=== PATIENT | female | born 1940 | race Caucasian/White ===

== ENCOUNTER 2022-05-23 15:59 | Emergency (ER) | payer OTHER, MEDICAID, SELFPAY ==
[2022-05-23] MEDS: LIDOCAINE 1 % PF 30 ML 6 ML INJECTION (16:35)
--- NOTE | 2022-05-23 17:30 | ED.NURSE ---
wound was irrigated with 1000 ml of sterile saline. tolerated well.
[2022-05-23] MEDS: TETANUS/DIPHTH/PERTUSSIS 0.5 ML SYRINGE IM (19:16)
--- NOTE | 2022-05-23 19:25 | ED.NURSE ---
wound was dressed with bacitracin, telfa, kerlix and coban. dc instructions given to ramandeep weaver. returned to ltc .
--- NOTE | 2022-05-23 20:46 | ED_ITS ---
HPI - General Adult General Date Seen: 05/23/22 Chief complaint: Laceration/Wound Stated complaint: Rt Calf Laceration Time Seen by Provider: 05/23/22 16:09 Source: family History of Present Illness HPI narrative: Patient is an 82-year-old woman who is the resident of long-term care. She is extremely hard of hearing, does not really provide much history. Her daughter says that she is on prednisone and as a result has very fragile skin. They apparently were trying to move her today and grabbed her leg to try and shift it, in the process the skin on her leg tore and she sustained a laceration. Last tetanus in 2010. No other injuries or complaints. Related Data Allergies Allergy/AdvReac Type Severity Reaction Status Date / Time Cephalosporins Allergy Intermediate edema Verified 11/28/21 22:07 penicillin V Allergy Intermediate rash Verified 11/28/21 22:07 loratadine Allergy Mild Rash Verified 11/28/21 22:07 amoxicillin Allergy Unknown Verified 11/28/21 22:07 cephalexin Allergy Unknown Verified 11/28/21 22:07 clindamycin Allergy Unknown Verified 11/28/21 22:07 cyclobenzaprine Allergy Unknown Verified 11/28/21 22:07 cyclosporine Allergy Unknown Verified 11/28/21 22:07 glyburide Allergy Unknown Verified 11/28/21 22:07 lisinopril Allergy Unknown Verified 11/28/21 22:07 Sulfa (Sulfonamide Allergy Unknown Verified 11/28/21 22:07 Antibiotics) Review of Systems Status of ROS: Reports: unobtainable due to medical condition (Hard of hearing) PFSH PFS Social History Smoking Status: Never smoker Do you use any of these nicotine containing products: None Second hand tobacco smoke exposure: No How often do you have a drink containing alcohol: never How often do you have six or more drinks on one occasion: Never AUDIT-C Alcohol total score: 0 Non-prescribed substance use: denies use service: No Exam Narrative: Exam Narrative: Vital signs reviewed In general, an alert woman. Very difficult to communicate secondary to her hearing loss. Extremities: She has significant edema in both lower extremities, some venous stasis changes. On the right, she has a greater than 10 cm laceration on the lower leg. This extends through the dermis into the fat, but does not involve the muscle. There is a small arterial bleeder which is controlled by pressure. Distal CMS is intact. Skin: Warm dry, well perfused. Neurologic: She is alert, answers questions appropriately. Moves all extremities. Const: Documenting provider has reviewed patient's vital signs: yes Course Course Hospital Course: Tetanus was updated. Procedure note: Wound was anesthetized using lidocaine. We did not have any lidocaine with epinephrine available. The wound was irrigated with 1000 mL of normal saline. No evidence of foreign body. I did have to tie off that is arterial bleeder with 4-0 Vicryl before proceeding. Because the skin was very thin and fragile, I elected to use horizontal mattress sutures. I ultimately placed 15 horizontal mattress sutures to approximate the wound edges. She tolerated this well without immediate complication. A dressing was applied including bacitracin, nonadherent dressing, and several layers of Kerlix as well as Coban. She does have significant weeping of serous fluid from this, secondary to her edema. I anticipate that this will continue to weep quite a bit of fluid. I have recommended b.i.d. dressing changes for that reason. Have discussed with the patient and her daughter that I anticipate this will be somewhat slow to heal. I have recommended suture removal at 10 days, but this may need to be delayed depending on how this is healing. For any signs of infection, increasing redness, swelling, purulent drainage she should be seen again. Discharge Plan Discharge Clinical Impression: Laceration of right lower leg Patient Disposition: [facility] Condition: Improved Instructions: Laceration (ED) Additional Instructions: Suture removal in about 10 days. Return for signs of infection. Elevate leg as much as possible. Dressing changes once or twice daily, depending on how much drainage there is. I expect that because of her edema there will be a fair amount of serous drainage. If purulent drainage, increasing redness, pain, swelling develops,you should be seen again for recheck. Stand Alone Forms: MyHealth Info Instructions
== END 2022-05-23 19:35 ==
PROVIDERS: Emergency Provider Emergency Medicine; PCP Family Medicine
DX: S81.811A Laceration without foreign body, right lower leg, initial encounter (principal)
CPT/HCPCS: 12004; 90471; 90715; 99283; 99284; J2001

== ENCOUNTER → 2022-12-18 11:30 | Inpatient (IN) | payer MEDICAID, OTHER, SELFPAY ==
[2021-11-27] MEDS: LOPERAMIDE HCL 2 MG CAPSULE PO ×2 (08:52→17:17)
[2021-11-27] MEDS: MAGNESIUM OXIDE 400 MG TABLET PO (08:52)
[2021-11-27] MEDS: FUROSEMIDE 20 MG TABLET PO ×2 (08:52→17:18)
[2021-11-27] MEDS: METFORMIN ER 500 MG 1000 MG PO ×2 (08:52→17:18)
[2021-11-27] MEDS: CETIRIZINE HCL 10 MG TABLET PO (08:53)
[2021-11-27] MEDS: predniSONE 1 MG TABLET PO (08:53)
[2021-11-27] MEDS: predniSONE 5 MG TABLET PO (08:53)
[2021-11-27] MEDS: POTASSIUM CHLORIDE 10 MEQ CAPSULE ER 20 MEQ PO (17:18)
[2021-11-27] MEDS: LACTOBACILLUS ACIDOPHILUS 1 TABLET 1 TAB PO ×2 (17:19)
[2021-11-28 08:00] VITALS: TEMP 36.1; O2SAT 98
[2021-11-28] MEDS: FUROSEMIDE 20 MG TABLET PO ×2 (08:55→16:53)
[2021-11-28] MEDS: MAGNESIUM OXIDE 400 MG TABLET PO (08:55)
[2021-11-28] MEDS: METFORMIN ER 500 MG 1000 MG PO ×2 (08:55→17:01)
[2021-11-28] MEDS: LOPERAMIDE HCL 2 MG CAPSULE PO ×2 (08:55→16:53)
[2021-11-28] MEDS: predniSONE 5 MG TABLET PO (08:56)
[2021-11-28] MEDS: CETIRIZINE HCL 10 MG TABLET PO (08:56)
[2021-11-28] MEDS: predniSONE 1 MG TABLET PO (08:56)
[2021-11-28] MEDS: LACTOBACILLUS ACIDOPHILUS 1 TABLET 1 TAB PO ×2 (11:59→17:01)
[2021-11-28] MEDS: POTASSIUM CHLORIDE 10 MEQ CAPSULE ER PO (16:53)
[2021-11-29 08:00] VITALS: TEMP 36.1; O2SAT 99
[2021-11-29] MEDS: FUROSEMIDE 20 MG TABLET PO ×2 (08:49→18:39)
[2021-11-29] MEDS: predniSONE 5 MG TABLET PO (08:49)
[2021-11-29] MEDS: CETIRIZINE HCL 10 MG TABLET PO (08:49)
[2021-11-29] MEDS: LOPERAMIDE HCL 2 MG CAPSULE PO ×2 (08:49→17:01)
[2021-11-29] MEDS: MAGNESIUM OXIDE 400 MG TABLET PO (08:49)
[2021-11-29] MEDS: METFORMIN ER 500 MG 1000 MG PO ×2 (08:49→17:01)
[2021-11-29] MEDS: predniSONE 1 MG TABLET PO (08:49)
[2021-11-29 09:34] LABS: Blood Urea Nitrogen* 29 mg/dL (7-30); Calcium* 7.9 mg/dL (8.4-10.6); Carbon Dioxide* 31 mmol/L (20-32); Chloride* 98 mmol/L (96-114); Creatinine* 1.1 mg/dL (0.5-1.5); Est. Creatinine Clearance* 32.26; Glucose* 170 mg/dL (60-115); Potassium* 3.7 mmol/L (3.6-5.1); Sodium* 136 mmol/L (135-149)
--- NOTE | 2021-11-29 10:37 | PC.PHA ---
Pharmacy Review ~ Patient needed Cipro 250 mg BID for cellulitis and has multiple allergies to other antibiotics. Creatinine on 11/29, 1.1 with crcl still above 30 as patient taking metformin 1000 mg qd. No scheduled pain meds currently, prn norco still not required since July. Furosemide 20 mg bid, recent potassium level 3.7.
[2021-11-29] MEDS: LACTOBACILLUS ACIDOPHILUS 1 TABLET 1 TAB PO ×2 (12:25→17:01)
--- NOTE | 2021-11-29 13:23 | PC.NURSE ---
Order: SANDY, Yudy here. BMP result reviewed. Lasix 20 mg BID X 14 days.
[2021-11-29] MEDS: POTASSIUM CHLORIDE 10 MEQ CAPSULE ER 20 MEQ PO (17:01)
[2021-11-30 08:00] VITALS: TEMP 36.6; O2SAT 96
[2021-11-30] MEDS: CETIRIZINE HCL 10 MG TABLET PO (08:48)
[2021-11-30] MEDS: predniSONE 5 MG TABLET PO (08:49)
[2021-11-30] MEDS: predniSONE 1 MG TABLET PO (08:49)
[2021-11-30] MEDS: LOPERAMIDE HCL 2 MG CAPSULE PO ×2 (08:49→16:51)
[2021-11-30] MEDS: MAGNESIUM OXIDE 400 MG TABLET PO (08:49)
[2021-11-30] MEDS: METFORMIN ER 500 MG 1000 MG PO ×2 (08:49→16:52)
[2021-11-30] MEDS: FUROSEMIDE 20 MG TABLET PO ×2 (08:49→16:51)
[2021-11-30] MEDS: LACTOBACILLUS ACIDOPHILUS 1 TABLET 1 TAB PO ×2 (12:01→16:52)
--- NOTE | 2021-11-30 12:23 | PC.NURSE ---
Recertification Visit: Resident seen by Dr. Ramsey. Orders reviewed and renewed of 75 days with changes. Order:D/C future A1C, On January 04, 2022 check A1C, BMP, Cystatin C. Clobetasol Cream 0.05%, apply to bilateral LE BID X 14 days. Please help arrangeaudiology appt. to assess for hearing aids.
[2021-11-30] MEDS: POTASSIUM CHLORIDE 10 MEQ CAPSULE ER PO (16:51)
[2021-12-01 08:00] VITALS: TEMP 36.6; O2SAT 98
[2021-12-01] MEDS: MAGNESIUM OXIDE 400 MG TABLET PO (08:33)
[2021-12-01] MEDS: METFORMIN ER 500 MG 1000 MG PO ×2 (08:33→16:54)
[2021-12-01] MEDS: LOPERAMIDE HCL 2 MG CAPSULE PO ×2 (08:33→16:54)
[2021-12-01] MEDS: FUROSEMIDE 20 MG TABLET PO ×2 (08:33→16:49)
[2021-12-01] MEDS: CETIRIZINE HCL 10 MG TABLET PO (08:34)
[2021-12-01] MEDS: predniSONE 5 MG TABLET PO (08:34)
[2021-12-01] MEDS: predniSONE 1 MG TABLET PO (08:34)
[2021-12-01] MEDS: LACTOBACILLUS ACIDOPHILUS 1 TABLET 1 TAB PO ×2 (12:06→16:54)
[2021-12-01] MEDS: POTASSIUM CHLORIDE 10 MEQ CAPSULE ER 20 MEQ PO (16:54)
[2021-12-02] MEDS: MAGNESIUM OXIDE 400 MG TABLET PO (07:23)
[2021-12-02] MEDS: FUROSEMIDE 20 MG TABLET PO ×2 (07:23→16:06)
[2021-12-02] MEDS: LOPERAMIDE HCL 2 MG CAPSULE PO ×2 (07:23→16:06)
[2021-12-02 08:00] VITALS: TEMP 36.6; O2SAT 98
[2021-12-02] MEDS: METFORMIN ER 500 MG 1000 MG PO ×2 (08:36→16:08)
[2021-12-02] MEDS: predniSONE 5 MG TABLET PO (08:37)
[2021-12-02] MEDS: predniSONE 1 MG TABLET PO (08:37)
[2021-12-02] MEDS: CETIRIZINE HCL 10 MG TABLET PO (08:37)
[2021-12-02] MEDS: LACTOBACILLUS ACIDOPHILUS 1 TABLET 1 TAB PO ×2 (12:19→16:08)
[2021-12-02] MEDS: POTASSIUM CHLORIDE 10 MEQ CAPSULE ER PO (16:07)
--- NOTE | 2021-12-03 01:22 | PC.NURSE ---
Week #1---care plan problems #1-19 reviewed. No changes made. Nothing added to temporary care plan. Has a cup of ice water at bedside that is filled at the beginning of this shift. Res. drinks per self. Has been asking for a snack around 2300. Has a refrigerator in her room that she keeps snacks in. Refrig. temp checked q noc. Pain---no recent c/o's pain at noc. Does have the following orders available if she does: Ambia 5-325mg q6h prn and Biofreeze q4h prn.
[2021-12-03 08:00] VITALS: TEMP 36.4; O2SAT 9
[2021-12-03] MEDS: METFORMIN ER 500 MG 1000 MG PO ×2 (08:52→17:03)
[2021-12-03] MEDS: CETIRIZINE HCL 10 MG TABLET PO (08:52)
[2021-12-03] MEDS: predniSONE 1 MG TABLET PO (08:52)
[2021-12-03] MEDS: predniSONE 5 MG TABLET PO (08:52)
[2021-12-03] MEDS: MAGNESIUM OXIDE 400 MG TABLET PO (08:52)
[2021-12-03] MEDS: LOPERAMIDE HCL 2 MG CAPSULE PO ×2 (08:52→17:03)
[2021-12-03] MEDS: FUROSEMIDE 20 MG TABLET PO ×2 (08:52→17:02)
[2021-12-03] MEDS: LACTOBACILLUS ACIDOPHILUS 1 TABLET 1 TAB PO ×2 (11:54→17:03)
[2021-12-03] MEDS: POTASSIUM CHLORIDE 10 MEQ CAPSULE ER PO (17:03)
[2021-12-04] MEDS: METFORMIN ER 500 MG 1000 MG PO ×2 (08:57→17:11)
[2021-12-04] MEDS: MAGNESIUM OXIDE 400 MG TABLET PO (08:57)
[2021-12-04] MEDS: LOPERAMIDE HCL 2 MG CAPSULE PO ×2 (08:57→17:11)
[2021-12-04] MEDS: FUROSEMIDE 20 MG TABLET PO ×2 (08:57→17:10)
[2021-12-04] MEDS: CETIRIZINE HCL 10 MG TABLET PO (08:58)
[2021-12-04] MEDS: predniSONE 1 MG TABLET PO (08:58)
[2021-12-04] MEDS: predniSONE 5 MG TABLET PO (08:58)
[2021-12-04] MEDS: LACTOBACILLUS ACIDOPHILUS 1 TABLET 1 TAB PO ×2 (11:50→17:15)
[2021-12-04] MEDS: POTASSIUM CHLORIDE 10 MEQ CAPSULE ER 20 MEQ PO (17:11)
[2021-12-05] MEDS: CETIRIZINE HCL 10 MG TABLET PO (08:50)
[2021-12-05] MEDS: predniSONE 5 MG TABLET PO (08:50)
[2021-12-05] MEDS: LOPERAMIDE HCL 2 MG CAPSULE PO ×2 (08:50→16:01)
[2021-12-05] MEDS: predniSONE 1 MG TABLET PO (08:50)
[2021-12-05] MEDS: MAGNESIUM OXIDE 400 MG TABLET PO (08:50)
[2021-12-05] MEDS: METFORMIN ER 500 MG 1000 MG PO ×2 (08:50→17:18)
[2021-12-05] MEDS: FUROSEMIDE 20 MG TABLET PO ×2 (08:50→16:01)
[2021-12-05 10:21] VITALS: TEMP 36.1; O2SAT 97
[2021-12-05] MEDS: LACTOBACILLUS ACIDOPHILUS 1 TABLET 1 TAB PO ×2 (12:14→17:18)
[2021-12-05] MEDS: POTASSIUM CHLORIDE 10 MEQ CAPSULE ER PO (16:01)
[2021-12-06] MEDS: LOPERAMIDE HCL 2 MG CAPSULE PO (08:53)
[2021-12-06] MEDS: FUROSEMIDE 20 MG TABLET PO ×2 (08:53→16:56)
[2021-12-06] MEDS: METFORMIN ER 500 MG 1000 MG PO ×2 (08:53→17:04)
[2021-12-06] MEDS: predniSONE 5 MG TABLET PO (08:53)
[2021-12-06] MEDS: MAGNESIUM OXIDE 400 MG TABLET PO (08:53)
[2021-12-06] MEDS: CETIRIZINE HCL 10 MG TABLET PO (08:54)
[2021-12-06] MEDS: predniSONE 1 MG TABLET PO (08:54)
[2021-12-06 10:24] VITALS: TEMP 36.4; O2SAT 97
[2021-12-06] MEDS: LACTOBACILLUS ACIDOPHILUS 1 TABLET 1 TAB PO ×2 (13:18→17:04)
[2021-12-06] MEDS: POTASSIUM CHLORIDE 10 MEQ CAPSULE ER 20 MEQ PO (16:56)
[2021-12-07] MEDS: FUROSEMIDE 20 MG TABLET PO ×2 (08:41→17:31)
[2021-12-07] MEDS: LOPERAMIDE HCL 2 MG CAPSULE PO ×2 (08:41→17:31)
[2021-12-07] MEDS: METFORMIN ER 500 MG 1000 MG PO ×2 (08:41→17:32)
[2021-12-07] MEDS: predniSONE 5 MG TABLET PO (08:41)
[2021-12-07] MEDS: MAGNESIUM OXIDE 400 MG TABLET PO (08:41)
[2021-12-07] MEDS: predniSONE 1 MG TABLET PO (08:42)
[2021-12-07] MEDS: CETIRIZINE HCL 10 MG TABLET PO (08:42)
[2021-12-07] MEDS: LACTOBACILLUS ACIDOPHILUS 1 TABLET 1 TAB PO ×2 (11:47→17:32)
[2021-12-07] MEDS: POTASSIUM CHLORIDE 10 MEQ CAPSULE ER PO (17:32)
[2021-12-08 08:00] VITALS: TEMP 36.7; O2SAT 97
[2021-12-08] MEDS: LOPERAMIDE HCL 2 MG CAPSULE PO ×2 (08:24→15:32)
[2021-12-08] MEDS: FUROSEMIDE 20 MG TABLET PO ×2 (08:24→15:32)
[2021-12-08] MEDS: METFORMIN ER 500 MG 1000 MG PO ×2 (08:24→17:06)
[2021-12-08] MEDS: MAGNESIUM OXIDE 400 MG TABLET PO (08:24)
[2021-12-08] MEDS: predniSONE 5 MG TABLET PO (08:25)
[2021-12-08] MEDS: predniSONE 1 MG TABLET PO (08:25)
[2021-12-08] MEDS: CETIRIZINE HCL 10 MG TABLET PO (08:25)
[2021-12-08] MEDS: LACTOBACILLUS ACIDOPHILUS 1 TABLET 1 TAB PO ×2 (11:58→17:06)
[2021-12-08] MEDS: POTASSIUM CHLORIDE 10 MEQ CAPSULE ER 20 MEQ PO (17:06)
[2021-12-09 08:00] VITALS: TEMP 36.7; O2SAT 99
[2021-12-09] MEDS: FUROSEMIDE 20 MG TABLET PO ×2 (08:34→16:40)
[2021-12-09] MEDS: predniSONE 1 MG TABLET PO (08:34)
[2021-12-09] MEDS: METFORMIN ER 500 MG 1000 MG PO ×2 (08:34→17:11)
[2021-12-09] MEDS: MAGNESIUM OXIDE 400 MG TABLET PO (08:34)
[2021-12-09] MEDS: predniSONE 5 MG TABLET PO (08:34)
[2021-12-09] MEDS: CETIRIZINE HCL 10 MG TABLET PO (08:34)
[2021-12-09] MEDS: LOPERAMIDE HCL 2 MG CAPSULE PO ×2 (08:34→16:40)
[2021-12-09] MEDS: LACTOBACILLUS ACIDOPHILUS 1 TABLET 1 TAB PO ×2 (12:10→17:11)
[2021-12-09] MEDS: POTASSIUM CHLORIDE 10 MEQ CAPSULE ER PO (16:41)
--- NOTE | 2021-12-10 00:43 | PC.NURSE ---
Week #2---care plan problems #20-29 reviewed. No changes made. Nothing added to temporary care plan. Does not get out of bed at noc. Refuses to lie on either side. Is turned briefly to get on and off the bedpan at least x 1 this shift. Assist of 2 staff to turn. Moved up in bed with EZ positioner. Top siderails up. Falls---no falls this past month. Is a low fall risk according to assessment done on 09/27/21.
[2021-12-10] MEDS: LOPERAMIDE HCL 2 MG CAPSULE PO ×2 (08:26→16:31)
[2021-12-10] MEDS: MAGNESIUM OXIDE 400 MG TABLET PO (08:26)
[2021-12-10] MEDS: FUROSEMIDE 20 MG TABLET PO ×2 (08:26→16:30)
[2021-12-10] MEDS: predniSONE 5 MG TABLET PO (08:27)
[2021-12-10] MEDS: METFORMIN ER 500 MG 1000 MG PO ×2 (08:27→17:37)
[2021-12-10] MEDS: predniSONE 1 MG TABLET PO (08:27)
[2021-12-10] MEDS: CETIRIZINE HCL 10 MG TABLET PO (08:28)
--- NOTE | 2021-12-10 10:37 | PC.NURSE ---
Weekly Week #2: Vital signs reviewed with no issues Resident is not a fall risk Temporary care plan reviewed with no issues Care plan #20-29 reviewed with no changes Resident is total assist of 2 with bed mobility, bed positioning
[2021-12-10 10:43] VITALS: BP 168/76; PULSE 86; RESP 16; TEMP 36.1; O2SAT 86; O2SAT 95
[2021-12-10] MEDS: LACTOBACILLUS ACIDOPHILUS 1 TABLET 1 TAB PO ×2 (11:55→17:37)
[2021-12-10] MEDS: POTASSIUM CHLORIDE 10 MEQ CAPSULE ER PO (16:31)
[2021-12-11] MEDS: FUROSEMIDE 20 MG TABLET PO ×2 (08:45→16:57)
[2021-12-11] MEDS: LOPERAMIDE HCL 2 MG CAPSULE PO ×2 (08:45→16:57)
[2021-12-11] MEDS: predniSONE 5 MG TABLET PO (08:45)
[2021-12-11] MEDS: MAGNESIUM OXIDE 400 MG TABLET PO (08:45)
[2021-12-11] MEDS: METFORMIN ER 500 MG 1000 MG PO ×2 (08:45→17:02)
[2021-12-11] MEDS: predniSONE 1 MG TABLET PO (08:46)
[2021-12-11] MEDS: CETIRIZINE HCL 10 MG TABLET PO (08:46)
[2021-12-11 10:22] VITALS: TEMP 36.4; O2SAT 93
[2021-12-11] MEDS: LACTOBACILLUS ACIDOPHILUS 1 TABLET 1 TAB PO ×2 (12:00→17:02)
--- NOTE | 2021-12-11 14:01 | PC.NURSE ---
Status: Resident refused weight taken, according to her weight was taken 2 weeks ago. Approached 2 different times.
[2021-12-11] MEDS: POTASSIUM CHLORIDE 10 MEQ CAPSULE ER 20 MEQ PO (16:57)
[2021-12-11 21:43] VITALS: TEMP 36.3; O2SAT 97
[2021-12-11 23:00] VITALS: TEMP 36.2; O2SAT 95
[2021-12-12] MEDS: METFORMIN ER 500 MG 1000 MG PO ×2 (08:44→17:01)
[2021-12-12] MEDS: MAGNESIUM OXIDE 400 MG TABLET PO (08:44)
[2021-12-12] MEDS: FUROSEMIDE 20 MG TABLET PO ×2 (08:44→16:59)
[2021-12-12] MEDS: LOPERAMIDE HCL 2 MG CAPSULE PO ×2 (08:44→17:00)
[2021-12-12] MEDS: CETIRIZINE HCL 10 MG TABLET PO (08:45)
[2021-12-12] MEDS: predniSONE 5 MG TABLET PO (08:45)
[2021-12-12] MEDS: predniSONE 1 MG TABLET PO (08:45)
[2021-12-12 09:50] VITALS: TEMP 36.1; O2SAT 95
[2021-12-12] MEDS: LACTOBACILLUS ACIDOPHILUS 1 TABLET 1 TAB PO ×2 (11:57→17:01)
--- NOTE | 2021-12-12 15:28 | PC.NURSE ---
SKIN/HIP: Area R hip is healed with small amount of pink tissue, appears to be from a fold on the incontinence brief pressing on the area. Dressing change intervention completed.
[2021-12-12] MEDS: POTASSIUM CHLORIDE 10 MEQ CAPSULE ER PO (17:00)
[2021-12-12 21:44] VITALS: TEMP 36.6; O2SAT 97
[2021-12-13 00:22] VITALS: TEMP 37.3; O2SAT 95
[2021-12-13 07:00] VITALS: TEMP 36.6; O2SAT 96
[2021-12-13] MEDS: LOPERAMIDE HCL 2 MG CAPSULE PO ×2 (08:22→19:04)
[2021-12-13] MEDS: METFORMIN ER 500 MG 1000 MG PO ×2 (08:22→19:06)
[2021-12-13] MEDS: MAGNESIUM OXIDE 400 MG TABLET PO (08:22)
[2021-12-13] MEDS: FUROSEMIDE 20 MG TABLET PO (08:22)
[2021-12-13] MEDS: predniSONE 1 MG TABLET PO (08:23)
[2021-12-13] MEDS: predniSONE 5 MG TABLET PO (08:23)
[2021-12-13] MEDS: CETIRIZINE HCL 10 MG TABLET PO (08:23)
[2021-12-13] MEDS: LACTOBACILLUS ACIDOPHILUS 1 TABLET 1 TAB PO ×2 (11:48→19:06)
[2021-12-13 16:39] VITALS: TEMP 36.6; O2SAT 95
[2021-12-13] MEDS: POTASSIUM CHLORIDE 10 MEQ CAPSULE ER 20 MEQ PO (19:04)
[2021-12-13 23:00] VITALS: TEMP 36.3; O2SAT 94
[2021-12-14 07:00] VITALS: TEMP 36.6; O2SAT 100
[2021-12-14] MEDS: predniSONE 5 MG TABLET PO (08:35)
[2021-12-14] MEDS: CETIRIZINE HCL 10 MG TABLET PO (08:35)
[2021-12-14] MEDS: MAGNESIUM OXIDE 400 MG TABLET PO (08:35)
[2021-12-14] MEDS: METFORMIN ER 500 MG 1000 MG PO ×2 (08:35→17:01)
[2021-12-14] MEDS: predniSONE 1 MG TABLET PO (08:35)
[2021-12-14] MEDS: LOPERAMIDE HCL 2 MG CAPSULE PO ×2 (08:35→17:01)
[2021-12-14] MEDS: LACTOBACILLUS ACIDOPHILUS 1 TABLET 1 TAB PO ×2 (12:17→17:01)
[2021-12-14] MEDS: POTASSIUM CHLORIDE 10 MEQ CAPSULE ER PO (17:01)
[2021-12-14 17:25] VITALS: TEMP 36.3; O2SAT 95
[2021-12-14 23:00] VITALS: TEMP 36.3; O2SAT 94
[2021-12-15 07:00] VITALS: TEMP 36.6; O2SAT 96
[2021-12-15] MEDS: LOPERAMIDE HCL 2 MG CAPSULE PO ×2 (08:45→16:49)
[2021-12-15] MEDS: MAGNESIUM OXIDE 400 MG TABLET PO (08:45)
[2021-12-15] MEDS: METFORMIN ER 500 MG 1000 MG PO ×2 (08:45→16:49)
[2021-12-15] MEDS: CETIRIZINE HCL 10 MG TABLET PO (08:46)
[2021-12-15] MEDS: predniSONE 5 MG TABLET PO (08:46)
[2021-12-15] MEDS: predniSONE 1 MG TABLET PO (08:46)
[2021-12-15] MEDS: LACTOBACILLUS ACIDOPHILUS 1 TABLET 1 TAB PO ×2 (11:45→16:50)
[2021-12-15] MEDS: POTASSIUM CHLORIDE 10 MEQ CAPSULE ER 20 MEQ PO (16:49)
[2021-12-15 17:04] VITALS: TEMP 36.4; O2SAT 94
--- NOTE | 2021-12-15 20:07 | PC.NURSE ---
Edema: 2+ edema noted in L foot, compression stockings on. Resident continues to refuse to elevate RUE.
[2021-12-15 23:59] VITALS: TEMP 36.1; O2SAT 94
[2021-12-16 07:00] VITALS: TEMP 36.6; O2SAT 96
[2021-12-16] MEDS: LOPERAMIDE HCL 2 MG CAPSULE PO ×2 (08:14→18:12)
[2021-12-16] MEDS: METFORMIN ER 500 MG 1000 MG PO ×2 (08:15→18:12)
[2021-12-16] MEDS: MAGNESIUM OXIDE 400 MG TABLET PO (08:15)
[2021-12-16] MEDS: predniSONE 5 MG TABLET PO (08:16)
[2021-12-16] MEDS: predniSONE 1 MG TABLET PO (08:17)
[2021-12-16] MEDS: CETIRIZINE HCL 10 MG TABLET PO (08:17)
[2021-12-16] MEDS: LACTOBACILLUS ACIDOPHILUS 1 TABLET 1 TAB PO ×2 (11:42→18:12)
[2021-12-16] MEDS: NYSTATIN POWDER 1 APPLIC TOPICAL (12:36)
[2021-12-16 16:52] VITALS: TEMP 36.6; O2SAT 98
[2021-12-16] MEDS: POTASSIUM CHLORIDE 10 MEQ CAPSULE ER PO (18:12)
[2021-12-16 23:00] VITALS: TEMP 36.3; O2SAT 96
--- NOTE | 2021-12-17 02:47 | PC.NURSE ---
Week #3---care plan problems #30-39 reviewed. No changes made. Nothing added to temporary care plan. Will call for assist with the bedpan at [facility]. Assist of [address] her on the bedpan. Is freq. already wet but also voids on the bedpan. Freq. has a BM at [facility]. Stool tends to be loose. Res. wears an xxlg brief which is managed by staff. All pericare done by staff. Skin---At this time receives lotion to inner thighs and then a towel is placed BID. Also receives Vanicream to LLE BID.
[2021-12-17] MEDS: MAGNESIUM OXIDE 400 MG TABLET PO (09:05)
[2021-12-17] MEDS: LOPERAMIDE HCL 2 MG CAPSULE PO ×2 (09:05→15:36)
[2021-12-17] MEDS: predniSONE 1 MG TABLET PO (09:06)
[2021-12-17] MEDS: predniSONE 5 MG TABLET PO (09:06)
[2021-12-17] MEDS: CETIRIZINE HCL 10 MG TABLET PO (09:06)
[2021-12-17] MEDS: METFORMIN ER 500 MG 1000 MG PO ×2 (09:06→17:08)
[2021-12-17] MEDS: LACTOBACILLUS ACIDOPHILUS 1 TABLET 1 TAB PO ×2 (11:37→17:08)
[2021-12-17 12:29] VITALS: TEMP 36.4; O2SAT 98
--- NOTE | 2021-12-17 13:49 | PC.NURSE ---
Skin - Red area underneath left armpit. Redness and split in L abdominal fold. Area washed and dried. Nystatin powder applied.
[2021-12-17 15:00] VITALS: TEMP 36.7; O2SAT 98
--- NOTE | 2021-12-17 16:28 | PC.NURSE ---
Week #3: Skin summary: Resident has some new redness to the left armpit and left abdominal fold. Nystatin PRN used. Temporary care plan reviewed no change. Care plan 30-39 reviewed, no change. Resident is incontinent of bowel and bladder. Will call to use the bed armenta with two assist. Is on immodium BID.
[2021-12-17] MEDS: POTASSIUM CHLORIDE 10 MEQ CAPSULE ER PO (17:08)
[2021-12-17 18:00] VITALS: BP 134/71; PULSE 86; RESP 16; TEMP 36.7; O2SAT 98
[2021-12-17 23:00] VITALS: TEMP 36.4; O2SAT 95
[2021-12-18] MEDS: LOPERAMIDE HCL 2 MG CAPSULE PO ×2 (09:01→16:51)
[2021-12-18] MEDS: MAGNESIUM OXIDE 400 MG TABLET PO (09:02)
[2021-12-18] MEDS: METFORMIN ER 500 MG 1000 MG PO ×2 (09:02→16:52)
[2021-12-18] MEDS: predniSONE 1 MG TABLET PO (09:03)
[2021-12-18] MEDS: predniSONE 5 MG TABLET PO (09:03)
[2021-12-18] MEDS: CETIRIZINE HCL 10 MG TABLET PO (09:03)
--- NOTE | 2021-12-18 09:59 | REH.OT ---
Hot Liquid Assessment: Resident is independent in drinking hot liquids.
[2021-12-18 10:59] VITALS: TEMP 36.7; O2SAT 97
[2021-12-18] MEDS: LACTOBACILLUS ACIDOPHILUS 1 TABLET 1 TAB PO ×2 (13:37→16:52)
--- NOTE | 2021-12-18 14:00 | PC.NURSE ---
CARE CONFERENCE: Resident, dietary, activities, nursing, and SS in attendance. Daughter Eloina on phone. Resident has been compliant with wearing MARGARET stockings regularly, swelling has improved since last CC. All wounds are healed at this time. Resident notes she continues to have dry, sensitive skin. Lotion is applied daily and as needed. Nystatin powder is being applied to abd/armpit folds for redness and moisture noted. Resident feels she might have a yeast infection and wants that pill from the doctor. Will place note in BELT MOLDER book. Resident has pain when lower legs touched. Nail care to be done weekly. Resident continues to refuse tub baths and most often gets a bed bath. Encouraged resident to take tub baths due to hygiene concern and recurrent yeast infections. Incontinent of bowel and bladder. Calls for bedpan. Care plan reviewed and updated. No life enrichment concerns. Life enrichment provided update, no concerns. Resident notes that her amplifier is no longer working well. Audiology is set to come in Jan. Family would like to hold off on buying an amplifier until then. Resident does not leave room unless for bath or haircuts. A larger wheelchair was provided to resident, is in resident bathroom. Resident is bed bound at this time. Refuses to get up to her recliner. Residents weight is stable. Continue minced and moist diet. Reviewed POLST. DNR/DNI. No changes made. Uses no restraints. Does use 2 half siderails to assist with positioning. Medications set up by nurse - puts empty med cup on her food tray to show the nurse that she took her pills. She does not eat breakfast in the morning and requests to sleep in I am a night owl. Vulnerability- at risk of being harmed due to weakness and assistance needed with ADLs. Resident is a josé lift. She requests a trapeze be placed on her bed, but this is not possible due to josé lift. No plans for discharge. skilled nursing care.
[2021-12-18 15:46] VITALS: BMI 39.9
[2021-12-18] MEDS: POTASSIUM CHLORIDE 10 MEQ CAPSULE ER 20 MEQ PO (16:52)
[2021-12-18 17:08] VITALS: TEMP 36.2; O2SAT 93
[2021-12-18 23:00] VITALS: TEMP 37.2; O2SAT 95
[2021-12-19] MEDS: MAGNESIUM OXIDE 400 MG TABLET PO (08:48)
[2021-12-19] MEDS: METFORMIN ER 500 MG 1000 MG PO ×2 (08:48→17:04)
[2021-12-19] MEDS: LOPERAMIDE HCL 2 MG CAPSULE PO ×2 (08:48→17:04)
[2021-12-19] MEDS: CETIRIZINE HCL 10 MG TABLET PO (08:49)
[2021-12-19] MEDS: predniSONE 1 MG TABLET PO (08:49)
[2021-12-19] MEDS: predniSONE 5 MG TABLET PO (08:49)
[2021-12-19] MEDS: NYSTATIN POWDER 1 APPLIC TOPICAL (08:50)
[2021-12-19 10:17] VITALS: TEMP 36.1; O2SAT 98
[2021-12-19] MEDS: LACTOBACILLUS ACIDOPHILUS 1 TABLET 1 TAB PO ×2 (12:09→17:04)
--- NOTE | 2021-12-19 12:24 | PC.PHA ---
Phamacy Review ~ Patientm
--- NOTE | 2021-12-19 12:26 | PC.PHA ---
Pharmacy Review~ Patient was taking furosemide 20 mg bid until mid-November. Potassium regiment continues. Pain medication regimen consists only of prn Crucible 5/325 mg and no doses documented thus far in November.
[2021-12-19] MEDS: POTASSIUM CHLORIDE 10 MEQ CAPSULE ER PO (17:04)
[2021-12-19 21:19] VITALS: TEMP 36.2; O2SAT 94
[2021-12-19 23:00] VITALS: TEMP 35.7; O2SAT 95
[2021-12-20 07:00] VITALS: TEMP 36.9; O2SAT 98
[2021-12-20] MEDS: MAGNESIUM OXIDE 400 MG TABLET PO (08:30)
[2021-12-20] MEDS: predniSONE 1 MG TABLET PO (08:30)
[2021-12-20] MEDS: METFORMIN ER 500 MG 1000 MG PO ×2 (08:30→17:16)
[2021-12-20] MEDS: predniSONE 5 MG TABLET PO (08:30)
[2021-12-20] MEDS: LOPERAMIDE HCL 2 MG CAPSULE PO ×2 (08:30→17:15)
[2021-12-20] MEDS: CETIRIZINE HCL 10 MG TABLET PO (08:30)
[2021-12-20] MEDS: LACTOBACILLUS ACIDOPHILUS 1 TABLET 1 TAB PO ×2 (11:17→17:16)
--- NOTE | 2021-12-20 13:09 | PC.NURSE ---
Order: Diflucan 150mg Q72H X 3 doses for yeast infection.
[2021-12-20] MEDS: POTASSIUM CHLORIDE 10 MEQ CAPSULE ER 20 MEQ PO (17:16)
[2021-12-20] MEDS: FLUCONAZOLE 100 MG TABLET 150 MG PO (20:49)
[2021-12-20 21:03] VITALS: TEMP 36.6; O2SAT 94
[2021-12-20 23:00] VITALS: TEMP 37.2; O2SAT 96
--- NOTE | 2021-12-20 23:14 | PC.NURSE ---
FALL RISK: Assessment completed. Resident is a low risk for falls.
[2021-12-21 07:00] VITALS: TEMP 36.8; O2SAT 96
[2021-12-21] MEDS: predniSONE 1 MG TABLET PO (08:37)
[2021-12-21] MEDS: MAGNESIUM OXIDE 400 MG TABLET PO (08:37)
[2021-12-21] MEDS: LOPERAMIDE HCL 2 MG CAPSULE PO ×2 (08:37→17:27)
[2021-12-21] MEDS: CETIRIZINE HCL 10 MG TABLET PO (08:37)
[2021-12-21] MEDS: predniSONE 5 MG TABLET PO (08:37)
[2021-12-21] MEDS: METFORMIN ER 500 MG 1000 MG PO ×2 (08:37→17:27)
[2021-12-21] MEDS: LACTOBACILLUS ACIDOPHILUS 1 TABLET 1 TAB PO ×2 (11:01→17:27)
--- NOTE | 2021-12-21 16:47 | PC.SOCIAL ---
Care Conference: Care conference held on 12/18/21. All care team members and resident attended in person, Eloina martinez, attended by phone. Resident's dtrs are very involved in her care. Resident's mood and behavior remain stable. Resident plans to [facility] this facility [facility].
[2021-12-21 18:30] VITALS: TEMP 36.7; O2SAT 96
[2021-12-21 23:00] VITALS: TEMP 36; O2SAT 96
[2021-12-22] MEDS: POTASSIUM CHLORIDE 10 MEQ CAPSULE ER PO (06:25)
[2021-12-22 07:00] VITALS: TEMP 36.7; O2SAT 96
[2021-12-22] MEDS: CETIRIZINE HCL 10 MG TABLET PO (08:38)
[2021-12-22] MEDS: predniSONE 1 MG TABLET PO (08:38)
[2021-12-22] MEDS: METFORMIN ER 500 MG 1000 MG PO ×2 (08:38→17:20)
[2021-12-22] MEDS: LOPERAMIDE HCL 2 MG CAPSULE PO ×2 (08:38→17:19)
[2021-12-22] MEDS: predniSONE 5 MG TABLET PO (08:38)
[2021-12-22] MEDS: MAGNESIUM OXIDE 400 MG TABLET PO (08:38)
[2021-12-22] MEDS: LACTOBACILLUS ACIDOPHILUS 1 TABLET 1 TAB PO ×2 (11:32→17:20)
[2021-12-22 16:32] VITALS: TEMP 36.6; O2SAT 97
[2021-12-22] MEDS: POTASSIUM CHLORIDE 10 MEQ CAPSULE ER 20 MEQ PO (17:19)
[2021-12-22 23:00] VITALS: TEMP 36.2; O2SAT 96
[2021-12-23 07:00] VITALS: TEMP 36.6; O2SAT 98
[2021-12-23] MEDS: CETIRIZINE HCL 10 MG TABLET PO (08:30)
[2021-12-23] MEDS: predniSONE 5 MG TABLET PO (08:30)
[2021-12-23] MEDS: MAGNESIUM OXIDE 400 MG TABLET PO (08:30)
[2021-12-23] MEDS: METFORMIN ER 500 MG 1000 MG PO ×2 (08:30→17:19)
[2021-12-23] MEDS: LOPERAMIDE HCL 2 MG CAPSULE PO ×2 (08:30→17:19)
[2021-12-23] MEDS: predniSONE 1 MG TABLET PO (08:30)
[2021-12-23] MEDS: LACTOBACILLUS ACIDOPHILUS 1 TABLET 1 TAB PO ×2 (11:44→17:19)
[2021-12-23] MEDS: FLUCONAZOLE 100 MG TABLET 150 MG PO (13:07)
[2021-12-23] MEDS: POTASSIUM CHLORIDE 10 MEQ CAPSULE ER PO (17:19)
[2021-12-23 20:13] VITALS: TEMP 36.6; O2SAT 97
[2021-12-23 23:00] VITALS: TEMP 36.3; O2SAT 95
--- NOTE | 2021-12-24 01:46 | PC.NURSE ---
Week #4---care plan problems #40+ reviewed. No changes made. Nothing added to temporary care plan. Uses call light for needs. No changes noted in hearing, vision, or orientation. No behavior problems at [facility]. Sleeps well. Has TV on all noc. Is on no psychotropic meds.
--- NOTE | 2021-12-24 06:50 | PC.NURSE ---
Week #4: Care plan problems 40-119 and temporary care plan reviewed. No chnages made. No additions to temporary care plan. No changes in communication, hearing, vision, orientation & chronic health condition. Resident does communicate her needs and use the call light. She is cognitively intact. Has hearing impairment, no use of hearing aids. Has an amplifier in room to help with hearing. Staff administers medications. Behavior/Mood: Has no issues. Is on no psychotropic medications.
[2021-12-24] MEDS: METFORMIN ER 500 MG 1000 MG PO ×2 (08:43→17:17)
[2021-12-24] MEDS: MAGNESIUM OXIDE 400 MG TABLET PO (08:43)
[2021-12-24] MEDS: LOPERAMIDE HCL 2 MG CAPSULE PO ×2 (08:43→16:25)
[2021-12-24] MEDS: predniSONE 5 MG TABLET PO (08:43)
[2021-12-24] MEDS: predniSONE 1 MG TABLET PO (08:43)
[2021-12-24] MEDS: CETIRIZINE HCL 10 MG TABLET PO (08:44)
[2021-12-24] MEDS: LACTOBACILLUS ACIDOPHILUS 1 TABLET 1 TAB PO ×2 (11:07→17:17)
[2021-12-24 13:20] VITALS: BP 182/79; PULSE 71; RESP 14; TEMP 36.3; O2SAT 96
[2021-12-24 15:00] VITALS: TEMP 36.8; O2SAT 97
[2021-12-24] MEDS: POTASSIUM CHLORIDE 10 MEQ CAPSULE ER PO (16:25)
[2021-12-25] MEDS: CETIRIZINE HCL 10 MG TABLET PO (08:26)
[2021-12-25] MEDS: LOPERAMIDE HCL 2 MG CAPSULE PO ×2 (08:26→16:11)
[2021-12-25] MEDS: MAGNESIUM OXIDE 400 MG TABLET PO (08:26)
[2021-12-25] MEDS: METFORMIN ER 500 MG 1000 MG PO ×2 (08:26→18:09)
[2021-12-25] MEDS: predniSONE 5 MG TABLET PO (08:26)
[2021-12-25] MEDS: predniSONE 1 MG TABLET PO (08:26)
[2021-12-25] MEDS: LACTOBACILLUS ACIDOPHILUS 1 TABLET 1 TAB PO ×2 (11:11→18:09)
[2021-12-25 13:06] VITALS: TEMP 36.9; O2SAT 98
[2021-12-25 15:00] VITALS: TEMP 36.9; O2SAT 98
[2021-12-25] MEDS: POTASSIUM CHLORIDE 10 MEQ CAPSULE ER 20 MEQ PO (16:11)
[2021-12-25 23:00] VITALS: TEMP 36.1; O2SAT 96
[2021-12-26] MEDS: MAGNESIUM OXIDE 400 MG TABLET PO (08:30)
[2021-12-26] MEDS: LOPERAMIDE HCL 2 MG CAPSULE PO ×2 (08:30→17:16)
[2021-12-26] MEDS: METFORMIN ER 500 MG 1000 MG PO ×2 (08:30→17:17)
[2021-12-26] MEDS: CETIRIZINE HCL 10 MG TABLET PO (08:31)
[2021-12-26] MEDS: predniSONE 1 MG TABLET PO (08:31)
[2021-12-26] MEDS: predniSONE 5 MG TABLET PO (08:31)
[2021-12-26] MEDS: LACTOBACILLUS ACIDOPHILUS 1 TABLET 1 TAB PO ×2 (12:23→17:17)
[2021-12-26] MEDS: FLUCONAZOLE 100 MG TABLET 150 MG PO (13:51)
[2021-12-26 13:57] VITALS: TEMP 36.9; O2SAT 97
[2021-12-26] MEDS: POTASSIUM CHLORIDE 10 MEQ CAPSULE ER PO (17:16)
[2021-12-27 08:00] VITALS: TEMP 36.2; O2SAT 98
[2021-12-27] MEDS: MAGNESIUM OXIDE 400 MG TABLET PO (08:41)
[2021-12-27] MEDS: LOPERAMIDE HCL 2 MG CAPSULE PO ×2 (08:41→17:22)
[2021-12-27] MEDS: predniSONE 1 MG TABLET PO (08:41)
[2021-12-27] MEDS: METFORMIN ER 500 MG 1000 MG PO ×2 (08:42→17:22)
[2021-12-27] MEDS: predniSONE 5 MG TABLET PO (08:42)
[2021-12-27] MEDS: CETIRIZINE HCL 10 MG TABLET PO (08:42)
[2021-12-27] MEDS: LACTOBACILLUS ACIDOPHILUS 1 TABLET 1 TAB PO ×2 (11:38→17:22)
[2021-12-27] MEDS: POTASSIUM CHLORIDE 10 MEQ CAPSULE ER 20 MEQ PO (17:22)
[2021-12-28 08:00] VITALS: TEMP 36.8; O2SAT 98
[2021-12-28] MEDS: METFORMIN ER 500 MG 1000 MG PO ×2 (08:54→17:18)
[2021-12-28] MEDS: LOPERAMIDE HCL 2 MG CAPSULE PO ×2 (08:54→17:17)
[2021-12-28] MEDS: CETIRIZINE HCL 10 MG TABLET PO (08:54)
[2021-12-28] MEDS: MAGNESIUM OXIDE 400 MG TABLET PO (08:54)
[2021-12-28] MEDS: predniSONE 5 MG TABLET PO (08:54)
[2021-12-28] MEDS: predniSONE 1 MG TABLET PO (08:54)
[2021-12-28] MEDS: LACTOBACILLUS ACIDOPHILUS 1 TABLET 1 TAB PO ×2 (12:17→17:18)
[2021-12-28] MEDS: POTASSIUM CHLORIDE 10 MEQ CAPSULE ER PO (17:17)
[2021-12-29] MEDS: MAGNESIUM OXIDE 400 MG TABLET PO (08:52)
[2021-12-29] MEDS: LOPERAMIDE HCL 2 MG CAPSULE PO ×2 (08:52→17:06)
[2021-12-29] MEDS: predniSONE 5 MG TABLET PO (08:52)
[2021-12-29] MEDS: METFORMIN ER 500 MG 1000 MG PO ×2 (08:52→18:05)
[2021-12-29] MEDS: predniSONE 1 MG TABLET PO (08:52)
[2021-12-29] MEDS: CETIRIZINE HCL 10 MG TABLET PO (08:52)
[2021-12-29] MEDS: LACTOBACILLUS ACIDOPHILUS 1 TABLET 1 TAB PO ×2 (12:08→18:05)
[2021-12-29 13:25] VITALS: TEMP 36.6; O2SAT 97
[2021-12-29] MEDS: POTASSIUM CHLORIDE 10 MEQ CAPSULE ER 20 MEQ PO (17:05)
[2021-12-30] MEDS: LOPERAMIDE HCL 2 MG CAPSULE PO ×2 (09:11→16:56)
[2021-12-30] MEDS: MAGNESIUM OXIDE 400 MG TABLET PO (09:11)
[2021-12-30] MEDS: METFORMIN ER 500 MG 1000 MG PO ×2 (09:12→16:57)
[2021-12-30] MEDS: predniSONE 5 MG TABLET PO (09:12)
[2021-12-30] MEDS: predniSONE 1 MG TABLET PO (09:13)
[2021-12-30] MEDS: CETIRIZINE HCL 10 MG TABLET PO (09:13)
[2021-12-30 09:50] VITALS: TEMP 36.6; O2SAT 97
[2021-12-30] MEDS: LACTOBACILLUS ACIDOPHILUS 1 TABLET 1 TAB PO ×2 (11:53→16:57)
[2021-12-30] MEDS: POTASSIUM CHLORIDE 10 MEQ CAPSULE ER PO (16:56)
--- NOTE | 2021-12-31 09:01 | PC.NURSE ---
Week #1: Care plan problems -19 and temporary care plan reviewed. No changes made. Nothing added to temporary care plan. She needs extensive assist of 1-2 with dressing & bathing. Frequently refuses a tub bath, offer sponge bath when this occurs. Is able to do oral cares after set up. Staff assist as needed. Independent with feeding. Is on regular, minced & moistened diet. No problems with chewing/swallowing noted. Pain: No complain of pain thispast month.Is on no routine pain medications. Has an order for [place] 1 tablet Q6H PRN & has used occasionally. She does verbalize need for pain.
[2021-12-31] MEDS: MAGNESIUM OXIDE 400 MG TABLET PO (09:25)
[2021-12-31] MEDS: LOPERAMIDE HCL 2 MG CAPSULE PO ×2 (09:25→16:04)
[2021-12-31] MEDS: METFORMIN ER 500 MG 1000 MG PO ×2 (09:25→17:21)
[2021-12-31] MEDS: predniSONE 1 MG TABLET PO (09:26)
[2021-12-31] MEDS: CETIRIZINE HCL 10 MG TABLET PO (09:26)
[2021-12-31] MEDS: predniSONE 5 MG TABLET PO (09:26)
[2021-12-31] MEDS: LACTOBACILLUS ACIDOPHILUS 1 TABLET 1 TAB PO ×2 (12:10→17:21)
[2021-12-31 13:30] VITALS: TEMP 36.9; O2SAT 95
[2021-12-31 13:34] VITALS: BP 134/86; PULSE 97; RESP 18; TEMP 36.7; O2SAT 97
[2021-12-31] MEDS: POTASSIUM CHLORIDE 10 MEQ CAPSULE ER PO (16:04)
--- NOTE | 2021-12-31 21:02 | PC.NURSE ---
Week #1---[facility] shift charting---care plan problems #1-19 reviewed. No changes made. Nothing added to temporary care plan. Has a cup of ice water at bedside that she drinks per self. Staff refill at 2300. If awake at that time will freq. request a snack of some kind. Usually cookies or ice cream. Has her own refrigerator in her room. Temp checked q [facility]. Pain---no c/o's pain at [facility] recently. Is on no scheduled pain meds. Does have the following available if needed: [place] 1 tab q6h prn and Biofreeze q4h prn.
[2022-01-01] MEDS: LOPERAMIDE HCL 2 MG CAPSULE PO ×2 (09:05→16:54)
[2022-01-01] MEDS: METFORMIN ER 500 MG 1000 MG PO ×2 (09:05→16:55)
[2022-01-01] MEDS: MAGNESIUM OXIDE 400 MG TABLET PO (09:05)
[2022-01-01] MEDS: predniSONE 5 MG TABLET PO (09:06)
[2022-01-01] MEDS: CETIRIZINE HCL 10 MG TABLET PO (09:06)
[2022-01-01] MEDS: predniSONE 1 MG TABLET PO (09:06)
--- NOTE | 2022-01-01 10:37 | PC.NURSE ---
Order: Lasix 20mg daily by Yudy DELGADO.
[2022-01-01 10:40] VITALS: TEMP 37.1; O2SAT 95
[2022-01-01 10:44] VITALS: TEMP 37.1; O2SAT 95
[2022-01-01] MEDS: LACTOBACILLUS ACIDOPHILUS 1 TABLET 1 TAB PO ×2 (12:08→16:55)
[2022-01-01] MEDS: POTASSIUM CHLORIDE 10 MEQ CAPSULE ER 20 MEQ PO (16:55)
[2022-01-02] MEDS: METFORMIN ER 500 MG 1000 MG PO ×2 (08:55→17:10)
[2022-01-02] MEDS: FUROSEMIDE 20 MG TABLET PO (08:55)
[2022-01-02] MEDS: CETIRIZINE HCL 10 MG TABLET PO (08:55)
[2022-01-02] MEDS: LOPERAMIDE HCL 2 MG CAPSULE PO ×2 (08:55→15:06)
[2022-01-02] MEDS: predniSONE 5 MG TABLET PO (08:55)
[2022-01-02] MEDS: MAGNESIUM OXIDE 400 MG TABLET PO (08:55)
[2022-01-02] MEDS: predniSONE 1 MG TABLET PO (08:55)
[2022-01-02] MEDS: LACTOBACILLUS ACIDOPHILUS 1 TABLET 1 TAB PO ×2 (12:10→17:10)
[2022-01-02 13:55] VITALS: TEMP 36.6; O2SAT 97
--- NOTE | 2022-01-02 14:20 | PC.NURSE ---
Skin - Redness under R breast and R armpit. Pt states it is painful to the touch. Apply steroid cream to area until resolved. Slit in L abd fold is resolved and duoderm no longer required. Redness still present on BLE and thighs. Red area on coccyx. Apply sensicare until resolved.
[2022-01-02] MEDS: POTASSIUM CHLORIDE 10 MEQ CAPSULE ER PO (16:18)
[2022-01-03 08:00] VITALS: TEMP 36.8; O2SAT 97
[2022-01-03] MEDS: LOPERAMIDE HCL 2 MG CAPSULE PO ×2 (08:25→17:22)
[2022-01-03] MEDS: predniSONE 1 MG TABLET PO (08:25)
[2022-01-03] MEDS: METFORMIN ER 500 MG 1000 MG PO ×2 (08:25→17:22)
[2022-01-03] MEDS: CETIRIZINE HCL 10 MG TABLET PO (08:25)
[2022-01-03] MEDS: predniSONE 5 MG TABLET PO (08:25)
[2022-01-03] MEDS: FUROSEMIDE 20 MG TABLET PO (08:25)
[2022-01-03] MEDS: MAGNESIUM OXIDE 400 MG TABLET PO (08:25)
--- NOTE | 2022-01-03 10:51 | PC.SPIRITC ---
Magazine Journalist provided visit for support and connection.
[2022-01-03] MEDS: LACTOBACILLUS ACIDOPHILUS 1 TABLET 1 TAB PO ×2 (11:37→17:22)
[2022-01-03] MEDS: POTASSIUM CHLORIDE 10 MEQ CAPSULE ER 20 MEQ PO (17:22)
[2022-01-04 08:00] VITALS: TEMP 36.6; O2SAT 97
[2022-01-04 08:11] LABS: Chloride* 101 mmol/L (96-114); Potassium* 4.5 mmol/L (3.6-5.1); Sodium* 134 mmol/L (135-149)
[2022-01-04 08:14] LABS: Blood Urea Nitrogen* 19 mg/dL (7-30); Calcium* 8.3 mg/dL (8.4-10.6); Carbon Dioxide* 29 mmol/L (20-32); Estimated Glomerular Filt Rate 57 ml/min; Glucose* 189 mg/dL (60-115)
[2022-01-04] MEDS: LOPERAMIDE HCL 2 MG CAPSULE PO ×2 (08:50→16:43)
[2022-01-04] MEDS: FUROSEMIDE 20 MG TABLET PO (08:50)
[2022-01-04] MEDS: predniSONE 5 MG TABLET PO (08:50)
[2022-01-04] MEDS: METFORMIN ER 500 MG 1000 MG PO ×2 (08:50→17:03)
[2022-01-04] MEDS: MAGNESIUM OXIDE 400 MG TABLET PO (08:50)
[2022-01-04] MEDS: predniSONE 1 MG TABLET PO (08:51)
[2022-01-04] MEDS: CETIRIZINE HCL 10 MG TABLET PO (08:51)
[2022-01-04] MEDS: LACTOBACILLUS ACIDOPHILUS 1 TABLET 1 TAB PO ×2 (11:55→17:03)
--- NOTE | 2022-01-04 12:11 | PC.NURSE ---
Labs: HgA1C, Cystatin C, BMP reviewed by Dr. Ramsey. No new order.
[2022-01-04] MEDS: POTASSIUM CHLORIDE 10 MEQ CAPSULE ER PO (16:43)
[2022-01-04] MEDS: NYSTATIN POWDER 1 APPLIC TOPICAL (20:48)
[2022-01-05 08:00] VITALS: TEMP 37; O2SAT 97
[2022-01-05] MEDS: METFORMIN ER 500 MG 1000 MG PO ×2 (08:44→17:05)
[2022-01-05] MEDS: FUROSEMIDE 20 MG TABLET PO (08:44)
[2022-01-05] MEDS: predniSONE 1 MG TABLET PO (08:44)
[2022-01-05] MEDS: LOPERAMIDE HCL 2 MG CAPSULE PO ×2 (08:44→17:05)
[2022-01-05] MEDS: CETIRIZINE HCL 10 MG TABLET PO (08:44)
[2022-01-05] MEDS: MAGNESIUM OXIDE 400 MG TABLET PO (08:44)
[2022-01-05] MEDS: predniSONE 5 MG TABLET PO (08:44)
[2022-01-05 10:53] VITALS: TEMP 36.8
[2022-01-05] MEDS: HYDROCODONE-ACETAMIN 5-325 MG 1 TAB PO (10:53)
[2022-01-05 12:24] VITALS: TEMP 37
[2022-01-05] MEDS: LACTOBACILLUS ACIDOPHILUS 1 TABLET 1 TAB PO ×2 (12:28→17:05)
--- NOTE | 2022-01-05 13:19 | PC.NURSE ---
Cancelled outing: Resident was unable to attend scheduled family festivity at [place] due to transportation issues. Wheel chair could not fit in the van that family provided, and this staff writer was unable to get the appropriate facility wheel chair for her.
[2022-01-05] MEDS: POTASSIUM CHLORIDE 10 MEQ CAPSULE ER 20 MEQ PO (17:05)
[2022-01-06 08:00] VITALS: TEMP 36.6; O2SAT 96
[2022-01-06] MEDS: predniSONE 1 MG TABLET PO (08:27)
[2022-01-06] MEDS: predniSONE 5 MG TABLET PO (08:27)
[2022-01-06] MEDS: FUROSEMIDE 20 MG TABLET PO (08:27)
[2022-01-06] MEDS: LOPERAMIDE HCL 2 MG CAPSULE PO ×2 (08:27→16:45)
[2022-01-06] MEDS: MAGNESIUM OXIDE 400 MG TABLET PO (08:27)
[2022-01-06] MEDS: CETIRIZINE HCL 10 MG TABLET PO (08:27)
[2022-01-06] MEDS: METFORMIN ER 500 MG 1000 MG PO ×2 (08:27→18:33)
[2022-01-06] MEDS: LACTOBACILLUS ACIDOPHILUS 1 TABLET 1 TAB PO ×2 (11:41→18:33)
[2022-01-06] MEDS: POTASSIUM CHLORIDE 10 MEQ CAPSULE ER PO (16:45)
--- NOTE | 2022-01-07 02:19 | PC.NURSE ---
Week #2: Care plan problems #20-29 reviewed.? No changes made.? Nothing added to temporary care plan.? Resident does not get out of bed at NOC most of the time - but able to call for assistance to use the bedpan.? Extensive assist of 2 with toileting and positioning.? Moves up in bed with EZ positioner.? Top side rails up.? Falls: No fall incidents this past month.? Remains low fall risk according to assessment done on 09/27/21.
[2022-01-07] MEDS: LOPERAMIDE HCL 2 MG CAPSULE PO ×2 (09:09→16:47)
[2022-01-07] MEDS: FUROSEMIDE 20 MG TABLET PO (09:09)
[2022-01-07] MEDS: MAGNESIUM OXIDE 400 MG TABLET PO (09:09)
[2022-01-07] MEDS: METFORMIN ER 500 MG 1000 MG PO ×2 (09:09→17:36)
[2022-01-07] MEDS: predniSONE 1 MG TABLET PO (09:10)
[2022-01-07] MEDS: predniSONE 5 MG TABLET PO (09:10)
[2022-01-07] MEDS: CETIRIZINE HCL 10 MG TABLET PO (09:10)
[2022-01-07] MEDS: LACTOBACILLUS ACIDOPHILUS 1 TABLET 1 TAB PO ×2 (12:16→17:36)
[2022-01-07 14:39] VITALS: TEMP 36.6; O2SAT 98
[2022-01-07 15:00] VITALS: TEMP 36.6; O2SAT 98
[2022-01-07] MEDS: POTASSIUM CHLORIDE 10 MEQ CAPSULE ER PO (17:36)
[2022-01-07 23:00] VITALS: TEMP 36.3; O2SAT 95
[2022-01-08] MEDS: CETIRIZINE HCL 10 MG TABLET PO (08:52)
[2022-01-08] MEDS: LOPERAMIDE HCL 2 MG CAPSULE PO ×2 (08:52→16:51)
[2022-01-08] MEDS: predniSONE 1 MG TABLET PO (08:52)
[2022-01-08] MEDS: FUROSEMIDE 20 MG TABLET PO (08:52)
[2022-01-08] MEDS: predniSONE 5 MG TABLET PO (08:52)
[2022-01-08] MEDS: METFORMIN ER 500 MG 1000 MG PO ×2 (08:52→16:53)
[2022-01-08] MEDS: MAGNESIUM OXIDE 400 MG TABLET PO (08:52)
[2022-01-08 10:21] VITALS: TEMP 36.3; O2SAT 94
[2022-01-08] MEDS: LACTOBACILLUS ACIDOPHILUS 1 TABLET 1 TAB PO ×2 (12:11→16:53)
[2022-01-08 13:03] VITALS: PULSE 93; RESP 18; TEMP 36.3; O2SAT 97
[2022-01-08] MEDS: POTASSIUM CHLORIDE 10 MEQ CAPSULE ER 20 MEQ PO (16:52)
[2022-01-08] MEDS: HYDROCODONE-ACETAMIN 5-325 MG 1 TAB PO ×2 (16:57→23:22)
[2022-01-08 17:11] VITALS: TEMP 36.3; O2SAT 94
[2022-01-08 23:00] VITALS: TEMP 36.2; O2SAT 94
--- NOTE | 2022-01-09 04:52 | PC.NURSE ---
Status/pain---was c/o left knee pain at the beginning of this shift. Left knee looks no different than the right. Refused ice pack or warm towel. [place] given at 2322. Has slept soundly the rest of the noc.
[2022-01-09] MEDS: FUROSEMIDE 20 MG TABLET PO (08:43)
[2022-01-09] MEDS: predniSONE 1 MG TABLET PO (08:43)
[2022-01-09] MEDS: MAGNESIUM OXIDE 400 MG TABLET PO (08:43)
[2022-01-09] MEDS: LOPERAMIDE HCL 2 MG CAPSULE PO ×2 (08:43→16:56)
[2022-01-09] MEDS: predniSONE 5 MG TABLET PO (08:43)
[2022-01-09] MEDS: METFORMIN ER 500 MG 1000 MG PO ×2 (08:43→17:02)
[2022-01-09 09:46] VITALS: TEMP 36.2; O2SAT 96
[2022-01-09] MEDS: LACTOBACILLUS ACIDOPHILUS 1 TABLET 1 TAB PO ×2 (12:17→17:02)
[2022-01-09] MEDS: CETIRIZINE HCL 10 MG TABLET PO (12:17)
[2022-01-09] MEDS: HYDROCODONE-ACETAMIN 5-325 MG 1 TAB PO (12:33)
[2022-01-09] MEDS: POTASSIUM CHLORIDE 10 MEQ CAPSULE ER PO (17:02)
[2022-01-09 21:14] VITALS: TEMP 36.1; O2SAT 92
[2022-01-09 23:00] VITALS: TEMP 36.3; O2SAT 95
[2022-01-10] MEDS: MAGNESIUM OXIDE 400 MG TABLET PO (08:52)
[2022-01-10] MEDS: FUROSEMIDE 20 MG TABLET PO (08:52)
[2022-01-10] MEDS: METFORMIN ER 500 MG 1000 MG PO ×2 (08:52→17:07)
[2022-01-10] MEDS: LOPERAMIDE HCL 2 MG CAPSULE PO ×2 (08:52→17:06)
[2022-01-10] MEDS: predniSONE 1 MG TABLET PO (08:53)
[2022-01-10] MEDS: predniSONE 5 MG TABLET PO (08:53)
[2022-01-10] MEDS: CETIRIZINE HCL 10 MG TABLET PO (09:05)
[2022-01-10] MEDS: LACTOBACILLUS ACIDOPHILUS 1 TABLET 1 TAB PO ×2 (12:02→17:07)
[2022-01-10 13:46] VITALS: TEMP 36.2; O2SAT 96
[2022-01-10] MEDS: POTASSIUM CHLORIDE 10 MEQ CAPSULE ER 20 MEQ PO (17:07)
[2022-01-10 17:15] VITALS: TEMP 36.4; O2SAT 94
[2022-01-10 23:00] VITALS: TEMP 36.4; O2SAT 95
[2022-01-11] MEDS: METFORMIN ER 500 MG 1000 MG PO ×2 (08:38→17:21)
[2022-01-11] MEDS: CETIRIZINE HCL 10 MG TABLET PO (08:38)
[2022-01-11] MEDS: MAGNESIUM OXIDE 400 MG TABLET PO (08:38)
[2022-01-11] MEDS: FUROSEMIDE 20 MG TABLET PO (08:38)
[2022-01-11] MEDS: predniSONE 5 MG TABLET PO (08:38)
[2022-01-11] MEDS: predniSONE 1 MG TABLET PO (08:38)
[2022-01-11] MEDS: LOPERAMIDE HCL 2 MG CAPSULE PO ×2 (08:38→17:21)
[2022-01-11 10:15] VITALS: TEMP 36.2; O2SAT 97
[2022-01-11] MEDS: LACTOBACILLUS ACIDOPHILUS 1 TABLET 1 TAB PO ×2 (12:02→17:22)
[2022-01-11] MEDS: POTASSIUM CHLORIDE 10 MEQ CAPSULE ER PO (17:21)
[2022-01-11 21:12] VITALS: TEMP 36.8; O2SAT 98
[2022-01-11 22:06] VITALS: BMI 40.0
[2022-01-12 00:10] VITALS: TEMP 36.2; O2SAT 94
--- NOTE | 2022-01-12 00:11 | PC.NURSE ---
Status: Resident refused to elevate R arm
[2022-01-12] MEDS: FUROSEMIDE 20 MG TABLET PO (08:58)
[2022-01-12] MEDS: LOPERAMIDE HCL 2 MG CAPSULE PO ×2 (08:58→17:07)
[2022-01-12] MEDS: MAGNESIUM OXIDE 400 MG TABLET PO (08:58)
[2022-01-12] MEDS: METFORMIN ER 500 MG 1000 MG PO ×2 (08:59→17:07)
[2022-01-12] MEDS: predniSONE 5 MG TABLET PO (08:59)
[2022-01-12] MEDS: predniSONE 1 MG TABLET PO (08:59)
[2022-01-12] MEDS: CETIRIZINE HCL 10 MG TABLET PO (08:59)
[2022-01-12] MEDS: LACTOBACILLUS ACIDOPHILUS 1 TABLET 1 TAB PO ×2 (12:08→17:07)
[2022-01-12 13:02] VITALS: TEMP 36.2; O2SAT 95
[2022-01-12] MEDS: POTASSIUM CHLORIDE 10 MEQ CAPSULE ER 20 MEQ PO (17:07)
[2022-01-12 18:31] VITALS: TEMP 36.4; O2SAT 97
--- NOTE | 2022-01-12 20:52 | PC.NURSE ---
Skin: Resident refused to elevate R arm. L [place] red, weeping. Chux pad placed under leg.
[2022-01-12 23:00] VITALS: TEMP 36.2; O2SAT 95
[2022-01-13] MEDS: CETIRIZINE HCL 10 MG TABLET PO (08:59)
[2022-01-13] MEDS: LOPERAMIDE HCL 2 MG CAPSULE PO ×2 (08:59→15:44)
[2022-01-13] MEDS: predniSONE 5 MG TABLET PO (08:59)
[2022-01-13] MEDS: predniSONE 1 MG TABLET PO (08:59)
[2022-01-13] MEDS: MAGNESIUM OXIDE 400 MG TABLET PO (08:59)
[2022-01-13] MEDS: FUROSEMIDE 20 MG TABLET PO (08:59)
[2022-01-13] MEDS: METFORMIN ER 500 MG 1000 MG PO ×2 (08:59→17:10)
[2022-01-13] MEDS: LACTOBACILLUS ACIDOPHILUS 1 TABLET 1 TAB PO ×2 (13:28→17:10)
[2022-01-13 14:00] VITALS: TEMP 36.4; O2SAT 96
[2022-01-13] MEDS: HYDROCODONE-ACETAMIN 5-325 MG 1 TAB PO ×2 (15:25→23:32)
[2022-01-13] MEDS: POTASSIUM CHLORIDE 10 MEQ CAPSULE ER PO (17:09)
[2022-01-13 21:15] VITALS: TEMP 36.6; O2SAT 96
--- NOTE | 2022-01-13 21:15 | PC.NURSE ---
Status: Resident refused to have RN assess dressing or redness in armpit. C/o pain in left lower extremity. PRN [place] given with relief, and resident agreed to elevate legs.
[2022-01-13 23:00] VITALS: TEMP 36.5; O2SAT 95
--- NOTE | 2022-01-14 02:47 | PC.NURSE ---
Week #3---care plan problems #30-39 reviewed. No changes made. Temporary care plan updated re: currently on isolation precautions due to vaccination status and current Covid cases in the unit. Will call for assist with the bedpan. Is freq. already incont. of urine and/or stool. Wears an xxlg brief which is managed by staff. All pericare done by staff. Skin---Currently has redness and weeping from left outer calf. Receives Sensicare to coccyx during cares, lotion to inner thighs, and Vanicream to LLE BID.
[2022-01-14] MEDS: FUROSEMIDE 20 MG TABLET PO (09:01)
[2022-01-14] MEDS: METFORMIN ER 500 MG 1000 MG PO ×2 (09:02→16:52)
[2022-01-14] MEDS: MAGNESIUM OXIDE 400 MG TABLET PO (09:02)
[2022-01-14] MEDS: predniSONE 5 MG TABLET PO (09:02)
[2022-01-14] MEDS: LOPERAMIDE HCL 2 MG CAPSULE PO ×2 (09:02→16:52)
[2022-01-14] MEDS: predniSONE 1 MG TABLET PO (09:03)
[2022-01-14] MEDS: CETIRIZINE HCL 10 MG TABLET PO (09:03)
[2022-01-14 10:13] VITALS: TEMP 35.9; O2SAT 98
--- NOTE | 2022-01-14 10:55 | PC.NURSE ---
COVID TESTING: Resident refused to be tested during outbreak testing.
[2022-01-14] MEDS: LACTOBACILLUS ACIDOPHILUS 1 TABLET 1 TAB PO ×2 (11:55→16:52)
[2022-01-14 13:09] LABS: SARS PCR* Negative SARS-CoV-2 (Negative)
--- NOTE | 2022-01-14 15:23 | PC.NURSE ---
COVID TESTING: Spoke to resident regarding COVID testing and isolation requirements. Resident now agreed to be tested today, as she wants to be able to have her family come into her room without having to wear PPE. Discussed that if she is negative 2 weeks in a row that she can be off COVID iso. Resident provided verbal consent to testing. Will update family/resident only if she is positive.
[2022-01-14] MEDS: POTASSIUM CHLORIDE 10 MEQ CAPSULE ER PO (16:52)
--- NOTE | 2022-01-14 17:17 | PC.NURSE ---
Week #3: Vital signs reviewed: no change. Skin summary: Resident has an open area on right hip, Mepilex change every three days. Open area to coccyx apply Sensi-care. Redness and some weeping on left calf. Resident has been refusing lotion to legs. Temporary care plan reviewed: 01/14/22 Problem: number of covid cases in unit. Goal: will be safe. Approaches: isolation precautions due to vaccination status. Care plan 30-39 reviewed: change to care plan 31 toileting is now on bowel medications. Resident wears brief, calls when in needing to go to bathroom, is two assist to get on bed armenta. Is incontinent of bowel and bladder.
[2022-01-14 21:24] VITALS: BP 134/77; PULSE 84; RESP 16; TEMP 36.7; O2SAT 97
[2022-01-14] MEDS: HYDROCODONE-ACETAMIN 5-325 MG 1 TAB PO (21:56)
[2022-01-14 23:00] VITALS: TEMP 37.3; O2SAT 96
--- NOTE | 2022-01-15 02:31 | PC.NURSE ---
Status/legs---Continues to have redness on left calf. Is not warm to touch. Does not appear to have increased in size but it was not marked when first noticed. Has some of the same redness on right outer calf. Has been elevating left leg on a pillow. To be seen by COLLEGE COUNSELOR in am.
[2022-01-15] MEDS: LOPERAMIDE HCL 2 MG CAPSULE PO ×2 (08:47→17:04)
[2022-01-15] MEDS: CETIRIZINE HCL 10 MG TABLET PO (08:47)
[2022-01-15] MEDS: predniSONE 5 MG TABLET PO (08:47)
[2022-01-15] MEDS: METFORMIN ER 500 MG 1000 MG PO ×2 (08:47→17:05)
[2022-01-15] MEDS: FUROSEMIDE 20 MG TABLET PO (08:47)
[2022-01-15] MEDS: predniSONE 1 MG TABLET PO (08:47)
[2022-01-15] MEDS: MAGNESIUM OXIDE 400 MG TABLET PO (08:47)
[2022-01-15 11:03] VITALS: TEMP 36.2; O2SAT 99
[2022-01-15] MEDS: LACTOBACILLUS ACIDOPHILUS 1 TABLET 1 TAB PO ×2 (12:03→17:05)
[2022-01-15] MEDS: HYDROCODONE-ACETAMIN 5-325 MG 1 TAB PO (14:54)
[2022-01-15] MEDS: POTASSIUM CHLORIDE 10 MEQ CAPSULE ER 20 MEQ PO (17:05)
[2022-01-15 21:13] VITALS: TEMP 36.4; O2SAT 95
[2022-01-15 23:00] VITALS: TEMP 36.1; O2SAT 98
--- NOTE | 2022-01-16 05:12 | PC.NURSE ---
Status/left leg---At 2300 the redness appeared the same as it's been. Res. denied any pain at the time. Stated would call for [place] if needed. Has slept the rest of the noc.
[2022-01-16] MEDS: CETIRIZINE HCL 10 MG TABLET PO (08:57)
[2022-01-16] MEDS: FUROSEMIDE 20 MG TABLET 40 MG PO (08:57)
[2022-01-16] MEDS: MAGNESIUM OXIDE 400 MG TABLET PO (08:57)
[2022-01-16] MEDS: predniSONE 1 MG TABLET PO (08:57)
[2022-01-16] MEDS: predniSONE 5 MG TABLET PO (08:57)
[2022-01-16] MEDS: LOPERAMIDE HCL 2 MG CAPSULE PO ×2 (08:57→16:47)
[2022-01-16] MEDS: METFORMIN ER 500 MG 1000 MG PO ×2 (08:57→16:47)
[2022-01-16 10:27] VITALS: TEMP 36.1; O2SAT 96
--- NOTE | 2022-01-16 11:30 | PC.NURSE ---
WOUND ROUNDS: Resident coccyx is healed, intervention completed. R hip wound healed, mepilex removed and intervention completed. Intervention created for monitoring BLEs for redness/edema. Small open area on lateral portion of the left lower leg noted, w/scant amount of drainage. Per ECD, leave CUSTOMER SUPPORT ANALYST. Lasix dose was increased yesterday per Larissa DELGADO. She will be here to assess tomorrow. Resident also has 4 open areas on R shoulder, resident states these are from her scratching and picking at them. Mepitel One dressings were placed over the areas for protection. Replace Q5 days and PRN.
[2022-01-16] MEDS: LACTOBACILLUS ACIDOPHILUS 1 TABLET 1 TAB PO ×2 (12:14→16:48)
[2022-01-16] MEDS: POTASSIUM CHLORIDE 10 MEQ CAPSULE ER PO (16:47)
[2022-01-16 21:14] VITALS: TEMP 36.6; O2SAT 91
[2022-01-17 00:41] VITALS: TEMP 36.6; O2SAT 93
[2022-01-17] MEDS: LOPERAMIDE HCL 2 MG CAPSULE PO ×2 (08:54→16:56)
[2022-01-17] MEDS: METFORMIN ER 500 MG 1000 MG PO ×2 (08:54→16:57)
[2022-01-17] MEDS: FUROSEMIDE 20 MG TABLET 40 MG PO (08:54)
[2022-01-17] MEDS: MAGNESIUM OXIDE 400 MG TABLET PO (08:54)
[2022-01-17] MEDS: predniSONE 1 MG TABLET PO (08:54)
[2022-01-17] MEDS: predniSONE 5 MG TABLET PO (08:54)
[2022-01-17] MEDS: CETIRIZINE HCL 10 MG TABLET PO (08:54)
[2022-01-17 09:49] VITALS: TEMP 36.1; O2SAT 98
[2022-01-17] MEDS: LACTOBACILLUS ACIDOPHILUS 1 TABLET 1 TAB PO ×2 (11:55→16:57)
[2022-01-17] MEDS: POTASSIUM CHLORIDE 10 MEQ CAPSULE ER 20 MEQ PO (16:56)
[2022-01-17 17:15] VITALS: TEMP 36.2; O2SAT 92; BMI 39.8
[2022-01-17 23:00] VITALS: TEMP 36.2; O2SAT 95
[2022-01-18] MEDS: METFORMIN ER 500 MG 1000 MG PO ×2 (08:56→17:01)
[2022-01-18] MEDS: LOPERAMIDE HCL 2 MG CAPSULE PO ×2 (08:56→17:01)
[2022-01-18] MEDS: MAGNESIUM OXIDE 400 MG TABLET PO (08:56)
[2022-01-18] MEDS: FUROSEMIDE 20 MG TABLET 40 MG PO (08:56)
[2022-01-18] MEDS: CETIRIZINE HCL 10 MG TABLET PO (08:57)
[2022-01-18] MEDS: predniSONE 1 MG TABLET PO (08:57)
[2022-01-18] MEDS: predniSONE 5 MG TABLET PO (08:57)
[2022-01-18 09:59] VITALS: TEMP 36.1; O2SAT 95
--- NOTE | 2022-01-18 10:03 | PC.NURSE ---
Skin: (L) [place] redness increase and warm to touch & inner thighs lymph edema. Will have MD assess.
[2022-01-18] MEDS: LACTOBACILLUS ACIDOPHILUS 1 TABLET 1 TAB PO ×2 (11:55→17:01)
--- NOTE | 2022-01-18 12:40 | PC.NURSE ---
Skin: BLE and inner thighs lymph edema assessed by Dr. Ramsey. order:Jakob wraps to BLE ON-AM, OFF-PM.
[2022-01-18] MEDS: HYDROCODONE-ACETAMIN 5-325 MG 1 TAB PO (14:59)
[2022-01-18] MEDS: POTASSIUM CHLORIDE 10 MEQ CAPSULE ER PO (17:01)
[2022-01-18 21:23] VITALS: TEMP 36.6; O2SAT 95
--- NOTE | 2022-01-18 21:24 | PC.NURSE ---
Status: Resident agreed to MELISSA wrap applied to LLE at 1500, upon applying wrap resident c/o 5/10 pain and requested [place]. Refused applied wrap to RLE. Resident was able to keep LLE MELISSA wrap on until HS which was then removed per order. Disc with resident that the goal is to apply each AM and remove at HS. Resident seemed reluctant but agreeable.
[2022-01-18 23:00] VITALS: TEMP 37.2; O2SAT 94
[2022-01-19 07:00] VITALS: TEMP 36.6; O2SAT 97
[2022-01-19] MEDS: predniSONE 5 MG TABLET PO (07:55)
[2022-01-19] MEDS: CETIRIZINE HCL 10 MG TABLET PO (07:55)
[2022-01-19] MEDS: predniSONE 1 MG TABLET PO (07:55)
[2022-01-19] MEDS: MAGNESIUM OXIDE 400 MG TABLET PO (07:55)
[2022-01-19] MEDS: METFORMIN ER 500 MG 1000 MG PO ×2 (07:55→17:33)
[2022-01-19] MEDS: FUROSEMIDE 20 MG TABLET 40 MG PO (07:56)
[2022-01-19] MEDS: LOPERAMIDE HCL 2 MG CAPSULE PO ×2 (07:56→16:36)
[2022-01-19] MEDS: LACTOBACILLUS ACIDOPHILUS 1 TABLET 1 TAB PO ×2 (11:04→17:33)
[2022-01-19] MEDS: POTASSIUM CHLORIDE 10 MEQ CAPSULE ER 20 MEQ PO (17:33)
[2022-01-19 21:29] VITALS: TEMP 36.6; O2SAT 96
[2022-01-19 23:00] VITALS: TEMP 36.7; O2SAT 94
[2022-01-20] MEDS: LOPERAMIDE HCL 2 MG CAPSULE PO ×2 (08:46→16:43)
[2022-01-20] MEDS: predniSONE 1 MG TABLET PO (08:46)
[2022-01-20] MEDS: FUROSEMIDE 20 MG TABLET 40 MG PO (08:46)
[2022-01-20] MEDS: METFORMIN ER 500 MG 1000 MG PO ×2 (08:46→17:08)
[2022-01-20] MEDS: MAGNESIUM OXIDE 400 MG TABLET PO (08:46)
[2022-01-20] MEDS: CETIRIZINE HCL 10 MG TABLET PO (08:47)
[2022-01-20] MEDS: predniSONE 5 MG TABLET PO (09:23)
--- NOTE | 2022-01-20 10:42 | PC.NURSE ---
Wrap: Resident refused capri wrap/elevation to (R) LE, prefers to use own compression sock.
[2022-01-20] MEDS: LACTOBACILLUS ACIDOPHILUS 1 TABLET 1 TAB PO ×2 (12:05→17:08)
[2022-01-20] MEDS: POTASSIUM CHLORIDE 10 MEQ CAPSULE ER PO (16:43)
[2022-01-20 17:01] VITALS: TEMP 37; O2SAT 95
[2022-01-20 23:00] VITALS: TEMP 36.4; O2SAT 95
--- NOTE | 2022-01-21 02:41 | PC.NURSE ---
Week #4: care plan problems #40-119 and vital signs reviewed.? No changes made, and nothing added to temporary care plan.? Vital signs are within resident's normal ranges. No changes in hearing, vision, and orientation noted at this time.?Will use call light when needs care or help during NOC. Sleeping with TV on..? Mood/behavior. No behavioral concerns noted or reported so far, tonight. Resident is not on Psychotropic medications, currently.
[2022-01-21] MEDS: predniSONE 5 MG TABLET PO (08:44)
[2022-01-21] MEDS: METFORMIN ER 500 MG 1000 MG PO ×2 (08:44→17:15)
[2022-01-21] MEDS: LOPERAMIDE HCL 2 MG CAPSULE PO ×2 (08:44→15:52)
[2022-01-21] MEDS: FUROSEMIDE 20 MG TABLET 40 MG PO (08:44)
[2022-01-21] MEDS: MAGNESIUM OXIDE 400 MG TABLET PO (08:44)
[2022-01-21] MEDS: CETIRIZINE HCL 10 MG TABLET PO (08:45)
[2022-01-21] MEDS: predniSONE 1 MG TABLET PO (08:45)
[2022-01-21 10:45] VITALS: TEMP 36.3; O2SAT 97
[2022-01-21 10:47] VITALS: BP 149/78; PULSE 82; RESP 18; TEMP 36.3; O2SAT 82
--- NOTE | 2022-01-21 10:48 | PC.NURSE ---
Vital signs reviewed with no issues? No changes in mood/behavior? Temporary care plan reviewed with no changes? Care plan problems 40-119 reviewed with no changes? No changes in communications, hearing, vision, or orientation?
[2022-01-21] MEDS: LACTOBACILLUS ACIDOPHILUS 1 TABLET 1 TAB PO ×2 (11:45→17:15)
[2022-01-21 13:15] LABS: SARS PCR* Negative SARS-CoV-2 (Negative)
[2022-01-21 15:00] VITALS: TEMP 36.6; O2SAT 97
[2022-01-21] MEDS: POTASSIUM CHLORIDE 10 MEQ CAPSULE ER PO (16:36)
[2022-01-21 23:00] VITALS: TEMP 37.2; O2SAT 94
[2022-01-22 07:00] VITALS: TEMP 36.2; O2SAT 99
[2022-01-22] MEDS: METFORMIN ER 500 MG 1000 MG PO ×2 (08:53→17:05)
[2022-01-22] MEDS: LOPERAMIDE HCL 2 MG CAPSULE PO ×2 (08:53→16:56)
[2022-01-22] MEDS: FUROSEMIDE 20 MG TABLET 40 MG PO (08:53)
[2022-01-22] MEDS: MAGNESIUM OXIDE 400 MG TABLET PO (08:53)
[2022-01-22] MEDS: predniSONE 1 MG TABLET PO (08:54)
[2022-01-22] MEDS: CETIRIZINE HCL 10 MG TABLET PO (08:54)
[2022-01-22] MEDS: predniSONE 5 MG TABLET PO (08:54)
[2022-01-22] MEDS: LACTOBACILLUS ACIDOPHILUS 1 TABLET 1 TAB PO ×2 (12:05→17:05)
[2022-01-22] MEDS: POTASSIUM CHLORIDE 10 MEQ CAPSULE ER 20 MEQ PO (16:56)
[2022-01-22 17:22] VITALS: TEMP 36.6; O2SAT 95
[2022-01-22 23:00] VITALS: TEMP 36.6; O2SAT 94
--- NOTE | 2022-01-23 04:57 | PC.NURSE ---
Status/capri wrap---per pm nurse, res. allowed capri wraps to be put on left lower leg at 1700. Res. has refused to have it removed during the noc.
[2022-01-23] MEDS: CETIRIZINE HCL 10 MG TABLET PO (08:56)
[2022-01-23] MEDS: LOPERAMIDE HCL 2 MG CAPSULE PO ×2 (08:56→16:34)
[2022-01-23] MEDS: predniSONE 1 MG TABLET PO (08:56)
[2022-01-23] MEDS: FUROSEMIDE 20 MG TABLET 40 MG PO (08:56)
[2022-01-23] MEDS: predniSONE 5 MG TABLET PO (08:56)
[2022-01-23] MEDS: METFORMIN ER 500 MG 1000 MG PO ×2 (08:56→16:40)
[2022-01-23] MEDS: MAGNESIUM OXIDE 400 MG TABLET PO (08:56)
[2022-01-23 10:29] VITALS: TEMP 36.1; O2SAT 96
[2022-01-23] MEDS: LACTOBACILLUS ACIDOPHILUS 1 TABLET 1 TAB PO ×2 (12:02→16:40)
[2022-01-23] MEDS: NYSTATIN POWDER 1 APPLIC TOPICAL (13:46)
[2022-01-23] MEDS: POTASSIUM CHLORIDE 10 MEQ CAPSULE ER PO (16:40)
[2022-01-23 20:38] VITALS: TEMP 36.1; O2SAT 93
[2022-01-23 23:00] VITALS: TEMP 36.6; O2SAT 96
[2022-01-24] MEDS: predniSONE 1 MG TABLET PO (08:55)
[2022-01-24] MEDS: MAGNESIUM OXIDE 400 MG TABLET PO (08:55)
[2022-01-24] MEDS: FUROSEMIDE 20 MG TABLET 40 MG PO (08:55)
[2022-01-24] MEDS: predniSONE 5 MG TABLET PO (08:55)
[2022-01-24] MEDS: LOPERAMIDE HCL 2 MG CAPSULE PO ×2 (08:55→16:53)
[2022-01-24] MEDS: METFORMIN ER 500 MG 1000 MG PO ×2 (08:55→17:13)
[2022-01-24] MEDS: NYSTATIN POWDER 1 APPLIC TOPICAL (09:16)
[2022-01-24] MEDS: CETIRIZINE HCL 10 MG TABLET PO (09:16)
[2022-01-24 10:00] VITALS: TEMP 35.5; O2SAT 97
[2022-01-24] MEDS: LACTOBACILLUS ACIDOPHILUS 1 TABLET 1 TAB PO ×2 (13:44→17:13)
[2022-01-24] MEDS: POTASSIUM CHLORIDE 10 MEQ CAPSULE ER 20 MEQ PO (16:53)
[2022-01-24 21:13] VITALS: TEMP 36.1; O2SAT 98
[2022-01-24 23:00] VITALS: TEMP 37.3; O2SAT 93
[2022-01-25 07:00] VITALS: TEMP 36.8; O2SAT 97
[2022-01-25] MEDS: predniSONE 1 MG TABLET PO (08:23)
[2022-01-25] MEDS: predniSONE 5 MG TABLET PO (08:23)
[2022-01-25] MEDS: MAGNESIUM OXIDE 400 MG TABLET PO (08:23)
[2022-01-25] MEDS: CETIRIZINE HCL 10 MG TABLET PO (08:23)
[2022-01-25] MEDS: FUROSEMIDE 20 MG TABLET 40 MG PO (08:23)
[2022-01-25] MEDS: LOPERAMIDE HCL 2 MG CAPSULE PO ×2 (08:23→16:54)
[2022-01-25] MEDS: METFORMIN ER 500 MG 1000 MG PO ×2 (08:23→17:02)
[2022-01-25] MEDS: LACTOBACILLUS ACIDOPHILUS 1 TABLET 1 TAB PO ×2 (11:41→17:02)
[2022-01-25] MEDS: POTASSIUM CHLORIDE 10 MEQ CAPSULE ER PO (16:55)
[2022-01-25 20:46] VITALS: TEMP 36.3; O2SAT 95
[2022-01-25 23:00] VITALS: TEMP 36.3; O2SAT 96
[2022-01-26 07:00] VITALS: TEMP 35.6; O2SAT 94
[2022-01-26] MEDS: FUROSEMIDE 20 MG TABLET 40 MG PO (09:05)
[2022-01-26] MEDS: MAGNESIUM OXIDE 400 MG TABLET PO (09:07)
[2022-01-26] MEDS: predniSONE 5 MG TABLET PO (09:07)
[2022-01-26] MEDS: METFORMIN ER 500 MG 1000 MG PO ×2 (09:07→17:06)
[2022-01-26] MEDS: predniSONE 1 MG TABLET PO (09:08)
[2022-01-26] MEDS: CETIRIZINE HCL 10 MG TABLET PO (09:08)
[2022-01-26] MEDS: LACTOBACILLUS ACIDOPHILUS 1 TABLET 1 TAB PO ×2 (12:07→17:06)
[2022-01-26] MEDS: POTASSIUM CHLORIDE 10 MEQ CAPSULE ER 20 MEQ PO (16:36)
[2022-01-26] MEDS: LOPERAMIDE HCL 2 MG CAPSULE PO (16:36)
[2022-01-26 16:54] VITALS: TEMP 36.4; O2SAT 93
[2022-01-27 00:15] VITALS: TEMP 36.8; O2SAT 93
[2022-01-27 07:00] VITALS: TEMP 36.4; O2SAT 92
[2022-01-27] MEDS: LOPERAMIDE HCL 2 MG CAPSULE PO ×2 (08:46→16:54)
[2022-01-27] MEDS: MAGNESIUM OXIDE 400 MG TABLET PO (08:46)
[2022-01-27] MEDS: predniSONE 5 MG TABLET PO (08:48)
[2022-01-27] MEDS: CETIRIZINE HCL 10 MG TABLET PO (08:48)
[2022-01-27] MEDS: predniSONE 1 MG TABLET PO (08:48)
[2022-01-27] MEDS: METFORMIN ER 500 MG 1000 MG PO ×2 (08:48→17:12)
[2022-01-27] MEDS: LACTOBACILLUS ACIDOPHILUS 1 TABLET 1 TAB PO ×2 (12:05→17:12)
[2022-01-27] MEDS: POTASSIUM CHLORIDE 10 MEQ CAPSULE ER PO (16:54)
[2022-01-27 17:15] VITALS: TEMP 36.2; O2SAT 92
[2022-01-27 23:00] VITALS: TEMP 36; O2SAT 95
[2022-01-28 07:00] VITALS: TEMP 36.2; O2SAT 94
[2022-01-28 08:00] VITALS: BMI 38.4
[2022-01-28] MEDS: METFORMIN ER 500 MG 1000 MG PO ×2 (08:49→17:30)
[2022-01-28] MEDS: predniSONE 5 MG TABLET PO (08:49)
[2022-01-28] MEDS: predniSONE 1 MG TABLET PO (08:50)
[2022-01-28] MEDS: CETIRIZINE HCL 10 MG TABLET PO (08:50)
--- NOTE | 2022-01-28 11:19 | PC.NURSE ---
COVID OUTBREAK TESTING: Resident refused to be tested. Explained risk vs. benefits, resident understands.
[2022-01-28] MEDS: LACTOBACILLUS ACIDOPHILUS 1 TABLET 1 TAB PO ×2 (12:01→17:30)
[2022-01-28 15:00] VITALS: BP 147/82; PULSE 82; RESP 18; TEMP 36.1; O2SAT 98
[2022-01-28] MEDS: LOPERAMIDE HCL 2 MG CAPSULE PO (15:45)
[2022-01-28] MEDS: POTASSIUM CHLORIDE 10 MEQ CAPSULE ER PO (16:42)
[2022-01-28 23:00] VITALS: TEMP 35.9; O2SAT 95
[2022-01-28] MEDS: HYDROCODONE-ACETAMIN 5-325 MG 1 TAB PO (23:24)
[2022-01-29] MEDS: MAGNESIUM OXIDE 400 MG TABLET PO (08:49)
[2022-01-29] MEDS: CETIRIZINE HCL 10 MG TABLET PO (08:49)
[2022-01-29] MEDS: METFORMIN ER 500 MG 1000 MG PO ×2 (08:49→17:02)
[2022-01-29] MEDS: FUROSEMIDE 20 MG TABLET 40 MG PO (08:49)
[2022-01-29] MEDS: predniSONE 5 MG TABLET PO (08:49)
[2022-01-29] MEDS: predniSONE 1 MG TABLET PO (08:49)
[2022-01-29] MEDS: LOPERAMIDE HCL 2 MG CAPSULE PO ×2 (08:49→17:01)
[2022-01-29] MEDS: LACTOBACILLUS ACIDOPHILUS 1 TABLET 1 TAB PO ×2 (12:25→17:02)
[2022-01-29 13:54] VITALS: TEMP 36.1; O2SAT 96
[2022-01-29] MEDS: POTASSIUM CHLORIDE 10 MEQ CAPSULE ER 20 MEQ PO (17:01)
[2022-01-29 18:42] VITALS: TEMP 37.2; O2SAT 96
[2022-01-29 23:00] VITALS: TEMP 36.2; O2SAT 95
[2022-01-30] MEDS: LOPERAMIDE HCL 2 MG CAPSULE PO ×2 (09:04→17:27)
[2022-01-30] MEDS: MAGNESIUM OXIDE 400 MG TABLET PO (09:05)
[2022-01-30] MEDS: predniSONE 5 MG TABLET PO (09:05)
[2022-01-30] MEDS: METFORMIN ER 500 MG 1000 MG PO ×2 (09:05→17:27)
[2022-01-30] MEDS: predniSONE 1 MG TABLET PO (09:06)
[2022-01-30] MEDS: CETIRIZINE HCL 10 MG TABLET PO (09:06)
[2022-01-30] MEDS: FUROSEMIDE 20 MG TABLET 40 MG PO (09:09)
--- NOTE | 2022-01-30 09:24 | PC.NURSE ---
Refused Lasix: Resident refused Lasix this AM. Educated resident on what the Lasix does for her body. Resident stated It makes all my food taste bad, so i don't want to take it. Resident also stated I understand what it does and i do not want to take it.
[2022-01-30] MEDS: LACTOBACILLUS ACIDOPHILUS 1 TABLET 1 TAB PO ×2 (12:12→17:27)
[2022-01-30 13:38] VITALS: TEMP 36.1; O2SAT 96
[2022-01-30] MEDS: POTASSIUM CHLORIDE 10 MEQ CAPSULE ER PO (17:27)
[2022-01-30 21:25] VITALS: TEMP 36.2; O2SAT 93
[2022-01-30] MEDS: HYDROCODONE-ACETAMIN 5-325 MG 1 TAB PO (21:51)
[2022-01-30 23:00] VITALS: TEMP 36.5; O2SAT 95
[2022-01-31] MEDS: MAGNESIUM OXIDE 400 MG TABLET PO (08:51)
[2022-01-31] MEDS: METFORMIN ER 500 MG 1000 MG PO ×2 (08:51→17:22)
[2022-01-31] MEDS: LOPERAMIDE HCL 2 MG CAPSULE PO ×2 (08:51→16:23)
[2022-01-31] MEDS: predniSONE 5 MG TABLET PO (08:52)
[2022-01-31] MEDS: CETIRIZINE HCL 10 MG TABLET PO (08:52)
[2022-01-31] MEDS: predniSONE 1 MG TABLET PO (08:52)
--- NOTE | 2022-01-31 09:06 | PC.NURSE ---
Order: Lasix 40mg daily discontinued by Yudy DELGADO per resident request.
[2022-01-31 10:34] VITALS: TEMP 36.3; O2SAT 98
[2022-01-31] MEDS: LACTOBACILLUS ACIDOPHILUS 1 TABLET 1 TAB PO ×2 (11:58→17:22)
[2022-01-31] MEDS: POTASSIUM CHLORIDE 10 MEQ CAPSULE ER 20 MEQ PO (16:47)
[2022-01-31 18:18] VITALS: TEMP 37; O2SAT 96
[2022-01-31 23:00] VITALS: TEMP 36.2; O2SAT 96
[2022-02-01 07:00] VITALS: TEMP 36.6; O2SAT 98
[2022-02-01] MEDS: MAGNESIUM OXIDE 400 MG TABLET PO (08:41)
[2022-02-01] MEDS: METFORMIN ER 500 MG 1000 MG PO ×2 (08:41→17:17)
[2022-02-01] MEDS: predniSONE 5 MG TABLET PO (08:41)
[2022-02-01] MEDS: predniSONE 1 MG TABLET PO (08:41)
[2022-02-01] MEDS: LOPERAMIDE HCL 2 MG CAPSULE PO ×2 (08:41→16:31)
[2022-02-01] MEDS: CETIRIZINE HCL 10 MG TABLET PO (08:41)
[2022-02-01] MEDS: LACTOBACILLUS ACIDOPHILUS 1 TABLET 1 TAB PO ×2 (12:17→17:17)
[2022-02-01] MEDS: POTASSIUM CHLORIDE 10 MEQ CAPSULE ER PO (17:17)
[2022-02-01] MEDS: HYDROCODONE-ACETAMIN 5-325 MG 1 TAB PO (22:07)
--- NOTE | 2022-02-01 22:42 | PC.NURSE ---
Residents daughters updated via email that audiology will have a visit with resident in January when coming for annual visit.
[2022-02-02 08:00] VITALS: TEMP 36.1; O2SAT 98
[2022-02-02] MEDS: METFORMIN ER 500 MG 1000 MG PO ×2 (08:22→17:10)
[2022-02-02] MEDS: LOPERAMIDE HCL 2 MG CAPSULE PO ×2 (08:22→17:10)
[2022-02-02] MEDS: CETIRIZINE HCL 10 MG TABLET PO (08:22)
[2022-02-02] MEDS: predniSONE 1 MG TABLET PO (08:22)
[2022-02-02] MEDS: predniSONE 5 MG TABLET PO (08:22)
[2022-02-02] MEDS: MAGNESIUM OXIDE 400 MG TABLET PO (08:22)
[2022-02-02] MEDS: LACTOBACILLUS ACIDOPHILUS 1 TABLET 1 TAB PO ×2 (11:31→17:11)
[2022-02-02] MEDS: POTASSIUM CHLORIDE 10 MEQ CAPSULE ER 20 MEQ PO (17:10)
[2022-02-03 08:00] VITALS: TEMP 37.2; O2SAT 96
[2022-02-03] MEDS: LOPERAMIDE HCL 2 MG CAPSULE PO ×2 (08:26→16:31)
[2022-02-03] MEDS: METFORMIN ER 500 MG 1000 MG PO ×2 (08:27→17:26)
[2022-02-03] MEDS: MAGNESIUM OXIDE 400 MG TABLET PO (08:27)
[2022-02-03] MEDS: CETIRIZINE HCL 10 MG TABLET PO (08:27)
[2022-02-03] MEDS: predniSONE 1 MG TABLET PO (08:27)
[2022-02-03] MEDS: predniSONE 5 MG TABLET PO (08:27)
[2022-02-03] MEDS: LACTOBACILLUS ACIDOPHILUS 1 TABLET 1 TAB PO ×2 (11:13→17:27)
[2022-02-03] MEDS: POTASSIUM CHLORIDE 10 MEQ CAPSULE ER PO (16:31)
--- NOTE | 2022-02-04 02:00 | PC.NURSE ---
Week #1: Care plan problems -19 and Temporary care plan Reviewed. No change made, and Nothing. Resident has personal refrigerator in her bedroom, which is checked for temperature accuracy every NOC. Family provides her with snacks for NOCs, but also requests some from the facility supplies when needed at NOC. Often request for cup of ice at bed side at 2300. Pain: Resident denies at this time. Not on any scheduled pain medication, but receives PRN [place] and Biofreeze for pain management.
[2022-02-04 08:00] VITALS: BP 145/75; PULSE 89; RESP 30; TEMP 37; O2SAT 97
[2022-02-04] MEDS: MAGNESIUM OXIDE 400 MG TABLET PO (08:43)
[2022-02-04] MEDS: LOPERAMIDE HCL 2 MG CAPSULE PO ×2 (08:43→16:53)
[2022-02-04] MEDS: predniSONE 1 MG TABLET PO (08:44)
[2022-02-04] MEDS: METFORMIN ER 500 MG 1000 MG PO ×2 (08:44→17:07)
[2022-02-04] MEDS: predniSONE 5 MG TABLET PO (08:44)
[2022-02-04] MEDS: CETIRIZINE HCL 10 MG TABLET PO (08:44)
[2022-02-04] MEDS: LACTOBACILLUS ACIDOPHILUS 1 TABLET 1 TAB PO ×2 (11:58→17:07)
--- NOTE | 2022-02-04 13:41 | PC.NURSE ---
Week 1 Charting - Pt pain controlled with medication. Hydrocodone-Acetaminophen 5-325 PO Q6H PRN. No pt reports of pain within the last 30 days. No changes to temporary care plan within last 30 days. Care plan 2 - Resident requires extensive staff assistance with ADL. Significant disability and deconditioning at baseline. Extensive Ax1-2 with bathing and dressing. Pt frequently refuses bath - staff continues to encourage sponge baths. 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 Has complete upper and lower dentures. Resident refuses to wear dentures, states they do not fit, refuses to go to [facility] for realignment. Staff encourages resident to participate in mouth wash. Care plan 11 - Resident feeds self independently. Mined/moist diet. BMI 41.0 kg/m2. Safe to handle hot liquids independently. Resident dislikes facility food - family provides resident with food she keeps in room.
[2022-02-04] MEDS: POTASSIUM CHLORIDE 10 MEQ CAPSULE ER PO (16:54)
[2022-02-05 08:00] VITALS: TEMP 36.3; O2SAT 97
[2022-02-05] MEDS: LOPERAMIDE HCL 2 MG CAPSULE PO ×2 (08:12→15:47)
[2022-02-05] MEDS: CETIRIZINE HCL 10 MG TABLET PO (08:12)
[2022-02-05] MEDS: MAGNESIUM OXIDE 400 MG TABLET PO (08:12)
[2022-02-05] MEDS: METFORMIN ER 500 MG 1000 MG PO ×2 (08:12→17:16)
[2022-02-05] MEDS: predniSONE 5 MG TABLET PO (08:12)
[2022-02-05] MEDS: predniSONE 1 MG TABLET PO (08:12)
[2022-02-05] MEDS: LACTOBACILLUS ACIDOPHILUS 1 TABLET 1 TAB PO ×2 (11:12→17:16)
--- NOTE | 2022-02-05 11:33 | PC.NURSE ---
Recert Visit: Resident seen by TELEPHONE ANSWERERYudy. Orders reviewed and renewed of 75 days with changes. Order: Discontinue Ondansetron 4mg Q4H PRN.
[2022-02-05] MEDS: POTASSIUM CHLORIDE 10 MEQ CAPSULE ER 20 MEQ PO (16:58)
[2022-02-06] MEDS: HYDROCODONE-ACETAMIN 5-325 MG 1 TAB PO (03:58)
[2022-02-06 08:00] VITALS: TEMP 36.3; O2SAT 94
[2022-02-06] MEDS: predniSONE 1 MG TABLET PO (08:32)
[2022-02-06] MEDS: CETIRIZINE HCL 10 MG TABLET PO (08:32)
[2022-02-06] MEDS: predniSONE 5 MG TABLET PO (08:32)
[2022-02-06] MEDS: METFORMIN ER 500 MG 1000 MG PO ×2 (08:32→17:14)
[2022-02-06] MEDS: MAGNESIUM OXIDE 400 MG TABLET PO (08:32)
[2022-02-06] MEDS: LOPERAMIDE HCL 2 MG CAPSULE PO ×2 (08:32→16:01)
[2022-02-06] MEDS: LACTOBACILLUS ACIDOPHILUS 1 TABLET 1 TAB PO ×2 (11:41→17:14)
[2022-02-06] MEDS: POTASSIUM CHLORIDE 10 MEQ CAPSULE ER PO (16:01)
[2022-02-07 08:00] VITALS: TEMP 36.6; O2SAT 98
[2022-02-07] MEDS: MAGNESIUM OXIDE 400 MG TABLET PO (08:16)
[2022-02-07] MEDS: METFORMIN ER 500 MG 1000 MG PO ×2 (08:16→17:25)
[2022-02-07] MEDS: CETIRIZINE HCL 10 MG TABLET PO (08:16)
[2022-02-07] MEDS: predniSONE 1 MG TABLET PO (08:16)
[2022-02-07] MEDS: LOPERAMIDE HCL 2 MG CAPSULE PO ×2 (08:16→17:25)
[2022-02-07] MEDS: predniSONE 5 MG TABLET PO (08:16)
[2022-02-07] MEDS: LACTOBACILLUS ACIDOPHILUS 1 TABLET 1 TAB PO ×2 (11:29→17:25)
[2022-02-07] MEDS: POTASSIUM CHLORIDE 10 MEQ CAPSULE ER 20 MEQ PO (17:25)
[2022-02-08] MEDS: predniSONE 1 MG TABLET PO (08:50)
[2022-02-08] MEDS: CETIRIZINE HCL 10 MG TABLET PO (08:50)
[2022-02-08] MEDS: LOPERAMIDE HCL 2 MG CAPSULE PO ×2 (08:50→17:16)
[2022-02-08] MEDS: METFORMIN ER 500 MG 1000 MG PO ×2 (08:50→17:17)
[2022-02-08] MEDS: predniSONE 5 MG TABLET PO (08:50)
[2022-02-08] MEDS: MAGNESIUM OXIDE 400 MG TABLET PO (08:50)
[2022-02-08 10:28] VITALS: TEMP 36.1; O2SAT 95
--- NOTE | 2022-02-08 10:32 | PC.NURSE ---
Refused capri wraps, prefers her own compression socks.
[2022-02-08] MEDS: LACTOBACILLUS ACIDOPHILUS 1 TABLET 1 TAB PO ×2 (12:01→17:17)
[2022-02-08] MEDS: POTASSIUM CHLORIDE 10 MEQ CAPSULE ER PO (17:16)
[2022-02-09] MEDS: METFORMIN ER 500 MG 1000 MG PO ×2 (08:50→17:01)
[2022-02-09] MEDS: predniSONE 1 MG TABLET PO (08:50)
[2022-02-09] MEDS: predniSONE 5 MG TABLET PO (08:50)
[2022-02-09] MEDS: LOPERAMIDE HCL 2 MG CAPSULE PO ×2 (08:50→16:57)
[2022-02-09] MEDS: MAGNESIUM OXIDE 400 MG TABLET PO (08:50)
[2022-02-09] MEDS: CETIRIZINE HCL 10 MG TABLET PO (08:50)
[2022-02-09 10:22] VITALS: TEMP 36.2; O2SAT 96
--- NOTE | 2022-02-09 10:23 | PC.NURSE ---
Resident refused capri wrap/own compression socks. Stated I will do it again on Friday.
[2022-02-09] MEDS: LACTOBACILLUS ACIDOPHILUS 1 TABLET 1 TAB PO ×2 (11:54→17:01)
[2022-02-09] MEDS: POTASSIUM CHLORIDE 10 MEQ CAPSULE ER 20 MEQ PO (16:58)
--- NOTE | 2022-02-09 21:21 | PC.NURSE ---
Resident refused capri wraps/or compression stockings. Also refused to elevate RUE.
[2022-02-10 08:00] VITALS: TEMP 36.3; O2SAT 98
[2022-02-10] MEDS: METFORMIN ER 500 MG 1000 MG PO ×2 (08:58→17:06)
[2022-02-10] MEDS: MAGNESIUM OXIDE 400 MG TABLET PO (08:58)
[2022-02-10] MEDS: predniSONE 5 MG TABLET PO (08:58)
[2022-02-10] MEDS: CETIRIZINE HCL 10 MG TABLET PO (08:58)
[2022-02-10] MEDS: predniSONE 1 MG TABLET PO (08:58)
[2022-02-10] MEDS: LOPERAMIDE HCL 2 MG CAPSULE PO ×2 (08:58→16:46)
[2022-02-10] MEDS: LACTOBACILLUS ACIDOPHILUS 1 TABLET 1 TAB PO ×2 (12:05→17:06)
[2022-02-10] MEDS: POTASSIUM CHLORIDE 10 MEQ CAPSULE ER PO (16:46)
--- NOTE | 2022-02-11 03:24 | PC.NURSE ---
Week #2---care plan problems #20-29 reviewed. No changes made. Nothing added to temporary care plan. Res. does not get out of bed at [facility]. Refuses to lie on either side. Is turned side to side to use the bedpan or have her pad changed. EZ positioner to move res. up in bed. Air mattress on bed. Falls---no falls this past month. Is a low fall risk according to assessment done on 09/27/21.
[2022-02-11 08:00] VITALS: PULSE 87; RESP 22; TEMP 36.3; O2SAT 99
[2022-02-11] MEDS: predniSONE 5 MG TABLET PO (08:59)
[2022-02-11] MEDS: MAGNESIUM OXIDE 400 MG TABLET PO (08:59)
[2022-02-11] MEDS: METFORMIN ER 500 MG 1000 MG PO ×2 (08:59→17:56)
[2022-02-11] MEDS: LOPERAMIDE HCL 2 MG CAPSULE PO ×2 (08:59→16:18)
[2022-02-11] MEDS: predniSONE 1 MG TABLET PO (09:00)
[2022-02-11] MEDS: CETIRIZINE HCL 10 MG TABLET PO (09:00)
--- NOTE | 2022-02-11 10:09 | PC.NURSE ---
Week #1: Care plan problems and temporary care plan reviewed. No changes made. Nothing added to temporary care plan. She does not ambulate. Total dependence of 2-3 staffs with bed/recliner mobility & transfers via josé lift. Does not use the wheelchair & refuses to sit up in the recliner. To be T & R every 2.5 hours while in bed. Will turn side-side to use the bedpan or new pad changed. Has an EZ positioner to move up in bed. Air mattress in bed. 2 side rails up to aid for positioning. No alarms. Fall : No falls this past month. Is a low fall risk according to assessment done on 09/27/21.
[2022-02-11] MEDS: LACTOBACILLUS ACIDOPHILUS 1 TABLET 1 TAB PO ×2 (12:29→17:56)
[2022-02-11] MEDS: POTASSIUM CHLORIDE 10 MEQ CAPSULE ER PO (17:56)
[2022-02-12 08:00] VITALS: BP 184/100; PULSE 72; RESP 14; TEMP 36.7; O2SAT 96; O2SAT 98
[2022-02-12] MEDS: LOPERAMIDE HCL 2 MG CAPSULE PO ×2 (08:56→17:15)
[2022-02-12] MEDS: predniSONE 5 MG TABLET PO (08:56)
[2022-02-12] MEDS: MAGNESIUM OXIDE 400 MG TABLET PO (08:56)
[2022-02-12] MEDS: CETIRIZINE HCL 10 MG TABLET PO (08:56)
[2022-02-12] MEDS: predniSONE 1 MG TABLET PO (08:56)
[2022-02-12] MEDS: METFORMIN ER 500 MG 1000 MG PO ×2 (08:56→17:15)
[2022-02-12] MEDS: LACTOBACILLUS ACIDOPHILUS 1 TABLET 1 TAB PO ×2 (12:41→17:16)
[2022-02-12] MEDS: POTASSIUM CHLORIDE 10 MEQ CAPSULE ER 20 MEQ PO (17:16)
[2022-02-13 08:00] VITALS: TEMP 36.2; O2SAT 97
[2022-02-13] MEDS: MAGNESIUM OXIDE 400 MG TABLET PO (08:59)
[2022-02-13] MEDS: METFORMIN ER 500 MG 1000 MG PO ×2 (08:59→17:05)
[2022-02-13] MEDS: LOPERAMIDE HCL 2 MG CAPSULE PO ×2 (08:59→15:33)
[2022-02-13] MEDS: predniSONE 5 MG TABLET PO (09:00)
[2022-02-13] MEDS: CETIRIZINE HCL 10 MG TABLET PO (09:00)
[2022-02-13] MEDS: predniSONE 1 MG TABLET PO (09:00)
[2022-02-13] MEDS: LACTOBACILLUS ACIDOPHILUS 1 TABLET 1 TAB PO ×2 (12:15→17:05)
[2022-02-13] MEDS: POTASSIUM CHLORIDE 10 MEQ CAPSULE ER PO (17:05)
[2022-02-14] MEDS: LOPERAMIDE HCL 2 MG CAPSULE PO ×2 (08:36→16:42)
[2022-02-14] MEDS: CETIRIZINE HCL 10 MG TABLET PO (08:37)
[2022-02-14] MEDS: predniSONE 1 MG TABLET PO (08:37)
[2022-02-14] MEDS: MAGNESIUM OXIDE 400 MG TABLET PO (08:37)
[2022-02-14] MEDS: predniSONE 5 MG TABLET PO (08:37)
[2022-02-14] MEDS: METFORMIN ER 500 MG 1000 MG PO ×2 (08:37→17:19)
[2022-02-14 10:20] VITALS: TEMP 35.8; O2SAT 94
--- NOTE | 2022-02-14 10:24 | PC.NURSE ---
Resident has extreme edema all over. Specifically in RUE. Resident refuses lasix (not ordered anymore due to refusal). Refuses wrap to upper extremity. Has BLE wraps on but refuses to remove. Educated resident on side effects of not taking Lasix.
[2022-02-14] MEDS: LACTOBACILLUS ACIDOPHILUS 1 TABLET 1 TAB PO ×2 (11:41→17:19)
[2022-02-14] MEDS: POTASSIUM CHLORIDE 10 MEQ CAPSULE ER 20 MEQ PO (16:42)
[2022-02-15] MEDS: METFORMIN ER 500 MG 1000 MG PO ×2 (09:48→17:05)
[2022-02-15] MEDS: MAGNESIUM OXIDE 400 MG TABLET PO (09:48)
[2022-02-15] MEDS: LOPERAMIDE HCL 2 MG CAPSULE PO ×2 (09:48→17:05)
[2022-02-15] MEDS: CETIRIZINE HCL 10 MG TABLET PO (09:49)
[2022-02-15] MEDS: predniSONE 1 MG TABLET PO (09:49)
[2022-02-15] MEDS: predniSONE 5 MG TABLET PO (09:49)
--- NOTE | 2022-02-15 09:50 | PC.NURSE ---
Status/Order: Dr. Ramsey updated of c/o of yellow vaginal drainage. Wants med for yeast infection. Order: Diflucan 150mg once.
[2022-02-15] MEDS: LACTOBACILLUS ACIDOPHILUS 1 TABLET 1 TAB PO ×2 (11:12→17:05)
[2022-02-15 12:47] VITALS: TEMP 36; O2SAT 96
[2022-02-15] MEDS: POTASSIUM CHLORIDE 10 MEQ CAPSULE ER PO (17:05)
[2022-02-15] MEDS: FLUCONAZOLE 100 MG TABLET 150 MG PO (20:40)
[2022-02-16 08:00] VITALS: TEMP 36.6; O2SAT 98
[2022-02-16] MEDS: LOPERAMIDE HCL 2 MG CAPSULE PO ×2 (08:24→16:50)
[2022-02-16] MEDS: MAGNESIUM OXIDE 400 MG TABLET PO (08:24)
[2022-02-16] MEDS: CETIRIZINE HCL 10 MG TABLET PO (08:24)
[2022-02-16] MEDS: predniSONE 5 MG TABLET PO (08:24)
[2022-02-16] MEDS: predniSONE 1 MG TABLET PO (08:24)
[2022-02-16] MEDS: METFORMIN ER 500 MG 1000 MG PO ×2 (08:24→17:16)
[2022-02-16] MEDS: LACTOBACILLUS ACIDOPHILUS 1 TABLET 1 TAB PO ×2 (11:33→17:16)
[2022-02-16] MEDS: POTASSIUM CHLORIDE 10 MEQ CAPSULE ER 20 MEQ PO (17:16)
[2022-02-17 08:00] VITALS: TEMP 36.5; O2SAT 96
[2022-02-17] MEDS: METFORMIN ER 500 MG 1000 MG PO ×2 (08:14→17:24)
[2022-02-17] MEDS: LOPERAMIDE HCL 2 MG CAPSULE PO ×2 (08:14→16:45)
[2022-02-17] MEDS: MAGNESIUM OXIDE 400 MG TABLET PO (08:14)
[2022-02-17] MEDS: predniSONE 1 MG TABLET PO (08:14)
[2022-02-17] MEDS: CETIRIZINE HCL 10 MG TABLET PO (08:14)
[2022-02-17] MEDS: predniSONE 5 MG TABLET PO (08:14)
[2022-02-17] MEDS: LACTOBACILLUS ACIDOPHILUS 1 TABLET 1 TAB PO ×2 (11:44→17:24)
[2022-02-17] MEDS: POTASSIUM CHLORIDE 10 MEQ CAPSULE ER PO (16:49)
--- NOTE | 2022-02-18 02:03 | PC.NURSE ---
Week #3: Skin summary: Has redness on legs, apply lotion and place a towel in between thighs. Edema in bilateral legs to apply and remove capri wraps/compression stockings daily. Temporary care plan reviewed, no change. Care plan 30-39 reviewed, no change. Bathroom: Resident will call to be put on bed armenta. Is frequently incontinent of both bowel and bladder. Wears briefs.
[2022-02-18 08:00] VITALS: BP 141/65; PULSE 81; RESP 20; TEMP 36.3; O2SAT 93; BMI 41.1
[2022-02-18] MEDS: predniSONE 5 MG TABLET PO (08:45)
[2022-02-18] MEDS: predniSONE 1 MG TABLET PO (08:45)
[2022-02-18] MEDS: LOPERAMIDE HCL 2 MG CAPSULE PO ×2 (08:45→15:49)
[2022-02-18] MEDS: MAGNESIUM OXIDE 400 MG TABLET PO (08:45)
[2022-02-18] MEDS: METFORMIN ER 500 MG 1000 MG PO ×2 (08:45→17:36)
[2022-02-18] MEDS: CETIRIZINE HCL 10 MG TABLET PO (08:46)
[2022-02-18] MEDS: LACTOBACILLUS ACIDOPHILUS 1 TABLET 1 TAB PO ×2 (12:14→17:36)
--- NOTE | 2022-02-18 12:34 | PC.NURSE ---
Week 3 charting - Skin remains fragile, flaky, with large patches of redness. No open areas noted on skin. Staff continues to lotion skin between thighs and place towel. Bed bath encouraged weekly, pt often refuses. Staff continues to offer lotion to other areas of the body daily. No changes to temporary care plan. Care plan #31 - Pt incontinent x2. Large, soft stools. Loperamide 2mg BID ordered. Extensive Ax2 for checking/changing pad and placing pt on lg bedpan. Pt often resists bed armenta and calls staff after soiling her brief. Staff provides all pericare. Check/change Q2hr, prn.
[2022-02-18] MEDS: POTASSIUM CHLORIDE 10 MEQ CAPSULE ER PO (17:36)
[2022-02-19] MEDS: HYDROCODONE-ACETAMIN 5-325 MG 1 TAB PO (00:03)
[2022-02-19 08:00] VITALS: TEMP 36.3; O2SAT 97
[2022-02-19] MEDS: MAGNESIUM OXIDE 400 MG TABLET PO (08:46)
[2022-02-19] MEDS: LOPERAMIDE HCL 2 MG CAPSULE PO ×2 (08:46→16:58)
[2022-02-19] MEDS: predniSONE 5 MG TABLET PO (08:47)
[2022-02-19] MEDS: predniSONE 1 MG TABLET PO (08:47)
[2022-02-19] MEDS: METFORMIN ER 500 MG 1000 MG PO ×2 (08:47→17:03)
[2022-02-19] MEDS: CETIRIZINE HCL 10 MG TABLET PO (08:47)
[2022-02-19] MEDS: LACTOBACILLUS ACIDOPHILUS 1 TABLET 1 TAB PO ×2 (12:03→17:03)
[2022-02-19] MEDS: POTASSIUM CHLORIDE 10 MEQ CAPSULE ER 20 MEQ PO (16:58)
--- NOTE | 2022-02-19 20:47 | PC.NURSE ---
Status: Resident refused to elevate URE. Did allow compression socks to be placed on BLE's. 3+ edema noted. Resident expressed interest in restarted lasix as she feels edema has worsened. Note left for COMPOUND MIXER to review.
[2022-02-19 21:02] VITALS: TEMP 36.6; O2SAT 98
[2022-02-20 00:27] VITALS: TEMP 36.2; O2SAT 97
[2022-02-20 07:00] VITALS: TEMP 36.5; O2SAT 97
[2022-02-20] MEDS: predniSONE 5 MG TABLET PO (08:55)
[2022-02-20] MEDS: CETIRIZINE HCL 10 MG TABLET PO (08:55)
[2022-02-20] MEDS: LOPERAMIDE HCL 2 MG CAPSULE PO ×2 (08:55→16:37)
[2022-02-20] MEDS: METFORMIN ER 500 MG 1000 MG PO ×2 (08:55→17:05)
[2022-02-20] MEDS: predniSONE 1 MG TABLET PO (08:55)
[2022-02-20] MEDS: MAGNESIUM OXIDE 400 MG TABLET PO (08:55)
--- NOTE | 2022-02-20 09:45 | PC.PHA ---
Pharmacy Review ~ Patient had decrease of daily furosemide order. Metformin continues with crcl greater than 30. As needed [place] order needed less in Jan. compared to Dec. Fluconazole one time dose ordered in January.
[2022-02-20] MEDS: LACTOBACILLUS ACIDOPHILUS 1 TABLET 1 TAB PO ×2 (12:21→17:05)
[2022-02-20] MEDS: POTASSIUM CHLORIDE 10 MEQ CAPSULE ER PO (16:37)
[2022-02-21 03:16] VITALS: TEMP 36.3; O2SAT 96
[2022-02-21] MEDS: LOPERAMIDE HCL 2 MG CAPSULE PO ×2 (08:36→16:14)
[2022-02-21] MEDS: CETIRIZINE HCL 10 MG TABLET PO (08:36)
[2022-02-21] MEDS: predniSONE 1 MG TABLET PO (08:36)
[2022-02-21] MEDS: MAGNESIUM OXIDE 400 MG TABLET PO (08:36)
[2022-02-21] MEDS: METFORMIN ER 500 MG 1000 MG PO ×2 (08:36→17:39)
[2022-02-21] MEDS: predniSONE 5 MG TABLET PO (08:36)
--- NOTE | 2022-02-21 09:33 | PC.NURSE ---
COVID OUTBREAK TESTING: Resident refused. Educated resident regarding risk vs. benefits.
[2022-02-21] MEDS: LACTOBACILLUS ACIDOPHILUS 1 TABLET 1 TAB PO ×2 (11:33→17:39)
--- NOTE | 2022-02-21 12:00 | PC.NURSE ---
Order: Yudy DELGADO here. Lasix 20mg BID.
[2022-02-21 13:36] VITALS: TEMP 36.4; O2SAT 98
[2022-02-21] MEDS: POTASSIUM CHLORIDE 10 MEQ CAPSULE ER 20 MEQ PO (16:14)
[2022-02-21] MEDS: FUROSEMIDE 20 MG TABLET PO (20:27)
[2022-02-21 20:46] VITALS: TEMP 36.4; O2SAT 96
[2022-02-22 03:42] VITALS: TEMP 36.6; O2SAT 96
[2022-02-22 07:00] VITALS: TEMP 36.5; O2SAT 98
[2022-02-22] MEDS: FUROSEMIDE 20 MG TABLET PO ×2 (08:36→16:56)
[2022-02-22] MEDS: predniSONE 1 MG TABLET PO (08:36)
[2022-02-22] MEDS: predniSONE 5 MG TABLET PO (08:36)
[2022-02-22] MEDS: MAGNESIUM OXIDE 400 MG TABLET PO (08:36)
[2022-02-22] MEDS: LOPERAMIDE HCL 2 MG CAPSULE PO ×2 (08:36→16:56)
[2022-02-22] MEDS: METFORMIN ER 500 MG 1000 MG PO ×2 (08:36→17:05)
[2022-02-22] MEDS: CETIRIZINE HCL 10 MG TABLET PO (08:36)
[2022-02-22] MEDS: LACTOBACILLUS ACIDOPHILUS 1 TABLET 1 TAB PO ×2 (11:42→17:05)
[2022-02-22] MEDS: POTASSIUM CHLORIDE 10 MEQ CAPSULE ER PO (16:56)
[2022-02-22 21:46] VITALS: TEMP 36.4; O2SAT 97
--- NOTE | 2022-02-22 21:53 | PC.NURSE ---
Status: Resident refused to elevate RUE and to be weighed.
[2022-02-23 01:19] VITALS: TEMP 36.3; O2SAT 96
[2022-02-23 07:00] VITALS: TEMP 36.4; O2SAT 100
[2022-02-23] MEDS: CETIRIZINE HCL 10 MG TABLET PO (08:55)
[2022-02-23] MEDS: LOPERAMIDE HCL 2 MG CAPSULE PO ×2 (08:55→16:32)
[2022-02-23] MEDS: predniSONE 1 MG TABLET PO (08:55)
[2022-02-23] MEDS: METFORMIN ER 500 MG 1000 MG PO ×2 (08:55→17:03)
[2022-02-23] MEDS: FUROSEMIDE 20 MG TABLET PO ×2 (08:55→16:32)
[2022-02-23] MEDS: MAGNESIUM OXIDE 400 MG TABLET PO (08:55)
[2022-02-23] MEDS: predniSONE 5 MG TABLET PO (08:55)
[2022-02-23] MEDS: LACTOBACILLUS ACIDOPHILUS 1 TABLET 1 TAB PO ×2 (12:10→17:03)
[2022-02-23] MEDS: POTASSIUM CHLORIDE 10 MEQ CAPSULE ER 20 MEQ PO (16:32)
[2022-02-23 16:40] VITALS: TEMP 36.6; O2SAT 93
[2022-02-24 02:41] VITALS: TEMP 36.3; O2SAT 96
[2022-02-24 07:00] VITALS: TEMP 36.3; O2SAT 97
[2022-02-24] MEDS: MAGNESIUM OXIDE 400 MG TABLET PO (08:34)
[2022-02-24] MEDS: FUROSEMIDE 20 MG TABLET PO ×2 (08:34→16:46)
[2022-02-24] MEDS: LOPERAMIDE HCL 2 MG CAPSULE PO ×2 (08:34→16:46)
[2022-02-24] MEDS: CETIRIZINE HCL 10 MG TABLET PO (08:35)
[2022-02-24] MEDS: predniSONE 1 MG TABLET PO (08:35)
[2022-02-24] MEDS: predniSONE 5 MG TABLET PO (08:35)
[2022-02-24] MEDS: METFORMIN ER 500 MG 1000 MG PO ×2 (08:35→17:12)
[2022-02-24] MEDS: LACTOBACILLUS ACIDOPHILUS 1 TABLET 1 TAB PO ×2 (12:17→17:12)
[2022-02-24] MEDS: POTASSIUM CHLORIDE 10 MEQ CAPSULE ER PO (16:46)
[2022-02-24 16:55] VITALS: TEMP 36.4; O2SAT 98
[2022-02-24 23:00] VITALS: TEMP 36.6; O2SAT 96
--- NOTE | 2022-02-25 00:40 | PC.NURSE ---
Week #4: Care Plan problems #40-119, Temporary Care Plan, and vital signs reviewed - no changes made, and nothing added.? Vital signs are within resident's normal ranges. No changes in hearing, vision, and orientation noted at this time.?Will use call light when needs care or help during NOC. Sleeping with TV on..? Mood/behavior. No behavioral concerns noted or reported so far, tonight. Resident is not on Psychotropic medications, currently.
--- NOTE | 2022-02-25 00:41 | PC.NURSE ---
Week #4: Care Plan problems #40-119, Temporary Care Plan, and vital signs reviewed - no changes made, and nothing added.? Vital signs are within resident's normal ranges. No changes in hearing, vision, and orientation noted at this time.?Will use call light when needs care or help during NOC. Sleeping with TV on.? Mood/behavior. No behavioral concerns noted or reported so far, tonight. Resident is not on Psychotropic medications, currently.
[2022-02-25 07:00] VITALS: TEMP 36.4; O2SAT 97
[2022-02-25] MEDS: FUROSEMIDE 20 MG TABLET PO ×2 (08:54→16:43)
[2022-02-25] MEDS: MAGNESIUM OXIDE 400 MG TABLET PO (08:54)
[2022-02-25] MEDS: CETIRIZINE HCL 10 MG TABLET PO (08:54)
[2022-02-25] MEDS: predniSONE 5 MG TABLET PO (08:54)
[2022-02-25] MEDS: METFORMIN ER 500 MG 1000 MG PO ×2 (08:54→17:45)
[2022-02-25] MEDS: LOPERAMIDE HCL 2 MG CAPSULE PO ×2 (08:54→16:43)
[2022-02-25] MEDS: predniSONE 1 MG TABLET PO (08:54)
--- NOTE | 2022-02-25 10:46 | PC.NURSE ---
OUTBREAK COVID TESTING: Resident refused swabbing. Was educated on risk vs. benefit.
[2022-02-25] MEDS: LACTOBACILLUS ACIDOPHILUS 1 TABLET 1 TAB PO ×2 (12:14→17:45)
[2022-02-25 15:00] VITALS: TEMP 36.6; O2SAT 97
[2022-02-25] MEDS: POTASSIUM CHLORIDE 10 MEQ CAPSULE ER PO (17:44)
[2022-02-26 03:46] VITALS: TEMP 36.2; O2SAT 95
[2022-02-26 07:00] VITALS: TEMP 36.5; O2SAT 97
[2022-02-26] MEDS: FUROSEMIDE 20 MG TABLET PO ×2 (08:55→16:45)
[2022-02-26] MEDS: LOPERAMIDE HCL 2 MG CAPSULE PO ×2 (08:55→16:45)
[2022-02-26] MEDS: MAGNESIUM OXIDE 400 MG TABLET PO (08:55)
[2022-02-26] MEDS: METFORMIN ER 500 MG 1000 MG PO ×2 (08:55→17:17)
[2022-02-26] MEDS: predniSONE 1 MG TABLET PO (08:56)
[2022-02-26] MEDS: predniSONE 5 MG TABLET PO (08:56)
[2022-02-26] MEDS: CETIRIZINE HCL 10 MG TABLET PO (08:56)
[2022-02-26] MEDS: LACTOBACILLUS ACIDOPHILUS 1 TABLET 1 TAB PO ×2 (12:19→17:17)
[2022-02-26] MEDS: POTASSIUM CHLORIDE 10 MEQ CAPSULE ER 20 MEQ PO (16:46)
[2022-02-26 17:00] VITALS: TEMP 37.1; O2SAT 95
[2022-02-26] MEDS: HYDROCODONE-ACETAMIN 5-325 MG 1 TAB PO (22:12)
[2022-02-27 03:28] VITALS: TEMP 36.3; O2SAT 96
[2022-02-27 07:00] VITALS: TEMP 36.3; O2SAT 93
[2022-02-27] MEDS: FUROSEMIDE 20 MG TABLET PO ×2 (08:55→16:10)
[2022-02-27] MEDS: predniSONE 5 MG TABLET PO (08:56)
[2022-02-27] MEDS: METFORMIN ER 500 MG 1000 MG PO ×2 (08:56→17:30)
[2022-02-27] MEDS: LOPERAMIDE HCL 2 MG CAPSULE PO ×2 (08:56→16:10)
[2022-02-27] MEDS: predniSONE 1 MG TABLET PO (08:56)
[2022-02-27] MEDS: CETIRIZINE HCL 10 MG TABLET PO (08:56)
[2022-02-27] MEDS: MAGNESIUM OXIDE 400 MG TABLET PO (08:56)
[2022-02-27] MEDS: LACTOBACILLUS ACIDOPHILUS 1 TABLET 1 TAB PO ×2 (12:10→17:30)
[2022-02-27 15:00] VITALS: TEMP 36.6; O2SAT 96
[2022-02-27] MEDS: POTASSIUM CHLORIDE 10 MEQ CAPSULE ER PO (17:30)
[2022-02-28 03:30] VITALS: TEMP 36.6; O2SAT 95
[2022-02-28] MEDS: CETIRIZINE HCL 10 MG TABLET PO (08:33)
[2022-02-28] MEDS: METFORMIN ER 500 MG 1000 MG PO ×2 (08:33→17:04)
[2022-02-28] MEDS: predniSONE 1 MG TABLET PO (08:33)
[2022-02-28] MEDS: FUROSEMIDE 20 MG TABLET PO ×2 (08:33→16:44)
[2022-02-28] MEDS: predniSONE 5 MG TABLET PO (08:33)
[2022-02-28] MEDS: MAGNESIUM OXIDE 400 MG TABLET PO (08:33)
[2022-02-28] MEDS: LOPERAMIDE HCL 2 MG CAPSULE PO ×2 (08:33→16:44)
[2022-02-28 10:23] VITALS: TEMP 36.4; O2SAT 95
--- NOTE | 2022-02-28 10:33 | PC.SPIRITC ---
provided visit for connection and support along with giving Maki devotional material to support her chuck practices.
--- NOTE | 2022-02-28 10:59 | PC.NURSE ---
FLU VACCINE: Resident declines to be vaccinated for flu. Educated on risk vs. benefit. Declination form signed by resident.
[2022-02-28] MEDS: LACTOBACILLUS ACIDOPHILUS 1 TABLET 1 TAB PO ×2 (11:22→17:04)
[2022-02-28] MEDS: POTASSIUM CHLORIDE 10 MEQ CAPSULE ER 20 MEQ PO (16:44)
[2022-02-28 17:10] VITALS: TEMP 36.4; O2SAT 98
--- NOTE | 2022-02-28 21:11 | PC.NURSE ---
Resident refused to elevate RUE, have RN do skin care or place compression socks.
[2022-02-28 22:49] VITALS: TEMP 36.6; O2SAT 98
[2022-03-01 07:00] VITALS: TEMP 36.7; O2SAT 95
[2022-03-01] MEDS: LOPERAMIDE HCL 2 MG CAPSULE PO ×2 (08:56→16:02)
[2022-03-01] MEDS: FUROSEMIDE 20 MG TABLET PO ×2 (08:56→16:02)
[2022-03-01] MEDS: MAGNESIUM OXIDE 400 MG TABLET PO (08:56)
[2022-03-01] MEDS: METFORMIN ER 500 MG 1000 MG PO ×2 (08:56→17:10)
[2022-03-01] MEDS: CETIRIZINE HCL 10 MG TABLET PO (08:57)
[2022-03-01] MEDS: predniSONE 1 MG TABLET PO (08:57)
[2022-03-01] MEDS: predniSONE 5 MG TABLET PO (08:57)
[2022-03-01] MEDS: LACTOBACILLUS ACIDOPHILUS 1 TABLET 1 TAB PO ×2 (12:17→17:10)
[2022-03-01 16:52] VITALS: TEMP 36.6; O2SAT 96
[2022-03-01] MEDS: POTASSIUM CHLORIDE 10 MEQ CAPSULE ER PO (17:08)
[2022-03-02 03:45] VITALS: TEMP 36.1; O2SAT 94
[2022-03-02 07:00] VITALS: TEMP 36.6; O2SAT 97
[2022-03-02] MEDS: FUROSEMIDE 20 MG TABLET PO ×2 (08:15→15:45)
[2022-03-02] MEDS: METFORMIN ER 500 MG 1000 MG PO ×2 (08:15→17:51)
[2022-03-02] MEDS: predniSONE 5 MG TABLET PO (08:15)
[2022-03-02] MEDS: LOPERAMIDE HCL 2 MG CAPSULE PO ×2 (08:15→15:47)
[2022-03-02] MEDS: MAGNESIUM OXIDE 400 MG TABLET PO (08:15)
[2022-03-02] MEDS: predniSONE 1 MG TABLET PO (08:15)
[2022-03-02] MEDS: LACTOBACILLUS ACIDOPHILUS 1 TABLET 1 TAB PO ×2 (11:45→17:51)
[2022-03-02 15:00] VITALS: TEMP 36.4; O2SAT 96
[2022-03-02] MEDS: POTASSIUM CHLORIDE 10 MEQ CAPSULE ER 20 MEQ PO (17:51)
[2022-03-02 23:00] VITALS: TEMP 36.3; O2SAT 95
[2022-03-03] MEDS: predniSONE 5 MG TABLET PO (08:37)
[2022-03-03] MEDS: FUROSEMIDE 20 MG TABLET PO ×2 (08:37→16:50)
[2022-03-03] MEDS: predniSONE 1 MG TABLET PO (08:37)
[2022-03-03] MEDS: MAGNESIUM OXIDE 400 MG TABLET PO (08:37)
[2022-03-03] MEDS: LOPERAMIDE HCL 2 MG CAPSULE PO ×2 (08:37→16:50)
[2022-03-03] MEDS: METFORMIN ER 500 MG 1000 MG PO ×2 (08:37→17:25)
[2022-03-03 10:26] VITALS: TEMP 36.2; O2SAT 94
[2022-03-03] MEDS: LACTOBACILLUS ACIDOPHILUS 1 TABLET 1 TAB PO ×2 (11:41→17:25)
[2022-03-03] MEDS: POTASSIUM CHLORIDE 10 MEQ CAPSULE ER PO (16:50)
[2022-03-03 17:03] VITALS: TEMP 36.4; O2SAT 95
--- NOTE | 2022-03-04 02:23 | PC.NURSE ---
Week #1: Resident has complained of pain twice in the past month on NOC. Pain is typically in the legs and, resolves with PRN Narco 5-325mg PO Q6H. Also has Biofreeze topical Q4H. Temporary care plan reviewed, no change. Care plan 1-19 reviewed, no change. Resident needs staff assist with ADLs. Resident will usually request a cup of ice and a snack from her fridge at the beginning of the NOC. Will eat independently in bed.
[2022-03-04 02:43] VITALS: TEMP 36.4; O2SAT 92
[2022-03-04 07:00] VITALS: TEMP 36.3; O2SAT 95
[2022-03-04 08:00] VITALS: BP 152/87; PULSE 82; RESP 22; TEMP 36.3; O2SAT 95
[2022-03-04] MEDS: METFORMIN ER 500 MG 1000 MG PO ×2 (08:53→17:18)
[2022-03-04] MEDS: FUROSEMIDE 20 MG TABLET PO ×2 (08:53→15:57)
[2022-03-04] MEDS: MAGNESIUM OXIDE 400 MG TABLET PO (08:53)
[2022-03-04] MEDS: predniSONE 1 MG TABLET PO (08:53)
[2022-03-04] MEDS: predniSONE 5 MG TABLET PO (08:53)
[2022-03-04] MEDS: LOPERAMIDE HCL 2 MG CAPSULE PO ×2 (08:53→15:57)
--- NOTE | 2022-03-04 11:01 | PC.NURSE ---
Medicare Charting Week #1 2 pt complaints of pain within last 30 days. Both complaints at [facility]. Pain is typically in legs. Order for PRN Narco 5/325mg PO Q6H. Order for Biofreeze topical Q4H. Pain resolved with PRNs. No changes to temporary care plan. Care plan #2 - Pt requires extensive Ax1 or Ax2 for all ADLs. Pt frequently refuses cares - bathing (including bed baths), oral care, wt, skin check, TEDs/Jakob wraps. Care plan #6 - Pt has complete upper and lower dentures. Pt does not wear dentures - says they do not fit. Family is aware that pt would like new dentures. Pt also refuses to go to [facility]. Limited Ax1 for oral care - set up. Care plan #11 - Pt feeds independently. Regular diet, minced and moist. Pt refuses facility food. Family brings in food and pt keeps it in her room. Staff Ax1 for meal set up.
[2022-03-04] MEDS: LACTOBACILLUS ACIDOPHILUS 1 TABLET 1 TAB PO ×2 (12:11→17:18)
[2022-03-04 15:00] VITALS: TEMP 36.6; O2SAT 95
[2022-03-04] MEDS: POTASSIUM CHLORIDE 10 MEQ CAPSULE ER PO (17:18)
[2022-03-05 04:09] VITALS: TEMP 36.9; O2SAT 95
[2022-03-05 07:00] VITALS: TEMP 37.1; O2SAT 98
[2022-03-05] MEDS: FUROSEMIDE 20 MG TABLET PO ×2 (08:56→16:47)
[2022-03-05] MEDS: predniSONE 1 MG TABLET PO (08:56)
[2022-03-05] MEDS: METFORMIN ER 500 MG 1000 MG PO ×2 (08:56→17:15)
[2022-03-05] MEDS: MAGNESIUM OXIDE 400 MG TABLET PO (08:56)
[2022-03-05] MEDS: LOPERAMIDE HCL 2 MG CAPSULE PO ×2 (08:56→16:47)
[2022-03-05] MEDS: predniSONE 5 MG TABLET PO (08:56)
[2022-03-05] MEDS: LACTOBACILLUS ACIDOPHILUS 1 TABLET 1 TAB PO ×2 (12:11→17:15)
[2022-03-05 14:45] VITALS: BMI 41.1
--- NOTE | 2022-03-05 16:45 | PC.SOCIAL ---
Phone call to Resident's daughter, Cristy Basilio. Left a voicemail informing daughter that care conference was set for resident on 03-12-22 at 1:00 pm. Informed daughter that the care conference information was emailed to her email address on file.
[2022-03-05] MEDS: POTASSIUM CHLORIDE 10 MEQ CAPSULE ER 20 MEQ PO (16:47)
[2022-03-05 17:00] VITALS: TEMP 36.6; O2SAT 96
[2022-03-06 02:19] VITALS: TEMP 36.3; O2SAT 96
[2022-03-06] MEDS: LOPERAMIDE HCL 2 MG CAPSULE PO ×2 (07:58→16:41)
[2022-03-06] MEDS: MAGNESIUM OXIDE 400 MG TABLET PO (07:58)
[2022-03-06] MEDS: predniSONE 1 MG TABLET PO (07:58)
[2022-03-06] MEDS: predniSONE 5 MG TABLET PO (07:58)
[2022-03-06] MEDS: FUROSEMIDE 20 MG TABLET PO ×2 (07:58→16:40)
[2022-03-06] MEDS: METFORMIN ER 500 MG 1000 MG PO ×2 (07:58→17:31)
[2022-03-06 11:04] VITALS: TEMP 36; O2SAT 94
[2022-03-06] MEDS: LACTOBACILLUS ACIDOPHILUS 1 TABLET 1 TAB PO ×2 (11:46→17:31)
--- NOTE | 2022-03-06 13:14 | PC.SOCIAL ---
Phone call from Resident's daughter, Cristy. Cristy states that the care conference date/time works with her schedule and she will plan to come in person.
[2022-03-06 15:00] VITALS: TEMP 36.1; O2SAT 96
[2022-03-06] MEDS: POTASSIUM CHLORIDE 10 MEQ CAPSULE ER PO (17:23)
[2022-03-07 02:25] VITALS: TEMP 36.2; O2SAT 94
[2022-03-07] MEDS: LOPERAMIDE HCL 2 MG CAPSULE PO ×2 (08:56→16:10)
[2022-03-07] MEDS: MAGNESIUM OXIDE 400 MG TABLET PO (08:56)
[2022-03-07] MEDS: METFORMIN ER 500 MG 1000 MG PO ×2 (08:56→17:00)
[2022-03-07] MEDS: FUROSEMIDE 20 MG TABLET PO ×2 (08:56→16:10)
[2022-03-07] MEDS: predniSONE 1 MG TABLET PO (08:57)
[2022-03-07] MEDS: predniSONE 5 MG TABLET PO (08:57)
[2022-03-07] MEDS: LACTOBACILLUS ACIDOPHILUS 1 TABLET 1 TAB PO ×2 (12:17→17:00)
[2022-03-07] MEDS: POTASSIUM CHLORIDE 10 MEQ CAPSULE ER 20 MEQ PO (16:10)
[2022-03-07 17:17] VITALS: TEMP 36.8; O2SAT 92
--- NOTE | 2022-03-07 18:14 | PC.NURSE ---
FALL RISK: MDS assessment noted resident is bed bound and she does not ambulate, use wheelchair or use the toilet.
[2022-03-08 02:15] VITALS: TEMP 36.3; O2SAT 94
[2022-03-08] MEDS: FUROSEMIDE 20 MG TABLET PO ×2 (08:27→16:53)
[2022-03-08] MEDS: predniSONE 1 MG TABLET PO (08:27)
[2022-03-08] MEDS: METFORMIN ER 500 MG 1000 MG PO ×2 (08:27→17:05)
[2022-03-08] MEDS: MAGNESIUM OXIDE 400 MG TABLET PO (08:27)
[2022-03-08] MEDS: predniSONE 5 MG TABLET PO (08:27)
[2022-03-08] MEDS: LOPERAMIDE HCL 2 MG CAPSULE PO ×2 (08:27→16:53)
[2022-03-08 11:04] VITALS: TEMP 36.4; O2SAT 96
[2022-03-08] MEDS: LACTOBACILLUS ACIDOPHILUS 1 TABLET 1 TAB PO ×2 (11:42→17:05)
[2022-03-08] MEDS: POTASSIUM CHLORIDE 10 MEQ CAPSULE ER PO (16:53)
[2022-03-08 21:18] VITALS: TEMP 36.3; O2SAT 92
[2022-03-09 02:09] VITALS: TEMP 36.2; O2SAT 96
[2022-03-09] MEDS: FUROSEMIDE 20 MG TABLET PO ×2 (08:46→16:42)
[2022-03-09] MEDS: predniSONE 1 MG TABLET PO (08:46)
[2022-03-09] MEDS: predniSONE 5 MG TABLET PO (08:46)
[2022-03-09] MEDS: METFORMIN ER 500 MG 1000 MG PO ×2 (08:46→17:03)
[2022-03-09] MEDS: MAGNESIUM OXIDE 400 MG TABLET PO (08:46)
[2022-03-09] MEDS: LOPERAMIDE HCL 2 MG CAPSULE PO ×2 (08:46→16:42)
[2022-03-09] MEDS: LACTOBACILLUS ACIDOPHILUS 1 TABLET 1 TAB PO ×2 (11:54→17:03)
[2022-03-09 13:19] VITALS: TEMP 36.1; O2SAT 97
[2022-03-09] MEDS: POTASSIUM CHLORIDE 10 MEQ CAPSULE ER 20 MEQ PO (16:42)
[2022-03-09 16:51] VITALS: TEMP 36.4; O2SAT 95
--- NOTE | 2022-03-09 21:04 | PC.NURSE ---
Skin: Resident refused skin care, and to have compression socks removed.
[2022-03-09 23:00] VITALS: TEMP 35.6; O2SAT 96
[2022-03-10] MEDS: FUROSEMIDE 20 MG TABLET PO ×2 (08:25→16:45)
[2022-03-10] MEDS: predniSONE 1 MG TABLET PO (08:26)
[2022-03-10] MEDS: predniSONE 5 MG TABLET PO (08:26)
[2022-03-10] MEDS: LOPERAMIDE HCL 2 MG CAPSULE PO ×2 (08:26→16:46)
[2022-03-10] MEDS: METFORMIN ER 500 MG 1000 MG PO ×2 (08:26→17:02)
[2022-03-10] MEDS: MAGNESIUM OXIDE 400 MG TABLET PO (08:26)
[2022-03-10 10:41] VITALS: TEMP 36.8; O2SAT 95
[2022-03-10] MEDS: LACTOBACILLUS ACIDOPHILUS 1 TABLET 1 TAB PO ×2 (11:26→17:02)
[2022-03-10] MEDS: POTASSIUM CHLORIDE 10 MEQ CAPSULE ER PO (16:46)
[2022-03-10 16:53] VITALS: TEMP 36.6; O2SAT 96
[2022-03-10 23:00] VITALS: TEMP 36.4; O2SAT 97
--- NOTE | 2022-03-11 03:53 | PC.NURSE ---
Week #2 nurse note: Care plan problems #20-29 reviewed.?No changes made.?Nothing added to temporary care plan.?Res. does not get out of bed at noc.?Refuses to lie on either side.?Is turned side to side to use the bedpan or have her pad changed.?EZ positioner to move res. up in bed.?Air mattress on bed.? Falls---no falls this past month.? Is a low fall risk according to assessment done on 03/07/22.
[2022-03-11] MEDS: FUROSEMIDE 20 MG TABLET PO ×2 (09:00→16:44)
[2022-03-11] MEDS: METFORMIN ER 500 MG 1000 MG PO ×2 (09:00→17:00)
[2022-03-11] MEDS: LOPERAMIDE HCL 2 MG CAPSULE PO ×2 (09:00→16:44)
[2022-03-11] MEDS: predniSONE 1 MG TABLET PO (09:01)
[2022-03-11] MEDS: predniSONE 5 MG TABLET PO (09:03)
[2022-03-11] MEDS: MAGNESIUM OXIDE 400 MG TABLET PO (09:03)
[2022-03-11 10:31] VITALS: BP 175/87; PULSE 74; RESP 16; TEMP 36.1; O2SAT 96
--- NOTE | 2022-03-11 10:34 | PC.NURSE ---
Resident refused wraps to bilateral extremities
[2022-03-11] MEDS: LACTOBACILLUS ACIDOPHILUS 1 TABLET 1 TAB PO ×2 (12:12→17:00)
--- NOTE | 2022-03-11 14:29 | PC.NURSE ---
Resident refused to have tub bath or weight taken today. Bed bath given. Skin check done by nurse.
[2022-03-11 15:00] VITALS: TEMP 36.6; O2SAT 97
--- NOTE | 2022-03-11 15:57 | PC.NURSE ---
COVID OUTBREAK TESTING: Resident refused to participate in weekly swabbing. Educated on risk vs. benefit.
[2022-03-11] MEDS: POTASSIUM CHLORIDE 10 MEQ CAPSULE ER PO (17:00)
--- NOTE | 2022-03-11 21:38 | PC.NURSE ---
Week #2: Care plan problems #20-29 reviewed.? No changes made.? Nothing added to temporary care plan.? Extensive assist of 2 with toileting and positioning.? Moves up in bed with EZ positioner.? Top side rails up.? Falls: No fall incidents this past month.? Remains low fall risk according to assessment done on 03/07/22.
[2022-03-12 02:13] VITALS: TEMP 36.4; O2SAT 94
[2022-03-12] MEDS: LOPERAMIDE HCL 2 MG CAPSULE PO ×2 (08:35→16:41)
[2022-03-12] MEDS: METFORMIN ER 500 MG 1000 MG PO ×2 (08:35→17:15)
[2022-03-12] MEDS: predniSONE 1 MG TABLET PO (08:35)
[2022-03-12] MEDS: MAGNESIUM OXIDE 400 MG TABLET PO (08:35)
[2022-03-12] MEDS: FUROSEMIDE 20 MG TABLET PO ×2 (08:35→16:41)
[2022-03-12] MEDS: predniSONE 5 MG TABLET PO (08:35)
[2022-03-12] MEDS: HYDROCODONE-ACETAMIN 5-325 MG 1 TAB PO (10:03)
[2022-03-12 10:07] VITALS: TEMP 36.3; O2SAT 97
--- NOTE | 2022-03-12 10:56 | PC.NURSE ---
Status: PERISHABLE FRUIT INSPECTOR, Yudy here. Resident request for Lasix reduction noted by her. Needs undated weight. Resident notified of plan to have her weight taken.
[2022-03-12] MEDS: LACTOBACILLUS ACIDOPHILUS 1 TABLET 1 TAB PO ×2 (11:45→17:15)
--- NOTE | 2022-03-12 13:00 | PC.NURSE ---
CARE CONFERENCE: Resident, dietary, nursing, and SS in attendance. Daughters Eloina and Cristy present. Resident has been less compliant with wearing MARGARET stockings regularly, swelling has improved since last CC due to intermittent rounds of Lasix. Resident reports that she will always be on and off lasix. Has MELISSA wraps ordered for her BLEs but usually refuses them, states that she prefers the MARGARET socks instead. All wounds are healed at this time. Resident notes she continues to have dry, sensitive skin. Lotion is applied daily and as needed. Wants to be offered a warm washcloth for her face in the mornings. Nystatin powder has been applied intermittently this quarter due to redness and moisture noted in abd/armpit folds. Resident has pain when lower legs touched, this is chronic. Nail care to be done weekly-family notes this hasn't always been getting done. TECHNICAL MANAGER CHEMICAL PLANT will discuss with staff. Resident continues to refuse tub baths and most often gets a bed bath. Encouraged resident to take tub baths due to hygiene concern and recurrent yeast infections. Incontinent of bowel and bladder. Calls for bedpan. Care plan reviewed and updated. No life enrichment concerns. Resident notes that her amplifier is no longer working well--family is aware. Audiology was set to come in January but due to only 2 residents needing services in [facility], they were unable to come in January and are working to reschedule [facility] along with another facility in the area. Family has been notified of this multiple times. Family feels that her poor hearing is ?affecting her quality of life and wellbeing and we ([facility]) are hindering her from this. Family also brings up multiple concerns regarding use of [facility] van for transportation, lymphedema pumps for her R arm and legs, and poor care. DON updated with these concern. Offered that family may set up an outside appointment and transportation for resident if they prefer, instead of waiting for In House Services for audiology. Resident refused podiatry services offered 03/11/22. Resident does not leave room unless for bath or haircuts. A larger wheelchair was provided to resident, is in resident bathroom. Resident is bed bound at this time. Refuses to get up to her recliner. Residents weight is stable, but often refuses weekly weights. Resident denies this, but per charting and conversation with primary MANAGER ERP, resident has not been weighed since 02/18. Continue minced and moist diet. Family brings snacks that are not within dietary recommendations. Reviewed POLST. DNR/DNI. No changes made. Uses no restraints. Does use 2 quarter side rails on her bed to assist with positioning. Medications set up by nurse - puts empty med cup on her food tray to show the nurse that she took her pills. She does not eat breakfast in the morning and requests to sleep in I am a night owl. Vulnerability- at risk of being harmed due to weakness and assistance needed with ADLs. Resident is a hector lift. She requests a trapeze be placed on her bed, but this is not possible due to Hector lift. Resident reports that she feels she is getting good care and that she enjoys all of the staff who are like family to her. No plans for discharge. [facility] care.
--- NOTE | 2022-03-12 14:10 | PC.SOCIAL ---
Resident care conference was held today (03-12-22) in resident's room at 1:00 pm. Resident's daughters, Eloina and Cristy, both attended in person. Also in attendance was Christi Meza (TOOL MAKER), Catarina Moise (Nutrition), and this worker from Social Work. Updates were provided from Nursing and Nutrition. Family has concerns since resident has not been able to see anyone from audiology. Christi states that she will continue to try to get an appointment secured. Cristy and Eloina will try to work to get something set up also. Eloina asks if the [facility] activities van can be used to transport resident to her audiology appointment. Christi informs that it cannot be used to take resident's to appointments. Eloina and Cristy will discuss concerns surrounding van with Juliette Poole (SHARON). Social Work informed that this worker met with Resident last week and had a conversation. There are no concerns for resident at this time and resident's mood is stable.
[2022-03-12] MEDS: POTASSIUM CHLORIDE 10 MEQ CAPSULE ER 20 MEQ PO (16:41)
[2022-03-12 16:58] VITALS: TEMP 36.3; O2SAT 93
[2022-03-13 02:18] VITALS: TEMP 36.1; O2SAT 91
[2022-03-13] MEDS: FUROSEMIDE 20 MG TABLET PO ×2 (08:15→16:37)
[2022-03-13] MEDS: LOPERAMIDE HCL 2 MG CAPSULE PO ×2 (08:15→16:37)
[2022-03-13] MEDS: MAGNESIUM OXIDE 400 MG TABLET PO (08:16)
[2022-03-13] MEDS: METFORMIN ER 500 MG 1000 MG PO ×2 (08:16→17:35)
[2022-03-13] MEDS: predniSONE 5 MG TABLET PO (08:16)
[2022-03-13] MEDS: predniSONE 1 MG TABLET PO (08:16)
[2022-03-13 11:02] VITALS: BMI 40.4
[2022-03-13] MEDS: LACTOBACILLUS ACIDOPHILUS 1 TABLET 1 TAB PO ×2 (11:27→17:35)
[2022-03-13 15:00] VITALS: TEMP 36.5; O2SAT 97
[2022-03-13] MEDS: POTASSIUM CHLORIDE 10 MEQ CAPSULE ER PO (17:35)
[2022-03-14 02:30] VITALS: TEMP 36.1; O2SAT 93
[2022-03-14] MEDS: predniSONE 1 MG TABLET PO (08:49)
[2022-03-14] MEDS: METFORMIN ER 500 MG 1000 MG PO ×2 (08:49→17:05)
[2022-03-14] MEDS: predniSONE 5 MG TABLET PO (08:49)
[2022-03-14] MEDS: LOPERAMIDE HCL 2 MG CAPSULE PO ×2 (08:49→16:47)
[2022-03-14] MEDS: MAGNESIUM OXIDE 400 MG TABLET PO (08:49)
[2022-03-14] MEDS: FUROSEMIDE 20 MG TABLET PO ×2 (08:49→16:47)
[2022-03-14 09:54] VITALS: TEMP 36.1; O2SAT 96
--- NOTE | 2022-03-14 09:55 | PC.NURSE ---
Status: Resident refused LE's elevated, prefers to have her own compression stocking than capri wraps.
[2022-03-14] MEDS: LACTOBACILLUS ACIDOPHILUS 1 TABLET 1 TAB PO ×2 (12:02→17:05)
--- NOTE | 2022-03-14 14:52 | PC.NURSE ---
I called and spoke to daughter Eloina as a follow up to resident's quarterly care conference. Eloina stated she had only two concerns. First is why does the hospital have a van that cannot be used to transport resident's to medical appointments. If the hospital wants to make money they should use it. I told her it was my understanding it is due to licensing and insurance but I would share her concern with administration. Secondly, she is concerned about the audiology not coming out yet to get a hearing aide for her mom. I told her the ROLL OUT MANAGER is in contact with our audiology and they are awaiting to combine us with another care center. She understood. I asked her if there was something we should be doing in the meantime, she stated; You are doing everything already, we bought her a pocket talker and now that doesn't work so well. You guys gave her one too. I reassured her we will get the track rider out as soon as we could. She was appreciative of the call.
--- NOTE | 2022-03-14 16:00 | PC.NURSE ---
MDS clarification: Reviewed MDS ADL charting for TOMÁS 03/07, noted to have inconsistent charting. Interviewed NARs and determined that errors were made. Changes reviewed and coded as such in MDS.
[2022-03-14] MEDS: POTASSIUM CHLORIDE 10 MEQ CAPSULE ER 20 MEQ PO (16:47)
[2022-03-14 18:35] VITALS: TEMP 36.4; O2SAT 94
--- NOTE | 2022-03-14 21:45 | PC.NURSE ---
Diet: Resident refused to follow minced and moist diet orders for dinner. Insisted on having leftover sandwich and [place] cream pie.
--- NOTE | 2022-03-14 21:47 | PC.NURSE ---
Skin: Resident refused skin care.
[2022-03-14 23:00] VITALS: TEMP 36.5; O2SAT 95
[2022-03-15] MEDS: METFORMIN ER 500 MG 1000 MG PO ×2 (08:52→17:08)
[2022-03-15] MEDS: FUROSEMIDE 20 MG TABLET PO ×2 (08:52→15:24)
[2022-03-15] MEDS: MAGNESIUM OXIDE 400 MG TABLET PO (08:52)
[2022-03-15] MEDS: LOPERAMIDE HCL 2 MG CAPSULE PO ×2 (08:52→15:24)
[2022-03-15] MEDS: predniSONE 5 MG TABLET PO (08:52)
[2022-03-15] MEDS: predniSONE 1 MG TABLET PO (08:56)
[2022-03-15 10:23] VITALS: TEMP 36.6; O2SAT 95
[2022-03-15] MEDS: LACTOBACILLUS ACIDOPHILUS 1 TABLET 1 TAB PO ×2 (11:56→17:08)
[2022-03-15] MEDS: POTASSIUM CHLORIDE 10 MEQ CAPSULE ER PO (16:35)
[2022-03-15 16:58] VITALS: TEMP 36.8; O2SAT 95
[2022-03-15 23:00] VITALS: TEMP 36.3; O2SAT 94
[2022-03-16] MEDS: MAGNESIUM OXIDE 400 MG TABLET PO (08:56)
[2022-03-16] MEDS: METFORMIN ER 500 MG 1000 MG PO ×2 (08:56→19:20)
[2022-03-16] MEDS: predniSONE 5 MG TABLET PO (08:56)
[2022-03-16] MEDS: predniSONE 1 MG TABLET PO (08:56)
[2022-03-16] MEDS: LOPERAMIDE HCL 2 MG CAPSULE PO ×2 (08:56→15:45)
[2022-03-16] MEDS: FUROSEMIDE 20 MG TABLET PO ×2 (08:56→15:45)
[2022-03-16 10:25] VITALS: TEMP 36.4; O2SAT 97
[2022-03-16] MEDS: LACTOBACILLUS ACIDOPHILUS 1 TABLET 1 TAB PO ×2 (12:02→19:20)
[2022-03-16] MEDS: POTASSIUM CHLORIDE 10 MEQ CAPSULE ER 20 MEQ PO (19:20)
[2022-03-16 21:03] VITALS: TEMP 36.8; O2SAT 95
[2022-03-16 23:00] VITALS: TEMP 36.3; O2SAT 96
[2022-03-17] MEDS: FUROSEMIDE 20 MG TABLET PO ×2 (07:55→16:02)
[2022-03-17] MEDS: METFORMIN ER 500 MG 1000 MG PO ×2 (07:55→19:26)
[2022-03-17] MEDS: LOPERAMIDE HCL 2 MG CAPSULE PO ×2 (07:55→16:02)
[2022-03-17] MEDS: MAGNESIUM OXIDE 400 MG TABLET PO (07:55)
[2022-03-17] MEDS: predniSONE 1 MG TABLET PO (07:56)
[2022-03-17] MEDS: predniSONE 5 MG TABLET PO (07:56)
[2022-03-17 10:32] VITALS: TEMP 36.4; O2SAT 97
[2022-03-17] MEDS: LACTOBACILLUS ACIDOPHILUS 1 TABLET 1 TAB PO ×2 (11:40→19:27)
[2022-03-17] MEDS: POTASSIUM CHLORIDE 10 MEQ CAPSULE ER PO (16:02)
[2022-03-17 20:39] VITALS: TEMP 36.9; O2SAT 95
[2022-03-17 23:18] VITALS: TEMP 36.4; O2SAT 96
--- NOTE | 2022-03-17 23:53 | PC.NURSE ---
Week #3: Resident has no new skin concerns at this time. Temporary care plan reviewed, no change. Care plan 30-39 reviewed, no change. Resident will call when needing to use the bed armenta. Is incontinent of bowel and bladder. Wears briefs.
[2022-03-18] MEDS: MAGNESIUM OXIDE 400 MG TABLET PO (08:48)
[2022-03-18] MEDS: FUROSEMIDE 20 MG TABLET PO ×2 (08:48→15:33)
[2022-03-18] MEDS: LOPERAMIDE HCL 2 MG CAPSULE PO ×2 (08:48→15:33)
[2022-03-18] MEDS: METFORMIN ER 500 MG 1000 MG PO ×2 (08:48→17:54)
[2022-03-18] MEDS: predniSONE 5 MG TABLET PO (08:48)
[2022-03-18] MEDS: predniSONE 1 MG TABLET PO (08:48)
--- NOTE | 2022-03-18 10:03 | PC.NURSE ---
Week #3: Care plan problems 30-39 and temporary care plan reviewed. No changes made. Nothing added to temporary care plan Resident is incontinent of bowel & bladder. Does not use the toilet.Needs extensive assist of 2-3 for checking, changing pad and placing on large bedpan. Occasionally resist to using the bedpan, will alert staff if incontinent pad needs to be changed.Check and change every 2 hours, PRN & as requested. Pads, pericares managed by staff. Skin: Is intact. Bilateral lower extremities is checked for redness and edema, inner thighs lotion d/t redness & lymphedema and towel placed in between. Has been refusing to elevate LE's. Wears compression socks to LE's instead of capri wraps. Skin is checked during cares.
--- NOTE | 2022-03-18 10:13 | PC.NURSE ---
Bath/Weight: Resident refused stating I want to sleep, I am tired.
[2022-03-18 13:15] VITALS: BP 157/81; PULSE 74; RESP 18; TEMP 36.2; O2SAT 95
--- NOTE | 2022-03-18 13:54 | PC.NURSE ---
OUTBREAK TESTING: Resident refuses to be tested, despite education regarding risk vs. benefit.
[2022-03-18 15:00] VITALS: TEMP 36.6; O2SAT 96
--- NOTE | 2022-03-18 16:01 | PC.NURSE ---
REFUSAL OF CARE: per AUTHORIZATION REP and RN on shift, resident refused her bath and weekly weight. Resident states, ?I won?t do it, I am tired, and I want to sleep.? Daughter was notified via email.
[2022-03-18] MEDS: LACTOBACILLUS ACIDOPHILUS 1 TABLET 1 TAB PO ×2 (17:54)
[2022-03-18] MEDS: POTASSIUM CHLORIDE 10 MEQ CAPSULE ER PO (17:54)
[2022-03-19 00:07] VITALS: TEMP 36.3; O2SAT 96
[2022-03-19] MEDS: predniSONE 1 MG TABLET PO (08:14)
[2022-03-19] MEDS: METFORMIN ER 500 MG 1000 MG PO ×2 (08:14→17:13)
[2022-03-19] MEDS: predniSONE 5 MG TABLET PO (08:14)
[2022-03-19] MEDS: FUROSEMIDE 20 MG TABLET PO (08:14)
[2022-03-19] MEDS: MAGNESIUM OXIDE 400 MG TABLET PO (08:14)
[2022-03-19] MEDS: LOPERAMIDE HCL 2 MG CAPSULE PO ×2 (08:14→17:13)
[2022-03-19 10:27] VITALS: TEMP 36.6; O2SAT 97
--- NOTE | 2022-03-19 12:00 | PC.NURSE ---
Status/Order: Yudy DELGADO here. Change Lasix 20mg BID to Daily.
[2022-03-19] MEDS: LACTOBACILLUS ACIDOPHILUS 1 TABLET 1 TAB PO ×2 (12:06→17:13)
[2022-03-19] MEDS: POTASSIUM CHLORIDE 10 MEQ CAPSULE ER 20 MEQ PO (17:13)
[2022-03-19 18:44] VITALS: TEMP 36.4; O2SAT 94
--- NOTE | 2022-03-19 21:12 | PC.NURSE ---
Status: Resident refused skin care. Also refused to follow diet orders, insisted on ordering grilled cheese for dinner.
[2022-03-20 01:10] VITALS: TEMP 36.6; O2SAT 96
[2022-03-20] MEDS: LOPERAMIDE HCL 2 MG CAPSULE PO ×2 (08:27→16:48)
[2022-03-20] MEDS: FUROSEMIDE 20 MG TABLET PO (08:27)
[2022-03-20] MEDS: predniSONE 1 MG TABLET PO (08:28)
[2022-03-20] MEDS: predniSONE 5 MG TABLET PO (08:28)
[2022-03-20] MEDS: MAGNESIUM OXIDE 400 MG TABLET PO (08:28)
[2022-03-20] MEDS: METFORMIN ER 500 MG 1000 MG PO ×2 (08:28→17:56)
[2022-03-20 10:43] VITALS: TEMP 36.7; O2SAT 95
[2022-03-20] MEDS: LACTOBACILLUS ACIDOPHILUS 1 TABLET 1 TAB PO ×2 (11:47→17:56)
--- NOTE | 2022-03-20 12:48 | PC.PHA ---
Pharmacy Review ~ Patient had decrease in furosemide dose recently otherwise no other changes. She continues on metformin with creatine on 01/04/22 of 1.0. Renal Dosing of Oseltamivir: Treatment:30 mg po daily for 5 days Prophylaxis:30 mg po q48h for total of 7 doses or longer (see policy).
[2022-03-20] MEDS: POTASSIUM CHLORIDE 10 MEQ CAPSULE ER PO (17:56)
--- NOTE | 2022-03-20 21:39 | PC.NURSE ---
Skin Concern: 4 cm in length slit under LLQ fold noted. Area washed, patted dry, Douderm and InterDry applied. Will continue to monitor.
[2022-03-21] MEDS: FUROSEMIDE 20 MG TABLET PO (07:59)
[2022-03-21] MEDS: LOPERAMIDE HCL 2 MG CAPSULE PO ×2 (07:59→15:31)
[2022-03-21] MEDS: MAGNESIUM OXIDE 400 MG TABLET PO (07:59)
[2022-03-21] MEDS: predniSONE 1 MG TABLET PO (07:59)
[2022-03-21] MEDS: METFORMIN ER 500 MG 1000 MG PO ×2 (07:59→19:08)
[2022-03-21] MEDS: predniSONE 5 MG TABLET PO (07:59)
--- NOTE | 2022-03-21 08:53 | PC.SPIRITC ---
Visit on 03/20/2022 I provided visit for support and connection.
[2022-03-21] MEDS: LACTOBACILLUS ACIDOPHILUS 1 TABLET 1 TAB PO ×2 (12:08→19:08)
[2022-03-21] MEDS: POTASSIUM CHLORIDE 10 MEQ CAPSULE ER 20 MEQ PO (19:08)
[2022-03-22] MEDS: METFORMIN ER 500 MG 1000 MG PO ×2 (08:11→17:24)
[2022-03-22] MEDS: predniSONE 5 MG TABLET PO (08:11)
[2022-03-22] MEDS: MAGNESIUM OXIDE 400 MG TABLET PO (08:11)
[2022-03-22] MEDS: LOPERAMIDE HCL 2 MG CAPSULE PO ×2 (08:11→16:19)
[2022-03-22] MEDS: predniSONE 1 MG TABLET PO (08:11)
[2022-03-22] MEDS: FUROSEMIDE 20 MG TABLET PO (08:11)
[2022-03-22] MEDS: LACTOBACILLUS ACIDOPHILUS 1 TABLET 1 TAB PO ×2 (11:34→17:24)
[2022-03-22] MEDS: POTASSIUM CHLORIDE 10 MEQ CAPSULE ER PO (16:19)
--- NOTE | 2022-03-22 21:52 | PC.NURSE ---
Status: Resident refused minced and moist diet. Requested a burger with no bun for dinner.
[2022-03-23] MEDS: MAGNESIUM OXIDE 400 MG TABLET PO (08:09)
[2022-03-23] MEDS: FUROSEMIDE 20 MG TABLET PO (08:09)
[2022-03-23] MEDS: METFORMIN ER 500 MG 1000 MG PO ×2 (08:09→17:05)
[2022-03-23] MEDS: LOPERAMIDE HCL 2 MG CAPSULE PO ×2 (08:09→16:23)
[2022-03-23] MEDS: predniSONE 1 MG TABLET PO (08:10)
[2022-03-23] MEDS: predniSONE 5 MG TABLET PO (08:10)
[2022-03-23] MEDS: LACTOBACILLUS ACIDOPHILUS 1 TABLET 1 TAB PO ×2 (11:40→17:05)
[2022-03-23] MEDS: POTASSIUM CHLORIDE 10 MEQ CAPSULE ER 20 MEQ PO (16:24)
--- NOTE | 2022-03-23 20:48 | PC.NURSE ---
Status: Resident refused minced and moist diet option. Ordered take out food and ate regular rotisserie chicken and mashed potatoes and cookie for dinner.
[2022-03-24] MEDS: MAGNESIUM OXIDE 400 MG TABLET PO (08:22)
[2022-03-24] MEDS: METFORMIN ER 500 MG 1000 MG PO ×2 (08:22→17:24)
[2022-03-24] MEDS: FUROSEMIDE 20 MG TABLET PO (08:22)
[2022-03-24] MEDS: predniSONE 5 MG TABLET PO (08:22)
[2022-03-24] MEDS: LOPERAMIDE HCL 2 MG CAPSULE PO ×2 (08:22→16:17)
[2022-03-24] MEDS: predniSONE 1 MG TABLET PO (08:22)
[2022-03-24] MEDS: LACTOBACILLUS ACIDOPHILUS 1 TABLET 1 TAB PO ×2 (11:51→17:24)
[2022-03-24] MEDS: POTASSIUM CHLORIDE 10 MEQ CAPSULE ER PO (16:17)
--- NOTE | 2022-03-24 21:02 | PC.NURSE ---
Status: Resident refused to elevate RUE. Also refused to follow minced and moist diet. Asked for breadstick and lasagna
--- NOTE | 2022-03-25 02:49 | PC.NURSE ---
Week #4: Temporary care plan and care plan problems 40-119 reviewed with no changes. Vital signs reviewed with no concerns. No changes to orientation, hearing, or vision. Is able to communicate needs and utilize call light appropriately. No psychotropic medications. No changes noted to behavior or mood. Sleeps well through the night with television on.
[2022-03-25 07:00] VITALS: BMI 39.9
[2022-03-25 08:00] VITALS: BP 172/82; PULSE 65; RESP 16; TEMP 36.4; O2SAT 93
[2022-03-25] MEDS: METFORMIN ER 500 MG 1000 MG PO ×2 (08:55→17:22)
[2022-03-25] MEDS: FUROSEMIDE 20 MG TABLET PO (08:55)
[2022-03-25] MEDS: MAGNESIUM OXIDE 400 MG TABLET PO (08:55)
[2022-03-25] MEDS: predniSONE 1 MG TABLET PO (08:55)
[2022-03-25] MEDS: LOPERAMIDE HCL 2 MG CAPSULE PO ×2 (08:55→16:22)
[2022-03-25] MEDS: predniSONE 5 MG TABLET PO (08:55)
--- NOTE | 2022-03-25 10:00 | PC.NURSE ---
Week #4: Care plan problems 40+ and temporary care plan reviewed. No changes made. Nothing added to temporary care plan. No changes noted in her communication, hearing, vision, orientation and chronic health condition. She does communicate needs and use the call light. Has moderate hearing impairment, no hearing device. Vision fine. Cognition intact. Staff administers medications. Mood/Behavior: Often refuses tub bath, & occasionally bed bath. Is on no psychotropic mediactions.
--- NOTE | 2022-03-25 10:36 | PC.NURSE ---
Skin check - 4 cm slit noted in L abdominal fold. Area cleaned, duoderm applied, interdry placed. Intervention already in worklist.
[2022-03-25] MEDS: LACTOBACILLUS ACIDOPHILUS 1 TABLET 1 TAB PO ×2 (12:08→17:22)
[2022-03-25] MEDS: POTASSIUM CHLORIDE 10 MEQ CAPSULE ER PO (16:22)
[2022-03-26] MEDS: FUROSEMIDE 20 MG TABLET PO (08:13)
[2022-03-26] MEDS: LOPERAMIDE HCL 2 MG CAPSULE PO ×2 (08:13→16:30)
[2022-03-26] MEDS: predniSONE 1 MG TABLET PO (08:13)
[2022-03-26] MEDS: METFORMIN ER 500 MG 1000 MG PO ×2 (08:13→17:04)
[2022-03-26] MEDS: MAGNESIUM OXIDE 400 MG TABLET PO (08:13)
[2022-03-26] MEDS: predniSONE 5 MG TABLET PO (08:13)
[2022-03-26] MEDS: LACTOBACILLUS ACIDOPHILUS 1 TABLET 1 TAB PO ×2 (11:10→17:04)
--- NOTE | 2022-03-26 14:19 | PC.NURSE ---
Skin cares - Attempted to complete pt's skin cares (TEDs, lotion) multiple times. Pt refused cares each time due to sleeping or eating.
--- NOTE | 2022-03-26 15:00 | PC.NURSE ---
Diet: Spoke to daughter Cristy who had concerns about nursing talking with her mother about the diet she is currently on. Family would like to provide resident with the foods she request such as chips, sweets and hard candy. Education/explanation given to daughter and resident that she is on a minced and moist diet which are soft, tender and moist. This diet was order due to the choking and aspiration risk resident is facing by have no teeth, poor fitting dentures and lying in bed to eat. Cristy and resident stated they would like to have this diet discontinued and that the resident takes pleasure and enjoys her life more when she is able to eat what she likes and prefers. Cristy and resident stated they understand the risks of choking and ultimately if an extreme case if she does not follow the diet. They are willing to take that risk. DAY CARE PROVIDER updated on board for diet change. Care plan done to reflect residents wishes. Nursing and dietary staff updated on residents preference of diet.
[2022-03-26] MEDS: POTASSIUM CHLORIDE 10 MEQ CAPSULE ER 20 MEQ PO (16:30)
--- NOTE | 2022-03-26 21:07 | PC.NURSE ---
Status: Resident refused minced and moist diet. Also refused to removed compression socks, and elevate RUE.
[2022-03-27] MEDS: METFORMIN ER 500 MG 1000 MG PO ×2 (09:16→17:32)
[2022-03-27] MEDS: FUROSEMIDE 20 MG TABLET PO (09:16)
[2022-03-27] MEDS: LOPERAMIDE HCL 2 MG CAPSULE PO ×2 (09:16→15:59)
[2022-03-27] MEDS: MAGNESIUM OXIDE 400 MG TABLET PO (09:16)
[2022-03-27] MEDS: predniSONE 1 MG TABLET PO (09:17)
[2022-03-27] MEDS: predniSONE 5 MG TABLET PO (09:17)
[2022-03-27] MEDS: LACTOBACILLUS ACIDOPHILUS 1 TABLET 1 TAB PO ×2 (11:46→17:32)
--- NOTE | 2022-03-27 11:58 | PC.NURSE ---
INTERVENTIONS: Resident non-compliant with elevation of R arm and notes that she does not wish to continue this. Intervention removed. Skin between thighs is healed--intervention removed. Staff to continue providing thorough pericares and apply lotion/barrier cream PRN.
[2022-03-27] MEDS: POTASSIUM CHLORIDE 10 MEQ CAPSULE ER PO (17:32)
[2022-03-28] MEDS: MAGNESIUM OXIDE 400 MG TABLET PO (08:36)
[2022-03-28] MEDS: METFORMIN ER 500 MG 1000 MG PO ×2 (08:36→17:08)
[2022-03-28] MEDS: predniSONE 5 MG TABLET PO (08:36)
[2022-03-28] MEDS: FUROSEMIDE 20 MG TABLET PO (08:36)
[2022-03-28] MEDS: LOPERAMIDE HCL 2 MG CAPSULE PO ×2 (08:36→16:43)
[2022-03-28] MEDS: predniSONE 1 MG TABLET PO (08:37)
[2022-03-28] MEDS: LACTOBACILLUS ACIDOPHILUS 1 TABLET 1 TAB PO ×2 (11:25→17:08)
--- NOTE | 2022-03-28 15:24 | PC.NURSE ---
COMMUNICATION: Spoke to michelle Duvall regarding outside audiology services. Dtr wishes to take her mom elsewhere instead of waiting for in-house services. Dtr requested a list of [place] audiology providers, informed her that per social insurance analyst, she needs to contact her mothers financial worker through the [facility] or call the number on the back of her [place] card to obtain a list of covered audiology providers. Also informed her that once an appointment is arranged, to let us know so that SW can assist with arranging transportation via [facility] for [employer] van.
[2022-03-28] MEDS: POTASSIUM CHLORIDE 10 MEQ CAPSULE ER 20 MEQ PO (16:43)
[2022-03-29] MEDS: MAGNESIUM OXIDE 400 MG TABLET PO (08:20)
[2022-03-29] MEDS: FUROSEMIDE 20 MG TABLET PO (08:20)
[2022-03-29] MEDS: LOPERAMIDE HCL 2 MG CAPSULE PO ×2 (08:20→17:13)
[2022-03-29] MEDS: predniSONE 1 MG TABLET PO (08:21)
[2022-03-29] MEDS: METFORMIN ER 500 MG 1000 MG PO ×2 (08:21→17:13)
[2022-03-29] MEDS: predniSONE 5 MG TABLET PO (08:21)
[2022-03-29] MEDS: LACTOBACILLUS ACIDOPHILUS 1 TABLET 1 TAB PO ×2 (11:27→17:13)
[2022-03-29] MEDS: POTASSIUM CHLORIDE 10 MEQ CAPSULE ER PO (17:13)
[2022-03-30] MEDS: LOPERAMIDE HCL 2 MG CAPSULE PO ×2 (08:25→16:57)
[2022-03-30] MEDS: predniSONE 1 MG TABLET PO (08:25)
[2022-03-30] MEDS: MAGNESIUM OXIDE 400 MG TABLET PO (08:25)
[2022-03-30] MEDS: FUROSEMIDE 20 MG TABLET PO (08:25)
[2022-03-30] MEDS: METFORMIN ER 500 MG 1000 MG PO ×2 (08:25→17:08)
[2022-03-30] MEDS: predniSONE 5 MG TABLET PO (08:25)
[2022-03-30] MEDS: LACTOBACILLUS ACIDOPHILUS 1 TABLET 1 TAB PO ×2 (11:28→17:08)
[2022-03-30] MEDS: POTASSIUM CHLORIDE 10 MEQ CAPSULE ER 20 MEQ PO (16:57)
--- NOTE | 2022-03-30 21:18 | PC.NURSE ---
Refusal: Resident refused capri wrap removal and, skin assessment of the left fold.
[2022-03-31] MEDS: FUROSEMIDE 20 MG TABLET PO (08:10)
[2022-03-31] MEDS: predniSONE 1 MG TABLET PO (08:10)
[2022-03-31] MEDS: predniSONE 5 MG TABLET PO (08:10)
[2022-03-31] MEDS: METFORMIN ER 500 MG 1000 MG PO ×2 (08:10→16:59)
[2022-03-31] MEDS: LOPERAMIDE HCL 2 MG CAPSULE PO ×2 (08:10→16:53)
[2022-03-31] MEDS: MAGNESIUM OXIDE 400 MG TABLET PO (08:10)
[2022-03-31] MEDS: LACTOBACILLUS ACIDOPHILUS 1 TABLET 1 TAB PO ×2 (11:27→16:59)
[2022-03-31] MEDS: POTASSIUM CHLORIDE 10 MEQ CAPSULE ER PO (16:57)
[2022-04-01 07:00] VITALS: BMI 40.0
[2022-04-01] MEDS: FUROSEMIDE 20 MG TABLET PO (08:47)
[2022-04-01] MEDS: predniSONE 5 MG TABLET PO (08:47)
[2022-04-01] MEDS: MAGNESIUM OXIDE 400 MG TABLET PO (08:47)
[2022-04-01] MEDS: METFORMIN ER 500 MG 1000 MG PO ×2 (08:47→17:01)
[2022-04-01] MEDS: LOPERAMIDE HCL 2 MG CAPSULE PO ×2 (08:47→16:17)
[2022-04-01] MEDS: predniSONE 1 MG TABLET PO (08:48)
[2022-04-01 09:46] VITALS: BP 154/82; PULSE 72; RESP 18; TEMP 36.3; O2SAT 97
--- NOTE | 2022-04-01 11:13 | PC.NURSE ---
Nursing Notes 04/01/22 11:12 Nurse Note by Debi Rivas Previously noted skin slit open under LLQ abdominal folds, measures 3 cm x 0.1 cm. No bleeding, area cleansed, gently dried and applied 4 x 4 gauze b/n skin to observe moist at this time. Out of Duoderm at this time. Initialized on 04/01/22 11:12 - END OF NOTE 03/30/22 21:18 Nurse Note by Sana Bradford Refusal: Resident refused jakob wrap removal and, skin assessment of the left fold. Initialized on 03/30/22 21:18 - END OF NOTE 03/28/22 15:24 Nurse Note by Christi Loco COMMUNICATION: Spoke to dtr Eloina regarding outside audiology services. Dtr wishes to take her mom elsewhere instead of waiting for in-house services. Dtr requested a list of [place] audiology providers, informed her that per social media marketer, she needs to contact her mothers financial worker through the [facility] or call the number on the back of her [place] card to obtain a list of covered audiology providers. Also informed her that once an appointment is arranged, to let us know so that SW can assist with arranging transportation via [facility] for [employer] van. Initialized on 03/28/22 15:24 - END OF NOTE 03/27/22 11:58 Nurse Note by Christi Loco INTERVENTIONS: Resident non-compliant with elevation of R arm and notes that she does not wish to continue this. Intervention removed. Skin between thighs is healed--intervention removed. Staff to continue providing thorough pericares and apply lotion/barrier cream PRN. Initialized on 03/27/22 11:58 - END OF NOTE 03/26/22 21:07 Nurse Note by Tammie Hussein R Status: Resident refused minced and moist diet. Also refused to removed compression socks, and elevate RUE. Initialized on 03/26/22 21:07 - END OF NOTE 03/26/22 15:00 (created 03/27/22 09:49) Nurse Note by Surekha Ratliff Diet: Spoke to daughter Cristy who had concerns about nursing talking with her mother about the diet she is currently on. Family would like to provide resident with the foods she request such as chips, sweets and hard candy. Education/explanation given to daughter and resident that she is on a minced and moist diet which are soft, tender and moist. This diet was order due to the choking and aspiration risk resident is facing by have no teeth, poor fitting dentures and lying in bed to eat. Cristy and resident stated they would like to have this diet discontinued and that the resident takes pleasure and enjoys her life more when she is able to eat what she likes and prefers. Cristy and resident stated they understand the risks of choking and ultimately if an extreme case if she does not follow the diet. They are willing to take that risk. SURVEY DIRECTOR updated on board for diet change. Care plan done to reflect residents wishes. Nursing and dietary staff updated on residents preference of diet. Initialized on 03/27/22 09:49 - END OF NOTE 03/26/22 14:19 Nurse Note by Concetta Jenkins Skin cares - Attempted to complete pt's skin cares (TEDs, lotion) multiple times. Pt refused cares each time due to sleeping or eating. Initialized on 03/26/22 14:19 - END OF NOTE 03/25/22 10:36 Nurse Note by Concetta Jenkins Skin check - 4 cm slit noted in L abdominal fold. Area cleaned, duoderm applied, interdry placed. Intervention already in worklist. Initialized on 03/25/22 10:36 - END OF NOTE 03/25/22 10:00 Nurse Note by Arely Dimas Week #4: Care plan problems 40+ and temporary care plan reviewed. No changes made. Nothing added to temporary care plan. No changes noted in her communication, hearing, vision, orientation and chronic health condition. She does communicate needs and use the call light. Has moderate hearing impairment, no hearing device. Vision fine. Cognition intact. Staff administers medications. Mood/Behavior: Often refuses tub bath, & occasionally bed bath. Is on no psychotropic mediactions. Initialized on 03/25/22 10:00 - END OF NOTE 03/25/22 02:49 Nurse Note by Oralia Andersen Week #4: Temporary care plan and care plan problems 40-119 reviewed with no changes. Vital signs reviewed with no concerns. No changes to orientation, hearing, or vision. Is able to communicate needs and utilize call light appropriately. No psychotropic medications. No changes noted to behavior or mood. Sleeps well through the night with television on. Initialized on 03/25/22 02:49 - END OF NOTE 03/24/22 21:02 Nurse Note by Tammie Hussein R Status: Resident refused to elevate RUE. Also refused to follow minced and moist diet. Asked for breadstick and lasagna Initialized on 03/24/22 21:02 - END OF NOTE 03/23/22 20:48 Nurse Note by Tammie Hussein R Status: Resident refused minced and moist diet option. Ordered take out food and ate regular rotisserie chicken and mashed potatoes and cookie for dinner. Initialized on 03/23/22 20:48 - END OF NOTE 03/22/22 21:52 Nurse Note by Tammie Hussein R Status: Resident refused minced and moist diet. Requested a burger with no bun for dinner. Initialized on 03/22/22 21:52 - END OF NOTE 03/20/22 21:39 Nurse Note by Carol Ann Parson Skin Concern: 4 cm in length slit under LLQ fold noted. Area washed, patted dry, Douderm and InterDry applied. Will continue to monitor. Initialized on 03/20/22 21:39 - END OF NOTE 03/19/22 21:12 Nurse Note by Tammie Hussein R Status: Resident refused skin care. Also refused to follow diet orders, insisted on ordering grilled cheese for dinner. Initialized on 03/19/22 21:12 - END OF NOTE 03/19/22 12:00 Nurse Note by Arely Dimas Status/Order: SURVEY DIRECTOR, Yudy here. Change Lasix 20mg BID to Daily. Initialized on 03/19/22 12:00 - END OF NOTE 03/18/22 16:01 Nurse Note by Christi Loco REFUSAL OF CARE: per LASER CUTTER and RN on shift, resident refused her bath and weekly weight. Resident states, ?I won?t do it, I am tired, and I want to sleep.? Daughter was notified via email. Initialized on 03/18/22 16:01 - END OF NOTE 03/18/22 13:54 Nurse Note by Christi Loco OUTBREAK TESTING: Resident refuses to be tested, despite education regarding risk vs. benefit. Initialized on 03/18/22 13:54 - END OF NOTE 03/18/22 10:13 Nurse Note by Arely Dimas Bath/Weight: Resident refused stating I want to sleep, I am tired. Initialized on 03/18/22 10:13 - END OF NOTE 03/18/22 10:03 Nurse Note by Arely Dimas Week #3: Care plan problems 30-39 and temporary care plan reviewed. No changes made. Nothing added to temporary care plan Resident is incontinent of bowel & bladder. Does not use the toilet.Needs extensive assist of 2-3 for checking, changing pad and placing on large bedpan. Occasionally resist to using the bedpan, will alert staff if incontinent pad needs to be changed.Check and change every 2 hours, PRN & as requested. Pads, pericares managed by staff. Skin: Is intact. Bilateral lower extremities is checked for redness and edema, inner thighs lotion d/t redness & lymphedema and towel placed in between. Has been refusing to elevate LE's. Wears compression socks to LE's instead of jakob wraps. Skin is checked during cares. Initialized on 03/18/22 10:03 - END OF NOTE 03/17/22 23:53 Nurse Note by Sana Bradford Week #3: Resident has no new skin concerns at this time. Temporary care plan reviewed, no change. Care plan 30-39 reviewed, no change. Resident will call when needing to use the bed armenta. Is incontinent of bowel and bladder. Wears briefs. Initialized on 03/17/22 23:53 - END OF NOTE 03/14/22 21:47 Nurse Note by Tammie Hussein Skin: Resident refused skin care. Initialized on 03/14/22 21:47 - END OF NOTE 03/14/22 21:45 Nurse Note by Tammie Hussein Diet: Resident refused to follow minced and moist diet orders for dinner. Insisted on having leftover sandwich and [place] cream pie. Initialized on 03/14/22 21:45 - END OF NOTE 03/14/22 16:00 (created 03/29/22 05:09) Nurse Note by Surekha Ratliff clarification: Reviewed [facility]DS ADL charting for [place]OM[facility] 03/07, noted to have inconsistent charting. Interviewed NARs and determined that errors were made. Changes reviewed and coded as such in [facility]. Initialized on 03/29/22 05:09 - END OF NOTE 03/14/22 14:52 Nurse Note by Juliette Poole I called and spoke to daughter Eloina as a follow up to resident's quarterly care conference. Eloina stated she had only two concerns. First is why does the hospital have a van that cannot be used to transport resident's to medical appointments. If the hospital wants to make money they should use it. I told her it was my understanding it is due to licensing and insurance but I would share her concern with administration. Secondly, she is concerned about the audiology not coming out yet to get a hearing aide for her mom. I told her the LUNCHROOM SUPERVISOR is in contact with our audiology and they are awaiting to combine us with another care center. She understood. I asked her if there was something we should be doing in the meantime, she stated; You are doing everything already, we bought her a pocket talker and now that doesn't work so well. You guys gave her one too. I reassured her we will get the rotary envelope machine operator out as soon as we could. She was appreciative of the call. Initialized on 03/14/22 14:52 - END OF NOTE 03/14/22 09:55 Nurse Note by Arely Dimas Status: Resident refused LE's elevated, prefers to have her own compression stocking than jakob wraps. Initialized on 03/14/22 09:55 - END OF NOTE 03/12/22 13:00 (created 03/13/22 09:53) Nurse Note by Christi Loco CARE CONFERENCE: Resident, dietary, nursing, and SS in attendance. Daughters Eloina and Cristy present. Resident has been less compliant with wearing MARGARET stockings regularly, swelling has improved since last CC due to intermittent rounds of Lasix. Resident reports that she will always be on and off lasix. Has JAKOB wraps ordered for her BLEs but usually refuses them, states that she prefers the MARGARET socks instead. All wounds are healed at this time. Resident notes she continues to have dry, sensitive skin. Lotion is applied daily and as needed. Wants to be offered a warm washcloth for her face in the mornings. Nystatin powder has been applied intermittently this quarter due to redness and moisture noted in abd/armpit folds. Resident has pain when lower legs touched, this is chronic. Nail care to be done weekly-family notes this hasn't always been getting done. LUNCHROOM SUPERVISOR will discuss with staff. Resident continues to refuse tub baths and most often gets a bed bath. Encouraged resident to take tub baths due to hygiene concern and recurrent yeast infections. Incontinent of bowel and bladder. Calls for bedpan. Care plan reviewed and updated. No life enrichment concerns. Resident notes that her amplifier is no longer working well--family is aware. Audiology was set to come in January but due to only 2 residents needing services in [facility], they were unable to come in January and are working to reschedule [facility] along with another facility in the area. Family has been notified of this multiple times. Family feels that her poor hearing is ?affecting her quality of life and wellbeing and we ([facility]) are hindering her from this. Family also brings up multiple concerns regarding use of LT van for transportation, lymphedema pumps for her R arm and legs, and poor care. DON updated with these concern. Offered that family may set up an outside appointment and transportation for resident if they prefer, instead of waiting for In House Services for audiology. Resident refused podiatry services offered 03/11/22. Resident does not leave room unless for bath or haircuts. A larger wheelchair was provided to resident, is in resident bathroom. Resident is bed bound at this time. Refuses to get up to her recliner. Residents weight is stable, but often refuses weekly weights. Resident denies this, but per charting and conversation with primary LASER CUTTER, resident has not been weighed since 02/18. Continue minced and moist diet. Family brings snacks that are not within dietary recommendations. Reviewed POLST. DNR/DNI. No changes made. Uses no restraints. Does use 2 quarter side rails on her bed to assist with positioning. Medications set up by nurse - puts empty med cup on her food tray to show the nurse that she took her pills. She does not eat breakfast in the morning and requests to sleep in I am a night owl. Vulnerability- at risk of being harmed due to weakness and assistance needed with ADLs. Resident is a hector lift. She requests a trapeze be placed on her bed, but this is not possible due to Hector lift. Resident reports that she feels she is getting good care and that she enjoys all of the staff who are like family to her. No plans for discharge. predatory animal exterminator care. Initialized on 03/13/22 09:53 - END OF NOTE 03/12/22 10:56 Nurse Note by Arely iDmas Status: SURVEY DIRECTOR, Yudy here. Resident request for Lasix reduction noted by her. Needs undated weight. Resident notified of plan to have her weight taken. Initialized on 03/12/22 10:56 - END OF NOTE 03/11/22 21:38 Nurse Note by Carol Ann Parson A Week #2: Care plan problems #20-29 reviewed.? No changes made.? Nothing added to temporary care plan.? Extensive assist of 2 with toileting and positioning.? Moves up in bed with EZ positioner.? Top side rails up.? Falls: No fall incidents this past month.? Remains low fall risk according to assessment done on 03/07/22. Initialized on 03/11/22 21:38 - END OF NOTE 03/11/22 15:57 Nurse Note by Christi Loco OUTBREAK TESTING: Resident refused to participate in weekly swabbing. Educated on risk vs. benefit. Initialized on 03/11/22 15:57 - END OF NOTE 03/11/22 14:29 Nurse Note by Surekha Ratliff Resident refused to have tub bath or weight taken today. Bed bath given. Skin check done by nurse. Initialized on 03/11/22 14:29 - END OF NOTE 03/11/22 10:34 Nurse Note by Debi Rivas Resident refused wraps to bilateral extremities Initialized on 03/11/22 10:34 - END OF NOTE 03/11/22 03:53 Nurse Note by Rebeca Mera A Week #2 nurse note: Care plan problems #20-29 reviewed.?No changes made.?Nothing added to temporary care plan.?Res. does not get out of bed at noc.?Refuses to lie on either side.?Is turned side to side to use the bedpan or have her pad changed.?EZ positioner to move res. up in bed.?Air mattress on bed.? Falls---no falls this past month.? Is a low fall risk according to assessment done on 03/07/22. Initialized on 03/11/22 03:53 - END OF NOTE 03/09/22 21:04 Nurse Note by Tammie Hussein Skin: Resident refused skin care, and to have compression socks removed. Initialized on 03/09/22 21:04 - END OF NOTE 03/07/22 18:14 Nurse Note by Surekha Ratliff FALL RISK: MDS assessment noted resident is bed bound and she does not ambulate, use wheelchair or use the toilet. Initialized on 03/07/22 18:14 - END OF NOTE 03/04/22 11:01 Nurse Note by Concetta Jenkins Medicare Charting Week #1 2 pt complaints of pain within last 30 days. Both complaints at NOC. Pain is typically in legs. Order for PRN Narco 5/325mg PO Q6H. Order for Biofreeze topical Q4H. Pain resolved with PRNs. No changes to temporary care plan. Care plan #2 - Pt requires extensive Ax1 or Ax2 for all ADLs. Pt frequently refuses cares - bathing (including bed baths), oral care, wt, skin check, TEDs/Jakob wraps. Care plan #6 - Pt has complete upper and lower dentures. Pt does not wear dentures - says they do not fit. Family is aware that pt would like new dentures. Pt also refuses to go to [facility]. Limited Ax1 for oral care - set up. Care plan #11 - Pt feeds independently. Regular diet, minced and moist. Pt refuses facility food. Family brings in food and pt keeps it in her room. Staff Ax1 for meal set up. Initialized on 03/04/22 11:01 - END OF NOTE 03/04/22 02:23 Nurse Note by Sana Bradford Week #1: Resident has complained of pain twice in the past month on NOC. Pain is typically in the legs and, resolves with PRN Narco 5-325mg PO Q6H. Also has Biofreeze topical Q4H. Temporary care plan reviewed, no change. Care plan 1-19 reviewed, no change. Resident needs staff assist with ADLs. Resident will usually request a cup of ice and a snack from her fridge at the beginning of the NOC. Will eat independently in bed. Initialized on 03/04/22 02:23 - END OF NOTE 02/28/22 21:11 Nurse Note by Tammie Hussein Resident refused to elevate RUE, have RN do skin care or place compression socks. Initialized on 02/28/22 21:11 - END OF NOTE 02/28/22 10:59 Nurse Note by Christi Loco FLU VACCINE: Resident declines to be vaccinated for flu. Educated on risk vs. benefit. Declination form signed by resident. Initialized on 02/28/22 10:59 - END OF NOTE 02/25/22 10:46 Nurse Note by Christi Loco OUTBREAK COVID TESTING: Resident refused swabbing. Was educated on risk vs. benefit. Initialized on 02/25/22 10:46 - END OF NOTE 02/25/22 00:41 Nurse Note by Carol Ann Parson A Week #4: Care Plan problems #40-119, Temporary Care Plan, and vital signs reviewed - no changes made, and nothing added.? Vital signs are within resident's normal ranges. No changes in hearing, vision, and orientation noted at this time.?Will use call light when needs care or help during NOC. Sleeping with TV on.? Mood/behavior. No behavioral concerns noted or reported so far, tonight. Resident is not on Psychotropic medications, currently. Initialized on 02/25/22 00:41 - END OF NOTE 02/22/22 21:53 Nurse Note by Tammie Hussein Status: Resident refused to elevate RUE and to be weighed. Initialized on 02/22/22 21:53 - END OF NOTE 02/21/22 12:00 Nurse Note by Arely Dimas Order: SURVEY DIRECTOR, Yudy here. Lasix 20mg BID. Initialized on 02/21/22 12:00 - END OF NOTE 02/21/22 09:33 (created 02/22/22 09:33) Nurse Note by Christi Loco COVID OUTBREAK TESTING: Resident refused. Educated resident regarding risk vs. benefits. Initialized on 02/22/22 09:33 - END OF NOTE 02/19/22 20:47 Nurse Note by Tammie Hussein R Status: Resident refused to elevate URE. Did allow compression socks to be placed on BLE's. 3+ edema noted. Resident expressed interest in restarted lasix as she feels edema has worsened. Note left for SURVEY DIRECTOR to review. Initialized on 02/19/22 20:47 - END OF NOTE 02/18/22 12:34 Nurse Note by Concetta Jenkins Week 3 charting - Skin remains fragile, flaky, with large patches of redness. No open areas noted on skin. Staff continues to lotion skin between thighs and place towel. Bed bath encouraged weekly, pt often refuses. Staff continues to offer lotion to other areas of the body daily. No changes to temporary care plan. Care plan #31 - Pt incontinent x2. Large, soft stools. Loperamide 2mg BID ordered. Extensive Ax2 for checking/changing pad and placing pt on lg bedpan. Pt often resists bed armenta and calls staff after soiling her brief. Staff provides all pericare. Check/change Q2hr, prn. Initialized on 02/18/22 12:34 - END OF NOTE 02/18/22 02:03 Nurse Note by Sana Bradford Week #3: Skin summary: Has redness on legs, apply lotion and place a towel in between thighs. Edema in bilateral legs to apply and remove jakob wraps/compression stockings daily. Temporary care plan reviewed, no change. Care plan 30-39 reviewed, no change. Bathroom: Resident will call to be put on bed armenta. Is frequently incontinent of both bowel and bladder. Wears briefs. Initialized on 02/18/22 02:03 - END OF NOTE 02/15/22 09:50 Nurse Note by Arely Dimas Status/Order: Dr. Ramsey updated of c/o of yellow vaginal drainage. Wants med for yeast infection. Order: Diflucan 150mg once. Initialized on 02/15/22 09:50 - END OF NOTE 02/14/22 10:24 Nurse Note by Slime Gr Resident has extreme edema all over. Specifically in RUE. Resident refuses lasix (not ordered anymore due to refusal). Refuses wrap to upper extremity. Has BLE wraps on but refuses to remove. Educated resident on side effects of not taking Lasix. Initialized on 02/14/22 10:24 - END OF NOTE 02/11/22 10:09 Nurse Note by Arely Dimas Week #1: Care plan problems - and temporary care plan reviewed. No changes made. Nothing added to temporary care plan. She does not ambulate. Total dependence of 2-3 staffs with bed/recliner mobility & transfers via hector lift. Does not use the wheelchair & refuses to sit up in the recliner. To be T & R every 2.5 hours while in bed. Will turn side-side to use the bedpan or new pad changed. Has an EZ positioner to move up in bed. Air mattress in bed. 2 side rails up to aid for positioning. No alarms. Fall : No falls this past month. Is a low fall risk according to assessment done on 09/27/21. Initialized on 02/11/22 10:09 - END OF NOTE 02/11/22 03:24 Nurse Note by Wayne Bryant Week #2---care plan problems #20- reviewed. No changes made. Nothing added to temporary care plan. Res. does not get out of bed at [facility]. Refuses to lie on either side. Is turned side to side to use the bedpan or have her pad changed. EZ positioner to move res. up in bed. Air mattress on bed. Falls---no falls this past month. Is a low fall risk according to assessment done on 09/27/21. Initialized on 02/11/22 03:24 - END OF NOTE 02/09/22 21:21 Nurse Note by Tammie Hussein Resident refused jakob wraps/or compression stockings. Also refused to elevate RUE. Initialized on 02/09/22 21:21 - END OF NOTE 02/09/22 10:23 Nurse Note by Arely Dimas Resident refused jakob wrap/own compression socks. Stated I will do it again on Friday. Initialized on 02/09/22 10:23 - END OF NOTE 02/08/22 10:32 Nurse Note by Arely Dimas Refused jakob wraps, prefers her own compression socks. Initialized on 02/08/22 10:32 - END OF NOTE 02/05/22 11:33 Nurse Note by Arely Dimas Recert Visit: Resident seen by SURVEY DIRECTORYudy. Orders reviewed and renewed of 75 days with changes. Order: Discontinue Ondansetron 4mg Q4H PRN. Initialized on 02/05/22 11:33 - END OF NOTE 02/04/22 13:41 Nurse Note by Concetta Jenkins Week 1 Charting - Pt pain controlled with medication. Hydrocodone-Acetaminophen 5-325 PO Q6H PRN. No pt reports of pain within the last 30 days. No changes to temporary care plan within last 30 days. Care plan 2 - Resident requires extensive staff assistance with ADL. Significant disability and deconditioning at baseline. Extensive Ax1-2 with bathing and dressing. Pt frequently refuses bath - staff continues to encourage sponge baths. 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 Has complete upper and lower dentures. Resident refuses to wear dentures, states they do not fit, refuses to go to S for realignment. Staff encourages resident to participate in mouth wash. Care plan 11 - Resident feeds self independently. Mined/moist diet. BMI 41.0 kg/m2. Safe to handle hot liquids independently. Resident dislikes facility food - family provides resident with food she keeps in room. Initialized on 02/04/22 13:41 - END OF NOTE 02/04/22 02:00 Nurse Note by Carol Ann Parson Week #1: Care plan problems 1-19 and Temporary care plan Reviewed. No change made, and Nothing. Resident has personal refrigerator in her bedroom, which is checked for temperature accuracy every NOC. Family provides her with snacks for NOCs, but also requests some from the facility supplies when needed at [facility]. Often request for cup of ice at bed side at 2300. Pain: Resident denies at this time. Not on any scheduled pain medication, but receives PRN [place] and Biofreeze for pain management. Initialized on 02/04/22 02:00 - END OF NOTE 02/01/22 22:42 Nurse Note by Surekha Ratliff Residents daughters updated via email that audiology will have a visit with resident in January when coming for annual visit. Initialized on 02/01/22 22:42 - END OF NOTE 01/31/22 09:06 Nurse Note by Arely Dimas Order: Lasix 40mg daily discontinued by SURVEY DIRECTORYudy per resident request. Initialized on 01/31/22 09:06 - END OF NOTE 01/30/22 09:24 Nurse Note by Slime Gr Refused Lasix: Resident refused Lasix this AM. Educated resident on what the Lasix does for her body. Resident stated It makes all my food taste bad, so i don't want to take it. Resident also stated I understand what it does and i do not want to take it. Initialized on 01/30/22 09:24 - END OF NOTE 01/28/22 11:19 Nurse Note by Christi Loco OUTBREAK TESTING: Resident refused to be tested. Explained risk vs. benefits, resident understands. Initialized on 01/28/22 11:19 - END OF NOTE 01/23/22 04:57 Nurse Note by Wayne Bryant Status/jakob wrap---per pm nurse, res. allowed jakob wraps to be put on left lower leg at 1700. Res. has refused to have it removed during the noc. Initialized on 01/23/22 04:57 - END OF NOTE 01/21/22 10:48 Nurse Note by rBandy Rodriguez Vital signs reviewed with no issues? No changes in mood/behavior? Temporary care plan reviewed with no changes? Care plan problems 40-119 reviewed with no changes? No changes in communications, hearing, vision, or orientation? Initialized on 01/21/22 10:48 - END OF NOTE 01/21/22 02:41 Nurse Note by Carol Ann Parson A Week #4: care plan problems #40-119 and vital signs reviewed.? No changes made, and nothing added to temporary care plan.? Vital signs are within resident's normal ranges. No changes in hearing, vision, and orientation noted at this time.?Will use call light when needs care or help during NOC. Sleeping with TV on..? Mood/behavior. No behavioral concerns noted or reported so far, tonight. Resident is not on Psychotropic medications, currently. Initialized on 01/21/22 02:41 - END OF NOTE 01/20/22 10:42 Nurse Note by Arely Dimas Wrap: Resident refused jakob wrap/elevation to (R) LE, prefers to use own compression sock. Initialized on 01/20/22 10:42 - END OF NOTE 01/18/22 21:24 Nurse Note by Terrie Newsome Status: Resident agreed to JAKOB wrap applied to LLE at 1500, upon applying wrap resident c/o 5/10 pain and requested Dravosburg. Refused applied wrap to RLE. Resident was able to keep LLE JAKOB wrap on until HS which was then removed per order. Disc with resident that the goal is to apply each AM and remove at HS. Resident seemed reluctant but agreeable. Initialized on 01/18/22 21:24 - END OF NOTE 01/18/22 12:40 Nurse Note by Arely Dimas Skin: BLE and inner thighs lymph edema assessed by Dr. Ramsey. order:Jakob wraps to BLE ON-AM, OFF-PM. Initialized on 01/18/22 12:40 - END OF NOTE 01/18/22 10:03 Nurse Note by Arely Dimas Skin: (L) [place] redness increase and warm to touch & inner thighs lymph edema. Will have MD assess. Initialized on 01/18/22 10:03 - END OF NOTE 01/16/22 11:30 (created 01/16/22 14:51) Nurse Note by Christi Loco WOUND ROUNDS: Resident coccyx is healed, intervention completed. R hip wound healed, mepilex removed and intervention completed. Intervention created for monitoring BLEs for redness/edema. Small open area on lateral portion of the left lower leg noted, w/scant amount of drainage. Per SURVEY DIRECTOR, leave BALTAZAR. Lasix dose was increased yesterday per Larissa DELGADO. She will be here to assess tomorrow. Resident also has 4 open areas on R shoulder, resident states these are from her scratching and picking at them. Mepitel One dressings were placed over the areas for protection. Replace Q5 days and PRN. Initialized on 01/16/22 14:51 - END OF NOTE 01/16/22 05:12 Nurse Note by Wayne Bryant Status/left leg---At 2300 the redness appeared the same as it's been. Res. denied any pain at the time. Stated would call for Dravosburg if needed. Has slept the rest of the noc. Initialized on 01/16/22 05:12 - END OF NOTE 01/15/22 02:31 Nurse Note by Wayne Bryant L Status/legs---Continues to have redness on left calf. Is not warm to touch. Does not appear to have increased in size but it was not marked when first noticed. Has some of the same redness on right outer calf. Has been elevating left leg on a pillow. To be seen by SURVEY DIRECTOR in am. Initialized on 01/15/22 02:31 - END OF NOTE 01/14/22 17:17 Nurse Note by Sana Bradford Week #3: Vital signs reviewed: no change. Skin summary: Resident has an open area on right hip, Mepilex change every three days. Open area to coccyx apply Sensi-care. Redness and some weeping on left calf. Resident has been refusing lotion to legs. Temporary care plan reviewed: 01/14/22 Problem: number of covid cases in unit. Goal: will be safe. Approaches: isolation precautions due to vaccination status. Care plan 30-39 reviewed: change to care plan 31 toileting is now on bowel medications. Resident wears brief, calls when in needing to go to bathroom, is two assist to get on bed armenta. Is incontinent of bowel and bladder. Initialized on 01/14/22 17:17 - END OF NOTE 01/14/22 15:23 Nurse Note by Christi Loco COVID TESTING: Spoke to resident regarding COVID testing and isolation requirements. Resident now agreed to be tested today, as she wants to be able to have her family come into her room without having to wear PPE. Discussed that if she is negative 2 weeks in a row that she can be off COVID iso. Resident provided verbal consent to testing. Will update family/resident only if she is positive. Initialized on 01/14/22 15:23 - END OF NOTE 01/14/22 10:55 Nurse Note by Christi Loco COVID TESTING: Resident refused to be tested during outbreak testing. Initialized on 01/14/22 10:55 - END OF NOTE 01/14/22 02:47 Nurse Note by Wayne Bryant Week #3---care plan problems #30-39 reviewed. No changes made. Temporary care plan updated re: currently on isolation precautions due to vaccination status and current Covid cases in the unit. Will call for assist with the bedpan. Is freq. already incont. of urine and/or stool. Wears an xxlg brief which is managed by staff. All pericare done by staff. Skin---Currently has redness and weeping from left outer calf. Receives Sensicare to coccyx during cares, lotion to inner thighs, and Vanicream to LLE BID. Initialized on 01/14/22 02:47 - END OF NOTE 01/13/22 21:15 Nurse Note by Tammie Hussein Status: Resident refused to have RN assess dressing or redness in armpit. C/o pain in left lower extremity. PRN Dravosburg given with relief, and resident agreed to elevate legs. Initialized on 01/13/22 21:15 - END OF NOTE 01/12/22 20:52 Nurse Note by Tammie Hussein Skin: Resident refused to elevate R arm. L Carmona red, weeping. Chux pad placed under leg. Initialized on 01/12/22 20:52 - END OF NOTE 01/12/22 00:11 Nurse Note by Tammie Hussein Status: Resident refused to elevate R arm Initialized on 01/12/22 00:11 - END OF NOTE 01/09/22 04:52 Nurse Note by Wayne Bryant Status/pain---was c/o left knee pain at the beginning of this shift. Left knee looks no different than the right. Refused ice pack or warm towel. Dravosburg given at 2322. Has slept soundly the rest of the [facility]. Initialized on 01/09/22 04:52 - END OF NOTE 01/07/22 02:19 Nurse Note by Carol Ann Parson Week #2: Care plan problems #20-29 reviewed.? No changes made.? Nothing added to temporary care plan.? Resident does not get out of bed at [facility] most of the time - but able to call for assistance to use the bedpan.? Extensive assist of 2 with toileting and positioning.? Moves up in bed with EZ positioner.? Top side rails up.? Falls: No fall incidents this past month.? Remains low fall risk according to assessment done on 09/27/21. Initialized on 01/07/22 02:19 - END OF NOTE 01/05/22 13:19 Nurse Note by Carol Ann Parson Cancelled outing: Resident was unable to attend scheduled family festivity at [place] due to transportation issues. 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 Initialized on 01/05/22 13:19 - END OF NOTE 01/04/22 12:11 Nurse Note by Arely Dimas Labs: HgA1C, Cystatin C, BMP reviewed by Dr. Ramsey. No new order. Initialized on 01/04/22 12:11 - END OF NOTE 01/02/22 14:20 Nurse Note by Concetta Jenkins Skin - Redness under R breast and R armpit. Pt states it is painful to the touch. Apply steroid cream to area until resolved. Slit in L abd fold is resolved and duoderm no longer required. Redness still present on BLE and thighs. Red area on coccyx. Apply sensicare until resolved. Initialized on 01/02/22 14:20 - END OF NOTE 01/01/22 10:37 Nurse Note by Arely Dimas Order: Lasix 20mg daily by Yudy DELGADO. Initialized on 01/01/22 10:37 - END OF NOTE 12/31/21 21:02 Nurse Note by Wayne Bryant Week #1---noc shift charting---care plan problems #1-19 reviewed. No changes made. Nothing added to temporary care plan. Has a cup of ice water at bedside that she drinks per self. Staff refill at 2300. If awake at that time will freq. request a snack of some kind. Usually cookies or ice cream. Has her own refrigerator in her room. Temp checked q noc. Pain---no c/o's pain at noc recently. Is on no scheduled pain meds. Does have the following available if needed: Dravosburg 1 tab q6h prn and Biofreeze q4h prn. Initialized on 12/31/21 21:02 - END OF NOTE 12/31/21 09:01 Nurse Note by Arely Dimas Week #1: Care plan problems 1-19 and temporary care plan reviewed. No changes made. Nothing added to temporary care plan. She needs extensive assist of 1-2 with dressing & bathing. Frequently refuses a tub bath, offer sponge bath when this occurs. Is able to do oral cares after set up. Staff assist as needed. Independent with feeding. Is on regular, minced & moistened diet. No problems with chewing/swallowing noted. Pain: No complain of pain thispast month.Is on no routine pain medications. Has an order for Dravosburg 1 tablet Q6H PRN & has used occasionally. She does verbalize need for pain. Initialized on 12/31/21 09:01 - END OF NOTE 12/24/21 06:50 Nurse Note by Arely Dimas Week #4: Care plan problems 40-119 and temporary care plan reviewed. No chnages made. No additions to temporary care plan. No changes in communication, hearing, vision, orientation & chronic health condition. Resident does communicate her needs and use the call light. She is cognitively intact. Has hearing impairment, no use of hearing aids. Has an amplifier in room to help with hearing. Staff administers medications. Behavior/Mood: Has no issues. Is on no psychotropic medications. Initialized on 12/24/21 06:50 - END OF NOTE 12/24/21 01:46 Nurse Note by Myriam Streeter Week #4---care plan problems #40+ reviewed. No changes made. Nothing added to temporary care plan. Uses call light for needs. No changes noted in hearing, vision, or orientation. No behavior problems at noc. Sleeps well. Has TV on all noc. Is on no psychotropic meds. Initialized on 12/24/21 01:46 - END OF NOTE 12/20/21 23:14 Nurse Note by Christi Loco FALL RISK: Assessment completed. Resident is a low risk for falls. Initialized on 12/20/21 23:14 - END OF NOTE 12/20/21 13:09 Nurse Note by Arely Dimas Order: Diflucan 150mg Q72H X 3 doses for yeast infection. Initialized on 12/20/21 13:09 - END OF NOTE 12/18/21 14:00 (created 12/19/21 13:31) Nurse Note by Christi Loco CARE CONFERENCE: Resident, dietary, activities, nursing, and SS in attendance. Daughter Eloina on phone. Resident has been compliant with wearing MARGARET stockings regularly, swelling has improved since last CC. All wounds are healed at this time. Resident notes she continues to have dry, sensitive skin. Lotion is applied daily and as needed. Nystatin powder is being applied to abd/armpit folds for redness and moisture noted. Resident feels she might have a yeast infection and wants that pill from the doctor. Will place note in SURVEY DIRECTOR book. Resident has pain when lower legs touched. Nail care to be done weekly. Resident continues to refuse tub baths and most often gets a bed bath. Encouraged resident to take tub baths due to hygiene concern and recurrent yeast infections. Incontinent of bowel and bladder. Calls for bedpan. Care plan reviewed and updated. No life enrichment concerns. Life enrichment provided update, no concerns. Resident notes that her amplifier is no longer working well. Audiology is set to come in Jan. Family would like to hold off on buying an amplifier until then. Resident does not leave room unless for bath or haircuts. A larger wheelchair was provided to resident, is in resident bathroom. Resident is bed bound at this time. Refuses to get up to her recliner. Residents weight is stable. Continue minced and moist diet. Reviewed POLST. DNR/DNI. No changes made. Uses no restraints. Does use 2 half siderails to assist with positioning. Medications set up by nurse - puts empty med cup on her food tray to show the nurse that she took her pills. She does not eat breakfast in the morning and requests to sleep in I am a night owl. Vulnerability- at risk of being harmed due to weakness and assistance needed with ADLs. Resident is a hector lift. She requests a trapeze be placed on her bed, but this is not possible due to hector lift. No plans for discharge. snf care. Initialized on 12/19/21 13:31 - END OF NOTE 12/17/21 16:28 Nurse Note by Sana Bradford Week #3: Skin summary: Resident has some new redness to the left armpit and left abdominal fold. Nystatin PRN used. Temporary care plan reviewed no change. Care plan 30-39 reviewed, no change. Resident is incontinent of bowel and bladder. Will call to use the bed armenta with two assist. Is on immodium BID. Initialized on 12/17/21 16:28 - END OF NOTE 12/17/21 13:49 Nurse Note by Concetta Jenkins Skin - Red area underneath left armpit. Redness and split in L abdominal fold. Area washed and dried. Nystatin powder applied. Initialized on 12/17/21 13:49 - END OF NOTE 12/17/21 02:47 Nurse Note by Wayne Bryant Week #3---care plan problems #30-39 reviewed. No changes made. Nothing added to temporary care plan. Will call for assist with the bedpan at [facility]. Assist of [address] on the bedpan. Is freq. already wet but also voids on the bedpan. Freq. has a BM at [facility]. Stool tends to be loose. Res. wears an xxlg brief which is managed by staff. All pericare done by staff. Skin---At this time receives lotion to inner thighs and then a towel is placed BID. Also receives Vanicream to LLE BID. Initialized on 12/17/21 02:47 - END OF NOTE 12/15/21 20:07 Nurse Note by Tammie Hussein Edema: 2+ edema noted in L foot, compression stockings on. Resident continues to refuse to elevate RUE. Initialized on 12/15/21 20:07 - END OF NOTE 12/12/21 15:28 Nurse Note by Christi Loco SKIN/HIP: Area R hip is healed with small amount of pink tissue, appears to be from a fold on the incontinence brief pressing on the area. Dressing change intervention completed. Initialized on 12/12/21 15:28 - END OF NOTE 12/11/21 14:01 Nurse Note by Arely Dimas Status: Resident refused weight taken, according to her weight was taken 2 weeks ago. Approached 2 different times. Initialized on 12/11/21 14:01 - END OF NOTE 12/10/21 10:37 Nurse Note by Brandy Rodriguez Weekly Week #2: Vital signs reviewed with no issues Resident is not a fall risk Temporary care plan reviewed with no issues Care plan #20-29 reviewed with no changes Resident is total assist of 2 with bed mobility, bed positioning Initialized on 12/10/21 10:37 - END OF NOTE 12/10/21 00:43 Nurse Note by Myriam Streeter Week #2---care plan problems #20-29 reviewed. No changes made. Nothing added to temporary care plan. Does not get out of bed at [facility]. Refuses to lie on either side. Is turned briefly to get on and off the bedpan at least x 1 this shift. Assist of 2 staff to turn. Moved up in bed with EZ positioner. Top siderails up. Falls---no falls this past month. Is a low fall risk according to assessment done on 09/27/21. Initialized on 12/10/21 00:43 - END OF NOTE 12/03/21 01:22 Nurse Note by Wayne Bryant Week #1---care plan problems #1-19 reviewed. No changes made. Nothing added to temporary care plan. Has a cup of ice water at bedside that is filled at the beginning of this shift. Res. drinks per self. Has been asking for a snack around 2300. Has a refrigerator in her room that she keeps snacks in. Refrig. temp checked q noc. Pain---no recent c/o's pain at [facility]. Does have the following orders available if she does: Dravosburg 5-325mg q6h prn and Biofreeze q4h prn. Initialized on 12/03/21 01:22 - END OF NOTE 11/30/21 12:23 Nurse Note by Arely Dimas Recertification Visit: Resident seen by Dr. Ramsey. Orders reviewed and renewed of 75 days with changes. Order:D/C future A1C, On January 04, 2022 check A1C, BMP, Cystatin C. Clobetasol Cream 0.05%, apply to bilateral LE BID X 14 days. Please help arrangeaudiology appt. to assess for hearing aids. Initialized on 11/30/21 12:23 - END OF NOTE 11/29/21 13:23 Nurse Note by Arely Dimas Order: SURVEY DIRECTOR, Yudy here. BMP result reviewed. Lasix 20 mg BID X 14 days. Initialized on 11/29/21 13:23 - END OF NOTE
[2022-04-01] MEDS: LACTOBACILLUS ACIDOPHILUS 1 TABLET 1 TAB PO ×2 (11:48→17:01)
--- NOTE | 2022-04-01 11:53 | PC.NURSE ---
Week #4 Mood/Behavior: Frequent refusals for cares (bath, MARGARET socks,) Temporary care plan: No changes Care plan # 40 - Moderate hearing loss. On the list for BOND consult '22. Pt understands and is understood. Care plan # 51 - Wears corrective lenses for vision impairment. Care plan # 61 - BIMS score 15 Care plan # 73 - Refuses to leave room. Reports she does not like to interact with others. Has visitors weekly. Speaks with family/friends on phone independently. Care plan # 82 - Not interested in group activities. Enjoys 1:1 visits with enrichment staff and patent solicitor. Prefers short contact visits. Care plan # 100 - Acute cystitis, dermatitis, DM, neuropathy, osteoarthritis. No plans for discharge. Care plan # 101 - Altered skin integrity r/t pressure ulcers, maceration r/t obesity, immobility, non-compliance with turning and repositioning, sometimes does not allow staff to change her when incontinent of bowel or bladder. Care plan # 110 - Vulnerable d/t weakness and needing help with ADL.
[2022-04-01] MEDS: POTASSIUM CHLORIDE 10 MEQ CAPSULE ER PO (16:17)
[2022-04-02] MEDS: LOPERAMIDE HCL 2 MG CAPSULE PO ×2 (08:55→16:35)
[2022-04-02] MEDS: predniSONE 5 MG TABLET PO (08:55)
[2022-04-02] MEDS: METFORMIN ER 500 MG 1000 MG PO ×2 (08:55→17:08)
[2022-04-02] MEDS: predniSONE 1 MG TABLET PO (08:55)
[2022-04-02] MEDS: FUROSEMIDE 20 MG TABLET PO (08:55)
[2022-04-02] MEDS: MAGNESIUM OXIDE 400 MG TABLET PO (08:55)
[2022-04-02] MEDS: LACTOBACILLUS ACIDOPHILUS 1 TABLET 1 TAB PO ×2 (11:45→17:08)
[2022-04-02] MEDS: POTASSIUM CHLORIDE 10 MEQ CAPSULE ER 20 MEQ PO (16:35)
[2022-04-03] MEDS: LOPERAMIDE HCL 2 MG CAPSULE PO ×2 (08:53→15:58)
[2022-04-03] MEDS: FUROSEMIDE 20 MG TABLET PO (08:53)
[2022-04-03] MEDS: METFORMIN ER 500 MG 1000 MG PO ×2 (08:53→17:20)
[2022-04-03] MEDS: MAGNESIUM OXIDE 400 MG TABLET PO (08:53)
[2022-04-03] MEDS: predniSONE 1 MG TABLET PO (08:54)
[2022-04-03] MEDS: predniSONE 5 MG TABLET PO (08:54)
[2022-04-03] MEDS: LACTOBACILLUS ACIDOPHILUS 1 TABLET 1 TAB PO ×2 (11:45→17:20)
[2022-04-03] MEDS: POTASSIUM CHLORIDE 10 MEQ CAPSULE ER PO (16:21)
[2022-04-04] MEDS: predniSONE 5 MG TABLET PO (08:21)
[2022-04-04] MEDS: MAGNESIUM OXIDE 400 MG TABLET PO (08:21)
[2022-04-04] MEDS: FUROSEMIDE 20 MG TABLET PO (08:21)
[2022-04-04] MEDS: LOPERAMIDE HCL 2 MG CAPSULE PO ×2 (08:21→17:11)
[2022-04-04] MEDS: METFORMIN ER 500 MG 1000 MG PO ×2 (08:21→17:11)
[2022-04-04] MEDS: predniSONE 1 MG TABLET PO (08:21)
--- NOTE | 2022-04-04 10:02 | PC.NURSE ---
CDC COVID vaccine/booster information packet given to resident. A second copy signed/dated and placed in chart. Resident stated I already got the two shots. Explained that boosters are needed to be considered up to date and she stated I'm not going to do that. Resident had no further questions/concerns.
[2022-04-04] MEDS: LACTOBACILLUS ACIDOPHILUS 1 TABLET 1 TAB PO ×2 (11:40→17:11)
--- NOTE | 2022-04-04 16:20 | PC.NURSE ---
Skin: Slit in left abdominal fold is healed.
[2022-04-04] MEDS: POTASSIUM CHLORIDE 10 MEQ CAPSULE ER 20 MEQ PO (17:11)
[2022-04-05] MEDS: FUROSEMIDE 20 MG TABLET PO (08:12)
[2022-04-05] MEDS: MAGNESIUM OXIDE 400 MG TABLET PO (08:13)
[2022-04-05] MEDS: predniSONE 5 MG TABLET PO (08:13)
[2022-04-05] MEDS: LOPERAMIDE HCL 2 MG CAPSULE PO ×2 (08:13→16:36)
[2022-04-05] MEDS: METFORMIN ER 500 MG 1000 MG PO ×2 (08:13→17:09)
[2022-04-05] MEDS: predniSONE 1 MG TABLET PO (08:14)
[2022-04-05] MEDS: LACTOBACILLUS ACIDOPHILUS 1 TABLET 1 TAB PO ×2 (12:01→17:09)
[2022-04-05] MEDS: POTASSIUM CHLORIDE 10 MEQ CAPSULE ER PO (16:36)
[2022-04-06] MEDS: MAGNESIUM OXIDE 400 MG TABLET PO (08:10)
[2022-04-06] MEDS: predniSONE 1 MG TABLET PO (08:10)
[2022-04-06] MEDS: predniSONE 5 MG TABLET PO (08:10)
[2022-04-06] MEDS: METFORMIN ER 500 MG 1000 MG PO ×2 (08:10→17:01)
[2022-04-06] MEDS: FUROSEMIDE 20 MG TABLET PO (08:10)
[2022-04-06] MEDS: LOPERAMIDE HCL 2 MG CAPSULE PO ×2 (08:10→16:34)
[2022-04-06] MEDS: LACTOBACILLUS ACIDOPHILUS 1 TABLET 1 TAB PO ×2 (11:57→17:01)
[2022-04-06] MEDS: POTASSIUM CHLORIDE 10 MEQ CAPSULE ER 20 MEQ PO (16:34)
[2022-04-06] MEDS: HYDROCODONE-ACETAMIN 5-325 MG 1 TAB PO (23:48)
[2022-04-07] MEDS: LOPERAMIDE HCL 2 MG CAPSULE PO ×2 (08:54→16:43)
[2022-04-07] MEDS: FUROSEMIDE 20 MG TABLET PO (08:54)
[2022-04-07] MEDS: MAGNESIUM OXIDE 400 MG TABLET PO (08:54)
[2022-04-07] MEDS: predniSONE 1 MG TABLET PO (08:55)
[2022-04-07] MEDS: METFORMIN ER 500 MG 1000 MG PO ×2 (08:55→17:17)
[2022-04-07] MEDS: predniSONE 5 MG TABLET PO (08:55)
[2022-04-07] MEDS: LACTOBACILLUS ACIDOPHILUS 1 TABLET 1 TAB PO ×2 (11:32→17:17)
[2022-04-07] MEDS: POTASSIUM CHLORIDE 10 MEQ CAPSULE ER PO (16:44)
--- NOTE | 2022-04-07 21:00 | PC.NURSE ---
Status: Resident refused to remove compression socks HS.
--- NOTE | 2022-04-07 21:26 | PC.NURSE ---
Week #1:Care plan 1-19 reviewed, no change.Temporary care plan reviewed, no change. Resident is only on PRN pain medication hydrocodone- Acetamin 5-325mg 1 tab PO Q6H PRN Resident usually have neuropathy pain on her leg and very seldom c/o pain. She is usually in bed most of the time and need 2 assist with ADLs. She is independent with meals and usually have them in bed.
[2022-04-08] MEDS: HYDROCODONE-ACETAMIN 5-325 MG 1 TAB PO (02:37)
[2022-04-08 08:00] VITALS: BP 162/80; PULSE 74; RESP 20; TEMP 35.9; O2SAT 97
[2022-04-08] MEDS: predniSONE 5 MG TABLET PO (08:50)
[2022-04-08] MEDS: METFORMIN ER 500 MG 1000 MG PO ×2 (08:50→17:16)
[2022-04-08] MEDS: LOPERAMIDE HCL 2 MG CAPSULE PO ×2 (08:50→15:59)
[2022-04-08] MEDS: MAGNESIUM OXIDE 400 MG TABLET PO (08:50)
[2022-04-08] MEDS: FUROSEMIDE 20 MG TABLET PO (08:50)
[2022-04-08] MEDS: predniSONE 1 MG TABLET PO (08:50)
--- NOTE | 2022-04-08 10:58 | PC.NURSE ---
Pt refused bath, skin assessment, and weight
[2022-04-08] MEDS: LACTOBACILLUS ACIDOPHILUS 1 TABLET 1 TAB PO ×2 (11:54→17:16)
--- NOTE | 2022-04-08 12:02 | PC.NURSE ---
Offered to lotion pt legs - she refused
--- NOTE | 2022-04-08 13:14 | PC.NURSE ---
Week #2: Care plan problems - and temporary care plan reviewed. No changes made. Nothing added to temporary care plan. Resident is non ambulatory. Needs extensive assist of 2 with transfers using the josé lift. Does not sit in the recliner. Is bed bound. Uses the wheelchair when going out, propelled by family. Extensive assist of 2 with turning and positioning. Has an EZ positioner to move up in bed. Top side rails up in bed to aid for positioning. Air mattress in place. No alarms. Fall: Has no falls. Remains a low fall risk according to assessment done on 03/07/22.
[2022-04-08] MEDS: POTASSIUM CHLORIDE 10 MEQ CAPSULE ER PO (16:25)
[2022-04-09] MEDS: LOPERAMIDE HCL 2 MG CAPSULE PO ×2 (08:54→16:39)
[2022-04-09] MEDS: FUROSEMIDE 20 MG TABLET PO (08:54)
[2022-04-09] MEDS: predniSONE 5 MG TABLET PO (08:54)
[2022-04-09] MEDS: MAGNESIUM OXIDE 400 MG TABLET PO (08:54)
[2022-04-09] MEDS: METFORMIN ER 500 MG 1000 MG PO ×2 (08:54→17:01)
[2022-04-09] MEDS: predniSONE 1 MG TABLET PO (08:54)
[2022-04-09] MEDS: LACTOBACILLUS ACIDOPHILUS 1 TABLET 1 TAB PO ×2 (11:50→17:01)
--- NOTE | 2022-04-09 13:17 | PC.NURSE ---
I spoke to daughter Eloina who gave permission to have [facility] bill her for residents probiotic that is not covered by insurance. Faxed form to [employer].
[2022-04-09] MEDS: POTASSIUM CHLORIDE 10 MEQ CAPSULE ER 20 MEQ PO (16:39)
[2022-04-10] MEDS: predniSONE 1 MG TABLET PO (08:56)
[2022-04-10] MEDS: METFORMIN ER 500 MG 1000 MG PO ×2 (08:56→17:27)
[2022-04-10] MEDS: MAGNESIUM OXIDE 400 MG TABLET PO (08:56)
[2022-04-10] MEDS: FUROSEMIDE 20 MG TABLET PO (08:56)
[2022-04-10] MEDS: predniSONE 5 MG TABLET PO (08:56)
[2022-04-10] MEDS: LOPERAMIDE HCL 2 MG CAPSULE PO ×2 (08:56→16:34)
[2022-04-10] MEDS: LACTOBACILLUS ACIDOPHILUS 1 TABLET 1 TAB PO ×2 (12:46→17:27)
[2022-04-10] MEDS: POTASSIUM CHLORIDE 10 MEQ CAPSULE ER PO (16:34)
[2022-04-11] MEDS: LOPERAMIDE HCL 2 MG CAPSULE PO ×2 (08:35→16:36)
[2022-04-11] MEDS: MAGNESIUM OXIDE 400 MG TABLET PO (08:35)
[2022-04-11] MEDS: FUROSEMIDE 20 MG TABLET PO (08:35)
[2022-04-11] MEDS: predniSONE 1 MG TABLET PO (08:35)
[2022-04-11] MEDS: METFORMIN ER 500 MG 1000 MG PO ×2 (08:35→17:01)
[2022-04-11] MEDS: predniSONE 5 MG TABLET PO (08:35)
[2022-04-11] MEDS: LACTOBACILLUS ACIDOPHILUS 1 TABLET 1 TAB PO ×2 (11:36→17:01)
[2022-04-11] MEDS: POTASSIUM CHLORIDE 10 MEQ CAPSULE ER 20 MEQ PO (16:36)
[2022-04-12] MEDS: HYDROCODONE-ACETAMIN 5-325 MG 1 TAB PO (01:36)
[2022-04-12] MEDS: LOPERAMIDE HCL 2 MG CAPSULE PO ×2 (07:48→17:06)
[2022-04-12] MEDS: METFORMIN ER 500 MG 1000 MG PO ×2 (07:48→17:06)
[2022-04-12] MEDS: predniSONE 1 MG TABLET PO (07:48)
[2022-04-12] MEDS: FUROSEMIDE 20 MG TABLET PO (07:48)
[2022-04-12] MEDS: MAGNESIUM OXIDE 400 MG TABLET PO (07:48)
[2022-04-12] MEDS: predniSONE 5 MG TABLET PO (07:48)
--- NOTE | 2022-04-12 11:11 | PC.NURSE ---
Recert Visit: Resident seen by Dr. Ramsey. Orders reviewed and renewed of 75 days with changes. MD updated resident is non compliant with LE's elevation and capri wraps. Order: D/C Magnesium, 04/19 check BMP, A1C, Magnesium 06/04/22 check Magnesium, In 2 weeks (04/26) decrease Loperamide to 1 tab daily & 1 tab QID PRN, In 4 weeks (05/10) D/C scheduled Loperamide continue 1 QID PRN.
[2022-04-12] MEDS: LACTOBACILLUS ACIDOPHILUS 1 TABLET 1 TAB PO ×2 (11:34→17:06)
--- NOTE | 2022-04-12 13:34 | PC.NURSE ---
Skin Care : Noted a slit measuring 7cm on left abdomen fold . Apply Duoderm paste and InterDry
[2022-04-12] MEDS: POTASSIUM CHLORIDE 10 MEQ CAPSULE ER PO (17:06)
[2022-04-13] MEDS: FUROSEMIDE 20 MG TABLET PO (08:03)
[2022-04-13] MEDS: LOPERAMIDE HCL 2 MG CAPSULE PO ×2 (08:03→16:58)
[2022-04-13] MEDS: predniSONE 5 MG TABLET PO (08:04)
[2022-04-13] MEDS: predniSONE 1 MG TABLET PO (08:04)
[2022-04-13] MEDS: METFORMIN ER 500 MG 1000 MG PO ×2 (08:04→16:58)
[2022-04-13] MEDS: LACTOBACILLUS ACIDOPHILUS 1 TABLET 1 TAB PO ×2 (11:40→16:58)
[2022-04-13] MEDS: POTASSIUM CHLORIDE 10 MEQ CAPSULE ER 20 MEQ PO (16:58)
[2022-04-13 22:00] VITALS: BMI 39.6
[2022-04-14] MEDS: HYDROCODONE-ACETAMIN 5-325 MG 1 TAB PO (01:10)
[2022-04-14] MEDS: predniSONE 5 MG TABLET PO (08:22)
[2022-04-14] MEDS: LOPERAMIDE HCL 2 MG CAPSULE PO ×2 (08:22→16:48)
[2022-04-14] MEDS: METFORMIN ER 500 MG 1000 MG PO ×2 (08:22→17:01)
[2022-04-14] MEDS: FUROSEMIDE 20 MG TABLET PO (08:22)
[2022-04-14] MEDS: predniSONE 1 MG TABLET PO (08:22)
[2022-04-14] MEDS: LACTOBACILLUS ACIDOPHILUS 1 TABLET 1 TAB PO ×2 (11:20→17:01)
[2022-04-14] MEDS: POTASSIUM CHLORIDE 10 MEQ CAPSULE ER PO (16:48)
--- NOTE | 2022-04-14 21:02 | PC.NURSE ---
Status: Resident complained that she is having pain when swallowing and, stomach pain after eating for the past three days. Has been encouraged to sit up straight while eating and monitor for now.
--- NOTE | 2022-04-15 02:08 | PC.NURSE ---
Weekly Charting - Week 3: Care Plan, and vital signs reviewed. No changes made or nothing added to care plan at this time. Skin integrity issues remains due to fragility. Resident has slit to left abdomen fold. Duoderm paste and Interdry applied as ordered. Bowel and Bladder: Resident is incontinent of bladder and bowel. Wears XXL Quilted Adult Brief which is managed by staff, and jeri-care is done by staff. Resident will call for assist to use bedpan at night.
[2022-04-15] MEDS: METFORMIN ER 500 MG 1000 MG PO ×2 (08:52→17:14)
[2022-04-15] MEDS: FUROSEMIDE 20 MG TABLET PO (08:52)
[2022-04-15] MEDS: LOPERAMIDE HCL 2 MG CAPSULE PO ×2 (08:52→16:23)
[2022-04-15] MEDS: predniSONE 5 MG TABLET PO (08:53)
[2022-04-15] MEDS: predniSONE 1 MG TABLET PO (08:54)
[2022-04-15 10:23] VITALS: BP 148/85; PULSE 72; RESP 18; TEMP 36.9; O2SAT 97
[2022-04-15 10:27] VITALS: BMI 87.2
[2022-04-15] MEDS: LACTOBACILLUS ACIDOPHILUS 1 TABLET 1 TAB PO ×2 (11:44→17:14)
--- NOTE | 2022-04-15 11:48 | PC.NURSE ---
WEEKLY CHARTING - 3: VS reviewed - WNL No changes to temporary care plan. Pt skin fragile, flaky, flushed. BLE extremely red and flaky. No open areas. Resident at risk for skin breakdown d/t immobility. Slit in L abd fold - order for duoderm paste and interdry. Incontinent of bowel and bladder. Pt uses pull-up briefs and bed armenta. Extensive Ax2 for brief changes/pericare/bed armenta. Pt able to use call light appropriately.
[2022-04-15 15:00] VITALS: BMI 39.6
[2022-04-15] MEDS: POTASSIUM CHLORIDE 10 MEQ CAPSULE ER PO (16:23)
[2022-04-16] MEDS: LOPERAMIDE HCL 2 MG CAPSULE PO ×2 (08:22→16:38)
[2022-04-16] MEDS: METFORMIN ER 500 MG 1000 MG PO ×2 (08:22→16:38)
[2022-04-16] MEDS: predniSONE 1 MG TABLET PO (08:22)
[2022-04-16] MEDS: predniSONE 5 MG TABLET PO (08:22)
[2022-04-16] MEDS: FUROSEMIDE 20 MG TABLET PO (08:22)
[2022-04-16] MEDS: LACTOBACILLUS ACIDOPHILUS 1 TABLET 1 TAB PO ×2 (11:12→16:38)
[2022-04-16] MEDS: POTASSIUM CHLORIDE 10 MEQ CAPSULE ER 20 MEQ PO (16:38)
[2022-04-17] MEDS: HYDROCODONE-ACETAMIN 5-325 MG 1 TAB PO (01:24)
[2022-04-17] MEDS: NYSTATIN POWDER 1 APPLIC TOPICAL (03:08)
--- NOTE | 2022-04-17 03:08 | PC.NURSE ---
Addendum entered by Debi Rivas RN 04/17/22 03:23: Intervention initiated . Left note to ELECTRICAL INSTRUMENT TECHNICIAN book. Original Note: Skin under R breast noted slit open measures approximately 5cm long. Resident c/o's pain to area. Area cleansed, gently dried and then nystatin powder applied. Placed 4 x4 between the skin.
[2022-04-17] MEDS: FUROSEMIDE 20 MG TABLET PO (08:06)
[2022-04-17] MEDS: predniSONE 1 MG TABLET PO (08:06)
[2022-04-17] MEDS: predniSONE 5 MG TABLET PO (08:06)
[2022-04-17] MEDS: LOPERAMIDE HCL 2 MG CAPSULE PO ×2 (08:06→16:02)
[2022-04-17] MEDS: METFORMIN ER 500 MG 1000 MG PO ×2 (08:06→20:09)
[2022-04-17] MEDS: LACTOBACILLUS ACIDOPHILUS 1 TABLET 1 TAB PO ×2 (12:11→20:10)
--- NOTE | 2022-04-17 14:27 | PC.LE ---
Life Enrichment: Resident's headphones were replaced, foam was wearing on her old headphones. New batteries were put in the amplifier.
[2022-04-17] MEDS: POTASSIUM CHLORIDE 10 MEQ CAPSULE ER PO (16:02)
[2022-04-18 07:32] LABS: Chloride* 99 mmol/L (96-114); Sodium* 135 mmol/L (135-149)
[2022-04-18 07:34] LABS: Hemoglobin A1C* 8.46 % (0-5.6)
[2022-04-18 07:35] LABS: Blood Urea Nitrogen* 21 mg/dL (7-30); Carbon Dioxide* 31 mmol/L (20-32); Creatinine* 1.1 mg/dL (0.5-1.5); Est. Creatinine Clearance* 31.72; Estimated Glomerular Filt Rate 50 ml/min
[2022-04-18 07:36] LABS: Calcium* 8.6 mg/dL (8.4-10.6); Glucose* 135 mg/dL (60-115); Magnesium* 1.3 mg/dL (1.5-2.6)
[2022-04-18] MEDS: METFORMIN ER 500 MG 1000 MG PO ×2 (08:03→16:51)
[2022-04-18] MEDS: FUROSEMIDE 20 MG TABLET PO (08:03)
[2022-04-18] MEDS: predniSONE 5 MG TABLET PO (08:03)
[2022-04-18] MEDS: LOPERAMIDE HCL 2 MG CAPSULE PO ×2 (08:03→16:50)
[2022-04-18] MEDS: predniSONE 1 MG TABLET PO (08:03)
[2022-04-18] MEDS: LACTOBACILLUS ACIDOPHILUS 1 TABLET 1 TAB PO ×2 (11:28→16:51)
--- NOTE | 2022-04-18 12:14 | PC.NURSE ---
A1C, Magnesium, BMP - Results reviewed by Dr. Ramsey. Recheck magnesium in a few weeks already in place.
--- NOTE | 2022-04-18 14:39 | PC.NURSE ---
04/18 Slit measuring about 7cm noted on the left abdomen fold has healed. Intervention completed.
[2022-04-18] MEDS: POTASSIUM CHLORIDE 10 MEQ CAPSULE ER 20 MEQ PO (16:50)
--- NOTE | 2022-04-19 00:14 | PC.NURSE ---
FOOD: Resident has leftover food in refrigerator in room dated 04/15. Resident refuses to allow mortgage or loan underwriter to discard.
[2022-04-19] MEDS: LOPERAMIDE HCL 2 MG CAPSULE PO ×2 (08:21→16:45)
[2022-04-19] MEDS: FUROSEMIDE 20 MG TABLET PO (08:21)
[2022-04-19] MEDS: METFORMIN ER 500 MG 1000 MG PO ×2 (08:21→17:00)
[2022-04-19] MEDS: predniSONE 5 MG TABLET PO (08:22)
[2022-04-19] MEDS: predniSONE 1 MG TABLET PO (08:22)
--- NOTE | 2022-04-19 09:53 | PC.NURSE ---
I called [facility]house services to inquire why resident still has not been seen for audiology. I spoke to Oralia and she paired us with another facility to meet a requirement of an amount of residents before they will come out and the other facility has not completed their paperwork yet. [facility] will not send out an carpet sewer or schedule with us at this time. We will call the resident's county case specialist for assistnace. We have also discussed with the family and have provided audiology contacts if they wish this to be scheduled off site and the family has not pursued scheduling an appointment.
--- NOTE | 2022-04-19 11:19 | PC.NURSE ---
AUDIOLOGY: Appointment was arranged at [facility] with Dr. Mabel Pires who is an erp project manager that also provides hearing aide services. The soonest appointment available was arranged: May 20 @10am. The appointment will last approximately 2hrs. They have requested a referral be sent before the appointment--this will be obtained and faxed to [phone]. This nurse spoke to residents daughter, Cristy, to let her know the details of this appointment. She was informed that social work will arrange transportation for her for the appointment when it is closer to that date. Did also tell her daughter that she should call the back of the residents insurance card to ensure that this clinic is within her insurance network, as advised by the wood heel fitter machine. She is in agreement with all of this and hopes that they can get her out for the appointment.
[2022-04-19] MEDS: LACTOBACILLUS ACIDOPHILUS 1 TABLET 1 TAB PO ×2 (11:25→17:00)
[2022-04-19] MEDS: POTASSIUM CHLORIDE 10 MEQ CAPSULE ER PO (16:46)
[2022-04-20] MEDS: FUROSEMIDE 20 MG TABLET PO (08:42)
[2022-04-20] MEDS: METFORMIN ER 500 MG 1000 MG PO ×2 (08:43→17:19)
[2022-04-20] MEDS: predniSONE 5 MG TABLET PO (08:43)
[2022-04-20] MEDS: LOPERAMIDE HCL 2 MG CAPSULE PO ×2 (08:43→16:36)
[2022-04-20] MEDS: predniSONE 1 MG TABLET PO (08:43)
[2022-04-20] MEDS: LACTOBACILLUS ACIDOPHILUS 1 TABLET 1 TAB PO ×2 (11:03→17:19)
[2022-04-20] MEDS: POTASSIUM CHLORIDE 10 MEQ CAPSULE ER 20 MEQ PO (16:36)
--- NOTE | 2022-04-21 06:14 | PC.NURSE ---
Resident continues to have leftover food dated 04/15 in refrigerator. Refuses to allow adjusto writer operator to discard. Fuel Cell Battery Technician informed resident of risks r/t eating old food and states that she understands.
[2022-04-21] MEDS: METFORMIN ER 500 MG 1000 MG PO ×2 (08:55→17:11)
[2022-04-21] MEDS: LOPERAMIDE HCL 2 MG CAPSULE PO ×2 (08:55→16:23)
[2022-04-21] MEDS: predniSONE 1 MG TABLET PO (08:55)
[2022-04-21] MEDS: FUROSEMIDE 20 MG TABLET PO (08:55)
[2022-04-21] MEDS: predniSONE 5 MG TABLET PO (08:55)
[2022-04-21] MEDS: LACTOBACILLUS ACIDOPHILUS 1 TABLET 1 TAB PO ×2 (14:29→17:11)
[2022-04-21] MEDS: POTASSIUM CHLORIDE 10 MEQ CAPSULE ER PO (16:23)
[2022-04-22] MEDS: HYDROCODONE-ACETAMIN 5-325 MG 1 TAB PO ×2 (01:43→23:06)
--- NOTE | 2022-04-22 03:28 | PC.NURSE ---
WEEKLY CHARTING - WEEK 4: Vital signs reviewed. BPs consistently elevated. Other values WNL. Temporary and comprehensive care plan reviewed with no change. No documented behaviors in the last month. Not currently on any psychotropic medications and does not desire to be. Has moderate hearing loss. Uses amplifier to help with hearing. Able to communicate needs verbally. Is understood and understands. No visual impairment. Is cognitively intact a/e/b BIMS score of 15. All medications administered by licensed nurse. Magnesium was discontinued on 04/12/22 and changes made to loperamide at this time as well. No change to chronic health conditions.
--- NOTE | 2022-04-22 07:18 | PC.NURSE ---
Week #4: Care plan reviewed, no changes made. Nothing added to temporary care plan. No changes noted in hearing, vision, orientation. Resident does communicate needs and uses the call light. Vision fine. Has hearing impairment , uses an amplifier. Hearing issue reviewed by MD with resident/family. A place for hearing aid consult provided. Cognition is intact. Chronic health condition stable. Does not self administer medications. Vital signs reviewed. On PACKING ATTENDANT book to review BP's for high values. Mood/Behavior: No issues documented. Resident does continue to refuse her weekly bath/weight, elevate lower extremities most of the time. She will do what she wants.Is on no psychotropic medications.
[2022-04-22 08:00] VITALS: BP 97/61; PULSE 83; RESP 16; TEMP 36.4; O2SAT 96
[2022-04-22] MEDS: METFORMIN ER 500 MG 1000 MG PO ×2 (08:04→17:22)
[2022-04-22] MEDS: predniSONE 1 MG TABLET PO (08:04)
[2022-04-22] MEDS: FUROSEMIDE 20 MG TABLET PO (08:04)
[2022-04-22] MEDS: predniSONE 5 MG TABLET PO (08:04)
[2022-04-22] MEDS: LOPERAMIDE HCL 2 MG CAPSULE PO ×2 (08:04→15:31)
--- NOTE | 2022-04-22 10:40 | PC.NURSE ---
Skin check - Slit under L breast about 4 inches. Redness under R breast, L armpit, and R armpit. Duoderm applied to slit. Nystatin powder applied to all other areas, including abd fold. Pt refused bath. Nurse and RACHELLE did best they could to wash skin folds, armpits, breasts, and groin area while pt lay in bed.
--- NOTE | 2022-04-22 10:41 | PC.NURSE ---
Pt refused bath - Pt refused bath. Nurse and RACHELLE did best they could to wash skin folds, armpits, breasts, and groin area while pt lay in bed. Nystatin powder applied to all other areas, including abd fold
[2022-04-22] MEDS: LACTOBACILLUS ACIDOPHILUS 1 TABLET 1 TAB PO ×2 (11:58→17:22)
[2022-04-22] MEDS: POTASSIUM CHLORIDE 10 MEQ CAPSULE ER PO (16:09)
--- NOTE | 2022-04-23 00:07 | PC.NURSE ---
FOOD: Resident has frosted bars and sweet breads in refrigerator past 3-day policy. Refuses to allow designer/writer to discard.
--- NOTE | 2022-04-23 00:49 | PC.NURSE ---
PAIN: Resident requested/received PRN [place] at 2306 for bilateral foot pain rated 8/10. Indicated it was a stabbing pain. Resident reports PRN administration was effective. Currently rates pain 3/10. Declines any further intervention.
[2022-04-23] MEDS: predniSONE 5 MG TABLET PO (08:53)
[2022-04-23] MEDS: LOPERAMIDE HCL 2 MG CAPSULE PO ×2 (08:53→16:38)
[2022-04-23] MEDS: METFORMIN ER 500 MG 1000 MG PO ×2 (08:53→16:38)
[2022-04-23] MEDS: FUROSEMIDE 20 MG TABLET PO (08:53)
[2022-04-23] MEDS: predniSONE 1 MG TABLET PO (08:53)
--- NOTE | 2022-04-23 11:53 | PC.NURSE ---
Order: Diflucan 150 mg Once for yeast infection by Yudy DELGADO.
[2022-04-23] MEDS: LACTOBACILLUS ACIDOPHILUS 1 TABLET 1 TAB PO ×2 (12:25→16:45)
--- NOTE | 2022-04-23 12:36 | PC.NURSE ---
Audiology referral at [facility] done by WORD PROCESSOR TECHNICIAN. Faxed to Clinic.
[2022-04-23] MEDS: POTASSIUM CHLORIDE 10 MEQ CAPSULE ER 20 MEQ PO (16:38)
--- NOTE | 2022-04-24 03:57 | PC.NURSE ---
Resident continues to have food in refrigerator with date past 3-day policy and will not allow typewriter assembly and parts inspector to discard.
[2022-04-24] MEDS: METFORMIN ER 500 MG 1000 MG PO ×2 (08:28→18:49)
[2022-04-24] MEDS: predniSONE 1 MG TABLET PO (08:28)
[2022-04-24] MEDS: predniSONE 5 MG TABLET PO (08:28)
[2022-04-24] MEDS: LOPERAMIDE HCL 2 MG CAPSULE PO ×2 (08:28→15:40)
[2022-04-24] MEDS: FUROSEMIDE 20 MG TABLET PO (08:28)
[2022-04-24] MEDS: NYSTATIN POWDER 1 APPLIC TOPICAL (10:01)
--- NOTE | 2022-04-24 10:57 | PC.NURSE ---
Late Entry for 04/23/23: Order for Diflucan was cancelled by Yudy DELGADO.
[2022-04-24] MEDS: LACTOBACILLUS ACIDOPHILUS 1 TABLET 1 TAB PO ×2 (11:30→18:49)
--- NOTE | 2022-04-24 12:52 | PC.NURSE ---
Status: Resident was notified magnesium level on 04/[address] Ramsey, no new orders made. 06/14/22 magnesium to be rechecked. Also, explained why the Magnesium was discontinued. thought magnesium is contributing to her diarrhea. Scheduled Imodium is tapered & will be discontinued in 4 weeks. Resident express understanding.
[2022-04-24] MEDS: POTASSIUM CHLORIDE 10 MEQ CAPSULE ER PO (16:19)
--- NOTE | 2022-04-25 03:50 | PC.NURSE ---
Resident continues to have food in refrigerator with date past 3-day policy and will not allow securities underwriter to discard.
[2022-04-25] MEDS: METFORMIN ER 500 MG 1000 MG PO ×2 (08:47→17:11)
[2022-04-25] MEDS: FUROSEMIDE 20 MG TABLET PO (08:47)
[2022-04-25] MEDS: LOPERAMIDE HCL 2 MG CAPSULE PO ×2 (08:47→16:27)
[2022-04-25] MEDS: predniSONE 5 MG TABLET PO (08:47)
[2022-04-25] MEDS: predniSONE 1 MG TABLET PO (08:47)
[2022-04-25] MEDS: LACTOBACILLUS ACIDOPHILUS 1 TABLET 1 TAB PO ×2 (12:17→17:11)
[2022-04-25] MEDS: POTASSIUM CHLORIDE 10 MEQ CAPSULE ER 20 MEQ PO (16:30)
--- NOTE | 2022-04-26 05:19 | PC.NURSE ---
Has leftover food in her refrigerator which has exceeded 3-day date policy. Refuses to allow filing writer to discard.
[2022-04-26] MEDS: LOPERAMIDE HCL 2 MG CAPSULE PO (08:05)
[2022-04-26] MEDS: predniSONE 5 MG TABLET PO (08:05)
[2022-04-26] MEDS: FUROSEMIDE 20 MG TABLET PO (08:05)
[2022-04-26] MEDS: METFORMIN ER 500 MG 1000 MG PO ×2 (08:05→17:01)
[2022-04-26] MEDS: predniSONE 1 MG TABLET PO (08:05)
[2022-04-26] MEDS: LACTOBACILLUS ACIDOPHILUS 1 TABLET 1 TAB PO ×2 (11:37→17:01)
[2022-04-26] MEDS: POTASSIUM CHLORIDE 10 MEQ CAPSULE ER PO (17:01)
[2022-04-27] MEDS: FUROSEMIDE 20 MG TABLET PO (08:13)
[2022-04-27] MEDS: predniSONE 5 MG TABLET PO (08:13)
[2022-04-27] MEDS: METFORMIN ER 500 MG 1000 MG PO ×2 (08:13→17:04)
[2022-04-27] MEDS: predniSONE 1 MG TABLET PO (08:13)
[2022-04-27] MEDS: LOPERAMIDE HCL 2 MG CAPSULE PO (08:13)
[2022-04-27] MEDS: LACTOBACILLUS ACIDOPHILUS 1 TABLET 1 TAB PO ×2 (11:32→17:04)
[2022-04-27] MEDS: POTASSIUM CHLORIDE 10 MEQ CAPSULE ER 20 MEQ PO (17:04)
[2022-04-28] MEDS: FUROSEMIDE 20 MG TABLET PO (08:10)
[2022-04-28] MEDS: predniSONE 1 MG TABLET PO (08:10)
[2022-04-28] MEDS: LOPERAMIDE HCL 2 MG CAPSULE PO (08:10)
[2022-04-28] MEDS: METFORMIN ER 500 MG 1000 MG PO ×2 (08:10→17:14)
[2022-04-28] MEDS: predniSONE 5 MG TABLET PO (08:10)
[2022-04-28] MEDS: LACTOBACILLUS ACIDOPHILUS 1 TABLET 1 TAB PO ×2 (11:56→17:14)
[2022-04-28] MEDS: POTASSIUM CHLORIDE 10 MEQ CAPSULE ER PO (17:14)
[2022-04-29] MEDS: HYDROCODONE-ACETAMIN 5-325 MG 1 TAB PO (00:03)
[2022-04-29 07:00] VITALS: BMI 39.9
[2022-04-29 08:00] VITALS: BP 149/55; PULSE 80; RESP 16; TEMP 35.7; O2SAT 96
[2022-04-29] MEDS: predniSONE 5 MG TABLET PO (08:55)
[2022-04-29] MEDS: LOPERAMIDE HCL 2 MG CAPSULE PO (08:55)
[2022-04-29] MEDS: FUROSEMIDE 20 MG TABLET PO (08:55)
[2022-04-29] MEDS: predniSONE 1 MG TABLET PO (08:55)
[2022-04-29] MEDS: METFORMIN ER 500 MG 1000 MG PO ×2 (08:55→17:01)
--- NOTE | 2022-04-29 09:41 | PC.NURSE ---
WEEKLY CHARTING - WEEK 1: VS reviewed - BP consistently elevated Temporary care plan: No changes Pain: 1 pt report pain 04/14 - pt c/o pain with swallowing. No complaints of pain since. ADLs - Pt requires extensive staff Ax1 or Ax2 for all ADLs. Pt frequentle refuses bath - staff to provide sponge bath when pt agreeable. Pt bed bound - refuses to get out of bed. ROM BID. Pt frequently refuses T&R. Pt uses bed armenta and briefs. Nutrition: Hx of minced/moist diet. Regular diet per MD order - pt and family request regular diet. Pt and family have been informed of all risks with a regular diet. Family provides meals/snacks frequently. Pt uses dentures - refuses to have them refitted.
--- NOTE | 2022-04-29 10:40 | PC.PHA ---
Medication Review~ Medication Monitoring No psycho-pharmacotherapies to monitor. Metformin 1000 mg bid continues. As needed [place] for pain needed more in April compared to March. Comments/Irregularities: Patient's medication regimen appropriate at time of this review. Suggested Course: Continue monthly renal function tests while patient on metformin.
[2022-04-29] MEDS: LACTOBACILLUS ACIDOPHILUS 1 TABLET 1 TAB PO ×2 (12:31→17:01)
[2022-04-29] MEDS: POTASSIUM CHLORIDE 10 MEQ CAPSULE ER PO (17:01)
[2022-04-30] MEDS: FUROSEMIDE 20 MG TABLET PO (08:50)
[2022-04-30] MEDS: LOPERAMIDE HCL 2 MG CAPSULE PO (08:50)
[2022-04-30] MEDS: METFORMIN ER 500 MG 1000 MG PO ×2 (08:50→17:24)
[2022-04-30] MEDS: predniSONE 5 MG TABLET PO (08:51)
[2022-04-30] MEDS: predniSONE 1 MG TABLET PO (08:51)
[2022-04-30] MEDS: LACTOBACILLUS ACIDOPHILUS 1 TABLET 1 TAB PO ×2 (12:07→17:24)
[2022-04-30] MEDS: POTASSIUM CHLORIDE 10 MEQ CAPSULE ER 20 MEQ PO (17:24)
[2022-04-30] MEDS: HYDROCODONE-ACETAMIN 5-325 MG 1 TAB PO (22:36)
--- NOTE | 2022-05-01 01:07 | PC.NURSE ---
FOOD- Resident refuses to allow sign writer hand to discard outdated leftovers in refrigerator. Education provided to resident and she continues to refuse.
--- NOTE | 2022-05-01 03:12 | PC.NURSE ---
PAIN: Requested/received PRN [place] at 2236 for bilateral foot pain. Resident characterizes pain as burning and stabbing. PRN administration was effective. No further complaints.
[2022-05-01] MEDS: predniSONE 5 MG TABLET PO (08:55)
[2022-05-01] MEDS: FUROSEMIDE 20 MG TABLET PO (08:55)
[2022-05-01] MEDS: predniSONE 1 MG TABLET PO (08:55)
[2022-05-01] MEDS: METFORMIN ER 500 MG 1000 MG PO ×2 (08:55→17:19)
[2022-05-01] MEDS: LOPERAMIDE HCL 2 MG CAPSULE PO (08:55)
[2022-05-01] MEDS: LACTOBACILLUS ACIDOPHILUS 1 TABLET 1 TAB PO ×2 (11:25→17:20)
[2022-05-01] MEDS: NYSTATIN POWDER 1 APPLIC TOPICAL (13:18)
[2022-05-01] MEDS: POTASSIUM CHLORIDE 10 MEQ CAPSULE ER PO (16:39)
--- NOTE | 2022-05-02 05:50 | PC.NURSE ---
Continues with outdated food in refrigerator and will not allow policy writer sales to discard.
[2022-05-02] MEDS: LOPERAMIDE HCL 2 MG CAPSULE PO (07:36)
[2022-05-02] MEDS: METFORMIN ER 500 MG 1000 MG PO ×2 (07:36→17:02)
[2022-05-02] MEDS: predniSONE 5 MG TABLET PO (07:36)
[2022-05-02] MEDS: FUROSEMIDE 20 MG TABLET PO (07:36)
[2022-05-02] MEDS: predniSONE 1 MG TABLET PO (07:36)
[2022-05-02] MEDS: LACTOBACILLUS ACIDOPHILUS 1 TABLET 1 TAB PO ×2 (11:56→17:02)
--- NOTE | 2022-05-02 13:10 | PC.NURSE ---
Lab: Magnesium result seen by RESIDENTIAL PROPERTY CONSULTANT. No new order.
[2022-05-02] MEDS: POTASSIUM CHLORIDE 10 MEQ CAPSULE ER 20 MEQ PO (17:02)
[2022-05-03] MEDS: predniSONE 5 MG TABLET PO (07:50)
[2022-05-03] MEDS: LOPERAMIDE HCL 2 MG CAPSULE PO (07:50)
[2022-05-03] MEDS: predniSONE 1 MG TABLET PO (07:50)
[2022-05-03] MEDS: METFORMIN ER 500 MG 1000 MG PO ×2 (07:50→17:23)
[2022-05-03] MEDS: FUROSEMIDE 20 MG TABLET PO (07:50)
[2022-05-03] MEDS: LACTOBACILLUS ACIDOPHILUS 1 TABLET 1 TAB PO ×2 (11:32→17:23)
[2022-05-03] MEDS: POTASSIUM CHLORIDE 10 MEQ CAPSULE ER PO (17:23)
[2022-05-04] MEDS: predniSONE 5 MG TABLET PO (07:53)
[2022-05-04] MEDS: METFORMIN ER 500 MG 1000 MG PO ×2 (07:53→17:05)
[2022-05-04] MEDS: predniSONE 1 MG TABLET PO (07:53)
[2022-05-04] MEDS: LOPERAMIDE HCL 2 MG CAPSULE PO (07:53)
[2022-05-04] MEDS: FUROSEMIDE 20 MG TABLET PO (07:53)
[2022-05-04] MEDS: LACTOBACILLUS ACIDOPHILUS 1 TABLET 1 TAB PO ×2 (12:00→17:05)
[2022-05-04] MEDS: POTASSIUM CHLORIDE 10 MEQ CAPSULE ER 20 MEQ PO (17:05)
[2022-05-05] MEDS: predniSONE 5 MG TABLET PO (07:53)
[2022-05-05] MEDS: FUROSEMIDE 20 MG TABLET PO (07:53)
[2022-05-05] MEDS: METFORMIN ER 500 MG 1000 MG PO ×2 (07:53→17:01)
[2022-05-05] MEDS: predniSONE 1 MG TABLET PO (07:53)
[2022-05-05] MEDS: LOPERAMIDE HCL 2 MG CAPSULE PO (07:53)
[2022-05-05] MEDS: LACTOBACILLUS ACIDOPHILUS 1 TABLET 1 TAB PO ×2 (12:25→17:01)
[2022-05-05] MEDS: POTASSIUM CHLORIDE 10 MEQ CAPSULE ER PO (16:22)
--- NOTE | 2022-05-06 03:22 | PC.NURSE ---
WEEKLY CHARTING - WEEK 1: Vital signs reviewed. BPs elevated. Were reviewed by CLIP COATER. Temporary and comprehensive care plan reviewed - no change. Temporary and comprehensive care plan reviewed without change. Has chronic pain in bilateral shoulders. Currently receives [place] 5/325mg Q6 hours PRN for pain management which has been utilized x9 in the last month. Extensive assist of 1-2 with dressing and bathing. Often refuses tub bath. Has dentures but refuses to wear them. Staff encourage resident to rinse mouth with mouthwash. Eats independently in room. Chewing difficulty r/t edentulous status. Resident and family refuse recommended diet and have been educated of potential risks. Receives regular diet, regular texture with thin liquids. Weight is stable at this time.
[2022-05-06 07:00] VITALS: BMI 39.3
[2022-05-06] MEDS: predniSONE 1 MG TABLET PO (07:24)
[2022-05-06] MEDS: FUROSEMIDE 20 MG TABLET PO (07:24)
[2022-05-06] MEDS: predniSONE 5 MG TABLET PO (07:24)
[2022-05-06] MEDS: LOPERAMIDE HCL 2 MG CAPSULE PO (07:24)
[2022-05-06] MEDS: METFORMIN ER 500 MG 1000 MG PO ×2 (07:24→17:08)
[2022-05-06 08:00] VITALS: PULSE 86; RESP 20; TEMP 36.4; O2SAT 97
--- NOTE | 2022-05-06 11:34 | PC.NURSE ---
Week #1: Care plan reviewed, no changes made. Nothing added to temporary care plan. Resident needs extensive assist of one with dressing, grooming and bathing. Encourage to participate. Has complete upper and lower dentures.Refuses to wear r/t not fit well. If wears staff to do oral cares. Eats in room and is independent with feeding. Has chewing difficulty r/t edentulous and dentures not fitting well. Family and resident refused recommended food texture. Prefers regular diet/texture, thin liquids. Vital signs, high values BP noted by AUTOMOBILE CLUB TRAVEL COUNSELOR. Pain: Pain is managed with [place] 5-325mg 1 tab Q6H PRN and has used occasionally, mostly for neuropathy pain in feet with relief. She is able to communicate need for pain.
[2022-05-06] MEDS: LACTOBACILLUS ACIDOPHILUS 1 TABLET 1 TAB PO ×2 (11:48→17:08)
--- NOTE | 2022-05-06 13:48 | PC.NURSE ---
Skin Check - No open areas - slits under both abd folds and both breasts are closed. Skin in folds is mildly red. Continue to use Nystatin powder in folds. BLE red, fragile, flaky, warm. No open areas on BLE. No evidence of moisture wounds or pressure wounds. Pressure juan francisco are blanchable.
[2022-05-06] MEDS: POTASSIUM CHLORIDE 10 MEQ CAPSULE ER PO (16:36)
--- NOTE | 2022-05-06 16:41 | PC.NURSE ---
Missing medicare card/red purse: Spoke to resident about her concerns last Friday with missing medicare card and red purse. Resident states she is not concerned and that she believes she gave the purse and card to her family when moving in. She states her daughter Eloina will be coming this week and she will request her daughter go through her drawers for her to look for items. She does not want to look further at this time for items and does not want to file paperwork surrounding this issue. Email sent to daughter Cristy about resident stating she is missing items. Have not received an email response.
[2022-05-07] MEDS: predniSONE 5 MG TABLET PO (08:23)
[2022-05-07] MEDS: FUROSEMIDE 20 MG TABLET PO (08:23)
[2022-05-07] MEDS: predniSONE 1 MG TABLET PO (08:23)
[2022-05-07] MEDS: LOPERAMIDE HCL 2 MG CAPSULE PO (08:23)
[2022-05-07] MEDS: METFORMIN ER 500 MG 1000 MG PO ×2 (08:23→17:02)
[2022-05-07] MEDS: LACTOBACILLUS ACIDOPHILUS 1 TABLET 1 TAB PO ×2 (12:20→17:02)
[2022-05-07] MEDS: POTASSIUM CHLORIDE 10 MEQ CAPSULE ER 20 MEQ PO (17:02)
[2022-05-08] MEDS: HYDROCODONE-ACETAMIN 5-325 MG 1 TAB PO (01:08)
[2022-05-08] MEDS: predniSONE 5 MG TABLET PO (07:57)
[2022-05-08] MEDS: predniSONE 1 MG TABLET PO (07:57)
[2022-05-08] MEDS: METFORMIN ER 500 MG 1000 MG PO ×2 (07:57→17:17)
[2022-05-08] MEDS: FUROSEMIDE 20 MG TABLET PO (07:57)
[2022-05-08] MEDS: LOPERAMIDE HCL 2 MG CAPSULE PO (07:57)
--- NOTE | 2022-05-08 10:25 | PC.NURSE ---
Order: Diflucan 150mg once by BREAD AND PASTRY BAKER, [facility] for c/o of yeast infection.
--- NOTE | 2022-05-08 10:28 | PC.NURSE ---
Family Update: Eloina, daughter updated of Diflucan order.
[2022-05-08] MEDS: LACTOBACILLUS ACIDOPHILUS 1 TABLET 1 TAB PO ×2 (11:17→17:17)
[2022-05-08] MEDS: POTASSIUM CHLORIDE 10 MEQ CAPSULE ER PO (16:21)
[2022-05-08] MEDS: FLUCONAZOLE 150 MG TABLET PO (19:06)
[2022-05-09] MEDS: FUROSEMIDE 20 MG TABLET PO (08:53)
[2022-05-09] MEDS: METFORMIN ER 500 MG 1000 MG PO ×2 (08:53→17:06)
[2022-05-09] MEDS: LOPERAMIDE HCL 2 MG CAPSULE PO (08:53)
[2022-05-09] MEDS: predniSONE 5 MG TABLET PO (08:54)
[2022-05-09] MEDS: predniSONE 1 MG TABLET PO (08:54)
[2022-05-09] MEDS: LACTOBACILLUS ACIDOPHILUS 1 TABLET 1 TAB PO ×2 (11:23→17:06)
[2022-05-09] MEDS: POTASSIUM CHLORIDE 10 MEQ CAPSULE ER 20 MEQ PO (16:47)
[2022-05-10] MEDS: HYDROCODONE-ACETAMIN 5-325 MG 1 TAB PO ×2 (03:29→23:10)
--- NOTE | 2022-05-10 05:38 | PC.NURSE ---
Resident has leftover food in refrigerator which has exceeded 3 days per policy. Refuses to allow property underwriter to discard.
[2022-05-10] MEDS: predniSONE 1 MG TABLET PO (07:52)
[2022-05-10] MEDS: predniSONE 5 MG TABLET PO (07:52)
[2022-05-10] MEDS: METFORMIN ER 500 MG 1000 MG PO ×2 (07:52→17:01)
[2022-05-10] MEDS: LACTOBACILLUS ACIDOPHILUS 1 TABLET 1 TAB PO ×2 (11:26→17:01)
--- NOTE | 2022-05-10 14:02 | PC.SOCIAL ---
Phone call to [facility] to set up transportation for resident's upcoming appointment with Audiology at [facility] in [place] on May 20 at 10:00 am. [facility] will garbage pick up man between 9:30 - 9:45 am. Informed that daughter, Eloina, will ride along. Requested larger van due to pt having a larger wheelchair. Phone call to resident's daughter, Eloina, to confirm that the ride was set up with [facility]. Eloina states that if she doesn't ride along then resident's other daughter, Cristy, will.
[2022-05-10] MEDS: POTASSIUM CHLORIDE 10 MEQ CAPSULE ER PO (16:57)
--- NOTE | 2022-05-10 21:26 | PC.NURSE ---
Status: Resident has Lasix and prednisone from am in room stating the she would not take the Lasix and would like resume writer to remove it from the med cup so she could take the prednisone, resume writer did so. AM Lasix on 05/10/22 not taken.
--- NOTE | 2022-05-10 21:29 | PC.NURSE ---
Skin: Resident has a pin point open area directly above her anus. Sensi care applied and monitoring.
[2022-05-10 23:10] VITALS: TEMP 36.5
[2022-05-11] MEDS: predniSONE 5 MG TABLET PO (08:01)
[2022-05-11] MEDS: predniSONE 1 MG TABLET PO (08:01)
[2022-05-11] MEDS: METFORMIN ER 500 MG 1000 MG PO ×2 (08:01→17:10)
--- NOTE | 2022-05-11 10:37 | PC.NURSE ---
Refused Medication: Resident has been refusing Tab furosemide. She informed that her taste buds have improved very much since not taking it. She wants Lasix to be discontinued. Wrote in the N/P book
[2022-05-11] MEDS: LACTOBACILLUS ACIDOPHILUS 1 TABLET 1 TAB PO ×2 (11:35→17:11)
[2022-05-11] MEDS: POTASSIUM CHLORIDE 10 MEQ CAPSULE ER 20 MEQ PO (17:10)
[2022-05-12] MEDS: METFORMIN ER 500 MG 1000 MG PO ×2 (08:42→17:11)
[2022-05-12] MEDS: predniSONE 5 MG TABLET PO (08:42)
[2022-05-12] MEDS: predniSONE 1 MG TABLET PO (08:43)
[2022-05-12] MEDS: LACTOBACILLUS ACIDOPHILUS 1 TABLET 1 TAB PO ×2 (12:07→17:11)
[2022-05-12] MEDS: POTASSIUM CHLORIDE 10 MEQ CAPSULE ER PO (17:10)
--- NOTE | 2022-05-12 22:20 | PC.NURSE ---
Resident has food in fridge that she has asked to be placed in one container that has 2 different dates of expiration. Staff has tried to explain that the food with the later expiration date will be contaminated with the older food. Staff encouraged to sort the food in different containers, but resident has refused.
[2022-05-13] MEDS: HYDROCODONE-ACETAMIN 5-325 MG 1 TAB PO (03:12)
[2022-05-13 07:00] VITALS: BMI 39.6
[2022-05-13 08:00] VITALS: BP 149/79; RESP 18; TEMP 36.3; O2SAT 98
[2022-05-13] MEDS: METFORMIN ER 500 MG 1000 MG PO ×2 (08:49→17:14)
[2022-05-13] MEDS: FUROSEMIDE 20 MG TABLET PO (08:49)
[2022-05-13] MEDS: predniSONE 5 MG TABLET PO (08:49)
[2022-05-13] MEDS: predniSONE 1 MG TABLET PO (08:49)
--- NOTE | 2022-05-13 11:06 | PC.NURSE ---
Skin check - No open areas. Moderate redness under bilateral abd folds, underneath breasts, and in armpits. Continue to apply Nystatin powder. Red, flaky, fragile BLE. Inner thighs red with bumps. R thigh bumps seem to be enlarged - possibly d/t excess fluid. Note in VETERINARY EPIDEMIOLOGIST book to assess bumps on thighs.
[2022-05-13] MEDS: LACTOBACILLUS ACIDOPHILUS 1 TABLET 1 TAB PO ×2 (11:30→17:14)
--- NOTE | 2022-05-13 14:50 | PC.NURSE ---
Week 3 charting: Reviewed Temporary and Compressive Care Plan with no new skin concerns at this time. Incontinent with bowel, Resident will call when needing to use the bed armenta.
[2022-05-13] MEDS: POTASSIUM CHLORIDE 10 MEQ CAPSULE ER PO (16:25)
[2022-05-14] MEDS: FUROSEMIDE 20 MG TABLET PO (07:46)
[2022-05-14] MEDS: METFORMIN ER 500 MG 1000 MG PO ×2 (07:46→17:02)
[2022-05-14] MEDS: predniSONE 1 MG TABLET PO (07:46)
[2022-05-14] MEDS: predniSONE 5 MG TABLET PO (07:46)
--- NOTE | 2022-05-14 10:38 | PC.NURSE ---
Podiatry: Resident refused in-house service on 05/13/22.
[2022-05-14] MEDS: LACTOBACILLUS ACIDOPHILUS 1 TABLET 1 TAB PO ×2 (11:47→17:02)
--- NOTE | 2022-05-14 11:50 | PC.NURSE ---
Order: Discontinue Lasix 20mg daily by REGISTRAR MUSEUM, Yudy per resident request.
--- NOTE | 2022-05-14 11:52 | PC.NURSE ---
Referral: Audiology referral at [facility] done by Yudy DELGADO.
--- NOTE | 2022-05-14 13:19 | PC.NURSE ---
Pt refused weight assessment
[2022-05-14] MEDS: POTASSIUM CHLORIDE 10 MEQ CAPSULE ER 20 MEQ PO (16:50)
--- NOTE | 2022-05-15 05:32 | PC.NURSE ---
FOOD: Resident has multiple food items in refrigerator with no date on them and also items past expiration date. Refuses to allow caption writer to discard any items. Floorperson explained risks and resident continues to decline.
[2022-05-15] MEDS: METFORMIN ER 500 MG 1000 MG PO ×2 (08:16→17:21)
[2022-05-15] MEDS: predniSONE 1 MG TABLET PO (08:16)
[2022-05-15] MEDS: predniSONE 5 MG TABLET PO (08:16)
[2022-05-15] MEDS: LACTOBACILLUS ACIDOPHILUS 1 TABLET 1 TAB PO ×2 (11:41→17:21)
--- NOTE | 2022-05-15 12:36 | PC.NURSE ---
Pt refused weight assessment
--- NOTE | 2022-05-15 15:10 | PC.PHA ---
MEDICATION REVIEW: MEDICATION MONITORING: No psycho pharmacotherapy medications to monitor. Metformin continues. hydrocodone/acetaminophen prn continues with 4 doses thus far in Dec. Potassium and furosemide orders continue. Prednisone 5 mg daily. Fluconazole 150 mg ordered for yeast infection. IRREGULARITY OR COMMENTS: No medication changes since last review. no benzodiazepines prescribed since last review. SUGGESTED COURSE OF ACTION: No recommendation for May.
[2022-05-15] MEDS: POTASSIUM CHLORIDE 10 MEQ CAPSULE ER PO (17:21)
--- NOTE | 2022-05-15 20:27 | PC.NURSE ---
Resident refused removal of B/L compression stockings at HS
--- NOTE | 2022-05-15 20:27 | PC.NURSE ---
Resident requested evening meal from food she had in her fridge. Food dated 05/10/22. Multiple staff discussed safety concerns with resident r/t eating food after 5 days in fridge, food not visibly moldy but was clearly old r/t amount of moisture evident. Resident adamant that she did it before and I won't get sick. Resident upset at new rule change of tossing food after 3 days as she states it used to be 5 days, I'm fine Resident educated on risks of eating contaminated food, she still chose to eat meal from her fridge. Remaining food on her tray that she did not finish was disposed of.
--- NOTE | 2022-05-16 05:53 | PC.NURSE ---
Continues with food in refrigerator and refuses to allow typewriter assembly and parts inspector to discard.
[2022-05-16] MEDS: METFORMIN ER 500 MG 1000 MG PO ×2 (08:03→17:01)
[2022-05-16] MEDS: predniSONE 5 MG TABLET PO (08:03)
[2022-05-16] MEDS: predniSONE 1 MG TABLET PO (08:03)
[2022-05-16] MEDS: LACTOBACILLUS ACIDOPHILUS 1 TABLET 1 TAB PO ×2 (11:59→17:01)
--- NOTE | 2022-05-16 16:24 | PC.NURSE ---
Completed a side rail utilization assessment with due to resident requests side rails. I feel safer and I use them to move. Resident is immobile and does not get OOB due to obesity so side rails are not a restraint since they do not prevent her from getting OOB or restrict access. Resident asked Lizzie and Caro to cancel her hearing appointment on Friday, she doesn't want to go since she is not sure at this time how to pay for it. BERYL Samuel and Caro returned a call to daughter, Cristy, and she requested that we cancel the hearing aide appointment and transportation on Friday. They are unable to find [place] card and she has limited funds. Cristy said, We'll take it from here. Notified the linux network systems administrator of resident and family decision.
[2022-05-16] MEDS: POTASSIUM CHLORIDE 10 MEQ CAPSULE ER 20 MEQ PO (17:01)
[2022-05-16] MEDS: HYDROCODONE-ACETAMIN 5-325 MG 1 TAB PO (21:32)
[2022-05-17] MEDS: predniSONE 5 MG TABLET PO (08:24)
[2022-05-17] MEDS: predniSONE 1 MG TABLET PO (08:24)
[2022-05-17] MEDS: METFORMIN ER 500 MG 1000 MG PO ×2 (08:24→16:59)
--- NOTE | 2022-05-17 10:21 | PC.NURSE ---
I called and spoke to daughter Eloina. She has already cancelled the [facility] audiology appointment and requests we cancel the [facility] van. She said she and Cristy will come in and talk with Maki this weekend to decide on a plan. Maki wants to order hearing aids from the [facility] and is concerned about cost. Eloina will let us know what they decide and what next steps they want to take as a family.
--- NOTE | 2022-05-17 10:26 | PC.SOCIAL ---
This worker called [facility] to cancel transport for resident's appointment on Friday (05/20/22) with Audiology at 10:00 am. Resident is canceling appointment at resident's request.
[2022-05-17] MEDS: LACTOBACILLUS ACIDOPHILUS 1 TABLET 1 TAB PO ×2 (12:08→16:59)
--- NOTE | 2022-05-17 13:43 | PC.NURSE ---
Skin: A 0.75cm slit noted (R) above the anus. Duoderm paste applied, will do BID until healed.
[2022-05-17] MEDS: POTASSIUM CHLORIDE 10 MEQ CAPSULE ER PO (16:59)
[2022-05-17] MEDS: HYDROCODONE-ACETAMIN 5-325 MG 1 TAB PO (21:41)
--- NOTE | 2022-05-18 00:33 | PC.NURSE ---
Has food in refrigerator in room and refuses to allow gag writer to discard. Risks reviewed and wishes to keep food.
[2022-05-18] MEDS: predniSONE 5 MG TABLET PO (07:48)
[2022-05-18] MEDS: METFORMIN ER 500 MG 1000 MG PO ×2 (07:48→17:04)
[2022-05-18] MEDS: predniSONE 1 MG TABLET PO (07:48)
[2022-05-18] MEDS: LACTOBACILLUS ACIDOPHILUS 1 TABLET 1 TAB PO ×2 (11:30→17:04)
[2022-05-18] MEDS: HYDROCODONE-ACETAMIN 5-325 MG 1 TAB PO (16:22)
[2022-05-18] MEDS: POTASSIUM CHLORIDE 10 MEQ CAPSULE ER 20 MEQ PO (16:23)
[2022-05-19] MEDS: predniSONE 1 MG TABLET PO (07:55)
[2022-05-19] MEDS: METFORMIN ER 500 MG 1000 MG PO ×2 (07:55→17:02)
[2022-05-19] MEDS: predniSONE 5 MG TABLET PO (07:55)
[2022-05-19] MEDS: LACTOBACILLUS ACIDOPHILUS 1 TABLET 1 TAB PO ×2 (11:31→17:02)
[2022-05-19] MEDS: POTASSIUM CHLORIDE 10 MEQ CAPSULE ER PO (16:30)
[2022-05-20] MEDS: HYDROCODONE-ACETAMIN 5-325 MG 1 TAB PO ×2 (04:30→22:05)
[2022-05-20 07:00] VITALS: BMI 42.4
[2022-05-20 08:00] VITALS: PULSE 85; RESP 24; TEMP 36.2; O2SAT 98
[2022-05-20] MEDS: predniSONE 1 MG TABLET PO (08:14)
[2022-05-20] MEDS: METFORMIN ER 500 MG 1000 MG PO ×2 (08:14→17:35)
[2022-05-20] MEDS: predniSONE 5 MG TABLET PO (08:14)
--- NOTE | 2022-05-20 10:26 | PC.NURSE ---
Skin check - No open areas on skin. Small slit above anus resolved. Pale redness in bilateral abd folds. Area cleaned and dried. Nystatin powder applied. Will continue to monitor.
--- NOTE | 2022-05-20 10:43 | PC.NURSE ---
Week #3 - Toileting: Comprehensive care plan reviewed. No changes made. Nothing added to temporary care plan. Resident is incontinent of bowel & bladder. Staff to check and change every 2 hours and PRN. Needs 2 assists with changing pad and placing large bedpan. Will call when ready to use bedpan & when pads needs to changed..Pads, pericares managed by staff. Vital signs varies. Continue weekly VS monitoring. Skin:Has a slit/crack above anus treated with duoderm paste. Bilateral redness on LE monitored BID. Skin is checked during cares and on bath day.
[2022-05-20] MEDS: LACTOBACILLUS ACIDOPHILUS 1 TABLET 1 TAB PO ×2 (11:28→17:35)
[2022-05-20] MEDS: POTASSIUM CHLORIDE 10 MEQ CAPSULE ER PO (17:34)
[2022-05-21] MEDS: predniSONE 5 MG TABLET PO (08:00)
[2022-05-21] MEDS: METFORMIN ER 500 MG 1000 MG PO ×2 (08:00→17:13)
[2022-05-21] MEDS: predniSONE 1 MG TABLET PO (08:00)
[2022-05-21] MEDS: NYSTATIN POWDER 1 APPLIC TOPICAL (09:21)
[2022-05-21] MEDS: LACTOBACILLUS ACIDOPHILUS 1 TABLET 1 TAB PO ×2 (11:21→17:13)
--- NOTE | 2022-05-21 12:15 | PC.NURSE ---
Side Rails: Okay for bilateral quarter side rails per resident request for comfort & positioning assistance r/t to obesity.
[2022-05-21] MEDS: POTASSIUM CHLORIDE 10 MEQ CAPSULE ER 20 MEQ PO (16:33)
[2022-05-22] MEDS: predniSONE 1 MG TABLET PO (08:54)
[2022-05-22] MEDS: METFORMIN ER 500 MG 1000 MG PO ×2 (08:54→17:36)
[2022-05-22] MEDS: predniSONE 5 MG TABLET PO (08:54)
[2022-05-22] MEDS: LACTOBACILLUS ACIDOPHILUS 1 TABLET 1 TAB PO ×2 (11:37→17:36)
--- NOTE | 2022-05-22 12:04 | PC.SPIRITC ---
provided visit for support and connection, along with aiding in writing out addresses for Maki to mail [place] cards.
[2022-05-22 14:21] VITALS: BMI 42.4
--- NOTE | 2022-05-22 16:00 | PC.NURSE ---
Hearing: spoke to resident for f/u regarding hearing aides. Resident stated I'm going to wait until at least spring to go see someone. I'm not going anywhere in this cold. Also stated my daughters are looking for my insurance card before I do anything. Eloina is in charge of my finances. Advised to update nursing if further conversation is needed.
[2022-05-22] MEDS: POTASSIUM CHLORIDE 10 MEQ CAPSULE ER PO (17:36)
[2022-05-23] MEDS: METFORMIN ER 500 MG 1000 MG PO ×2 (08:45→20:02)
[2022-05-23] MEDS: predniSONE 5 MG TABLET PO (08:45)
[2022-05-23] MEDS: predniSONE 1 MG TABLET PO (08:45)
[2022-05-23] MEDS: LACTOBACILLUS ACIDOPHILUS 1 TABLET 1 TAB PO ×2 (12:02→20:02)
--- NOTE | 2022-05-23 14:42 | PC.NURSE ---
PAIN ASSESSMENT: Resident triggered pain during TOMÁS pain assessment. She has had an increase in pain in her feet and legs since the past assessment. Resident had PRN pain medication and non pharmacology measures. Resident stated pain is frequent and severe in legs that affects her feet/legs. Spoke to resident if she would like pain medication such as Tylenol scheduled daily. Resident refused and stated she does not want any pain medication to be used daily. Provider updated to speak with resident and review pain management program at this time.
[2022-05-23 15:00] VITALS: BP 162/88; PULSE 97; TEMP 36.4; O2SAT 97
--- NOTE | 2022-05-23 16:34 | PC.NURSE ---
Laceration: At about 1445 nursing assistance was getting bedpan out from under resident and she turn the patient to her left side. While she was turning the resident the residents leg started to slide off bed. The nursing assistance quickly grab the resident leg to prevent her from falling since she was at the edge of the bed.This cause the resident to obtain around 7in X 2in superficial laceration wound with adipose tissue exposed on her right calf. Bleeding was minimal and wound was quickly wrap with saline gauze and covered with Kerlix. [facility] was called and RN received verbal order per Gabby FLOWERS on behalf of Jannette Jimenes NP to send resident to ED for evaluation. Resident was send to ED via ED cot at 1545.
[2022-05-23] MEDS: POTASSIUM CHLORIDE 10 MEQ CAPSULE ER 20 MEQ PO (20:01)
--- NOTE | 2022-05-23 21:13 | PC.NURSE ---
Resident returned from ED at 1940 via cart. Transferred from cart back to bed with assist of 4 staff and jose tube. R calf wound was closed with 15 sutures, telfa and kerlix dressing wrapped in coban. Resident denies pain at this time. New orders to change dressing QD to BID depending on drainage. Apply bacitracin, telfa and wrap in kerlix and coban. Elevate RLE as much as possible and monitor wound for signs of infection (increasing redness, pain, swelling, or purulent drainage). Return to have sutures removed in 10 days.
[2022-05-23] MEDS: HYDROCODONE-ACETAMIN 5-325 MG 1 TAB PO (22:51)
--- NOTE | 2022-05-24 05:42 | PC.NURSE ---
Has voiced no c/o wound pain throughout night. Dressing intact at this time.
[2022-05-24] MEDS: predniSONE 5 MG TABLET PO (08:25)
[2022-05-24] MEDS: METFORMIN ER 500 MG 1000 MG PO ×2 (08:25→17:17)
[2022-05-24] MEDS: predniSONE 1 MG TABLET PO (08:25)
--- NOTE | 2022-05-24 10:54 | PC.NURSE ---
Dr. Ramsey here and updated on skin laceration and treatment.
[2022-05-24] MEDS: LACTOBACILLUS ACIDOPHILUS 1 TABLET 1 TAB PO ×2 (11:51→17:17)
--- NOTE | 2022-05-24 12:04 | PC.NURSE ---
Daughter Cristy called and updated on incident and treatment.
--- NOTE | 2022-05-24 12:16 | PC.NURSE ---
I called daughter Eloina to give her an update n injury and treatment. She wants the option of the Wound Clinic if needed to assist in healing the wound. I felt it was not needed at this time but will keep as an option. Sister Isabel called and spoke to Maki.
[2022-05-24] MEDS: HYDROCODONE-ACETAMIN 5-325 MG 1 TAB PO ×2 (13:30→23:01)
--- NOTE | 2022-05-24 13:51 | PC.NURSE ---
Skin laceration: Wound clean, no drainage, sutures intact. Complain of some pain during dressing changes. Walden given @ 1330.
[2022-05-24] MEDS: POTASSIUM CHLORIDE 10 MEQ CAPSULE ER PO (17:17)
[2022-05-25] MEDS: predniSONE 1 MG TABLET PO (07:44)
[2022-05-25] MEDS: predniSONE 5 MG TABLET PO (07:44)
[2022-05-25] MEDS: METFORMIN ER 500 MG 1000 MG PO ×2 (07:44→17:05)
--- NOTE | 2022-05-25 10:46 | PC.SPIRITC ---
Electrical Subcontractor provided visit for support and connection.
[2022-05-25] MEDS: LACTOBACILLUS ACIDOPHILUS 1 TABLET 1 TAB PO ×2 (11:45→17:05)
[2022-05-25] MEDS: POTASSIUM CHLORIDE 10 MEQ CAPSULE ER 20 MEQ PO (16:52)
[2022-05-25] MEDS: HYDROCODONE-ACETAMIN 5-325 MG 1 TAB PO (21:24)
[2022-05-26] MEDS: METFORMIN ER 500 MG 1000 MG PO ×2 (08:48→19:22)
[2022-05-26] MEDS: predniSONE 1 MG TABLET PO (08:48)
[2022-05-26] MEDS: predniSONE 5 MG TABLET PO (08:48)
[2022-05-26] MEDS: LACTOBACILLUS ACIDOPHILUS 1 TABLET 1 TAB PO ×2 (11:36→19:22)
[2022-05-26] MEDS: POTASSIUM CHLORIDE 10 MEQ CAPSULE ER PO (16:00)
[2022-05-26] MEDS: HYDROCODONE-ACETAMIN 5-325 MG 1 TAB PO (21:52)
--- NOTE | 2022-05-27 03:17 | PC.NURSE ---
WEEKLY CHARTING - WEEK 4: Vital signs reviewed. Temporary and comprehensive care plan reviewed with no change. No documented behaviors in the last month. Not currently on any psychotropic medications and does not desire to be. Has moderate hearing loss. Uses amplifier to help with hearing. Able to communicate needs verbally. Is understood and understands. No visual impairment. Is cognitively intact a/e/b BIMS score of 15. All medications administered by licensed nurse. No change to chronic health conditions.
[2022-05-27] MEDS: predniSONE 5 MG TABLET PO (08:44)
[2022-05-27] MEDS: predniSONE 1 MG TABLET PO (08:44)
[2022-05-27] MEDS: METFORMIN ER 500 MG 1000 MG PO ×2 (08:44→17:00)
[2022-05-27 11:11] VITALS: BP 154/86; PULSE 76; RESP 18; TEMP 36.2; O2SAT 98
--- NOTE | 2022-05-27 11:17 | PC.NURSE ---
Addendum entered by Areyl Dimas RN 05/27/22 13:26: Has scabs on shoulder blades from scratching, lotion appiled. Original Note: Skin Check: (R) groin has a small crack, treated with duoderm paste until healed. Bilateral shins skin reddened, flaky - lotion applied. Inner thighs with scattered bumps/redness r/t fluid retention. Wash cloth put in between thighs, & lotion applied.(R) calf laceration no s/s of infection, sutures intact. Continue with dressing changes as ordered. Status: Refused to be hoyered for weight.
[2022-05-27] MEDS: LACTOBACILLUS ACIDOPHILUS 1 TABLET 1 TAB PO ×2 (12:00→17:00)
--- NOTE | 2022-05-27 13:28 | PC.NURSE ---
Week #4: Comprehensive care plan reviewed, no changes made. Nothing added to temporary care plan. No changes noted in communication, hearing, vision , or orientation. She does communicate needs. Vision is fine. Has hearing deficits, uses an amplifier. An audiology appointment with [facility] was set up but family cancelled.Chronic health condition stable. Does not self administer medications. Vital signs, has some elevated values BP. Continue to monitor weekly vital signs. Mood/Behavior: No issues the past month. Continues to resist cares at times. Is on no psychotropic medications.
[2022-05-27] MEDS: POTASSIUM CHLORIDE 10 MEQ CAPSULE ER PO (17:00)
[2022-05-27] MEDS: HYDROCODONE-ACETAMIN 5-325 MG 1 TAB PO (21:58)
[2022-05-28] MEDS: predniSONE 1 MG TABLET PO (08:39)
[2022-05-28] MEDS: predniSONE 5 MG TABLET PO (08:39)
[2022-05-28] MEDS: METFORMIN ER 500 MG 1000 MG PO ×2 (08:39→17:02)
--- NOTE | 2022-05-28 10:57 | PC.SOCIAL ---
Made a phone call to resident's daughter, Cristy, and left a voicemail regarding rescheduling resident's care conference from today to next FridayJune 04 at 1:45 pm due to staff being out sick. made a phone call to resident's other daughter, Eloina, and discussed rescheduling care conference. Eloina states she is fine with the new date. Sent an email to confirm the rescheduled date and time with the call in information if needed. Provided information to care conference team and resident. Social work will follow up as necessary.
[2022-05-28] MEDS: LACTOBACILLUS ACIDOPHILUS 1 TABLET 1 TAB PO ×2 (11:38→17:02)
[2022-05-28] MEDS: POTASSIUM CHLORIDE 10 MEQ CAPSULE ER 20 MEQ PO (16:53)
[2022-05-29] MEDS: HYDROCODONE-ACETAMIN 5-325 MG 1 TAB PO (05:08)
[2022-05-29] MEDS: predniSONE 1 MG TABLET PO (08:47)
[2022-05-29] MEDS: predniSONE 5 MG TABLET PO (08:47)
[2022-05-29] MEDS: METFORMIN ER 500 MG 1000 MG PO ×2 (08:47→18:03)
[2022-05-29] MEDS: LACTOBACILLUS ACIDOPHILUS 1 TABLET 1 TAB PO ×2 (11:23→18:03)
[2022-05-29] MEDS: POTASSIUM CHLORIDE 10 MEQ CAPSULE ER PO (16:15)
--- NOTE | 2022-05-30 03:23 | PC.NURSE ---
FOOD: Resident has a piece of ham in her refrigerator dated 05-26. Refuses to allow music writer to discard. Facility policy and risks reviewed with resident. Resident wishes to keep piece of ham.
[2022-05-30] MEDS: METFORMIN ER 500 MG 1000 MG PO ×2 (08:40→17:09)
[2022-05-30] MEDS: predniSONE 5 MG TABLET PO (08:40)
[2022-05-30] MEDS: predniSONE 1 MG TABLET PO (08:40)
--- NOTE | 2022-05-30 10:59 | PC.NURSE ---
Order: Lasix 20mg BID @ by Yudy DELGADO per resident request.
--- NOTE | 2022-05-30 11:03 | PC.NURSE ---
Status/Order: PAINT SUPERVISOR here. Lasix 20mg BID @ 08,14 per resident request. Sutured skin laceration seen.
[2022-05-30] MEDS: LACTOBACILLUS ACIDOPHILUS 1 TABLET 1 TAB PO ×2 (11:50→17:09)
[2022-05-30] MEDS: POTASSIUM CHLORIDE 10 MEQ CAPSULE ER 20 MEQ PO (17:09)
[2022-05-30] MEDS: FUROSEMIDE 20 MG TABLET PO (17:09)
[2022-05-30] MEDS: HYDROCODONE-ACETAMIN 5-325 MG 1 TAB PO (22:29)
[2022-05-31] MEDS: predniSONE 1 MG TABLET PO (08:29)
[2022-05-31] MEDS: METFORMIN ER 500 MG 1000 MG PO ×2 (08:29→17:02)
[2022-05-31] MEDS: predniSONE 5 MG TABLET PO (08:29)
[2022-05-31] MEDS: FUROSEMIDE 20 MG TABLET PO ×2 (08:30→16:45)
[2022-05-31] MEDS: LACTOBACILLUS ACIDOPHILUS 1 TABLET 1 TAB PO ×2 (12:10→17:02)
[2022-05-31] MEDS: POTASSIUM CHLORIDE 10 MEQ CAPSULE ER PO (16:45)
[2022-06-01] MEDS: METFORMIN ER 500 MG 1000 MG PO ×2 (08:55→17:41)
[2022-06-01] MEDS: predniSONE 5 MG TABLET PO (08:55)
[2022-06-01] MEDS: predniSONE 1 MG TABLET PO (08:55)
[2022-06-01] MEDS: FUROSEMIDE 20 MG TABLET PO ×2 (08:55→17:41)
[2022-06-01] MEDS: LACTOBACILLUS ACIDOPHILUS 1 TABLET 1 TAB PO ×2 (11:22→19:17)
--- NOTE | 2022-06-01 13:12 | PC.NURSE ---
dressing change. minimal serous sanq. drainage on dressing . no reddness or drainage.
[2022-06-01] MEDS: POTASSIUM CHLORIDE 10 MEQ CAPSULE ER 20 MEQ PO (17:04)
[2022-06-02] MEDS: HYDROCODONE-ACETAMIN 5-325 MG 1 TAB PO (02:51)
[2022-06-02] MEDS: METFORMIN ER 500 MG 1000 MG PO ×2 (08:51→19:23)
[2022-06-02] MEDS: FUROSEMIDE 20 MG TABLET PO ×2 (08:51→16:45)
[2022-06-02] MEDS: predniSONE 5 MG TABLET PO (08:51)
[2022-06-02] MEDS: predniSONE 1 MG TABLET PO (08:52)
[2022-06-02] MEDS: LACTOBACILLUS ACIDOPHILUS 1 TABLET 1 TAB PO ×2 (13:04→19:23)
[2022-06-02] MEDS: POTASSIUM CHLORIDE 10 MEQ CAPSULE ER PO (16:45)
--- NOTE | 2022-06-03 03:46 | PC.NURSE ---
WEEKLY CHARTING - WEEK 1: Vital signs reviewed. Temporary and comprehensive care plan reviewed - no change. Hx of pain r/t diabetic neuropathy and osteoarthritis. Currently receives [place] 5/325mg Q6 hours PRN for pain management which has been utilized x18 in the last month. Requires extensive assist of two with dressing and bathing. Extensive assist of 1 with grooming. Limited assist with oral cares. Refuses to wear dentures. Is on a regular diet with regular texture. Meal intake is poor. Has many snacks in room provided by family. Will order takeout food at times. Able to eat independently.
[2022-06-03 08:00] VITALS: PULSE 92; RESP 20; TEMP 36.1; O2SAT 98
[2022-06-03] MEDS: FUROSEMIDE 20 MG TABLET PO ×2 (08:55→16:05)
[2022-06-03] MEDS: predniSONE 1 MG TABLET PO (08:55)
[2022-06-03] MEDS: predniSONE 5 MG TABLET PO (08:55)
[2022-06-03] MEDS: METFORMIN ER 500 MG 1000 MG PO ×2 (08:55→17:14)
[2022-06-03 10:00] VITALS: TEMP 36.1; O2SAT 98
[2022-06-03] MEDS: LACTOBACILLUS ACIDOPHILUS 1 TABLET 1 TAB PO ×2 (12:07→17:14)
--- NOTE | 2022-06-03 12:30 | PC.NURSE ---
Weight assessment - pt refused weight assessment
--- NOTE | 2022-06-03 12:36 | PC.NURSE ---
Sutures removed - 15 sutures removed from RLE. Steri-strips placed. Covered with Telfa and wrapped with Krelix. Worklist intervention to change dressing daily and monitor wound.
--- NOTE | 2022-06-03 12:37 | PC.NURSE ---
Skin check - Mild redness in abd folds, under bilateral breasts, and both armpits - nystatin powder applied. 15 sutures removed from RLE - steri-strips in place, covered with telfa, wrapped with krelix. Intervention in worklist to change dressing daily. BLE red, flaky, and fragile - baseline. No other areas of concern.
--- NOTE | 2022-06-03 14:00 | PC.NURSE ---
Week #1 - ADL's: Comprehensive care plan reviewed, no changes made. Nothing added to temporary care plan. Resident needs extensive assist of 2 with dressing, grooming and bathing. Does bed bath only. Staff does oral cares. Has complete upper/lower dentures. Independent with feeding after set up. Is on regular diet, thin liquids. Has many snacks in room. Vital signs reviewed, no concerns. Pain: Has an order for [place] 5/325mg Q6H PRN and has used occasionally with relief. Is able to verbalize need for pain.
[2022-06-03 15:00] VITALS: TEMP 36.6; O2SAT 96
[2022-06-03] MEDS: POTASSIUM CHLORIDE 10 MEQ CAPSULE ER PO (16:05)
--- NOTE | 2022-06-03 19:06 | PC.NURSE ---
Resident declined to be tested for COVID today. Testing done d/t outbreak status in the unit.
--- NOTE | 2022-06-03 20:43 | PC.NURSE ---
MDS ADL Charting: Spoke with staff that was present during TOM[facility]S look back period. Resident had extensive assist of 2 with bed mobility. Transfers with the josé lift and 2 assist 1-2 times in look back period. Does not ambulate does not use locomotion on or off unit. Bed ridden per residents preference. Extensive assist of 1 with dressing and grooming. Resident can lift arms to assist with upper body dressing and hygiene. Staff set up food and resident eats independently each time. Toilet assist 2 assist on and off the bed armenta at all times. Resident is able to grab side rails to assist with bed mobility. MDS coded as such.
[2022-06-03 23:00] VITALS: TEMP 36.5; O2SAT 96
[2022-06-04] MEDS: HYDROCODONE-ACETAMIN 5-325 MG 1 TAB PO (04:59)
[2022-06-04 07:00] VITALS: TEMP 36.4; O2SAT 95
[2022-06-04] MEDS: predniSONE 5 MG TABLET PO (08:58)
[2022-06-04] MEDS: FUROSEMIDE 20 MG TABLET PO ×2 (08:58→16:42)
[2022-06-04] MEDS: predniSONE 1 MG TABLET PO (08:58)
[2022-06-04] MEDS: METFORMIN ER 500 MG 1000 MG PO ×2 (08:58→19:12)
--- NOTE | 2022-06-04 09:52 | PC.SOCIAL ---
Received a message from resident's daughter, Eloina Ballesteros, asking to reschedule today's care conference. Phone call to Eloina Ballesteros at [phone] to reschedule. There was no answer, left a voicemail informing that it is possible to reschedule to Sunday 06/11 at 1:45pm. Phone call to resident's other daughter, Cristy Basilio, at [phone]. Discussed rescheduling resident's care conference. Cristy confirmed that Friday06/11/22 at 1:45pm will work for the family. Provided update to [facility] care conference team.
[2022-06-04] MEDS: LACTOBACILLUS ACIDOPHILUS 1 TABLET 1 TAB PO ×2 (11:24→19:12)
[2022-06-04] MEDS: POTASSIUM CHLORIDE 10 MEQ CAPSULE ER 20 MEQ PO (16:42)
[2022-06-04 17:22] VITALS: TEMP 36; O2SAT 93
[2022-06-04 23:00] VITALS: TEMP 36.8; O2SAT 96
[2022-06-05 07:00] VITALS: TEMP 36.3; O2SAT 97
[2022-06-05] MEDS: predniSONE 5 MG TABLET PO (08:55)
[2022-06-05] MEDS: predniSONE 1 MG TABLET PO (08:55)
[2022-06-05] MEDS: METFORMIN ER 500 MG 1000 MG PO ×2 (08:55→17:25)
[2022-06-05] MEDS: FUROSEMIDE 20 MG TABLET PO ×2 (08:55→16:18)
[2022-06-05] MEDS: LACTOBACILLUS ACIDOPHILUS 1 TABLET 1 TAB PO ×2 (11:32→17:25)
[2022-06-05 15:00] VITALS: TEMP 36.2; O2SAT 96
[2022-06-05] MEDS: POTASSIUM CHLORIDE 10 MEQ CAPSULE ER PO (16:18)
[2022-06-05 23:00] VITALS: TEMP 36.6; O2SAT 94
[2022-06-05] MEDS: HYDROCODONE-ACETAMIN 5-325 MG 1 TAB PO (23:50)
[2022-06-06 07:00] VITALS: TEMP 36.4; O2SAT 94
[2022-06-06] MEDS: METFORMIN ER 500 MG 1000 MG PO ×2 (08:50→17:02)
[2022-06-06] MEDS: predniSONE 1 MG TABLET PO (08:50)
[2022-06-06] MEDS: predniSONE 5 MG TABLET PO (08:50)
[2022-06-06] MEDS: FUROSEMIDE 20 MG TABLET PO ×2 (08:50→16:47)
[2022-06-06] MEDS: LACTOBACILLUS ACIDOPHILUS 1 TABLET 1 TAB PO ×2 (11:47→17:02)
--- NOTE | 2022-06-06 12:07 | PC.NURSE ---
Order: Loperamide 2mg BID by Yudy DELGADO.
[2022-06-06] MEDS: POTASSIUM CHLORIDE 10 MEQ CAPSULE ER 20 MEQ PO (16:47)
[2022-06-06] MEDS: LOPERAMIDE HCL 2 MG CAPSULE PO (16:47)
[2022-06-06 17:20] VITALS: TEMP 36.7; O2SAT 92
[2022-06-06 23:00] VITALS: TEMP 36.4; O2SAT 95
[2022-06-07] MEDS: LOPERAMIDE HCL 2 MG CAPSULE PO ×2 (07:25→16:59)
[2022-06-07] MEDS: predniSONE 1 MG TABLET PO (07:25)
[2022-06-07] MEDS: HYDROCODONE-ACETAMIN 5-325 MG 1 TAB PO (07:25)
[2022-06-07] MEDS: METFORMIN ER 500 MG 1000 MG PO ×2 (07:25→17:05)
[2022-06-07] MEDS: FUROSEMIDE 20 MG TABLET PO ×2 (07:25→17:05)
[2022-06-07] MEDS: predniSONE 5 MG TABLET PO (07:25)
[2022-06-07 10:05] VITALS: TEMP 36.2; O2SAT 95
[2022-06-07] MEDS: LACTOBACILLUS ACIDOPHILUS 1 TABLET 1 TAB PO ×2 (12:01→17:05)
[2022-06-07] MEDS: POTASSIUM CHLORIDE 10 MEQ CAPSULE ER PO (17:05)
[2022-06-07 21:08] VITALS: TEMP 36.4; O2SAT 94
[2022-06-07 23:00] VITALS: TEMP 36.2; O2SAT 96
[2022-06-08] MEDS: predniSONE 5 MG TABLET PO (07:30)
[2022-06-08] MEDS: LOPERAMIDE HCL 2 MG CAPSULE PO ×2 (07:30→16:06)
[2022-06-08] MEDS: FUROSEMIDE 20 MG TABLET PO ×2 (07:30→16:06)
[2022-06-08] MEDS: METFORMIN ER 500 MG 1000 MG PO ×2 (07:30→16:59)
[2022-06-08] MEDS: predniSONE 1 MG TABLET PO (07:31)
[2022-06-08] MEDS: HYDROCODONE-ACETAMIN 5-325 MG 1 TAB PO (08:12)
[2022-06-08 09:39] VITALS: TEMP 36.4; O2SAT 95
[2022-06-08] MEDS: LACTOBACILLUS ACIDOPHILUS 1 TABLET 1 TAB PO ×2 (11:43→16:59)
--- NOTE | 2022-06-08 13:32 | PC.NURSE ---
Wound Care: Dressing done to the wound on her right calf. Wound is clean, very minimal discharge noted on the Telfa, resident denies pain. Wound was clean and cover with Telfa and wrap with Kerlix
[2022-06-08] MEDS: POTASSIUM CHLORIDE 10 MEQ CAPSULE ER 20 MEQ PO (16:06)
[2022-06-08 20:50] VITALS: TEMP 36.6; O2SAT 95
[2022-06-08 23:00] VITALS: TEMP 36.8; O2SAT 96
[2022-06-09 04:33] VITALS: TEMP 36.8
[2022-06-09] MEDS: HYDROCODONE-ACETAMIN 5-325 MG 1 TAB PO (04:33)
[2022-06-09 05:20] VITALS: TEMP 36.8
[2022-06-09] MEDS: predniSONE 5 MG TABLET PO (07:51)
[2022-06-09] MEDS: LOPERAMIDE HCL 2 MG CAPSULE PO ×2 (07:51→16:52)
[2022-06-09] MEDS: predniSONE 1 MG TABLET PO (07:51)
[2022-06-09] MEDS: METFORMIN ER 500 MG 1000 MG PO ×2 (07:51→16:53)
[2022-06-09] MEDS: FUROSEMIDE 20 MG TABLET PO ×2 (07:51→16:53)
[2022-06-09 09:54] VITALS: TEMP 36.3; O2SAT 94
[2022-06-09] MEDS: LACTOBACILLUS ACIDOPHILUS 1 TABLET 1 TAB PO ×2 (12:08→16:53)
--- NOTE | 2022-06-09 12:54 | PC.NURSE ---
Wound care : Resident wanted daughter to see the wound during cleaning . Dressing done in the present of the daughter, noted minimal discharge on the Telfa, no c/o pain. Steri strip intact, wound surrounding the suture healing well Clean the wound /apply Telfa and wrap it with Kerlix.
[2022-06-09] MEDS: POTASSIUM CHLORIDE 10 MEQ CAPSULE ER PO (16:53)
[2022-06-09 21:07] VITALS: TEMP 36.5; O2SAT 95
[2022-06-09 23:00] VITALS: TEMP 35.8; O2SAT 98
[2022-06-10] MEDS: HYDROCODONE-ACETAMIN 5-325 MG 1 TAB PO (04:53)
[2022-06-10] MEDS: METFORMIN ER 500 MG 1000 MG PO ×2 (08:29→18:24)
[2022-06-10] MEDS: LOPERAMIDE HCL 2 MG CAPSULE PO ×2 (08:29→15:30)
[2022-06-10] MEDS: FUROSEMIDE 20 MG TABLET PO ×2 (08:29→16:36)
[2022-06-10] MEDS: predniSONE 1 MG TABLET PO (08:30)
[2022-06-10] MEDS: predniSONE 5 MG TABLET PO (08:30)
[2022-06-10] MEDS: LACTOBACILLUS ACIDOPHILUS 1 TABLET 1 TAB PO ×2 (11:40→18:24)
[2022-06-10 13:22] VITALS: BMI 37.6
[2022-06-10 13:25] VITALS: TEMP 36.9; O2SAT 94
[2022-06-10 15:00] VITALS: TEMP 36.7; O2SAT 94
[2022-06-10] MEDS: POTASSIUM CHLORIDE 10 MEQ CAPSULE ER PO (16:36)
[2022-06-10 23:00] VITALS: TEMP 36.7; O2SAT 95
--- NOTE | 2022-06-11 03:53 | PC.NURSE ---
WEEKLY CHARTING - WEEK 2 Resident vitals are fine and temporary care plan reviewed no changes made. Resident is non ambulatory. Needs extensive assist of 2 with transfers using the Hector lift. Does not sit in the recliner , she is bed bound. Resident uses the wheelchair when going out, propelled by family. Extensive assist of 2 with turning and positioning. She has bilateral side rails per resident request ( 05/29/22) for comfort et repositioning. Air mattress in place. No alarms. Fall: Has no falls. Remains a low fall risk according to assessment done on 03/07/22.
[2022-06-11 07:00] VITALS: TEMP 36.3; O2SAT 96
[2022-06-11] MEDS: METFORMIN ER 500 MG 1000 MG PO ×2 (08:59→17:30)
[2022-06-11] MEDS: FUROSEMIDE 20 MG TABLET PO ×2 (08:59→16:56)
[2022-06-11] MEDS: LOPERAMIDE HCL 2 MG CAPSULE PO ×2 (08:59→16:56)
[2022-06-11] MEDS: predniSONE 5 MG TABLET PO (08:59)
[2022-06-11] MEDS: predniSONE 1 MG TABLET PO (09:00)
--- NOTE | 2022-06-11 10:00 | PC.NURSE ---
Discussed weights with provider. At this time it is determined that wt: 230 was made in error. Due to recent increase of Lasix. Wt noted this week to be accurate.
[2022-06-11] MEDS: LACTOBACILLUS ACIDOPHILUS 1 TABLET 1 TAB PO ×2 (11:41→17:30)
--- NOTE | 2022-06-11 11:53 | PC.NURSE ---
Recert Visit: Resident seen by NIGHT TIME NANNYYudy. Orders reviewed and renewed of 75 days with changes. Order: Discontinue Artificial tears & Biofreeze PRN.
--- NOTE | 2022-06-11 12:18 | PC.NURSE ---
Weight Assessment - pt refused wt assessment for 06/11/22
--- NOTE | 2022-06-11 12:26 | PC.NURSE ---
RLE Treatment: Wound seen by WIND TUNNEL TECHNICIAN. Order: Clean with wound cleanser, Apply Bacitracin to laceration, Apply Telfa, Wrap with Kerlix, Change daily.
--- NOTE | 2022-06-11 15:44 | PC.SOCIAL ---
Care conference held today for resident in resident's room. Resident's daughter, Eloina Ballesteros, attended in person. Updates were provided by Lizzie Ratliff from Nursing, Catarina Arias from Nutrition, Maricel Varma from Life Enrichment, and this worker from Social Work. Resident's care plan was reviewed and discussed. Resident verbalized that she does not want to leave the facility for any appointments until the weather is nicer in the Spring. Family also agreed that was best. Resident and family will look at hearing aid options. Resident verbalized that she was worried about a staff member that was involved when resident got a leg laceration. Resident was worried about staff member and wanted more information. Lizzie from Nursing will discuss with SHARON Cruz. Resident's mood is stable and there are no concerns with resident's mood. Family agreed that resident has been doing well with her mood and maintaining. Social Work will follow up as necessary.
--- NOTE | 2022-06-11 16:00 | PC.NURSE ---
CARE CONFERENCE: Resident, dietary, nursing, activities and SS in attendance. Daughters Eloina and son Frankie present. Resident began care conference with stating she would like to discuss employee that was no longer working on unit after the incident that occured recently with a laceration to her leg. Advised that I could not discuss the employees information and that DON would need to be present. Daughter Eloina then state we will figure it out, mom. Resident noted to have two bottle of supplements at bedside when advised when the bottles of Magnesium and Zinc arrived. Residents daughter stated they have been here for a couple days and she brought them in because she doesn't trust that the staff will get her mom the order that is needed for her medication requests. When advised that Magnesium has recently been discontinued by provider d/t diarrhea. Residents daughter stated I don't like doctors or trust them. Advised that nursing can take the medication bottles at this time and use the medication or we can get an order for [facility] to provide and that staff could administer the supplements with other medications. Residents daughter wanted bottle of medications to be used at this time. Resident has pain when lower legs touched, this is chronic. Resident states the supplements will help with this pain. Nail care to be done weekly-family notes this hasn't always been getting done. GOODYEAR WELTER will discuss with staff. GOODYEAR WELTER will cut toenails after care conference today Resident will be added to podiatry list for next visit. Resident requests only bed baths. She states she is afraid to go into the tub because of her size. Incontinent of bowel and bladder. Calls for bedpan. Care plan reviewed and updated. life enrichment concerns: resident has asked that a screen be brought into her during sabianism. Life enrichment coordinator is going to look into this. Resident notes that her amplifier is no longer working well--family is aware. Daughter Eloina stated she would look online to find one that works for resident. Son Frankie was concerned that amplifier was causing more damage to ear drums. Discussed that resident feels her ears are clogged. Discussed hearing, vision and dental concerns. Daughter Eloina and resident stated they will work on getting appointments made for the spring. Resident had her dentures in and they do not fit properly due to weight loss. Daughter aware. Resident does not wear dentures frequently. Resident is bed bound at this time. Refuses to get up to her recliner. Residents weight is stable, but often refuses weekly weights. Continue minced and moist diet. Family brings snacks that are not within dietary recommendations. Reviewed POLST. DNR/DNI. No changes made. Uses no restraints. Does use 2 quarter side rails on her bed to assist with positioning. Medications set up by nurse - puts empty med cup on her food tray to show the nurse that she took her pills. She does not eat breakfast in the morning and requests to sleep in Family has concerns about baked potatoes not being baked and being microwaved. Advised that potatoes are baked. Daughter asked plate grainer apprentice What exactly do you do here, if your not going to go down to the kitchen and see how they cook the potatoes? Rehabilitator updated daughter and family what her role is at the care center. Vulnerability- at risk of being harmed due to weakness and assistance needed with ADLs. Resident is a josé lift. Extensive assist with adls. senior care care.
--- NOTE | 2022-06-11 16:30 | PC.NURSE ---
NEW ORDER: LETICIA Jimenes TECHNICAL SUPPORT ASSISTANT: Per resident request: Magnesium 500mg daily. DX: Diabetes. Zinc 50mg daily. DX: Diabetes. 1 oz schnapps mixed with beverage of choice once daily as requested. Resident asked that supplements be given at noon.
[2022-06-11] MEDS: POTASSIUM CHLORIDE 10 MEQ CAPSULE ER 20 MEQ PO (16:56)
[2022-06-11 21:33] VITALS: TEMP 36.8; O2SAT 92
[2022-06-11 23:00] VITALS: TEMP 36.8; O2SAT 99
[2022-06-12] MEDS: FUROSEMIDE 20 MG TABLET PO ×2 (08:49→16:12)
[2022-06-12] MEDS: METFORMIN ER 500 MG 1000 MG PO ×2 (08:49→17:01)
[2022-06-12] MEDS: predniSONE 5 MG TABLET PO (08:49)
[2022-06-12] MEDS: LOPERAMIDE HCL 2 MG CAPSULE PO ×2 (08:49→15:51)
[2022-06-12] MEDS: predniSONE 1 MG TABLET PO (08:50)
[2022-06-12] MEDS: BACITRACIN OINTMENT BULK TUBE 1 APPLIC TOPICAL (11:40)
[2022-06-12] MEDS: MAGNESIUM OXIDE 400 MG TABLET 500 MG PO (12:14)
[2022-06-12] MEDS: LACTOBACILLUS ACIDOPHILUS 1 TABLET 1 TAB PO ×2 (12:14→17:01)
[2022-06-12 13:37] VITALS: TEMP 36.2; O2SAT 96
[2022-06-12 15:00] VITALS: TEMP 36.6; O2SAT 96
[2022-06-12] MEDS: POTASSIUM CHLORIDE 10 MEQ CAPSULE ER PO (16:12)
[2022-06-12] MEDS: MINERAL OIL 0.5 ML EAR-LEFT (18:27)
[2022-06-12 23:00] VITALS: TEMP 36.4; O2SAT 95
[2022-06-13] MEDS: LOPERAMIDE HCL 2 MG CAPSULE PO ×2 (07:47→16:51)
[2022-06-13] MEDS: MAGNESIUM OXIDE 400 MG TABLET 500 MG PO (07:47)
[2022-06-13] MEDS: FUROSEMIDE 20 MG TABLET PO ×2 (07:47→16:51)
[2022-06-13] MEDS: predniSONE 1 MG TABLET PO (07:49)
[2022-06-13] MEDS: METFORMIN ER 500 MG 1000 MG PO ×2 (07:49→17:04)
[2022-06-13] MEDS: BACITRACIN OINTMENT BULK TUBE 1 APPLIC TOPICAL (07:49)
[2022-06-13] MEDS: predniSONE 5 MG TABLET PO (07:49)
[2022-06-13 10:20] VITALS: TEMP 36.4; O2SAT 97
[2022-06-13] MEDS: LACTOBACILLUS ACIDOPHILUS 1 TABLET 1 TAB PO ×2 (11:49→17:04)
[2022-06-13] MEDS: POTASSIUM CHLORIDE 10 MEQ CAPSULE ER 20 MEQ PO (16:51)
[2022-06-13] MEDS: MINERAL OIL 0.5 ML EAR-LEFT (21:16)
[2022-06-13 21:18] VITALS: TEMP 36.2; O2SAT 96
[2022-06-13 23:00] VITALS: TEMP 36.3; O2SAT 93
[2022-06-14] MEDS: LOPERAMIDE HCL 2 MG CAPSULE PO ×2 (07:55→16:26)
[2022-06-14] MEDS: METFORMIN ER 500 MG 1000 MG PO ×2 (07:55→19:01)
[2022-06-14] MEDS: BACITRACIN OINTMENT BULK TUBE 1 APPLIC TOPICAL (07:55)
[2022-06-14] MEDS: predniSONE 1 MG TABLET PO (07:55)
[2022-06-14] MEDS: predniSONE 5 MG TABLET PO (07:55)
[2022-06-14] MEDS: MAGNESIUM OXIDE 400 MG TABLET 500 MG PO (07:55)
[2022-06-14] MEDS: FUROSEMIDE 20 MG TABLET PO ×2 (07:55→16:26)
[2022-06-14 09:49] LABS: Magnesium* 1.4 mg/dL (1.5-2.6)
[2022-06-14 10:18] VITALS: TEMP 36.6; O2SAT 95
--- NOTE | 2022-06-14 11:16 | PC.NURSE ---
Wound care: Resident`s wound was cleaned today. Noted minimal yellowish discharge in some area especially further under the calf. No c/o pain or any smell. Wound cleaned , applied bacitracin, cover with Telfa and closed with Kerlix. For wound inspection with N/P on coming Friday.
[2022-06-14] MEDS: LACTOBACILLUS ACIDOPHILUS 1 TABLET 1 TAB PO ×2 (11:44→19:01)
[2022-06-14] MEDS: POTASSIUM CHLORIDE 10 MEQ CAPSULE ER PO (16:26)
[2022-06-14 16:49] VITALS: TEMP 36.4; O2SAT 95
[2022-06-14] MEDS: MINERAL OIL 0.5 ML EAR-LEFT (19:01)
[2022-06-14 23:00] VITALS: TEMP 36.4; O2SAT 96
[2022-06-15 07:00] VITALS: TEMP 36.3; O2SAT 94
[2022-06-15] MEDS: FUROSEMIDE 20 MG TABLET PO ×2 (08:42→16:23)
[2022-06-15] MEDS: predniSONE 5 MG TABLET PO (08:42)
[2022-06-15] MEDS: LOPERAMIDE HCL 2 MG CAPSULE PO ×2 (08:42→16:22)
[2022-06-15] MEDS: predniSONE 1 MG TABLET PO (08:42)
[2022-06-15] MEDS: BACITRACIN OINTMENT BULK TUBE 1 APPLIC TOPICAL (08:42)
[2022-06-15] MEDS: MAGNESIUM OXIDE 400 MG TABLET 500 MG PO (08:43)
[2022-06-15] MEDS: METFORMIN ER 500 MG 1000 MG PO ×2 (08:43→19:31)
[2022-06-15] MEDS: LACTOBACILLUS ACIDOPHILUS 1 TABLET 1 TAB PO ×2 (11:29→19:31)
[2022-06-15] MEDS: POTASSIUM CHLORIDE 10 MEQ CAPSULE ER 20 MEQ PO (16:23)
[2022-06-15 16:43] VITALS: TEMP 36.8; O2SAT 95
[2022-06-15 23:00] VITALS: TEMP 36.8; O2SAT 94
[2022-06-16 07:00] VITALS: TEMP 36.5; O2SAT 92
[2022-06-16] MEDS: BACITRACIN OINTMENT BULK TUBE 1 APPLIC TOPICAL (08:58)
[2022-06-16] MEDS: MAGNESIUM OXIDE 400 MG TABLET 500 MG PO (08:59)
[2022-06-16] MEDS: LOPERAMIDE HCL 2 MG CAPSULE PO ×2 (08:59→18:56)
[2022-06-16] MEDS: METFORMIN ER 500 MG 1000 MG PO ×2 (08:59→18:56)
[2022-06-16] MEDS: predniSONE 5 MG TABLET PO (08:59)
[2022-06-16] MEDS: FUROSEMIDE 20 MG TABLET PO ×2 (08:59→18:56)
[2022-06-16] MEDS: predniSONE 1 MG TABLET PO (08:59)
[2022-06-16] MEDS: LACTOBACILLUS ACIDOPHILUS 1 TABLET 1 TAB PO ×2 (11:18→18:56)
--- NOTE | 2022-06-16 13:03 | PC.NURSE ---
Dressing change - RN attempted to change dressing on RLE. Pt refused - pt said My daughter is coming in later today and she wanted to be here to see it when the dressing is changed. RN clarified with pt - pt confirmed that she did not want her dressing changed until her daughter was present. This information was passed on in report to the evening shift.
--- NOTE | 2022-06-16 16:28 | PC.SPIRITC ---
Lmft visited with resident, providing emotional and spiritual support.
[2022-06-16 16:46] VITALS: TEMP 36.6; O2SAT 93
[2022-06-16] MEDS: POTASSIUM CHLORIDE 10 MEQ CAPSULE ER PO (18:56)
[2022-06-16 23:00] VITALS: TEMP 36.4; O2SAT 95
--- NOTE | 2022-06-17 04:14 | PC.NURSE ---
WEEKLY CHARTING - WEEK 3: Vital signs reviewed. Temporary and comprehensive care plan reviewed - no change. Daily dressing change to RLE: clean with wound cleaner furniture, apply bacitracin, cover with telfa, and wrap with kerlix. Is incontinent of bowel and bladder. Will have continent bowel movements on the bedpan at times. Will use call light to use bedpan or alert staff that she needs her brief changed. Extensive assist of 2 for toileting needs including changing incontinent product, bedpan use, and jeri-cares.
--- NOTE | 2022-06-17 06:58 | PC.NURSE ---
Week #3 - Toileting: Comprehensive care plan reviewed. No changes made. Nothing added to temporary care plan. Resident is incontinent of bowel & bladder. Staff to check and change in bed every 2 hours and PRN. Needs 2 assists with changing? pad and placing large bedpan. Will also call when ready to use bedpan & when pads needs to changed..Pads, jeri cares managed by staff. Vital signs varies. Continue weekly VS monitoring. Skin. Dressing changes daily to RLE laceration. Cleanse with wound cleanser, apply bacitracin, cover with Telfa and wrap with Kerlix. Bilateral redness on LE monitored BID. Skin is checked during cares and on bath day.
[2022-06-17 07:00] VITALS: TEMP 36.5; O2SAT 98; BMI 38.4
[2022-06-17 08:00] VITALS: PULSE 97; RESP 16; TEMP 36.5; O2SAT 98
[2022-06-17] MEDS: BACITRACIN OINTMENT BULK TUBE 1 APPLIC TOPICAL (08:42)
[2022-06-17] MEDS: LOPERAMIDE HCL 2 MG CAPSULE PO ×2 (08:42→16:23)
[2022-06-17] MEDS: FUROSEMIDE 20 MG TABLET PO ×2 (08:42→16:23)
[2022-06-17] MEDS: MAGNESIUM OXIDE 400 MG TABLET 500 MG PO (08:42)
[2022-06-17] MEDS: METFORMIN ER 500 MG 1000 MG PO ×2 (08:42→17:10)
[2022-06-17] MEDS: predniSONE 1 MG TABLET PO (08:43)
[2022-06-17] MEDS: predniSONE 5 MG TABLET PO (08:43)
--- NOTE | 2022-06-17 10:47 | PC.NURSE ---
Skin check - BLE flaky, fragile, flushed. RLE 10 cm skin tear closed with steri-strips, no longer draining, skin is closing, pt denies pain, wound is cleaned and dressing changed daily. Two red aranda on R outer thigh - both about the size of a harvinder. 3 aranda on R scapula d/t pt picking at skin, lotion applied, pt encouraged not to pick at skin, pt refused covering.
[2022-06-17] MEDS: LACTOBACILLUS ACIDOPHILUS 1 TABLET 1 TAB PO ×2 (11:31→17:10)
[2022-06-17 15:00] VITALS: TEMP 36.5; O2SAT 96
[2022-06-17] MEDS: POTASSIUM CHLORIDE 10 MEQ CAPSULE ER PO (16:23)
[2022-06-17 23:00] VITALS: TEMP 36.7; O2SAT 94
[2022-06-18 07:00] VITALS: TEMP 36.5; O2SAT 96
[2022-06-18] MEDS: LOPERAMIDE HCL 2 MG CAPSULE PO ×2 (08:57→16:53)
[2022-06-18] MEDS: predniSONE 5 MG TABLET PO (08:57)
[2022-06-18] MEDS: METFORMIN ER 500 MG 1000 MG PO ×2 (08:57→19:09)
[2022-06-18] MEDS: BACITRACIN OINTMENT BULK TUBE 1 APPLIC TOPICAL (08:57)
[2022-06-18] MEDS: MAGNESIUM OXIDE 400 MG TABLET 500 MG PO (08:57)
[2022-06-18] MEDS: FUROSEMIDE 20 MG TABLET PO ×2 (08:57→16:53)
[2022-06-18] MEDS: predniSONE 1 MG TABLET PO (08:57)
--- NOTE | 2022-06-18 11:23 | PC.NURSE ---
Wound/Order: RLE laceration seen by HEAD OF HISTORY with new order for dressing changes. Cleanse with wound cleanser, Apply Medihoney to area of slough on back of LE, apply Telfa, wrap with Kerlix, change daily.
[2022-06-18] MEDS: LACTOBACILLUS ACIDOPHILUS 1 TABLET 1 TAB PO ×2 (11:25→19:10)
[2022-06-18] MEDS: POTASSIUM CHLORIDE 10 MEQ CAPSULE ER 20 MEQ PO (16:53)
[2022-06-18 23:00] VITALS: TEMP 36.6; O2SAT 96
[2022-06-19 07:00] VITALS: TEMP 36.4; O2SAT 97
[2022-06-19] MEDS: MAGNESIUM OXIDE 400 MG TABLET 500 MG PO (08:39)
[2022-06-19] MEDS: METFORMIN ER 500 MG 1000 MG PO ×2 (08:39→17:24)
[2022-06-19] MEDS: LOPERAMIDE HCL 2 MG CAPSULE PO ×2 (08:39→16:55)
[2022-06-19] MEDS: predniSONE 1 MG TABLET PO (08:39)
[2022-06-19] MEDS: predniSONE 5 MG TABLET PO (08:39)
[2022-06-19] MEDS: FUROSEMIDE 20 MG TABLET PO ×2 (08:39→16:55)
[2022-06-19] MEDS: LACTOBACILLUS ACIDOPHILUS 1 TABLET 1 TAB PO ×2 (11:23→17:24)
--- NOTE | 2022-06-19 13:07 | PC.PHA ---
MEDICATION REVIEW MEDICATION MONITORING: No psychopharmacotherapeutics to monitor IRREGULARITY/COMMENTS:Magnesium and zinc supplements added to patient's daily regimen per family request and MD bello. No other changes to prescribed regimen since last review, prn low dose Sedan needs have been minimal since last review. SUGGESTED COURSE OF ACTION:No medication concerns this review.
[2022-06-19 15:00] VITALS: TEMP 36.5; O2SAT 96
[2022-06-19] MEDS: POTASSIUM CHLORIDE 10 MEQ CAPSULE ER PO (16:55)
[2022-06-19 23:00] VITALS: TEMP 36.4; O2SAT 93
[2022-06-20] MEDS: METFORMIN ER 500 MG 1000 MG PO ×2 (07:55→19:02)
[2022-06-20] MEDS: predniSONE 5 MG TABLET PO (07:55)
[2022-06-20] MEDS: LOPERAMIDE HCL 2 MG CAPSULE PO ×2 (07:55→16:23)
[2022-06-20] MEDS: MAGNESIUM OXIDE 400 MG TABLET 500 MG PO (07:55)
[2022-06-20] MEDS: predniSONE 1 MG TABLET PO (07:55)
[2022-06-20] MEDS: FUROSEMIDE 20 MG TABLET PO (07:55)
[2022-06-20 10:33] VITALS: TEMP 36.3; O2SAT 96
--- NOTE | 2022-06-20 10:37 | PC.NURSE ---
Left ear flush done with copious amount of hard wax removed. Ear drum pearly andrews. No s/s of infection. Resident denies pain.
--- NOTE | 2022-06-20 10:44 | PC.NURSE ---
BLACKSMITH APPRENTICE updated via email on wound to right, inner calf. Slough is gone/removed on previous dressing, beefy red with 100% granulation. Depth noted. 2.3.1.3cm. Mild bleeding noted. Cleansed with wound cleanser and applied telfa and wrapped with gauze. Resident denies pain.
--- NOTE | 2022-06-20 11:26 | PC.NURSE ---
Order: Change scheduled Lasix to 20mg daily PRN per patient request by Yudy DELGADO.
[2022-06-20] MEDS: LACTOBACILLUS ACIDOPHILUS 1 TABLET 1 TAB PO ×2 (12:02→19:02)
[2022-06-20 16:38] VITALS: TEMP 36.8; O2SAT 93
[2022-06-20] MEDS: POTASSIUM CHLORIDE 10 MEQ CAPSULE ER 20 MEQ PO (19:01)
[2022-06-20 23:00] VITALS: TEMP 36.7; O2SAT 94
[2022-06-21] MEDS: LOPERAMIDE HCL 2 MG CAPSULE PO ×2 (07:45→16:28)
[2022-06-21] MEDS: predniSONE 5 MG TABLET PO (07:45)
[2022-06-21] MEDS: METFORMIN ER 500 MG 1000 MG PO ×2 (07:45→16:59)
[2022-06-21] MEDS: MAGNESIUM OXIDE 400 MG TABLET 500 MG PO (07:45)
[2022-06-21] MEDS: predniSONE 1 MG TABLET PO (07:45)
[2022-06-21 09:56] VITALS: TEMP 36.5; O2SAT 91
[2022-06-21] MEDS: LACTOBACILLUS ACIDOPHILUS 1 TABLET 1 TAB PO ×2 (11:03→16:59)
--- NOTE | 2022-06-21 11:44 | PC.NURSE ---
RLE (Laceration) Treatment: Cleanse with wound cleanser, apply bacitracin, telfa, wrap with kerlix daily.
[2022-06-21] MEDS: POTASSIUM CHLORIDE 10 MEQ CAPSULE ER PO (16:28)
[2022-06-21 20:51] VITALS: TEMP 37; O2SAT 91
[2022-06-21 23:00] VITALS: TEMP 37; O2SAT 91
[2022-06-22] MEDS: METFORMIN ER 500 MG 1000 MG PO ×2 (07:56→17:00)
[2022-06-22] MEDS: predniSONE 1 MG TABLET PO (07:56)
[2022-06-22] MEDS: MAGNESIUM OXIDE 400 MG TABLET 500 MG PO (07:56)
[2022-06-22] MEDS: LOPERAMIDE HCL 2 MG CAPSULE PO ×2 (07:56→16:55)
[2022-06-22] MEDS: predniSONE 5 MG TABLET PO (07:56)
--- NOTE | 2022-06-22 10:26 | PC.NURSE ---
Wound Care(RLE) : Overall resident`s wound is healing well except on the lower inner calf, it is noted gaping about 2cm long. It is beefy in color and had minimal bleeding. Resident denies any discomfort or pain. The wound was cleaned with wound cleanser, applied bacitracin, cover with telfa and wrap with kerlix.
[2022-06-22] MEDS: LACTOBACILLUS ACIDOPHILUS 1 TABLET 1 TAB PO ×2 (11:38→17:00)
[2022-06-22] MEDS: POTASSIUM CHLORIDE 10 MEQ CAPSULE ER 20 MEQ PO (16:55)
[2022-06-22 21:09] VITALS: TEMP 36.2; O2SAT 92
[2022-06-22 23:00] VITALS: TEMP 36.4; O2SAT 95
[2022-06-23] MEDS: MAGNESIUM OXIDE 400 MG TABLET 500 MG PO (08:27)
[2022-06-23] MEDS: LOPERAMIDE HCL 2 MG CAPSULE PO ×2 (08:27→17:14)
[2022-06-23] MEDS: predniSONE 1 MG TABLET PO (08:27)
[2022-06-23] MEDS: METFORMIN ER 500 MG 1000 MG PO ×2 (08:27→17:14)
[2022-06-23] MEDS: predniSONE 5 MG TABLET PO (08:27)
[2022-06-23] MEDS: LACTOBACILLUS ACIDOPHILUS 1 TABLET 1 TAB PO ×2 (11:49→17:14)
[2022-06-23 16:46] VITALS: TEMP 36.4; O2SAT 93
[2022-06-23] MEDS: POTASSIUM CHLORIDE 10 MEQ CAPSULE ER PO (17:14)
[2022-06-23 23:00] VITALS: TEMP 35.7; O2SAT 97
--- NOTE | 2022-06-24 04:22 | PC.NURSE ---
WEEK 4 : COMUNICATION, HEARING /VISION COGNITION/BEHAVIORS, CLINICAL MONITORING Vital signs reviewed, stable.? Temporary and comprehensive care plan reviewed with no change. No documented behaviors in the last month. Resident is not currently on any psychotropic medications and does not desire to be. Has moderate hearing loss, uses amplifier to help with hearing. She is able to communicate needs verbally, she is understood and understands. No visual impairment. She is cognitively intact with a BIMS score of 15. All medications administered by licensed nurse.? No change to chronic health conditions. She refused to be weighed.
[2022-06-24] MEDS: predniSONE 1 MG TABLET PO (07:45)
[2022-06-24] MEDS: LOPERAMIDE HCL 2 MG CAPSULE PO ×2 (07:45→16:03)
[2022-06-24] MEDS: METFORMIN ER 500 MG 1000 MG PO ×2 (07:45→17:10)
[2022-06-24] MEDS: predniSONE 5 MG TABLET PO (07:45)
[2022-06-24] MEDS: MAGNESIUM OXIDE 400 MG TABLET 500 MG PO (07:45)
--- NOTE | 2022-06-24 07:49 | PC.NURSE ---
WEEKLY CHARTING - WEEK 4: VS reviewed - BP periodically elevated - pt frequently refuses BP assessment. WNL Temporary care plan - RLE sutures removed 06/03/22. Dressing changed BID - apply ravindra golden krelix Comprehensive care plan - no changes Behavior/mood concerns: 4 documented concerns in past 30 days - pt refusing care (bath, weight, hygiene, fridge, food, etc.) No psychotropic medications No changes to hearing, vision, orientation Medication changes - Furosemide 20mg PO QD PRN - changed 06/20/22 No changes in chronic health condition
[2022-06-24 10:13] VITALS: BP 155/87; PULSE 85; RESP 20; TEMP 36.5; O2SAT 93; O2SAT 94
[2022-06-24 10:48] VITALS: BMI 38.0
[2022-06-24] MEDS: LACTOBACILLUS ACIDOPHILUS 1 TABLET 1 TAB PO ×2 (11:44→17:10)
[2022-06-24 15:00] VITALS: TEMP 36.5; O2SAT 96
[2022-06-24] MEDS: POTASSIUM CHLORIDE 10 MEQ CAPSULE ER PO (16:50)
[2022-06-24 23:00] VITALS: TEMP 35.9; O2SAT 96
[2022-06-25 07:00] VITALS: TEMP 36.8; O2SAT 96
[2022-06-25] MEDS: predniSONE 5 MG TABLET PO (08:11)
[2022-06-25] MEDS: LOPERAMIDE HCL 2 MG CAPSULE PO ×2 (08:11→17:09)
[2022-06-25] MEDS: predniSONE 1 MG TABLET PO (08:11)
[2022-06-25] MEDS: METFORMIN ER 500 MG 1000 MG PO ×2 (08:11→19:30)
[2022-06-25] MEDS: MAGNESIUM OXIDE 400 MG TABLET 500 MG PO (08:11)
[2022-06-25] MEDS: LACTOBACILLUS ACIDOPHILUS 1 TABLET 1 TAB PO ×2 (11:21→19:30)
--- NOTE | 2022-06-25 16:00 | PC.NURSE ---
ROM exercises: Resident requests that staff no longer due ROM exercises with her per physical therapy recommendations. She states I don't need to be doing all that anymore. Taken off intervention and care plan at this time.
[2022-06-25] MEDS: POTASSIUM CHLORIDE 10 MEQ CAPSULE ER 20 MEQ PO (17:09)
[2022-06-25 21:05] VITALS: TEMP 36.8; O2SAT 95
[2022-06-25 23:00] VITALS: TEMP 36.5; O2SAT 94
[2022-06-26 07:00] VITALS: TEMP 36; O2SAT 94
[2022-06-26] MEDS: MAGNESIUM OXIDE 400 MG TABLET 500 MG PO (08:17)
[2022-06-26] MEDS: predniSONE 5 MG TABLET PO (08:17)
[2022-06-26] MEDS: METFORMIN ER 500 MG 1000 MG PO ×2 (08:17→16:59)
[2022-06-26] MEDS: predniSONE 1 MG TABLET PO (08:17)
[2022-06-26] MEDS: LOPERAMIDE HCL 2 MG CAPSULE PO ×2 (08:17→16:59)
[2022-06-26] MEDS: LACTOBACILLUS ACIDOPHILUS 1 TABLET 1 TAB PO ×2 (11:40→16:59)
[2022-06-26 15:00] VITALS: TEMP 36.1; O2SAT 94
[2022-06-26] MEDS: POTASSIUM CHLORIDE 10 MEQ CAPSULE ER PO (16:59)
[2022-06-26 23:00] VITALS: TEMP 36.3; O2SAT 93
[2022-06-27] MEDS: LOPERAMIDE HCL 2 MG CAPSULE PO ×2 (07:58→17:26)
[2022-06-27] MEDS: MAGNESIUM OXIDE 400 MG TABLET 500 MG PO (08:00)
[2022-06-27] MEDS: METFORMIN ER 500 MG 1000 MG PO ×2 (08:00→17:26)
[2022-06-27] MEDS: predniSONE 1 MG TABLET PO (08:00)
[2022-06-27] MEDS: predniSONE 5 MG TABLET PO (08:00)
[2022-06-27] MEDS: LACTOBACILLUS ACIDOPHILUS 1 TABLET 1 TAB PO ×2 (11:55→17:26)
--- NOTE | 2022-06-27 12:19 | PC.NURSE ---
RLE Laceration seen by TYPE CASTING MACHINE OPERATOR. Order: Cleanse with wound cleanser, apply telfa, wrap with kerlix, change daily.
[2022-06-27 13:04] VITALS: TEMP 36.6; O2SAT 97
[2022-06-27 15:00] VITALS: TEMP 36.4; O2SAT 97
[2022-06-27] MEDS: POTASSIUM CHLORIDE 10 MEQ CAPSULE ER 20 MEQ PO (17:26)
[2022-06-27 23:00] VITALS: TEMP 36.8; O2SAT 94
[2022-06-28] MEDS: LOPERAMIDE HCL 2 MG CAPSULE PO ×2 (07:53→16:30)
[2022-06-28] MEDS: predniSONE 5 MG TABLET PO (07:53)
[2022-06-28] MEDS: METFORMIN ER 500 MG 1000 MG PO ×2 (07:53→19:44)
[2022-06-28] MEDS: MAGNESIUM OXIDE 400 MG TABLET 500 MG PO (07:53)
[2022-06-28] MEDS: predniSONE 1 MG TABLET PO (07:53)
[2022-06-28 11:02] VITALS: TEMP 36.5; O2SAT 98
[2022-06-28] MEDS: LACTOBACILLUS ACIDOPHILUS 1 TABLET 1 TAB PO ×2 (11:53→19:44)
[2022-06-28] MEDS: POTASSIUM CHLORIDE 10 MEQ CAPSULE ER PO (19:44)
[2022-06-28 21:50] VITALS: TEMP 36.6; O2SAT 95
[2022-06-28 23:00] VITALS: TEMP 36.7; O2SAT 94
[2022-06-29 07:00] VITALS: TEMP 36.3; O2SAT 97
[2022-06-29] MEDS: predniSONE 5 MG TABLET PO (08:15)
[2022-06-29] MEDS: LOPERAMIDE HCL 2 MG CAPSULE PO ×2 (08:15→16:46)
[2022-06-29] MEDS: METFORMIN ER 500 MG 1000 MG PO ×2 (08:15→19:30)
[2022-06-29] MEDS: MAGNESIUM OXIDE 400 MG TABLET 500 MG PO (08:16)
[2022-06-29] MEDS: predniSONE 1 MG TABLET PO (08:16)
[2022-06-29] MEDS: LACTOBACILLUS ACIDOPHILUS 1 TABLET 1 TAB PO ×2 (11:13→19:30)
[2022-06-29] MEDS: POTASSIUM CHLORIDE 10 MEQ CAPSULE ER 20 MEQ PO (16:46)
[2022-06-29 21:04] VITALS: TEMP 36.9; O2SAT 94
[2022-06-29 23:00] VITALS: TEMP 36.4; O2SAT 96
[2022-06-30 07:00] VITALS: TEMP 36.5; O2SAT 97
[2022-06-30] MEDS: LOPERAMIDE HCL 2 MG CAPSULE PO ×2 (08:31→16:19)
[2022-06-30] MEDS: METFORMIN ER 500 MG 1000 MG PO ×2 (08:32→19:06)
[2022-06-30] MEDS: predniSONE 5 MG TABLET PO (08:32)
[2022-06-30] MEDS: predniSONE 1 MG TABLET PO (08:32)
[2022-06-30] MEDS: MAGNESIUM OXIDE 400 MG TABLET 500 MG PO (08:33)
[2022-06-30] MEDS: LACTOBACILLUS ACIDOPHILUS 1 TABLET 1 TAB PO ×2 (11:40→19:07)
[2022-06-30] MEDS: POTASSIUM CHLORIDE 10 MEQ CAPSULE ER PO (16:20)
[2022-06-30 17:00] VITALS: TEMP 36.9; O2SAT 94
[2022-06-30 23:00] VITALS: TEMP 36.6; O2SAT 95
--- NOTE | 2022-07-01 02:46 | PC.NURSE ---
WEEKLY CHARTING - WEEK 1: Vital signs reviewed. Temporary and comprehensive care plan reviewed - no change. Hx of pain r/t diabetic neuropathy and osteoarthritis. Currently receives [place] 5/325mg Q6 hours PRN for pain management with occasional use. Requires extensive assist of two with dressing and bathing. Extensive assist of 1 with grooming. Staff assist with oral cares. Refuses to wear dentures. Is on a regular diet with regular texture. Facility meal intake is poor. Has many snacks in room provided by family. Orders takeout food at times. Eats independently.
--- NOTE | 2022-07-01 04:06 | PC.NURSE ---
Resident has leftover food in refrigerator dated 06/27 which should be discarded, per policy. Resident refuses for food to be discarded.
[2022-07-01] MEDS: LOPERAMIDE HCL 2 MG CAPSULE PO ×2 (08:37→16:53)
[2022-07-01] MEDS: predniSONE 5 MG TABLET PO (08:37)
[2022-07-01] MEDS: MAGNESIUM OXIDE 400 MG TABLET 500 MG PO (08:37)
[2022-07-01] MEDS: predniSONE 1 MG TABLET PO (08:37)
[2022-07-01] MEDS: METFORMIN ER 500 MG 1000 MG PO ×2 (08:37→17:11)
[2022-07-01 11:01] VITALS: BP 167/81; PULSE 99; RESP 18; TEMP 36.4; O2SAT 98; BMI 39.4
[2022-07-01] MEDS: LACTOBACILLUS ACIDOPHILUS 1 TABLET 1 TAB PO ×2 (11:41→17:11)
[2022-07-01 15:00] VITALS: TEMP 36.6; O2SAT 96
--- NOTE | 2022-07-01 15:22 | PC.NURSE ---
OUTBREAK TESTING: Resident refuses to be tested, despite education regarding risk vs. benefit.
[2022-07-01] MEDS: POTASSIUM CHLORIDE 10 MEQ CAPSULE ER PO (17:11)
[2022-07-01 23:00] VITALS: TEMP 36.3; O2SAT 96
[2022-07-02] MEDS: MAGNESIUM OXIDE 400 MG TABLET 500 MG PO (08:34)
[2022-07-02] MEDS: LOPERAMIDE HCL 2 MG CAPSULE PO ×2 (08:34→16:48)
[2022-07-02] MEDS: METFORMIN ER 500 MG 1000 MG PO ×2 (08:34→16:48)
[2022-07-02] MEDS: predniSONE 5 MG TABLET PO (08:35)
[2022-07-02] MEDS: predniSONE 1 MG TABLET PO (08:35)
[2022-07-02 09:40] VITALS: TEMP 36.4; O2SAT 96
[2022-07-02] MEDS: LACTOBACILLUS ACIDOPHILUS 1 TABLET 1 TAB PO ×2 (11:56→16:49)
--- NOTE | 2022-07-02 12:00 | PC.NURSE ---
RLE Laceration assessed by PRINTED PRODUCTS ASSEMBLER and principal technical writer. Order remains the same: Cleanse with wound cleanser, apply telfa, wrap with kerlix, change daily. See wound charting for details.
[2022-07-02] MEDS: POTASSIUM CHLORIDE 10 MEQ CAPSULE ER 20 MEQ PO (16:48)
[2022-07-02 21:05] VITALS: TEMP 36.7; O2SAT 96
[2022-07-02 23:00] VITALS: TEMP 36.6; O2SAT 96
[2022-07-03 07:00] VITALS: TEMP 36.4; O2SAT 97
[2022-07-03] MEDS: LOPERAMIDE HCL 2 MG CAPSULE PO ×2 (08:06→15:29)
[2022-07-03] MEDS: MAGNESIUM OXIDE 400 MG TABLET 500 MG PO (08:06)
[2022-07-03] MEDS: METFORMIN ER 500 MG 1000 MG PO ×2 (08:06→17:59)
[2022-07-03] MEDS: predniSONE 1 MG TABLET PO (08:07)
[2022-07-03] MEDS: predniSONE 5 MG TABLET PO (08:07)
[2022-07-03] MEDS: LACTOBACILLUS ACIDOPHILUS 1 TABLET 1 TAB PO ×2 (11:33→17:59)
[2022-07-03 15:00] VITALS: TEMP 36.6; O2SAT 98
[2022-07-03] MEDS: POTASSIUM CHLORIDE 10 MEQ CAPSULE ER PO (16:46)
[2022-07-03 23:00] VITALS: TEMP 36.3; O2SAT 94
[2022-07-04 07:00] VITALS: TEMP 37.1; O2SAT 97
[2022-07-04] MEDS: MAGNESIUM OXIDE 400 MG TABLET 500 MG PO (08:23)
[2022-07-04] MEDS: METFORMIN ER 500 MG 1000 MG PO ×2 (08:23→18:19)
[2022-07-04] MEDS: LOPERAMIDE HCL 2 MG CAPSULE PO ×2 (08:23→15:46)
[2022-07-04] MEDS: predniSONE 5 MG TABLET PO (08:24)
[2022-07-04] MEDS: predniSONE 1 MG TABLET PO (08:24)
[2022-07-04] MEDS: LACTOBACILLUS ACIDOPHILUS 1 TABLET 1 TAB PO ×2 (11:58→18:19)
[2022-07-04 15:00] VITALS: TEMP 36.3; O2SAT 97
[2022-07-04] MEDS: POTASSIUM CHLORIDE 10 MEQ CAPSULE ER 20 MEQ PO (16:22)
[2022-07-04 23:00] VITALS: TEMP 36.5; O2SAT 95
[2022-07-05] MEDS: predniSONE 5 MG TABLET PO (07:53)
[2022-07-05] MEDS: predniSONE 1 MG TABLET PO (07:53)
[2022-07-05] MEDS: MAGNESIUM OXIDE 400 MG TABLET 500 MG PO (07:53)
[2022-07-05] MEDS: METFORMIN ER 500 MG 1000 MG PO ×2 (07:53→17:07)
[2022-07-05] MEDS: LOPERAMIDE HCL 2 MG CAPSULE PO ×2 (07:53→16:46)
[2022-07-05 10:36] VITALS: TEMP 36.2; O2SAT 96
[2022-07-05] MEDS: LACTOBACILLUS ACIDOPHILUS 1 TABLET 1 TAB PO ×2 (11:45→17:07)
--- NOTE | 2022-07-05 13:53 | PC.SOCIAL ---
Phone call to resident's daughter, Cristy. Left a voicemail to inform her of the scheduled care conference on August 06, 2022 at 1:00 pm. Informed that the notice was also sent to her e-mail with the [employer] call in information if needed. Social work will follow up as necessary.
[2022-07-05] MEDS: POTASSIUM CHLORIDE 10 MEQ CAPSULE ER PO (16:46)
[2022-07-05 20:56] VITALS: TEMP 36.1; O2SAT 95
[2022-07-05 23:00] VITALS: TEMP 36.6; O2SAT 97
[2022-07-06] MEDS: predniSONE 5 MG TABLET PO (07:31)
[2022-07-06] MEDS: LOPERAMIDE HCL 2 MG CAPSULE PO ×2 (07:31→16:55)
[2022-07-06] MEDS: MAGNESIUM OXIDE 400 MG TABLET 500 MG PO (07:31)
[2022-07-06] MEDS: predniSONE 1 MG TABLET PO (07:31)
[2022-07-06] MEDS: METFORMIN ER 500 MG 1000 MG PO ×2 (07:31→16:55)
[2022-07-06 09:21] VITALS: TEMP 36.3; O2SAT 95
[2022-07-06] MEDS: LACTOBACILLUS ACIDOPHILUS 1 TABLET 1 TAB PO ×2 (11:44→16:55)
[2022-07-06] MEDS: POTASSIUM CHLORIDE 10 MEQ CAPSULE ER 20 MEQ PO (16:55)
[2022-07-06 21:09] VITALS: TEMP 36.3; O2SAT 97
[2022-07-06 23:00] VITALS: TEMP 36.6; O2SAT 96
[2022-07-07] MEDS: METFORMIN ER 500 MG 1000 MG PO ×2 (08:34→17:06)
[2022-07-07] MEDS: LOPERAMIDE HCL 2 MG CAPSULE PO ×2 (08:34→17:06)
[2022-07-07] MEDS: predniSONE 5 MG TABLET PO (08:34)
[2022-07-07] MEDS: MAGNESIUM OXIDE 400 MG TABLET 500 MG PO (08:34)
[2022-07-07] MEDS: predniSONE 1 MG TABLET PO (08:34)
[2022-07-07 10:14] VITALS: TEMP 36.4; O2SAT 97
[2022-07-07] MEDS: LACTOBACILLUS ACIDOPHILUS 1 TABLET 1 TAB PO ×2 (11:54→17:06)
[2022-07-07] MEDS: POTASSIUM CHLORIDE 10 MEQ CAPSULE ER PO (17:06)
--- NOTE | 2022-07-07 18:39 | PC.NURSE ---
Skin: On the left outer carmona resident has several small open areas measuring [id number], 9fee5tj, 1.0fyl7pm and pin point. Area was cleansed and a Mepilex was put in place for protection. Put note in POULTRY TRIMMER book.
[2022-07-07 20:56] VITALS: TEMP 36.3; O2SAT 98
[2022-07-07 23:00] VITALS: TEMP 36.2; O2SAT 96
[2022-07-08 07:00] VITALS: TEMP 36.2; O2SAT 97
[2022-07-08] MEDS: predniSONE 1 MG TABLET PO (07:33)
[2022-07-08] MEDS: predniSONE 5 MG TABLET PO (07:33)
[2022-07-08] MEDS: MAGNESIUM OXIDE 400 MG TABLET 500 MG PO (07:33)
[2022-07-08] MEDS: LOPERAMIDE HCL 2 MG CAPSULE PO ×2 (07:33→15:47)
[2022-07-08] MEDS: METFORMIN ER 500 MG 1000 MG PO ×2 (07:33→17:21)
[2022-07-08 08:00] VITALS: PULSE 96; RESP 18; TEMP 36.2; O2SAT 97
[2022-07-08] MEDS: FUROSEMIDE 20 MG TABLET PO (09:01)
--- NOTE | 2022-07-08 10:00 | PC.NURSE ---
OUTBREAK TESTING: Resident refuses to be tested, despite education regarding risk vs. benefit.
[2022-07-08] MEDS: LACTOBACILLUS ACIDOPHILUS 1 TABLET 1 TAB PO ×2 (11:21→17:21)
[2022-07-08 15:00] VITALS: TEMP 36.8; O2SAT 97
[2022-07-08] MEDS: POTASSIUM CHLORIDE 10 MEQ CAPSULE ER PO (16:41)
--- NOTE | 2022-07-08 21:31 | PC.NURSE ---
Skin: Skin: assessed the left outer carmona resident has several small open areas. No s/s infection. Areas actively bleeding at this time. Area was cleansed with wound cleanser applied telfa and wrapped with capri wrap. Will assess with ADZING AND BORING MACHINE FEEDER tomorrow during visit.
[2022-07-09 02:34] VITALS: TEMP 36.4; O2SAT 95
[2022-07-09 07:00] VITALS: TEMP 36.6; O2SAT 93
[2022-07-09] MEDS: METFORMIN ER 500 MG 1000 MG PO ×2 (08:22→18:59)
[2022-07-09] MEDS: LOPERAMIDE HCL 2 MG CAPSULE PO ×2 (08:22→16:43)
[2022-07-09] MEDS: MAGNESIUM OXIDE 400 MG TABLET 500 MG PO (08:22)
[2022-07-09] MEDS: predniSONE 1 MG TABLET PO (08:22)
[2022-07-09] MEDS: predniSONE 5 MG TABLET PO (08:22)
[2022-07-09] MEDS: LACTOBACILLUS ACIDOPHILUS 1 TABLET 1 TAB PO ×2 (12:13→18:59)
--- NOTE | 2022-07-09 12:22 | PC.NURSE ---
LE's treatment/Order: (L) leg weeping area & (R) leg laceration seen by CONSTRUCTION REPRESENTATIVE. (L) leg: cleanse with wound cleanser, place telfa over weeping areas, wrap with Kerlix, change BID. (R) Leg: cleanse with wound cleanser, place telfa over open area, wrap with Kerlix, change every other day.
[2022-07-09] MEDS: FUROSEMIDE 20 MG TABLET PO (14:00)
[2022-07-09] MEDS: POTASSIUM CHLORIDE 10 MEQ CAPSULE ER 20 MEQ PO (16:43)
[2022-07-09 21:20] VITALS: TEMP 36.2; O2SAT 96
[2022-07-09 23:00] VITALS: TEMP 35.9; O2SAT 93
[2022-07-10] MEDS: METFORMIN ER 500 MG 1000 MG PO ×2 (08:55→17:41)
[2022-07-10] MEDS: predniSONE 5 MG TABLET PO (08:55)
[2022-07-10] MEDS: predniSONE 1 MG TABLET PO (08:55)
[2022-07-10] MEDS: MAGNESIUM OXIDE 400 MG TABLET 500 MG PO (08:55)
[2022-07-10] MEDS: LOPERAMIDE HCL 2 MG CAPSULE PO ×2 (08:55→15:51)
[2022-07-10 09:47] VITALS: TEMP 36.3; O2SAT 96
[2022-07-10] MEDS: FUROSEMIDE 20 MG TABLET PO (11:52)
[2022-07-10] MEDS: LACTOBACILLUS ACIDOPHILUS 1 TABLET 1 TAB PO ×2 (11:52→17:41)
[2022-07-10 15:00] VITALS: TEMP 36.6; O2SAT 96
[2022-07-10] MEDS: POTASSIUM CHLORIDE 10 MEQ CAPSULE ER PO (17:41)
[2022-07-10 20:45] VITALS: TEMP 36.7; O2SAT 94
[2022-07-11] MEDS: predniSONE 1 MG TABLET PO (08:47)
[2022-07-11] MEDS: LOPERAMIDE HCL 2 MG CAPSULE PO ×2 (08:47→17:18)
[2022-07-11] MEDS: METFORMIN ER 500 MG 1000 MG PO ×2 (08:47→17:18)
[2022-07-11] MEDS: predniSONE 5 MG TABLET PO (08:47)
[2022-07-11] MEDS: MAGNESIUM OXIDE 400 MG TABLET 500 MG PO (08:47)
[2022-07-11 09:30] VITALS: TEMP 36.4; O2SAT 95
[2022-07-11] MEDS: LACTOBACILLUS ACIDOPHILUS 1 TABLET 1 TAB PO ×2 (11:45→17:18)
--- NOTE | 2022-07-11 12:01 | PC.NURSE ---
Order: Change Lasix 20mg daily PRN to BID PRN by Yudy DELGADO.
[2022-07-11] MEDS: POTASSIUM CHLORIDE 10 MEQ CAPSULE ER 20 MEQ PO (17:18)
[2022-07-11 20:44] VITALS: TEMP 36.2; O2SAT 93
[2022-07-11 23:00] VITALS: TEMP 36.7; O2SAT 95
--- NOTE | 2022-07-12 05:52 | PC.NURSE ---
Resident has food in personal refrigerator which is outdated per facility policy. Resident refused to allow underwriter mortgage loan to discard. Reinforced risks. Resident states she will eat food today.
[2022-07-12 07:00] VITALS: TEMP 36.4; O2SAT 96
[2022-07-12] MEDS: predniSONE 5 MG TABLET PO (07:55)
[2022-07-12] MEDS: LOPERAMIDE HCL 2 MG CAPSULE PO ×2 (07:55→16:53)
[2022-07-12] MEDS: predniSONE 1 MG TABLET PO (07:55)
[2022-07-12] MEDS: METFORMIN ER 500 MG 1000 MG PO ×2 (07:55→18:29)
[2022-07-12] MEDS: MAGNESIUM OXIDE 400 MG TABLET 500 MG PO (07:55)
[2022-07-12] MEDS: FUROSEMIDE 20 MG TABLET PO (09:47)
[2022-07-12] MEDS: LACTOBACILLUS ACIDOPHILUS 1 TABLET 1 TAB PO ×2 (12:14→18:29)
[2022-07-12 15:00] VITALS: TEMP 36.4; O2SAT 95
[2022-07-12] MEDS: POTASSIUM CHLORIDE 10 MEQ CAPSULE ER PO (17:08)
[2022-07-12 23:00] VITALS: TEMP 36.2; O2SAT 93
[2022-07-13 07:00] VITALS: TEMP 36.5; O2SAT 95
[2022-07-13] MEDS: predniSONE 5 MG TABLET PO (07:36)
[2022-07-13] MEDS: MAGNESIUM OXIDE 400 MG TABLET 500 MG PO (07:36)
[2022-07-13] MEDS: METFORMIN ER 500 MG 1000 MG PO ×2 (07:36→17:31)
[2022-07-13] MEDS: LOPERAMIDE HCL 2 MG CAPSULE PO ×2 (07:36→16:12)
[2022-07-13] MEDS: predniSONE 1 MG TABLET PO (07:37)
[2022-07-13] MEDS: FUROSEMIDE 20 MG TABLET PO (09:25)
[2022-07-13] MEDS: LACTOBACILLUS ACIDOPHILUS 1 TABLET 1 TAB PO ×2 (11:56→17:31)
[2022-07-13] MEDS: POTASSIUM CHLORIDE 10 MEQ CAPSULE ER 20 MEQ PO (16:12)
[2022-07-13 18:26] VITALS: TEMP 36.9; O2SAT 94
[2022-07-13 23:00] VITALS: TEMP 36.3; O2SAT 92
[2022-07-14 07:00] VITALS: TEMP 36.2; O2SAT 94
[2022-07-14] MEDS: METFORMIN ER 500 MG 1000 MG PO ×2 (07:52→19:08)
[2022-07-14] MEDS: predniSONE 5 MG TABLET PO (07:52)
[2022-07-14] MEDS: LOPERAMIDE HCL 2 MG CAPSULE PO ×2 (07:52→16:40)
[2022-07-14] MEDS: MAGNESIUM OXIDE 400 MG TABLET 500 MG PO (07:52)
[2022-07-14] MEDS: predniSONE 1 MG TABLET PO (07:52)
[2022-07-14] MEDS: FUROSEMIDE 20 MG TABLET PO (07:53)
[2022-07-14] MEDS: LACTOBACILLUS ACIDOPHILUS 1 TABLET 1 TAB PO ×2 (12:02→19:08)
[2022-07-14] MEDS: POTASSIUM CHLORIDE 10 MEQ CAPSULE ER PO (16:40)
[2022-07-14 20:58] VITALS: TEMP 36.6; O2SAT 95
[2022-07-14 23:00] VITALS: TEMP 36.9; O2SAT 94
--- NOTE | 2022-07-15 04:03 | PC.NURSE ---
WEEKLY CHARTING - WEEK 2: Vital signs reviewed. BP is consistently elevated. Temporary and comprehensive care plan reviewed - no change. Requires assist of 2-3 for bed mobility with bilateral 1/4 side rails. Is bed bound. Should resident choose to get out of bed, would require assist of 2-3 with full mechanical lift for transfer. Uses assistive devise to aid with moving vertically in bed. Is low risk for fall per latest fall risk assessment. Fall interventions: bed in low position, call light in reach.
[2022-07-15] MEDS: MAGNESIUM OXIDE 400 MG TABLET 500 MG PO (08:38)
[2022-07-15] MEDS: METFORMIN ER 500 MG 1000 MG PO ×2 (08:38→17:38)
[2022-07-15] MEDS: predniSONE 5 MG TABLET PO (08:38)
[2022-07-15] MEDS: predniSONE 1 MG TABLET PO (08:38)
[2022-07-15] MEDS: LOPERAMIDE HCL 2 MG CAPSULE PO ×2 (08:38→16:12)
[2022-07-15] MEDS: FUROSEMIDE 20 MG TABLET PO (09:04)
[2022-07-15 09:44] VITALS: TEMP 36.6; O2SAT 97
--- NOTE | 2022-07-15 10:53 | PC.NURSE ---
Week #2: Care plan problems - and temporary care plan reviewed. No changes made. Nothing added to temporary care plan. Resident is non ambulatory. Needs extensive assist of 2 with transfers using the josé lift. Does not sit in the recliner. Is bed bound. Uses the wheelchair when going out, propelled by family. Extensive assist of 2 with turning and positioning. Prefers to stay on her back. Has an EZ positioner to move up in bed. Uses bilateral 1/4 side rails at all times for positioning and comfort. Air mattress in place. No alarms. BP's consistently elevated. Continue weekly VS monitoring & refer to FLOUR MIXER/MD. Fall: Has no falls. Remains a low fall risk according to assessment done on 05/23/22..
--- NOTE | 2022-07-15 10:58 | PC.NURSE ---
Status: Refused bed bath. Did allow weight taken. (R) hand/arm more puffy, encourage elevation. Received PRN Lasix.
[2022-07-15] MEDS: LACTOBACILLUS ACIDOPHILUS 1 TABLET 1 TAB PO ×2 (12:04→17:38)
[2022-07-15 13:34] VITALS: BP 167/87; PULSE 79; RESP 16; TEMP 36.6; O2SAT 97; BMI 40.6
--- NOTE | 2022-07-15 13:44 | PC.NURSE ---
Bruise: Noted a bruise on the (R) foot below the great toe & (L) foot above great toe. Resident denies pain and does not remember how it happened. Staff to monitor.
--- NOTE | 2022-07-15 14:14 | PC.NURSE ---
Resident declined to be tested for COVID today. Testing done d/t outbreak status in the unit.
[2022-07-15 15:00] VITALS: TEMP 36.3; O2SAT 95
[2022-07-15] MEDS: POTASSIUM CHLORIDE 10 MEQ CAPSULE ER PO (16:12)
--- NOTE | 2022-07-15 16:49 | PC.NURSE ---
Spoke to daughter Cristy and she wants her mom to use compression wraps on her lower extremities due to swelling. We discussed her mom's Lasix use and Cristy said she gets sick on the Lasix. I will update the DROSOPHERE OPERATOR board and have it addressed tomorrow.
[2022-07-15 23:00] VITALS: TEMP 36.6; O2SAT 95
[2022-07-16] MEDS: FUROSEMIDE 20 MG TABLET PO (07:55)
[2022-07-16] MEDS: METFORMIN ER 500 MG 1000 MG PO ×2 (07:55→17:18)
[2022-07-16] MEDS: predniSONE 5 MG TABLET PO (07:55)
[2022-07-16] MEDS: predniSONE 1 MG TABLET PO (07:55)
[2022-07-16] MEDS: LOPERAMIDE HCL 2 MG CAPSULE PO ×2 (07:55→16:31)
[2022-07-16] MEDS: MAGNESIUM OXIDE 400 MG TABLET 500 MG PO (07:55)
[2022-07-16 09:44] VITALS: TEMP 36.4; O2SAT 95
[2022-07-16] MEDS: LACTOBACILLUS ACIDOPHILUS 1 TABLET 1 TAB PO ×2 (11:54→17:18)
--- NOTE | 2022-07-16 12:32 | PC.NURSE ---
Skin issues on bilateral legs assessed by BUNG SEWER. Order: D/C treatment to (L) leg, Continue with current treatment to (R) leg. BUNG SEWER aware daughter wants L/E compression wraps for edema. Resident refused.
[2022-07-16] MEDS: POTASSIUM CHLORIDE 10 MEQ CAPSULE ER 20 MEQ PO (16:31)
[2022-07-16 16:40] VITALS: TEMP 36.9; O2SAT 95
[2022-07-16 23:00] VITALS: TEMP 36.9; O2SAT 94
[2022-07-17] MEDS: LOPERAMIDE HCL 2 MG CAPSULE PO ×2 (07:25→15:17)
[2022-07-17] MEDS: METFORMIN ER 500 MG 1000 MG PO ×2 (07:25→17:31)
[2022-07-17] MEDS: predniSONE 5 MG TABLET PO (07:25)
[2022-07-17] MEDS: MAGNESIUM OXIDE 400 MG TABLET 500 MG PO (07:25)
[2022-07-17] MEDS: predniSONE 1 MG TABLET PO (07:26)
[2022-07-17 09:22] VITALS: TEMP 36.3; O2SAT 96
--- NOTE | 2022-07-17 11:01 | PC.PHA1 ---
MRI ASSISTANT PHARMACIST'S MEDICATION REVIEW: MEDICATION MONITORING: No psychotropics medications to monitor. IRREGULARITY OR COMMENTS:Since last review, prn [place] 325-5 mg order not needed. Furosemide prn order in place and 5 doses since start on 07/11/22. No antibiotics or benzodiazepines prescribed. SUGGESTED COURSE OF ACTION TAKEN:No medication concerns or recommendations.
[2022-07-17] MEDS: LACTOBACILLUS ACIDOPHILUS 1 TABLET 1 TAB PO ×2 (11:02→17:31)
[2022-07-17] MEDS: FUROSEMIDE 20 MG TABLET PO (13:31)
[2022-07-17 15:00] VITALS: TEMP 36.3; O2SAT 96
[2022-07-17] MEDS: POTASSIUM CHLORIDE 10 MEQ CAPSULE ER PO (17:31)
[2022-07-17 23:00] VITALS: TEMP 36.7; O2SAT 94
[2022-07-18] MEDS: FUROSEMIDE 20 MG TABLET PO (07:16)
[2022-07-18] MEDS: MAGNESIUM OXIDE 400 MG TABLET 500 MG PO (07:17)
[2022-07-18] MEDS: predniSONE 1 MG TABLET PO (07:17)
[2022-07-18] MEDS: predniSONE 5 MG TABLET PO (07:17)
[2022-07-18] MEDS: LOPERAMIDE HCL 2 MG CAPSULE PO ×2 (07:17→15:51)
[2022-07-18] MEDS: METFORMIN ER 500 MG 1000 MG PO ×2 (07:17→19:06)
[2022-07-18 08:57] VITALS: TEMP 36.2; O2SAT 97
--- NOTE | 2022-07-18 09:40 | PC.SPIRITC ---
I provided visit for connection and check-in. I offered to bring Maki nathan but she declined at this time.
--- NOTE | 2022-07-18 10:22 | PC.NURSE ---
Wound Care: Wound is healing well. Wound was cleaned with wound cleanser and covered with Tefle and wrapped with Kerlix. Scanty discharge. No pain reported. Nurses note approved by Janna Mckeon RN
[2022-07-18] MEDS: LACTOBACILLUS ACIDOPHILUS 1 TABLET 1 TAB PO ×2 (11:16→19:07)
[2022-07-18 16:26] VITALS: TEMP 36.6; O2SAT 96
[2022-07-18] MEDS: POTASSIUM CHLORIDE 10 MEQ CAPSULE ER 20 MEQ PO (19:06)
[2022-07-18 23:00] VITALS: TEMP 36.9; O2SAT 94
[2022-07-19] MEDS: MAGNESIUM OXIDE 400 MG TABLET 500 MG PO (07:48)
[2022-07-19] MEDS: METFORMIN ER 500 MG 1000 MG PO ×2 (07:48→17:16)
[2022-07-19] MEDS: LOPERAMIDE HCL 2 MG CAPSULE PO ×2 (07:48→17:16)
[2022-07-19] MEDS: predniSONE 1 MG TABLET PO (07:49)
[2022-07-19] MEDS: predniSONE 5 MG TABLET PO (07:49)
[2022-07-19] MEDS: FUROSEMIDE 20 MG TABLET PO (07:49)
[2022-07-19 10:26] VITALS: TEMP 36.3; O2SAT 98
[2022-07-19] MEDS: LACTOBACILLUS ACIDOPHILUS 1 TABLET 1 TAB PO ×2 (11:34→17:16)
[2022-07-19] MEDS: POTASSIUM CHLORIDE 10 MEQ CAPSULE ER PO (17:16)
[2022-07-19 20:08] VITALS: TEMP 36.4; O2SAT 98
[2022-07-19 23:00] VITALS: TEMP 36.2; O2SAT 95
[2022-07-20] MEDS: LOPERAMIDE HCL 2 MG CAPSULE PO ×2 (08:05→18:33)
[2022-07-20] MEDS: MAGNESIUM OXIDE 400 MG TABLET 500 MG PO (08:05)
[2022-07-20] MEDS: METFORMIN ER 500 MG 1000 MG PO ×2 (08:05→18:34)
[2022-07-20] MEDS: FUROSEMIDE 20 MG TABLET PO (08:05)
[2022-07-20] MEDS: predniSONE 5 MG TABLET PO (08:05)
[2022-07-20] MEDS: predniSONE 1 MG TABLET PO (08:05)
[2022-07-20 09:17] VITALS: TEMP 36.4; O2SAT 96
[2022-07-20] MEDS: NYSTATIN POWDER 1 APPLIC TOPICAL (10:10)
--- NOTE | 2022-07-20 10:42 | PC.NURSE ---
Wound care: Resident wound has totally healed leaving only dry scab. No discharge. Wound look good and no sign of infection. Resident has no c/o pain. Will discuss with BERYL Sim whether to leave it exposed to air.
--- NOTE | 2022-07-20 10:46 | PC.NURSE ---
Compression socks: Resident is currently not wearing wrap and only wants to use her own compression sock which doesn't help much with the swelling. This morning resident is not wearing any socks and has removed her own compression socks. She informed marketing writer that the legs need to be aired.
[2022-07-20] MEDS: LACTOBACILLUS ACIDOPHILUS 1 TABLET 1 TAB PO ×2 (11:54→18:34)
[2022-07-20 15:35] VITALS: TEMP 36.7; O2SAT 96
[2022-07-20] MEDS: POTASSIUM CHLORIDE 10 MEQ CAPSULE ER 20 MEQ PO (18:33)
[2022-07-20 23:00] VITALS: TEMP 36.5; O2SAT 95
[2022-07-21] MEDS: LOPERAMIDE HCL 2 MG CAPSULE PO ×2 (07:45→17:03)
[2022-07-21] MEDS: METFORMIN ER 500 MG 1000 MG PO ×2 (07:45→17:03)
[2022-07-21] MEDS: MAGNESIUM OXIDE 400 MG TABLET 500 MG PO (07:45)
[2022-07-21] MEDS: predniSONE 5 MG TABLET PO (07:45)
[2022-07-21] MEDS: predniSONE 1 MG TABLET PO (07:45)
[2022-07-21 10:14] VITALS: TEMP 36.4; O2SAT 96
[2022-07-21] MEDS: LACTOBACILLUS ACIDOPHILUS 1 TABLET 1 TAB PO ×2 (11:32→17:03)
[2022-07-21 16:00] VITALS: TEMP 36.6; O2SAT 96
[2022-07-21] MEDS: POTASSIUM CHLORIDE 10 MEQ CAPSULE ER PO (17:03)
[2022-07-21 23:00] VITALS: TEMP 36.2; O2SAT 95
--- NOTE | 2022-07-22 03:26 | PC.NURSE ---
WEEKLY CHARTING - WEEK 3: Vital signs reviewed. Temporary and comprehensive care plan reviewed - no changes made. Daily dressing change to RLE: clean with wound acid cleaner, apply bacitracin, cover with telfa, and wrap with kerlix. Intermittent redness to abd folds, Nystatin applied as needed. Mostly incontinent of bowel and bladder, on occasion will have a continent bowel movement on the bedpan. Able to use call light to use bedpan or alert staff that she needs her brief changed. Extensive assist of 2 for toileting needs including changing incontinent product, bedpan use, and jeri-cares.
[2022-07-22] MEDS: predniSONE 5 MG TABLET PO (07:31)
[2022-07-22] MEDS: predniSONE 1 MG TABLET PO (07:31)
[2022-07-22] MEDS: LOPERAMIDE HCL 2 MG CAPSULE PO ×2 (07:32→15:37)
[2022-07-22] MEDS: METFORMIN ER 500 MG 1000 MG PO ×2 (07:32→17:08)
[2022-07-22] MEDS: MAGNESIUM OXIDE 400 MG TABLET 500 MG PO (07:32)
--- NOTE | 2022-07-22 08:17 | PC.NURSE ---
Addendum entered by Arely Dimas RN 07/22/22 08:27: Bruises on bilateral feet monitored daily until resolved. Original Note: Week #3 - Toileting: Comprehensive care plan reviewed. No changes made. Nothing added to temporary care plan. Resident is incontinent of bowel & bladder with occasional continence. Staff to check and change in bed every 2 hours and PRN. Needs 2 assists with changing? pad and placing large bedpan. Will also call when ready to use bedpan & when pads needs to changed..Pads, jeri cares managed by staff. Vital signs reviewed, with elevated blood pressures. Continue weekly VS monitoring. Skin. Dressing changes q48h to RLE laceration. Cleanse with wound cleanser, cover with Telfa and wrap with Kerlix. Laceration healing. Bilateral redness on LE monitored BID. Intermittent redness on abd folds. Nystatin powder PRN applied. Has an order for wraps on bilateral LLE's but often refuses. Skin is checked during cares and on bath day.
[2022-07-22 09:24] VITALS: TEMP 36.4; O2SAT 96
[2022-07-22 10:25] VITALS: BMI 40.2
[2022-07-22] MEDS: LACTOBACILLUS ACIDOPHILUS 1 TABLET 1 TAB PO ×2 (11:43→17:08)
[2022-07-22 17:06] VITALS: TEMP 36.8; O2SAT 96
[2022-07-22] MEDS: POTASSIUM CHLORIDE 10 MEQ CAPSULE ER PO (17:08)
--- NOTE | 2022-07-22 21:42 | PC.NURSE ---
Bath vital: Resident refused to allow staff to do her blood pressure due to the fact that her arm is hurting
[2022-07-22 23:00] VITALS: TEMP 36.2; O2SAT 95
[2022-07-23] MEDS: MAGNESIUM OXIDE 400 MG TABLET 500 MG PO (08:07)
[2022-07-23] MEDS: LOPERAMIDE HCL 2 MG CAPSULE PO ×2 (08:07→18:55)
[2022-07-23] MEDS: METFORMIN ER 500 MG 1000 MG PO ×2 (08:07→18:55)
[2022-07-23] MEDS: predniSONE 1 MG TABLET PO (08:07)
[2022-07-23] MEDS: predniSONE 5 MG TABLET PO (08:07)
[2022-07-23] MEDS: FUROSEMIDE 20 MG TABLET PO (08:08)
[2022-07-23 10:24] VITALS: TEMP 36.8; O2SAT 96
--- NOTE | 2022-07-23 11:10 | PC.NURSE ---
Wound Care/assessment done by senior mortgage underwriter and CERTIFIED EXECUTIVE CHEF. Right inner, upper calf laceration remains open from when sutures were removed. 1.0 x 0.6 cm. Scant amount of bloody drainage. No s/s infection or pain. Scab area 1.9 x 0.9 cm noted below the open area. No odor noted. Will continue with treatment of telfa and gauze wrap applied pdo. CERTIFIED EXECUTIVE CHEF will reassess in 1 week.
[2022-07-23] MEDS: LACTOBACILLUS ACIDOPHILUS 1 TABLET 1 TAB PO ×2 (11:45→18:55)
--- NOTE | 2022-07-23 12:03 | PC.NURSE ---
Status/Order: RLE laceration assessed by ADOPTION COUNSELOR. Continue current treatment. Order: Nystatin Cream BID, Lasix 20 mg daily.
[2022-07-23] MEDS: NYSTATIN CREAM 30 GM 1 APPLIC TOPICAL (18:55)
[2022-07-23] MEDS: POTASSIUM CHLORIDE 10 MEQ CAPSULE ER 20 MEQ PO (18:55)
[2022-07-23 20:51] VITALS: TEMP 37.1; O2SAT 95
[2022-07-23 23:00] VITALS: TEMP 36.4; O2SAT 95
[2022-07-24] MEDS: MAGNESIUM OXIDE 400 MG TABLET 500 MG PO (08:57)
[2022-07-24] MEDS: NYSTATIN CREAM 30 GM 1 APPLIC TOPICAL ×2 (08:57→16:37)
[2022-07-24] MEDS: METFORMIN ER 500 MG 1000 MG PO ×2 (08:57→17:19)
[2022-07-24] MEDS: predniSONE 5 MG TABLET PO (08:57)
[2022-07-24] MEDS: predniSONE 1 MG TABLET PO (08:57)
[2022-07-24] MEDS: LOPERAMIDE HCL 2 MG CAPSULE PO ×2 (08:57→16:37)
[2022-07-24] MEDS: FUROSEMIDE 20 MG TABLET PO (08:57)
[2022-07-24 11:31] VITALS: TEMP 36.6; O2SAT 96
[2022-07-24] MEDS: LACTOBACILLUS ACIDOPHILUS 1 TABLET 1 TAB PO ×2 (11:44→17:19)
[2022-07-24 15:00] VITALS: TEMP 36.6; O2SAT 96
[2022-07-24] MEDS: POTASSIUM CHLORIDE 10 MEQ CAPSULE ER PO (17:00)
[2022-07-24 23:33] VITALS: TEMP 36.4; O2SAT 96
[2022-07-25] MEDS: FUROSEMIDE 20 MG TABLET PO (08:45)
[2022-07-25] MEDS: NYSTATIN CREAM 30 GM 1 APPLIC TOPICAL ×2 (08:45→17:06)
[2022-07-25] MEDS: predniSONE 5 MG TABLET PO (08:45)
[2022-07-25] MEDS: METFORMIN ER 500 MG 1000 MG PO ×2 (08:45→17:06)
[2022-07-25] MEDS: LOPERAMIDE HCL 2 MG CAPSULE PO ×2 (08:45→17:06)
[2022-07-25] MEDS: MAGNESIUM OXIDE 400 MG TABLET 500 MG PO (08:45)
[2022-07-25] MEDS: predniSONE 1 MG TABLET PO (08:45)
[2022-07-25 10:17] VITALS: TEMP 36.8; O2SAT 96
[2022-07-25] MEDS: LACTOBACILLUS ACIDOPHILUS 1 TABLET 1 TAB PO ×2 (12:01→17:06)
[2022-07-25] MEDS: POTASSIUM CHLORIDE 10 MEQ CAPSULE ER 20 MEQ PO (17:06)
[2022-07-25 20:49] VITALS: TEMP 37.1; O2SAT 95
[2022-07-25 23:00] VITALS: TEMP 36.8; O2SAT 97
[2022-07-26] MEDS: predniSONE 1 MG TABLET PO (07:08)
[2022-07-26] MEDS: LOPERAMIDE HCL 2 MG CAPSULE PO ×2 (07:08→17:07)
[2022-07-26] MEDS: predniSONE 5 MG TABLET PO (07:08)
[2022-07-26] MEDS: METFORMIN ER 500 MG 1000 MG PO ×2 (07:08→19:34)
[2022-07-26] MEDS: FUROSEMIDE 20 MG TABLET PO (07:08)
[2022-07-26] MEDS: MAGNESIUM OXIDE 400 MG TABLET 500 MG PO (07:10)
[2022-07-26 09:56] VITALS: TEMP 36.5; O2SAT 94
[2022-07-26] MEDS: LACTOBACILLUS ACIDOPHILUS 1 TABLET 1 TAB PO ×2 (11:56→19:34)
[2022-07-26] MEDS: POTASSIUM CHLORIDE 10 MEQ CAPSULE ER PO (17:07)
[2022-07-26 18:23] VITALS: TEMP 36.6; O2SAT 94
[2022-07-27 00:57] VITALS: TEMP 36; O2SAT 94
[2022-07-27 07:00] VITALS: TEMP 36.5; O2SAT 95
[2022-07-27] MEDS: NYSTATIN CREAM 30 GM 1 APPLIC TOPICAL ×4 (08:11→16:16)
[2022-07-27] MEDS: predniSONE 1 MG TABLET PO (08:12)
[2022-07-27] MEDS: LOPERAMIDE HCL 2 MG CAPSULE PO ×2 (08:12→16:15)
[2022-07-27] MEDS: MAGNESIUM OXIDE 400 MG TABLET 500 MG PO (08:12)
[2022-07-27] MEDS: predniSONE 5 MG TABLET PO (08:12)
[2022-07-27] MEDS: METFORMIN ER 500 MG 1000 MG PO ×2 (08:12→17:11)
[2022-07-27] MEDS: FUROSEMIDE 20 MG TABLET PO (08:12)
[2022-07-27] MEDS: LACTOBACILLUS ACIDOPHILUS 1 TABLET 1 TAB PO ×2 (12:13→17:11)
[2022-07-27] MEDS: POTASSIUM CHLORIDE 10 MEQ CAPSULE ER 20 MEQ PO (16:15)
[2022-07-27 21:06] VITALS: TEMP 36.6; O2SAT 95
[2022-07-28] VITALS: TEMP 36.7; O2SAT 95
[2022-07-28 07:00] VITALS: TEMP 36.3; O2SAT 98
[2022-07-28] MEDS: NYSTATIN CREAM 30 GM 1 APPLIC TOPICAL ×2 (08:28→16:37)
[2022-07-28] MEDS: METFORMIN ER 500 MG 1000 MG PO ×2 (08:28→18:58)
[2022-07-28] MEDS: predniSONE 1 MG TABLET PO (08:28)
[2022-07-28] MEDS: MAGNESIUM OXIDE 400 MG TABLET 500 MG PO (08:28)
[2022-07-28] MEDS: predniSONE 5 MG TABLET PO (08:28)
[2022-07-28] MEDS: FUROSEMIDE 20 MG TABLET PO (08:28)
[2022-07-28] MEDS: LOPERAMIDE HCL 2 MG CAPSULE PO ×2 (08:28→16:37)
[2022-07-28] MEDS: LACTOBACILLUS ACIDOPHILUS 1 TABLET 1 TAB PO ×2 (12:14→18:58)
[2022-07-28] MEDS: POTASSIUM CHLORIDE 10 MEQ CAPSULE ER PO (16:37)
[2022-07-28 21:12] VITALS: TEMP 36.9; O2SAT 95
[2022-07-28 23:00] VITALS: TEMP 36.7; O2SAT 95
--- NOTE | 2022-07-29 03:33 | PC.NURSE ---
Week 4 COMMUNICATION, HEARING/VISION, COGNITION/BEHAVIORS CLINICAL MONITORING Review vitals, no changes Temporary care plan: No changes Resident has moderate hearing impairment , she stated that she will wait till spring 2022 for consult. Resident understands and is understood Res. wears corrective lenses for vision impairment. Cognition intact , can make decision and voices needs. Behaviors : Refuses to leave room. Reports she does not like to interact with others. Has visitors weekly. Speaks with family/friends on phone independently.Not interested in group activities. Enjoys 1:1 visits with enrichment staff and sea captain. Prefers short contact visits. Non-compliance with turning and repositioning ; sometimes does not allow staff to change her when incontinent of bowel or bladder. Mood Frequent refusals for cares (bath, MARGARET socks, wt taken) vermin exterminator cares resident.
--- NOTE | 2022-07-29 07:50 | PC.NURSE ---
Week #4: Comprehensive and temporary care plan reviewed. No changes made, nothing added to temporary care plan. No changes noted in hearing, vision, orientation. Resident does communicate needs and uses the call light. Vision fine. Has hearing impairment , uses an amplifier. Hearing issue has been addressed, family updated on hearing consult. Resident will wait til spring for consult. Cognition is intact. Chronic health condition stable. Does not self administer medications. Vital signs reviewed. On STAFF OCCUPATIONAL THERAPIST book to review BP's for high values. Mood/Behavior: No issues documented. Resident does continue to refuse her weekly bath/weight,? elevate lower extremities most of the time, wear wraps. She will do what she wants.Is on no psychotropic medications.
[2022-07-29] MEDS: FUROSEMIDE 20 MG TABLET PO (07:52)
[2022-07-29] MEDS: MAGNESIUM OXIDE 400 MG TABLET 500 MG PO (07:52)
[2022-07-29] MEDS: predniSONE 5 MG TABLET PO (07:52)
[2022-07-29] MEDS: LOPERAMIDE HCL 2 MG CAPSULE PO ×2 (07:52→16:10)
[2022-07-29] MEDS: predniSONE 1 MG TABLET PO (07:52)
[2022-07-29] MEDS: METFORMIN ER 500 MG 1000 MG PO ×2 (07:52→18:11)
[2022-07-29 10:15] VITALS: TEMP 36.6; O2SAT 97
[2022-07-29] MEDS: NYSTATIN CREAM 30 GM 1 APPLIC TOPICAL (10:38)
[2022-07-29 10:59] VITALS: PULSE 88; RESP 18; TEMP 36.6; O2SAT 97
[2022-07-29 11:01] VITALS: BMI 40.9
[2022-07-29] MEDS: LACTOBACILLUS ACIDOPHILUS 1 TABLET 1 TAB PO ×2 (11:27→18:11)
[2022-07-29 15:00] VITALS: TEMP 36.4; O2SAT 98
[2022-07-29] MEDS: POTASSIUM CHLORIDE 10 MEQ CAPSULE ER PO (16:11)
[2022-07-29 23:00] VITALS: TEMP 36.9; O2SAT 98
[2022-07-30] MEDS: LOPERAMIDE HCL 2 MG CAPSULE PO ×2 (07:27→16:45)
[2022-07-30] MEDS: FUROSEMIDE 20 MG TABLET PO (07:27)
[2022-07-30] MEDS: predniSONE 1 MG TABLET PO (07:28)
[2022-07-30] MEDS: MAGNESIUM OXIDE 400 MG TABLET 500 MG PO (07:28)
[2022-07-30] MEDS: predniSONE 5 MG TABLET PO (07:28)
[2022-07-30] MEDS: METFORMIN ER 500 MG 1000 MG PO ×2 (07:28→17:08)
[2022-07-30 10:03] VITALS: TEMP 36.2; O2SAT 94
[2022-07-30 10:21] VITALS: BP 153/85
[2022-07-30] MEDS: LACTOBACILLUS ACIDOPHILUS 1 TABLET 1 TAB PO ×2 (11:23→17:08)
--- NOTE | 2022-07-30 11:30 | PC.NURSE ---
Order: Change Nystatin Cream BID to BID PRN, D/C Lasix 20mg daily, New: Lasix 20mg 3x/week by Yudy DELGADO.
[2022-07-30] MEDS: POTASSIUM CHLORIDE 10 MEQ CAPSULE ER 20 MEQ PO (17:00)
[2022-07-30 21:29] VITALS: TEMP 36.8; O2SAT 95
[2022-07-30 23:00] VITALS: TEMP 36.8; O2SAT 93
[2022-07-31] MEDS: FUROSEMIDE 20 MG TABLET PO (08:23)
[2022-07-31] MEDS: LOPERAMIDE HCL 2 MG CAPSULE PO ×2 (08:23→15:59)
[2022-07-31] MEDS: METFORMIN ER 500 MG 1000 MG PO ×2 (08:23→17:40)
[2022-07-31] MEDS: MAGNESIUM OXIDE 400 MG TABLET 500 MG PO (08:23)
[2022-07-31] MEDS: predniSONE 1 MG TABLET PO (08:24)
[2022-07-31] MEDS: predniSONE 5 MG TABLET PO (08:24)
[2022-07-31 10:05] VITALS: TEMP 36.3; O2SAT 93
--- NOTE | 2022-07-31 11:00 | PC.NURSE ---
Wound Care/assessment done by writer editor and CLAIMS ADJUSTER SUPERVISOR. Right inner, upper calf laceration remains open from when sutures were removed. 0.2 cm x 0.2 cm. No drainage. No s/s infection or pain. Scab area has fallen off. 0.3 cm x 0.3 cm open area noted below the first open area where the scab was present. No odor noted. Will continue with treatment of telfa and gauze wrap applied pdo. CLAIMS ADJUSTER SUPERVISOR will reassess in 1 week.
--- NOTE | 2022-07-31 11:13 | PC.NURSE ---
Addendum entered by Surekha Ratliff RN 07/31/22 11:28: Charted by nurse: Resident refused AM cares Original Note: Resident Refused AM Cares.
[2022-07-31] MEDS: LACTOBACILLUS ACIDOPHILUS 1 TABLET 1 TAB PO ×2 (12:01→17:40)
[2022-07-31 14:22] VITALS: BMI 40.9
[2022-07-31 15:00] VITALS: TEMP 36.8; O2SAT 96
[2022-07-31] MEDS: POTASSIUM CHLORIDE 10 MEQ CAPSULE ER PO (16:11)
[2022-07-31 23:00] VITALS: TEMP 37; O2SAT 94
[2022-08-01 07:00] VITALS: TEMP 36.4; O2SAT 96
[2022-08-01] MEDS: predniSONE 1 MG TABLET PO (07:07)
[2022-08-01] MEDS: MAGNESIUM OXIDE 400 MG TABLET 500 MG PO (07:07)
[2022-08-01] MEDS: predniSONE 5 MG TABLET PO (07:07)
[2022-08-01] MEDS: METFORMIN ER 500 MG 1000 MG PO ×2 (07:07→17:18)
[2022-08-01] MEDS: LOPERAMIDE HCL 2 MG CAPSULE PO ×2 (07:07→16:18)
[2022-08-01] MEDS: LACTOBACILLUS ACIDOPHILUS 1 TABLET 1 TAB PO ×2 (12:51→17:18)
--- NOTE | 2022-08-01 13:53 | CRLHL7_ITS ---
For Patients: As a result of the Cures Act, medical imaging exams and procedure reports are released immediately into your electronic medical record. You may view this report before your referring provider. If you have questions, please contact your health care provider. Indication: Pain Comparison: None available. Technique: AP view left shoulder were obtained. Findings: There is a corticated fragment seen along the superolateral aspect of the humerus which may represent sequela of prior trauma versus enthesopathic change at the insertion of the rotator cuff. There is no displaced fracture. There are degenerative changes of the acromioclavicular and glenohumeral joints. Age indeterminate likely chronic fractures of multiple left ribs are incidentally noted. The soft tissues are unremarkable. Impression: Corticated fragment along the superolateral aspect of the humerus which may represent sequela of prior trauma versus enthesopathic change at the insertion of the rotator cuff. No evidence of displaced fracture. Dictated by Roni Ignacio MD @ 08/01/2022 5:08:58 PM (Electronically Signed)
--- NOTE | 2022-08-01 14:00 | PC.NURSE ---
TOMÁS ASSESSMENT: Resident reported SOB while lying flat during her TOMÁS assessment interview. She denies SOB while in bed, at rest, or with activity. When lying flat, the onset is gradual, she notes she is able to tolerate it for a short time during cares but otherwise wants the HOB up at all times. Resident has morbid obesity and hx of smoking which could affect her respiratory status. Resident does not take any medications that may affect her respiratory function. Her sx are not accompanied by any other symptoms. When interviewed about pain, resident reported that she has had new onset pain to her L shoulder with certain movements of the arm, she requests imaging--provider is aware. Resident also notes that she has what seems to be a canker sore on the inside of her left lower lip but seems to be going away after about 1 week--this nurse was not able to visualize the area. Instructed resident to inform her nurse if it does not continue to improve or does not go away.
[2022-08-01] MEDS: POTASSIUM CHLORIDE 10 MEQ CAPSULE ER 20 MEQ PO (16:54)
--- NOTE | 2022-08-01 19:32 | PC.NURSE ---
MDS ADL Charting: Spoke with staff that was present during TOMÁS look back period. Resident had extensive assist of 2 with bed mobility. Transfers with the josé lift and 2 assist 1-2 times in look back period. Does not ambulate does not use locomotion on or off unit. Bed ridden per residents preference. Extensive assist of 1 with dressing and grooming. Resident can lift arms to assist with upper body dressing and hygiene. Wears teds and staff applies. Staff set up food and resident eats independently each time. Extensive assist 2 assist on and off the bed armenta at all times. Resident can hold the side rail. Resident is able to grab side rails to assist with bed mobility. MDS coded as such.
[2022-08-01 21:31] VITALS: TEMP 36.4; O2SAT 98
--- NOTE | 2022-08-01 22:29 | PC.NURSE ---
Left Shoulder x-ray results: Corticated fragment along the superlateral aspect ofthe humerus which may represent sequela of prior trauma versus enthesopathic change at the insertion of the rotator cuff. No evidence of displaced fracture. will send results to Caregivers.
[2022-08-01 23:00] VITALS: TEMP 36.8; O2SAT 95
[2022-08-02 07:00] VITALS: TEMP 36.9; O2SAT 96
[2022-08-02] MEDS: METFORMIN ER 500 MG 1000 MG PO ×2 (08:10→17:00)
[2022-08-02] MEDS: MAGNESIUM OXIDE 400 MG TABLET 500 MG PO (08:10)
[2022-08-02] MEDS: LOPERAMIDE HCL 2 MG CAPSULE PO ×2 (08:10→17:00)
[2022-08-02] MEDS: predniSONE 5 MG TABLET PO (08:10)
[2022-08-02] MEDS: FUROSEMIDE 20 MG TABLET PO (08:10)
[2022-08-02] MEDS: predniSONE 1 MG TABLET PO (08:11)
[2022-08-02] MEDS: LACTOBACILLUS ACIDOPHILUS 1 TABLET 1 TAB PO ×2 (11:24→17:00)
--- NOTE | 2022-08-02 13:00 | PC.NURSE ---
Recert Visit: Resident seen by Dr. Ramsey. Orders reviewed and renewed of 75 days with changes. Orders: Check A1C, BMP, Mg+, Albumin 08/05/22, Tylenol 1000mg PO Q6H PRN (L) shoulder pain x 2 weeks, heat application to (L) shoulder X 30 minutes Q2H PRN, decrease Prednisone to 5 mg daily. (L) shoulder X-Ray reviewed.
--- NOTE | 2022-08-02 14:25 | PC.NURSE ---
Behaviors: Resident refused to complete Tissues tolerance test and her bob to be take, She states no I am comfortable and I don't want move when ask.
[2022-08-02] MEDS: POTASSIUM CHLORIDE 10 MEQ CAPSULE ER PO (17:00)
[2022-08-02 21:00] VITALS: TEMP 37.1; O2SAT 96
[2022-08-02 23:00] VITALS: TEMP 36.2; O2SAT 97
[2022-08-03 00:26] VITALS: TEMP 36.2
[2022-08-03] MEDS: HYDROCODONE-ACETAMIN 5-325 MG 1 TAB PO (00:26)
[2022-08-03] MEDS: LOPERAMIDE HCL 2 MG CAPSULE PO ×2 (08:47→16:19)
[2022-08-03] MEDS: METFORMIN ER 500 MG 1000 MG PO ×2 (08:47→17:12)
[2022-08-03] MEDS: MAGNESIUM OXIDE 400 MG TABLET 500 MG PO (08:47)
[2022-08-03] MEDS: predniSONE 5 MG TABLET PO (08:47)
[2022-08-03 10:02] VITALS: TEMP 36.4; O2SAT 97
[2022-08-03] MEDS: LACTOBACILLUS ACIDOPHILUS 1 TABLET 1 TAB PO ×2 (11:57→17:13)
--- NOTE | 2022-08-03 13:46 | PC.NURSE ---
Heat treatment: Resident refused heat treatment for her left arm and informed that she will request Tylenol if she has pain.
[2022-08-03] MEDS: POTASSIUM CHLORIDE 10 MEQ CAPSULE ER 20 MEQ PO (16:19)
[2022-08-03 16:47] VITALS: TEMP 36.7; O2SAT 96
--- NOTE | 2022-08-03 20:57 | PC.NURSE ---
Food: Resident refused to throw out food, ate macerated chicken dated 4 days ago for dinner. Ate undated cheesecake, and refused to throw out empty condiment containers. Education given.
[2022-08-03 23:00] VITALS: TEMP 36.7; O2SAT 95
[2022-08-04 00:02] VITALS: TEMP 36.7
[2022-08-04] MEDS: HYDROCODONE-ACETAMIN 5-325 MG 1 TAB PO (00:02)
[2022-08-04] MEDS: predniSONE 5 MG TABLET PO (07:39)
[2022-08-04] MEDS: METFORMIN ER 500 MG 1000 MG PO ×2 (07:39→17:10)
[2022-08-04] MEDS: MAGNESIUM OXIDE 400 MG TABLET 500 MG PO (07:39)
[2022-08-04] MEDS: LOPERAMIDE HCL 2 MG CAPSULE PO ×2 (07:39→16:51)
[2022-08-04 09:36] VITALS: TEMP 36.6; O2SAT 97
[2022-08-04] MEDS: LACTOBACILLUS ACIDOPHILUS 1 TABLET 1 TAB PO ×2 (11:41→17:10)
[2022-08-04 16:34] VITALS: TEMP 36.7; O2SAT 96
[2022-08-04] MEDS: POTASSIUM CHLORIDE 10 MEQ CAPSULE ER PO (16:51)
[2022-08-04 21:19] VITALS: TEMP 36.6; O2SAT 96
[2022-08-05] VITALS (7 sets, daily range): PULSE 83; RESP 18; TEMP 36.6–36.8; O2SAT 95–97; BMI 40.5
--- NOTE | 2022-08-05 03:45 | PC.NURSE ---
WEEKLY CHARTING - WEEK 1?( Pain & ADL's):? Vital signs reviewed - no new concerns at this time. Comprehensive/Temporary care plans reviewed - no changes made at this time. Resident needs total of two for bathing. Extensive assist of one with glooming/dressing, and assist of one for oral cares. Resident snacks, mostly, on confectionery snacks provided by family, and occasional Take Out dinner is becoming frequent. On regular diet No choking episode, difficultly swallowing, or concerns about appetite change reported or noted. Pain: Due to Hx of pain r/t osteoarthritis and diabetic neuropathy, resident receives PRN [place] 5-325 mg and Acetaminophen 1000 mg Q6H for pain management.
[2022-08-05 07:24] LABS: Basophils Absolute Auto 0.02 K/uL (0.00-0.30); Basophils Percent Auto 0.2 % (0.0-3.0); Eosinophils Absolute Auto 0.15 K/uL (0.00-0.50); Eosinophils Percent Auto 1.8 % (0.0-7.0); Hematocrit 31.6 % (33.0-51.0); Hemoglobin* 10.1 gm/dL (12.0-16.0); Immature Granulocytes Abs Auto 0.02 K/uL (0.00-0.30); Immature Granulocytes Pct Auto 0.2 %; Lymphocytes Absolute Auto 3.59 K/uL (0.90-2.90); Lymphocytes Percent Auto 43.9 % (20-44); Mean Corpuscular HGB Conc 32 gm/dL (32-36); Mean Corpuscular Hemoglobin 32 pg (26-34); Mean Corpuscular Volume 100 fL (80-100); Neutrophils Absolute Auto 3.83 K/uL (1.7-7.0); Neutrophils Percent Auto 46.9 % (42.0-72.0); Platelet Count* 205 K/uL (140-440); RDW Coefficient of Variation % 15.4 % (11.5-15.5); Red Blood Count 3.16 m/uL (4.00-5.20); White Blood Count* 8.18 K/uL (4.50-11.00)
[2022-08-05 07:25] LABS: Slide Review Reflex No
[2022-08-05 07:36] LABS: Albumin* 2.6 g/dL (3.3-5.0); Chloride* 101 mmol/L (96-114); Potassium* 4.6 mmol/L (3.6-5.1); Sodium* 133 mmol/L (135-149)
[2022-08-05 07:37] LABS: Hemoglobin A1C* 7.23 % (0-5.6)
[2022-08-05 07:38] LABS: Carbon Dioxide* 29 mmol/L (20-32); Creatinine* 1.1 mg/dL (0.5-1.5); Est. Creatinine Clearance* 31.72; Estimated Glomerular Filt Rate 50 ml/min
[2022-08-05 07:39] LABS: Blood Urea Nitrogen* 16 mg/dL (7-30); Calcium* 8.3 mg/dL (8.4-10.6); Glucose* 95 mg/dL (60-115); Magnesium* 1.8 mg/dL (1.5-2.6)
[2022-08-05] MEDS: METFORMIN ER 500 MG 1000 MG PO ×2 (07:44→17:41)
[2022-08-05] MEDS: LOPERAMIDE HCL 2 MG CAPSULE PO ×2 (07:44→16:31)
[2022-08-05] MEDS: predniSONE 5 MG TABLET PO (07:44)
[2022-08-05] MEDS: FUROSEMIDE 20 MG TABLET PO (07:44)
[2022-08-05] MEDS: MAGNESIUM OXIDE 400 MG TABLET 500 MG PO (07:45)
--- NOTE | 2022-08-05 10:00 | PC.NURSE ---
Resident declined to be tested for COVID today. Testing done d/t outbreak status in the unit.
[2022-08-05] MEDS: LACTOBACILLUS ACIDOPHILUS 1 TABLET 1 TAB PO ×2 (12:07→17:41)
[2022-08-05] MEDS: POTASSIUM CHLORIDE 10 MEQ CAPSULE ER PO (16:31)
[2022-08-05] MEDS: HYDROCODONE-ACETAMIN 5-325 MG 1 TAB PO ×2 (16:32→23:52)
--- NOTE | 2022-08-06 06:11 | PC.NURSE ---
Bowel movement occurred at 0300
[2022-08-06 07:00] VITALS: TEMP 36.9; O2SAT 95
[2022-08-06] MEDS: predniSONE 5 MG TABLET PO (08:41)
[2022-08-06] MEDS: MAGNESIUM OXIDE 400 MG TABLET 500 MG PO (08:41)
[2022-08-06] MEDS: METFORMIN ER 500 MG 1000 MG PO ×2 (08:41→18:51)
[2022-08-06] MEDS: LOPERAMIDE HCL 2 MG CAPSULE PO ×2 (08:41→16:30)
[2022-08-06] MEDS: LACTOBACILLUS ACIDOPHILUS 1 TABLET 1 TAB PO ×2 (11:10→18:51)
--- NOTE | 2022-08-06 11:47 | PC.NURSE ---
Labs: A1C,BMP, Mag+, Albumin results reviewed by Yudy DELGADO. No new orders.
--- NOTE | 2022-08-06 15:09 | PC.NURSE ---
CARE CONFERENCE: Resident, dietary, nursing, activities and SS in attendance. Daughters Eloina and Cristy present. Resident began care conference by expressing her happiness regarding her A1C results. Nursing discussed bathing/hygiene concerns with resident. Resident often refuses cares and bathing in the morning. She has also been refusing washing her hair. This nurse asked why this is--resident stated that primary AIRCRAFT ORDNANCE SYSTEMS MECHANIC washes her hair last and then everything is wet so she would like her hair washed first. Will update staff with this request. She requests to continue getting bed baths. Nursing suggested switching to an evening bath to improve compliance--resident agrees. Nursing will make this change and let resident know when her new bath day is. Resident noted that AIRCRAFT ORDNANCE SYSTEMS MECHANIC could come in and wash her after the care conference. Discussed skin concerns--leg wound is almost healed completely, has redness in her abdominal folds and is currently getting nystatin cream applied twice daily. Nursing reinforced that bathing will help prevent this issue. Daughters agreed. Nursing asked resident about hearing services--daughters are going to schedule this when the weather is nice because resident refused to go to last appointment that was set up. Resident notes that her amplifier is working better. It is evident that resident is hearing better compared to other care conferences. She would like to have hear ears cleaned and requests this to be done monthly. Incontinent of bowel and bladder. Calls for bedpan. Care plan reviewed and updated. Daughter Eloina stated she would look online to find one that works for resident. Discussed vision and dental concerns. Daughter Eloina and resident stated they will work on getting appointments made for the spring. Resident is bed bound at this time. Refuses to get up to her recliner. Residents weight is stable, but often refuses weekly weights. Continue minced and moist diet. Resident requests to talk to kitchen staff regarding dislike for the way the baked potatoes are prepared--process lead will arrange this. Family brings snacks that are not within dietary recommendations but they are happy because resident is not gaining weight. Reviewed POLST. DNR/DNI. No changes made. Uses no restraints. Does use 2 quarter side rails on her bed to assist with positioning per resident request. Medications set up by nurse - puts empty med cup on her food tray to show the nurse that she took her pills. Takes Lasix PRN. She does not eat breakfast in the morning and requests to sleep in. Vulnerability- at risk of being harmed due to weakness and assistance needed with ADLs. Resident is a josé lift. Extensive assist with adls.? extermination supervisor care.
--- NOTE | 2022-08-06 15:09 | PC.SOCIAL ---
Resident's care conference was held today. Resident and both daughters attended will all members of the team. Resident continues to refuse to have her folds washed, hair washed, and refuses baths. Resident likes to stay up in the evenings so she is willing to try and evening bath. Resident said she did not like her hair washed in bed by certain staff, due to her pillow getting all wet and water gets all over her face. Nursing will talk to staff. Resident voiced no concerns other than not liking the baked potatoes here at the [facility] and wishing they made a better [place] soup. The Program Management Professional will stop in to talk to resident the next time she comes over for the Food Committee. Resident had a hearing exam scheduled with family and then refused to go. Resident's daughters plan to schedule another hearing exam in the spring when it is warmer out. Resident's mood is stable no s/s of depression noted.
[2022-08-06] MEDS: POTASSIUM CHLORIDE 10 MEQ CAPSULE ER 20 MEQ PO (16:30)
[2022-08-06 17:24] VITALS: TEMP 36.8; O2SAT 92
[2022-08-06] MEDS: HYDROCODONE-ACETAMIN 5-325 MG 1 TAB PO (22:55)
[2022-08-06 23:49] VITALS: TEMP 36.6; O2SAT 96
[2022-08-07 07:00] VITALS: TEMP 36.8; O2SAT 95
[2022-08-07] MEDS: METFORMIN ER 500 MG 1000 MG PO ×2 (08:53→17:03)
[2022-08-07] MEDS: LOPERAMIDE HCL 2 MG CAPSULE PO ×2 (08:53→16:02)
[2022-08-07] MEDS: FUROSEMIDE 20 MG TABLET PO (08:53)
[2022-08-07] MEDS: MAGNESIUM OXIDE 400 MG TABLET 500 MG PO (08:53)
[2022-08-07] MEDS: predniSONE 5 MG TABLET PO (08:54)
[2022-08-07] MEDS: LACTOBACILLUS ACIDOPHILUS 1 TABLET 1 TAB PO ×2 (11:58→17:03)
[2022-08-07 15:00] VITALS: TEMP 36.6; O2SAT 96
[2022-08-07] MEDS: POTASSIUM CHLORIDE 10 MEQ CAPSULE ER PO (16:02)
[2022-08-07] MEDS: MINERAL OIL 0.5 ML EAR-BOTH (19:09)
[2022-08-07 23:00] VITALS: TEMP 36.6; O2SAT 92
[2022-08-07] MEDS: HYDROCODONE-ACETAMIN 5-325 MG 1 TAB PO (23:09)
--- NOTE | 2022-08-08 00:29 | PC.NURSE ---
FOOD: Resident has donuts in refrigerator and will not allow auto service writer to discard stating they're good forever. Resident did allow nurse to discard other items.
[2022-08-08 07:00] VITALS: TEMP 36.2; O2SAT 95
[2022-08-08] MEDS: LOPERAMIDE HCL 2 MG CAPSULE PO ×2 (07:09→15:50)
[2022-08-08] MEDS: predniSONE 5 MG TABLET PO (07:10)
[2022-08-08] MEDS: METFORMIN ER 500 MG 1000 MG PO ×2 (07:10→17:45)
[2022-08-08] MEDS: MAGNESIUM OXIDE 400 MG TABLET 500 MG PO (07:11)
[2022-08-08] MEDS: LACTOBACILLUS ACIDOPHILUS 1 TABLET 1 TAB PO ×2 (11:05→17:45)
[2022-08-08] MEDS: POTASSIUM CHLORIDE 10 MEQ CAPSULE ER 20 MEQ PO (17:45)
[2022-08-08] MEDS: MINERAL OIL 0.5 ML EAR-BOTH (21:16)
[2022-08-08] MEDS: HYDROCODONE-ACETAMIN 5-325 MG 1 TAB PO (23:59)
[2022-08-09 07:00] VITALS: TEMP 36.4; O2SAT 93
[2022-08-09] MEDS: METFORMIN ER 500 MG 1000 MG PO ×2 (07:45→17:03)
[2022-08-09] MEDS: MAGNESIUM OXIDE 400 MG TABLET 500 MG PO (07:45)
[2022-08-09] MEDS: predniSONE 5 MG TABLET PO (07:45)
[2022-08-09] MEDS: LOPERAMIDE HCL 2 MG CAPSULE PO ×2 (07:45→16:40)
[2022-08-09] MEDS: FUROSEMIDE 20 MG TABLET PO (07:45)
[2022-08-09] MEDS: LACTOBACILLUS ACIDOPHILUS 1 TABLET 1 TAB PO ×2 (11:37→17:03)
[2022-08-09] MEDS: POLYVINYL ALCOHOL DROPS 1 DROP EYE-BOTH (15:06)
[2022-08-09] MEDS: POTASSIUM CHLORIDE 10 MEQ CAPSULE ER PO (16:40)
--- NOTE | 2022-08-09 21:53 | PC.NURSE ---
Red Eyes: Resident started asking for eye drops today for dry sore eyes. She feels that she needs to start her allergy meds. Will have [employer] SP[employer]TER address.
[2022-08-10] MEDS: MINERAL OIL 0.5 ML EAR-BOTH (00:03)
[2022-08-10] MEDS: LOPERAMIDE HCL 2 MG CAPSULE PO ×2 (08:44→19:26)
[2022-08-10] MEDS: predniSONE 5 MG TABLET PO (08:44)
[2022-08-10] MEDS: MAGNESIUM OXIDE 400 MG TABLET 500 MG PO (08:44)
[2022-08-10] MEDS: METFORMIN ER 500 MG 1000 MG PO ×2 (08:44→19:26)
[2022-08-10 10:17] VITALS: TEMP 36.2; O2SAT 95
[2022-08-10] MEDS: LACTOBACILLUS ACIDOPHILUS 1 TABLET 1 TAB PO ×2 (12:10→19:26)
[2022-08-10] MEDS: POLYVINYL ALCOHOL DROPS 1 DROP EYE-BOTH (13:00)
[2022-08-10] MEDS: POTASSIUM CHLORIDE 10 MEQ CAPSULE ER 20 MEQ PO (19:26)
[2022-08-11 07:00] VITALS: TEMP 36.6; O2SAT 93
[2022-08-11] MEDS: METFORMIN ER 500 MG 1000 MG PO ×2 (07:54→19:41)
[2022-08-11] MEDS: MAGNESIUM OXIDE 400 MG TABLET 500 MG PO (07:54)
[2022-08-11] MEDS: LOPERAMIDE HCL 2 MG CAPSULE PO ×2 (07:54→16:10)
[2022-08-11] MEDS: predniSONE 5 MG TABLET PO (07:54)
[2022-08-11] MEDS: LACTOBACILLUS ACIDOPHILUS 1 TABLET 1 TAB PO ×2 (11:26→19:41)
[2022-08-11] MEDS: POTASSIUM CHLORIDE 10 MEQ CAPSULE ER PO (16:10)
--- NOTE | 2022-08-12 02:18 | PC.NURSE ---
WEEKLY CHARTING - WEEK 2: Vital signs reviewed - BP generally elevated when allowed to be obtained. Temporary and comprehensive care plan reviewed - no change. Requires assist of 2 for bed mobility. Uses bilateral 1/4 side rails to aid with mobility. Is bed bound. Uses assistive device for vertical movement in bed. Requires full mechanical lift with 2-3 assist if chooses to get out of bed. Low risk for fall per latest fall risk assessment. Fall interventions: bed in low position, call light in reach.
[2022-08-12] MEDS: LOPERAMIDE HCL 2 MG CAPSULE PO ×2 (08:13→16:42)
[2022-08-12] MEDS: predniSONE 5 MG TABLET PO (08:13)
[2022-08-12] MEDS: FUROSEMIDE 20 MG TABLET PO ×2 (08:13→11:00)
[2022-08-12] MEDS: METFORMIN ER 500 MG 1000 MG PO ×2 (08:13→17:40)
[2022-08-12] MEDS: MAGNESIUM OXIDE 400 MG TABLET 500 MG PO (08:13)
[2022-08-12] MEDS: HYDROCODONE-ACETAMIN 5-325 MG 1 TAB PO (10:25)
[2022-08-12 10:41] VITALS: PULSE 80; RESP 18; TEMP 36.5; O2SAT 97
--- NOTE | 2022-08-12 11:01 | PC.NURSE ---
Status: Res refused all AM cares d/t increased of body pain. PRN [place] given partially effective, Noted +2 pitting edema on BUE. PRN Lasix 20mg given at this time. BLE elevated with pillows as tolerated. unable to check of BP d/t edema.VSS Temp 97.5, RR 18, HR 90. O2 sat 97%
--- NOTE | 2022-08-12 11:02 | PC.NURSE ---
Status: Resident refused morning cares and bath.
[2022-08-12] MEDS: LACTOBACILLUS ACIDOPHILUS 1 TABLET 1 TAB PO ×2 (12:01→17:39)
--- NOTE | 2022-08-12 13:19 | PC.NURSE ---
Podiatry: Resident refused service.
--- NOTE | 2022-08-12 13:27 | PC.NURSE ---
Week #2 - Mobility: Comprehensive and temporary care plan reviewed. No changes made, nothing added to temporary care plan. Resident is non ambulatory. Is a josé lift with 2 assists if she wants to get out of bed. 2 assists for turning and positioning, prefers to stay on her back.Is bed bound. EZ positioner to move up in bed. No alarms. Bilateral 1/4 side rails up to aid with bed mobility. Vital sings, BP's elevated. On HAND ALTERATIONS TAILOR book to review. Fall: No falls the past months. Remains a low fall risk according to assessment done on 08/01/22. Fall Interventions: Call light within reach, bed in low position locked.
[2022-08-12] MEDS: POTASSIUM CHLORIDE 10 MEQ CAPSULE ER PO (16:42)
--- NOTE | 2022-08-13 02:03 | PC.NURSE ---
FOOD: Resident continues with outdated donuts in refrigerator and will not allow technical proposal writer to throw out. Has allowed other items to be discarded.
[2022-08-13] MEDS: MAGNESIUM OXIDE 400 MG TABLET 500 MG PO (07:56)
[2022-08-13] MEDS: METFORMIN ER 500 MG 1000 MG PO ×2 (07:56→17:27)
[2022-08-13] MEDS: LOPERAMIDE HCL 2 MG CAPSULE PO ×2 (07:56→16:57)
[2022-08-13] MEDS: predniSONE 5 MG TABLET PO (07:57)
[2022-08-13 09:43] VITALS: TEMP 36.1; O2SAT 63
[2022-08-13] MEDS: LACTOBACILLUS ACIDOPHILUS 1 TABLET 1 TAB PO ×2 (11:43→17:27)
[2022-08-13 15:00] VITALS: BP 149/78; PULSE 80; RESP 18; TEMP 36.6; O2SAT 96
--- NOTE | 2022-08-13 15:05 | PC.NURSE ---
Evening bath request: spoke to resident and because she is not a morning person she would like to change her bed bath to the evening shift. Bath time discussed and will be Friday evenings. Staff updated.
[2022-08-13] MEDS: POTASSIUM CHLORIDE 10 MEQ CAPSULE ER 20 MEQ PO (16:57)
--- NOTE | 2022-08-14 05:44 | PC.NURSE ---
Resident on bedpan x3 this manufacturing shift supervisor with bowel movements x2. Resident noted with redness to buttocks. Resident requested cream to be applied to area. Applied sensicare to reddened areas. Discussed application BID and resident stated she didn't want it put on her all the time, she wants to request it as she feels she needs it.
[2022-08-14 07:00] VITALS: TEMP 36.4; O2SAT 95
[2022-08-14] MEDS: FUROSEMIDE 20 MG TABLET PO (08:12)
[2022-08-14] MEDS: LOPERAMIDE HCL 2 MG CAPSULE PO ×2 (08:12→16:27)
[2022-08-14] MEDS: predniSONE 5 MG TABLET PO (08:13)
[2022-08-14] MEDS: METFORMIN ER 500 MG 1000 MG PO ×2 (08:13→17:06)
[2022-08-14] MEDS: MAGNESIUM OXIDE 400 MG TABLET 500 MG PO (08:13)
[2022-08-14] MEDS: LACTOBACILLUS ACIDOPHILUS 1 TABLET 1 TAB PO ×2 (11:08→17:06)
--- NOTE | 2022-08-14 13:38 | PC.NURSE ---
Daily ADLs :Resident refused all cares except cleaning after the use of bedpan. Her skin condition on her coccyx area noted red and very fragile. sensicream applied at the back as per request.
--- NOTE | 2022-08-14 15:07 | PC.PHA1 ---
PHP DEVELOPER PHARMACIST'S MEDICATION REVIEW: MEDICATION MONITORING:No psychotropic medications, no antibiotics prescribed IRREGULARITY OR COMMENTS:Ebony prn - 8 doses for July, and no prn acetaminophen order needed. Patient takes metformin and A1C did go down but is above 7. Prednisone 5 mg , and furosemide and potassium continue. Only reoccurring nursing note I find is patient continuation of refusing cares for personal hygiene. SUGGESTED COURSE OF ACTION TAKEN: Could try scheduled pain medications if patient refusing cares due to pain.
--- NOTE | 2022-08-14 15:51 | PC.SPIRITC ---
Per Maki she is feeling better than she was earlier this week but not quite like herself. I provided visit for support and connection. I offered to bring communion for resident but she declined at this time.
[2022-08-14] MEDS: POTASSIUM CHLORIDE 10 MEQ CAPSULE ER PO (16:27)
[2022-08-15 07:00] VITALS: TEMP 36.4; O2SAT 95
[2022-08-15] MEDS: predniSONE 5 MG TABLET PO (07:26)
[2022-08-15] MEDS: METFORMIN ER 500 MG 1000 MG PO ×2 (07:26→19:08)
[2022-08-15] MEDS: MAGNESIUM OXIDE 400 MG TABLET 500 MG PO (07:26)
[2022-08-15] MEDS: LOPERAMIDE HCL 2 MG CAPSULE PO ×2 (07:26→16:43)
[2022-08-15] MEDS: LACTOBACILLUS ACIDOPHILUS 1 TABLET 1 TAB PO ×2 (11:08→19:08)
--- NOTE | 2022-08-15 11:45 | PC.NURSE ---
BP's elevated noted by DIRECTOR [facility]. Patient is aware, does not want medications.
[2022-08-15] MEDS: POTASSIUM CHLORIDE 10 MEQ CAPSULE ER 20 MEQ PO (16:43)
[2022-08-15 18:29] VITALS: TEMP 36.8; O2SAT 95
[2022-08-15 23:40] VITALS: TEMP 36.5; O2SAT 94
--- NOTE | 2022-08-16 06:38 | PC.NURSE ---
Skin/Order: RLE laceration healed , seen by ANIMAL HUSBANDRY PROFESSOR. D/C treatment.
[2022-08-16 07:00] VITALS: TEMP 36.6; O2SAT 95
[2022-08-16] MEDS: LOPERAMIDE HCL 2 MG CAPSULE PO ×2 (08:44→16:42)
[2022-08-16] MEDS: FUROSEMIDE 20 MG TABLET PO (08:44)
[2022-08-16] MEDS: MAGNESIUM OXIDE 400 MG TABLET 500 MG PO (08:45)
[2022-08-16] MEDS: predniSONE 5 MG TABLET PO (08:45)
[2022-08-16] MEDS: METFORMIN ER 500 MG 1000 MG PO ×2 (08:45→18:32)
[2022-08-16] MEDS: LACTOBACILLUS ACIDOPHILUS 1 TABLET 1 TAB PO ×2 (11:09→18:32)
[2022-08-16 15:00] VITALS: TEMP 36.6; O2SAT 96
[2022-08-16] MEDS: POTASSIUM CHLORIDE 10 MEQ CAPSULE ER PO (16:42)
[2022-08-17 00:12] VITALS: TEMP 36.7; O2SAT 97
[2022-08-17] MEDS: MAGNESIUM OXIDE 400 MG TABLET 500 MG PO (07:26)
[2022-08-17] MEDS: LOPERAMIDE HCL 2 MG CAPSULE PO ×2 (07:26→15:43)
[2022-08-17] MEDS: predniSONE 5 MG TABLET PO (07:27)
[2022-08-17] MEDS: METFORMIN ER 500 MG 1000 MG PO ×2 (07:27→17:32)
[2022-08-17 09:36] VITALS: TEMP 36.6; O2SAT 96
[2022-08-17] MEDS: LACTOBACILLUS ACIDOPHILUS 1 TABLET 1 TAB PO ×2 (11:14→17:32)
[2022-08-17 15:00] VITALS: TEMP 36.7; O2SAT 95
[2022-08-17] MEDS: POTASSIUM CHLORIDE 10 MEQ CAPSULE ER 20 MEQ PO (17:32)
[2022-08-17 23:54] VITALS: TEMP 36.6; O2SAT 94
[2022-08-18] MEDS: predniSONE 5 MG TABLET PO (07:28)
[2022-08-18] MEDS: METFORMIN ER 500 MG 1000 MG PO ×2 (07:28→17:23)
[2022-08-18] MEDS: MAGNESIUM OXIDE 400 MG TABLET 500 MG PO (07:28)
[2022-08-18] MEDS: LOPERAMIDE HCL 2 MG CAPSULE PO ×2 (07:28→15:34)
[2022-08-18 10:17] VITALS: TEMP 36.3; O2SAT 96
[2022-08-18] MEDS: LACTOBACILLUS ACIDOPHILUS 1 TABLET 1 TAB PO ×2 (11:20→17:23)
[2022-08-18 15:00] VITALS: TEMP 36.6; O2SAT 95
[2022-08-18] MEDS: POTASSIUM CHLORIDE 10 MEQ CAPSULE ER PO (16:53)
--- NOTE | 2022-08-18 21:58 | PC.NURSE ---
Skin Concern: Resident picking on scabbed old wound to right side of upper chest area. Skin surrounding affected area appears red or inflamed. Resident refused interventions including cleansing and covering wound.
[2022-08-18 23:42] VITALS: TEMP 36.7; O2SAT 93
--- NOTE | 2022-08-19 01:31 | PC.NURSE ---
Weekly charting Week 3: Vital signs reviewed. BP variable values. BUSINESS TECHNOLOGY ANALYST aware. Temporary and comprehensive care plan reviewed. no changes made. intermittent redness on abd fold, under breast nystatin cream applied PRN. R shoulder scab and RLE scab monitoring until fall off. Incontinent both bowel and bladder. on occasion will have continent bowel movement on bed armenta. Use call light to use bed armenta or alert staff that she needs brief changed. Requires extensive assist of 1-2 staff for toileting including clothing management, incontinent product and jeri cares.
[2022-08-19 07:00] VITALS: TEMP 36; O2SAT 96
[2022-08-19] MEDS: FUROSEMIDE 20 MG TABLET PO (08:41)
[2022-08-19] MEDS: MAGNESIUM OXIDE 400 MG TABLET 500 MG PO (08:41)
[2022-08-19] MEDS: predniSONE 5 MG TABLET PO (08:41)
[2022-08-19] MEDS: METFORMIN ER 500 MG 1000 MG PO ×2 (08:41→17:15)
[2022-08-19] MEDS: LOPERAMIDE HCL 2 MG CAPSULE PO ×2 (08:41→15:47)
--- NOTE | 2022-08-19 10:00 | PC.NURSE ---
COVID OUTBREAK TESTING Resident refused to be tested
[2022-08-19] MEDS: NYSTATIN POWDER 1 APPLIC TOPICAL (10:23)
[2022-08-19] MEDS: LACTOBACILLUS ACIDOPHILUS 1 TABLET 1 TAB PO ×2 (11:10→17:15)
[2022-08-19 15:00] VITALS: TEMP 36.6; O2SAT 95
[2022-08-19] MEDS: POTASSIUM CHLORIDE 10 MEQ CAPSULE ER PO (16:13)
[2022-08-19] MEDS: HYDROCODONE-ACETAMIN 5-325 MG 1 TAB PO (23:09)
[2022-08-19 23:49] VITALS: TEMP 36.7; O2SAT 96
[2022-08-20 07:00] VITALS: TEMP 36.7; O2SAT 94
[2022-08-20] MEDS: METFORMIN ER 500 MG 1000 MG PO ×2 (07:58→19:39)
[2022-08-20] MEDS: MAGNESIUM OXIDE 400 MG TABLET 500 MG PO (07:58)
[2022-08-20] MEDS: LOPERAMIDE HCL 2 MG CAPSULE PO ×2 (07:58→16:52)
[2022-08-20] MEDS: predniSONE 5 MG TABLET PO (07:59)
[2022-08-20] MEDS: LACTOBACILLUS ACIDOPHILUS 1 TABLET 1 TAB PO ×2 (11:35→19:40)
--- NOTE | 2022-08-20 13:17 | PC.NURSE ---
Resident refused to have Sensicare protective cream applied to bottom when approached by this technical proposal writer. Encouragement provided though resident continued to refuse stating, I don't think I need that. preform plate maker updated to pass on in shift report.
[2022-08-20] MEDS: POTASSIUM CHLORIDE 10 MEQ CAPSULE ER 20 MEQ PO (16:53)
[2022-08-20] MEDS: HYDROCODONE-ACETAMIN 5-325 MG 1 TAB PO (16:57)
[2022-08-20 22:03] VITALS: TEMP 36.7; O2SAT 93
[2022-08-20 22:07] VITALS: TEMP 36.7
[2022-08-20 23:00] VITALS: TEMP 36.3; O2SAT 95
[2022-08-21] MEDS: HYDROCODONE-ACETAMIN 5-325 MG 1 TAB PO (02:05)
[2022-08-21 07:00] VITALS: TEMP 36.7; O2SAT 97
[2022-08-21] MEDS: predniSONE 5 MG TABLET PO (07:58)
[2022-08-21] MEDS: MAGNESIUM OXIDE 400 MG TABLET 500 MG PO (07:58)
[2022-08-21] MEDS: METFORMIN ER 500 MG 1000 MG PO ×2 (07:58→17:24)
[2022-08-21] MEDS: LOPERAMIDE HCL 2 MG CAPSULE PO ×2 (07:58→16:00)
[2022-08-21] MEDS: FUROSEMIDE 20 MG TABLET PO (07:58)
[2022-08-21] MEDS: POLYVINYL ALCOHOL DROPS 1 DROP EYE-BOTH (10:35)
[2022-08-21] MEDS: LACTOBACILLUS ACIDOPHILUS 1 TABLET 1 TAB PO ×2 (11:01→17:24)
[2022-08-21 15:00] VITALS: TEMP 36.7; O2SAT 96
[2022-08-21] MEDS: POTASSIUM CHLORIDE 10 MEQ CAPSULE ER PO (16:00)
[2022-08-21 23:00] VITALS: TEMP 36.7; O2SAT 97
--- NOTE | 2022-08-22 05:54 | PC.NURSE ---
FOOD: Late entry for 08/21/22: Resident has a takeout box containing chicken strips in refrigerator dated 08/15. Resident would not allow report writer to discard item stating that she would eat it that day. This nurse discussed the risks with resident, and she continued to refuse disposal of food item. ?
[2022-08-22] MEDS: METFORMIN ER 500 MG 1000 MG PO ×2 (08:36→17:16)
[2022-08-22] MEDS: MAGNESIUM OXIDE 400 MG TABLET 500 MG PO (08:36)
[2022-08-22] MEDS: LOPERAMIDE HCL 2 MG CAPSULE PO ×2 (08:36→15:32)
[2022-08-22] MEDS: predniSONE 5 MG TABLET PO (08:36)
--- NOTE | 2022-08-22 09:30 | PC.NURSE ---
Skin Care: While RACHELLE ( roldan Novoa ) was doing cares for the resident at 0930, she noted a bruise below her left thigh measuring 10x9cm. Resident was not aware of it and no c/o pain. It was entered in the intervention for monitoring.
[2022-08-22 10:09] VITALS: TEMP 36.5; O2SAT 95
[2022-08-22] MEDS: LACTOBACILLUS ACIDOPHILUS 1 TABLET 1 TAB PO ×2 (11:31→17:16)
[2022-08-22 15:01] VITALS: TEMP 36.2; O2SAT 97
[2022-08-22] MEDS: POTASSIUM CHLORIDE 10 MEQ CAPSULE ER 20 MEQ PO (16:49)
[2022-08-22 23:00] VITALS: TEMP 36.5; O2SAT 93
[2022-08-23 07:00] VITALS: TEMP 36.5; O2SAT 93
[2022-08-23] MEDS: MAGNESIUM OXIDE 400 MG TABLET 500 MG PO (08:58)
[2022-08-23] MEDS: LOPERAMIDE HCL 2 MG CAPSULE PO ×2 (08:58→16:38)
[2022-08-23] MEDS: METFORMIN ER 500 MG 1000 MG PO ×2 (08:58→17:15)
[2022-08-23] MEDS: FUROSEMIDE 20 MG TABLET PO (08:58)
[2022-08-23] MEDS: predniSONE 5 MG TABLET PO (08:58)
[2022-08-23] MEDS: LACTOBACILLUS ACIDOPHILUS 1 TABLET 1 TAB PO ×2 (10:59→17:15)
--- NOTE | 2022-08-23 13:31 | PC.NURSE ---
Family Update: Daughter, Eloina contacted & updated of bruise on (L) lower thigh measuring 10 x 9 cm. Cause unknown, resident denies pain, skin so fragile.
[2022-08-23 16:58] VITALS: TEMP 36.8; O2SAT 95
[2022-08-23] MEDS: POTASSIUM CHLORIDE 10 MEQ CAPSULE ER PO (17:15)
[2022-08-23] MEDS: HYDROCODONE-ACETAMIN 5-325 MG 1 TAB PO (22:47)
[2022-08-23 23:00] VITALS: TEMP 36.4; O2SAT 95
[2022-08-24 07:00] VITALS: TEMP 36.4; O2SAT 93
[2022-08-24] MEDS: METFORMIN ER 500 MG 1000 MG PO ×2 (08:17→17:03)
[2022-08-24] MEDS: MAGNESIUM OXIDE 400 MG TABLET 500 MG PO (08:17)
[2022-08-24] MEDS: LOPERAMIDE HCL 2 MG CAPSULE PO ×2 (08:17→16:08)
[2022-08-24] MEDS: predniSONE 5 MG TABLET PO (08:17)
[2022-08-24] MEDS: LACTOBACILLUS ACIDOPHILUS 1 TABLET 1 TAB PO ×2 (12:04→17:03)
[2022-08-24] MEDS: POTASSIUM CHLORIDE 10 MEQ CAPSULE ER 20 MEQ PO (16:08)
[2022-08-24 21:40] VITALS: TEMP 36.6; O2SAT 95
[2022-08-24 23:00] VITALS: TEMP 36.6; O2SAT 93
[2022-08-24] MEDS: HYDROCODONE-ACETAMIN 5-325 MG 1 TAB PO (23:23)
[2022-08-25 07:00] VITALS: TEMP 35.9; O2SAT 97
[2022-08-25] MEDS: LOPERAMIDE HCL 2 MG CAPSULE PO ×2 (07:28→16:23)
[2022-08-25] MEDS: predniSONE 5 MG TABLET PO (07:28)
[2022-08-25] MEDS: MAGNESIUM OXIDE 400 MG TABLET 500 MG PO (07:28)
[2022-08-25] MEDS: METFORMIN ER 500 MG 1000 MG PO ×2 (07:28→17:28)
[2022-08-25] MEDS: LACTOBACILLUS ACIDOPHILUS 1 TABLET 1 TAB PO ×2 (11:32→17:28)
[2022-08-25 16:39] VITALS: TEMP 36.6; O2SAT 94
[2022-08-25] MEDS: POTASSIUM CHLORIDE 10 MEQ CAPSULE ER PO (17:28)
[2022-08-25 23:00] VITALS: TEMP 36.4; O2SAT 93
--- NOTE | 2022-08-26 04:09 | PC.NURSE ---
WEEKLY CHARTING - WEEK 4: Vital signs reviewed - no concerns. Temporary and comprehensive care plan reviewed - no change. No documented behaviors in the last month. Will often refuse cares. No psychotropic medications. Able to communicate needs verbally. Moderate hearing impairment. Has amplifier in room. Wears glasses for reading. Cognitively intact. Started furosemide 20mg M-W-F on 07/31 and artificial tears BID PRN on 08/21. No noted adverse effects. May self administer medications after nursing set-up. Health condition stable at this time.
[2022-08-26 07:00] VITALS: TEMP 36.1; O2SAT 98
--- NOTE | 2022-08-26 07:35 | PC.NURSE ---
Week #4: Comprehensive and temporary care plan reviewed. No changes and and nothing added to temporary care plan. No changes noted in communication, hearing, vision, or orientation. She does communicate her needs and use the call light. Cognition intact. Has hearing difficulty, uses an amplifier to aid with communication. Hearing impairment is already addressed. Chronic health condition stable. Nurse set up medications. Has elevated BP's noted by DAIRY HAND. Resident refused to take BP medications. Continue Weekly monitoring. Mood/Behavior: Resident has episodes of refusing cares/bath in the morning. Bath day is changed to evening and resident agreed. Is on no psychotropic medication.
[2022-08-26] MEDS: FUROSEMIDE 20 MG TABLET PO (08:11)
[2022-08-26] MEDS: MAGNESIUM OXIDE 400 MG TABLET 500 MG PO (08:12)
[2022-08-26] MEDS: METFORMIN ER 500 MG 1000 MG PO ×2 (08:12→17:24)
[2022-08-26] MEDS: predniSONE 5 MG TABLET PO (08:12)
[2022-08-26] MEDS: LOPERAMIDE HCL 2 MG CAPSULE PO ×2 (08:12→16:03)
--- NOTE | 2022-08-26 10:16 | PC.NURSE ---
Resident refusing all AM cares when approached this morning including to be changed after breakfast despite being approached and encouraged by both RACHELLE and nurse. Staff will continue to reapproach and encourage resident to allow staff to change her and complete cares. Resident also refused breakfast this morning when approached and encouraged.
[2022-08-26] MEDS: LACTOBACILLUS ACIDOPHILUS 1 TABLET 1 TAB PO ×2 (11:01→17:24)
--- NOTE | 2022-08-26 11:30 | PC.NURSE ---
Behavior note: Resident is still refusing to allow staff to change her brief despite this adjusto writer operator again reapproaching and encouraging her to allow staff to change her brief. Sales Operations Assistant also educated resident regarding risk of skin breakdown if brief isn't changed. Resident started to raise her voice at adjusto writer operator and said, Not now. My favorite program is on and I have to watch this. Nursing staff will continue to reapproach and encourage resident to allow staff to assist her with cares including having brief changed.
--- NOTE | 2022-08-26 13:18 | PC.NURSE ---
Resident noted to have one small open slit measuring approximately 0.5 cm in length under left abdominal fold when brief changed after lunch. Area cleansed and patted dry before applying Duoderm paste.
[2022-08-26 15:00] VITALS: TEMP 36.8; O2SAT 96
[2022-08-26] MEDS: POTASSIUM CHLORIDE 10 MEQ CAPSULE ER PO (16:03)
[2022-08-26 23:00] VITALS: TEMP 36.9; O2SAT 93
[2022-08-27] MEDS: METFORMIN ER 500 MG 1000 MG PO ×2 (08:49→19:09)
[2022-08-27] MEDS: LOPERAMIDE HCL 2 MG CAPSULE PO ×2 (08:49→16:13)
[2022-08-27] MEDS: predniSONE 5 MG TABLET PO (08:49)
[2022-08-27] MEDS: MAGNESIUM OXIDE 400 MG TABLET 500 MG PO (08:49)
[2022-08-27] MEDS: LACTOBACILLUS ACIDOPHILUS 1 TABLET 1 TAB PO ×2 (12:06→19:09)
[2022-08-27 13:35] VITALS: TEMP 36.6; O2SAT 96
[2022-08-27] MEDS: POTASSIUM CHLORIDE 10 MEQ CAPSULE ER 20 MEQ PO (16:13)
[2022-08-27 17:29] VITALS: TEMP 36.4; O2SAT 97
[2022-08-27 21:17] VITALS: PULSE 59; RESP 18; TEMP 36.4; O2SAT 97
[2022-08-27] MEDS: HYDROCODONE-ACETAMIN 5-325 MG 1 TAB PO (22:56)
[2022-08-27 23:00] VITALS: TEMP 36.6; O2SAT 96
[2022-08-28 07:00] VITALS: TEMP 36.3; O2SAT 96
[2022-08-28] MEDS: predniSONE 5 MG TABLET PO (08:48)
[2022-08-28] MEDS: LOPERAMIDE HCL 2 MG CAPSULE PO ×2 (08:48→15:32)
[2022-08-28] MEDS: MAGNESIUM OXIDE 400 MG TABLET 500 MG PO (08:48)
[2022-08-28] MEDS: METFORMIN ER 500 MG 1000 MG PO ×2 (08:48→17:22)
[2022-08-28] MEDS: FUROSEMIDE 20 MG TABLET PO (08:48)
[2022-08-28] MEDS: LACTOBACILLUS ACIDOPHILUS 1 TABLET 1 TAB PO ×2 (11:13→17:22)
[2022-08-28 15:00] VITALS: TEMP 36.3; O2SAT 96
[2022-08-28] MEDS: POTASSIUM CHLORIDE 10 MEQ CAPSULE ER PO (16:46)
[2022-08-28 23:00] VITALS: TEMP 36.6; O2SAT 94
[2022-08-29 07:00] VITALS: TEMP 36.5; O2SAT 98
[2022-08-29] MEDS: predniSONE 5 MG TABLET PO (08:36)
[2022-08-29] MEDS: METFORMIN ER 500 MG 1000 MG PO ×2 (08:36→19:12)
[2022-08-29] MEDS: LOPERAMIDE HCL 2 MG CAPSULE PO ×2 (08:36→15:54)
[2022-08-29] MEDS: MAGNESIUM OXIDE 400 MG TABLET 500 MG PO (08:36)
--- NOTE | 2022-08-29 08:36 | PC.SPIRITC ---
Late entry from 08/28/22: I offered a palm branch and communion to Maki in light of Palm Friday is coming up. She expressed gratitude for the Palm branch but declined communion at this time; visit provided for chuck resources and connection.
[2022-08-29] MEDS: LACTOBACILLUS ACIDOPHILUS 1 TABLET 1 TAB PO ×2 (11:31→19:13)
[2022-08-29] MEDS: POTASSIUM CHLORIDE 10 MEQ CAPSULE ER 20 MEQ PO (16:00)
[2022-08-29 16:07] VITALS: TEMP 36.5; O2SAT 97
[2022-08-29 23:00] VITALS: TEMP 36.6; O2SAT 96
[2022-08-30] MEDS: HYDROCODONE-ACETAMIN 5-325 MG 1 TAB PO (03:29)
[2022-08-30] MEDS: FUROSEMIDE 20 MG TABLET PO (07:16)
[2022-08-30] MEDS: LOPERAMIDE HCL 2 MG CAPSULE PO ×2 (07:16→16:30)
[2022-08-30] MEDS: METFORMIN ER 500 MG 1000 MG PO ×2 (07:16→17:24)
[2022-08-30] MEDS: MAGNESIUM OXIDE 400 MG TABLET 500 MG PO (07:16)
[2022-08-30] MEDS: predniSONE 5 MG TABLET PO (07:17)
[2022-08-30 09:52] VITALS: TEMP 36.2; O2SAT 96
[2022-08-30] MEDS: LACTOBACILLUS ACIDOPHILUS 1 TABLET 1 TAB PO ×2 (11:17→17:24)
[2022-08-30 15:00] VITALS: TEMP 36.6; O2SAT 98
[2022-08-30] MEDS: POTASSIUM CHLORIDE 10 MEQ CAPSULE ER PO (16:30)
[2022-08-30 23:35] VITALS: TEMP 36.7; O2SAT 95
[2022-08-31] MEDS: METFORMIN ER 500 MG 1000 MG PO ×2 (08:41→17:05)
[2022-08-31] MEDS: predniSONE 5 MG TABLET PO (08:41)
[2022-08-31] MEDS: MAGNESIUM OXIDE 400 MG TABLET 500 MG PO (08:41)
[2022-08-31] MEDS: LOPERAMIDE HCL 2 MG CAPSULE PO ×2 (08:41→15:00)
[2022-08-31 10:05] VITALS: TEMP 36.8; O2SAT 97
[2022-08-31] MEDS: LACTOBACILLUS ACIDOPHILUS 1 TABLET 1 TAB PO ×2 (11:58→17:05)
[2022-08-31 15:00] VITALS: TEMP 36.8; O2SAT 96
[2022-08-31] MEDS: POTASSIUM CHLORIDE 10 MEQ CAPSULE ER 20 MEQ PO (16:32)
--- NOTE | 2022-08-31 21:47 | PC.NURSE ---
Refused Cares: Resident instructed staff not to remove her MARGARET socks at HS. Also refused her armpit, which is yeasty, to be cleaned and Nystatin application. Will reproach.
[2022-08-31 23:52] VITALS: TEMP 36.5; O2SAT 95
[2022-09-01] MEDS: LOPERAMIDE HCL 2 MG CAPSULE PO ×2 (07:41→15:28)
[2022-09-01] MEDS: MAGNESIUM OXIDE 400 MG TABLET 500 MG PO (07:41)
[2022-09-01] MEDS: METFORMIN ER 500 MG 1000 MG PO ×2 (07:42→17:09)
[2022-09-01] MEDS: predniSONE 5 MG TABLET PO (07:42)
[2022-09-01 09:40] VITALS: TEMP 36.4; O2SAT 95
[2022-09-01] MEDS: LACTOBACILLUS ACIDOPHILUS 1 TABLET 1 TAB PO ×2 (11:35→17:09)
--- NOTE | 2022-09-01 13:01 | PC.NURSE ---
Semisoft stool: Resident had 3 episode on semisoft stool S/A. She refused to take her schedule medication at 0800 and only took it 1030
[2022-09-01 15:00] VITALS: TEMP 36.3; O2SAT 93
[2022-09-01] MEDS: POTASSIUM CHLORIDE 10 MEQ CAPSULE ER PO (16:30)
--- NOTE | 2022-09-01 21:35 | PC.NURSE ---
pt picking at skin small dejuan scratched open area size of a dime rt upper chest . aloe cream applied for comfort.
--- NOTE | 2022-09-01 21:38 | PC.NURSE ---
refused to take teds off but loosened them
[2022-09-01 23:35] VITALS: TEMP 36.5; O2SAT 95
--- NOTE | 2022-09-02 01:43 | PC.NURSE ---
Weekly charting Week 1: Vital sings reviewed. Elevated BP noted, RN CHARGE aware, Continue to monitor weekly. Comprehensive and temporary care plan reviewed. No changes made. Receives PRN Hydronarco 5-325mg and Scheduled acetaminophen 1000mg for pain management. Requires extensive assist of 2 staff of bathing and dressing. Assist of 1 of oral care, staff clean denture. Ate independently after set up. On regular diet with thin liquid, snacking most of the time. Family brought abundance of snacks. no chocking, nor swallowing problem noted nor reported.
[2022-09-02 07:00] VITALS: TEMP 36.2; O2SAT 97
[2022-09-02] MEDS: METFORMIN ER 500 MG 1000 MG PO ×2 (08:13→17:38)
[2022-09-02] MEDS: LOPERAMIDE HCL 2 MG CAPSULE PO ×2 (08:13→16:21)
[2022-09-02] MEDS: MAGNESIUM OXIDE 400 MG TABLET 500 MG PO (08:13)
[2022-09-02] MEDS: FUROSEMIDE 20 MG TABLET PO (08:13)
[2022-09-02] MEDS: predniSONE 5 MG TABLET PO (08:13)
[2022-09-02] MEDS: LACTOBACILLUS ACIDOPHILUS 1 TABLET 1 TAB PO ×2 (12:00→17:38)
--- NOTE | 2022-09-02 12:59 | PC.NURSE ---
WEEKLY CHARTING - WEEK 1?( Pain & ADL's):? Vital signs reviewed - no new concerns at this time. Comprehensive and Temporary care plans reviewed - no changes made at this time. Resident needs assist of 2 for most of her cares for example turning, toileting, changing briefs. Resident stays in bed most of the time and independent in taking her meals. She also likes to keep food in the fridge and take on the later date. Resident also snack in between meals provided by family. Resident eats regular meals and no concern on choking. Overall hygiene is poor as resident refused cares often and only does whenever she pleases. Pain management: Resident receives PRN [place] 5-325 mg and Acetaminophen 1000 mg Q6H for pain management which is currently well control.
[2022-09-02 15:00] VITALS: TEMP 36.2; O2SAT 96
[2022-09-02] MEDS: POTASSIUM CHLORIDE 10 MEQ CAPSULE ER PO (16:21)
[2022-09-02 23:00] VITALS: TEMP 36.7; O2SAT 96
[2022-09-03 07:00] VITALS: TEMP 36.1; O2SAT 93
[2022-09-03] MEDS: MAGNESIUM OXIDE 400 MG TABLET 500 MG PO (08:08)
[2022-09-03] MEDS: LOPERAMIDE HCL 2 MG CAPSULE PO ×2 (08:08→16:40)
[2022-09-03] MEDS: predniSONE 5 MG TABLET PO (08:09)
[2022-09-03] MEDS: METFORMIN ER 500 MG 1000 MG PO ×2 (08:09→18:47)
[2022-09-03] MEDS: NYSTATIN POWDER 1 APPLIC TOPICAL (10:25)
[2022-09-03] MEDS: LACTOBACILLUS ACIDOPHILUS 1 TABLET 1 TAB PO ×2 (11:04→18:47)
[2022-09-03 15:25] VITALS: TEMP 36.6; O2SAT 95
[2022-09-03 15:26] VITALS: PULSE 93; RESP 18; O2SAT 95
[2022-09-03] MEDS: POTASSIUM CHLORIDE 10 MEQ CAPSULE ER 20 MEQ PO (16:19)
[2022-09-03 23:00] VITALS: TEMP 36.4; O2SAT 92
--- NOTE | 2022-09-04 03:35 | PC.NURSE ---
FOOD: Resident has takeout container which contains a fish meal dated 08/30 in her refrigerator which is past the discard date per facility policy. Resident refuses to allow this nurse to discard food items. Unclaimed Property Officer discussed the risks of consuming outdated food and resident stated, it's too good to just throw out, I'll eat it tomorrow.
[2022-09-04 07:00] VITALS: TEMP 36.5; O2SAT 98
[2022-09-04] MEDS: MAGNESIUM OXIDE 400 MG TABLET 500 MG PO (07:48)
[2022-09-04] MEDS: FUROSEMIDE 20 MG TABLET PO (07:48)
[2022-09-04] MEDS: LOPERAMIDE HCL 2 MG CAPSULE PO ×2 (07:48→16:34)
[2022-09-04] MEDS: predniSONE 5 MG TABLET PO (07:48)
[2022-09-04] MEDS: METFORMIN ER 500 MG 1000 MG PO ×2 (07:48→16:36)
[2022-09-04] MEDS: LACTOBACILLUS ACIDOPHILUS 1 TABLET 1 TAB PO ×2 (11:02→16:36)
[2022-09-04 15:00] VITALS: TEMP 36.2; O2SAT 95
--- NOTE | 2022-09-04 16:17 | PC.SPIRITC ---
I dropped of an Easter craft for Maki to decorate her room and to provide visit for support and connection.
[2022-09-04] MEDS: POTASSIUM CHLORIDE 10 MEQ CAPSULE ER PO (16:34)
[2022-09-04] MEDS: NYSTATIN POWDER 1 APPLIC TOPICAL (21:24)
[2022-09-04 23:00] VITALS: TEMP 36.5; O2SAT 95
[2022-09-05] MEDS: predniSONE 5 MG TABLET PO (07:13)
[2022-09-05] MEDS: LOPERAMIDE HCL 2 MG CAPSULE PO ×2 (07:13→15:56)
[2022-09-05] MEDS: MAGNESIUM OXIDE 400 MG TABLET 500 MG PO (07:13)
[2022-09-05] MEDS: METFORMIN ER 500 MG 1000 MG PO ×2 (07:13→17:29)
[2022-09-05 09:33] VITALS: TEMP 36.4; O2SAT 96
[2022-09-05] MEDS: LACTOBACILLUS ACIDOPHILUS 1 TABLET 1 TAB PO ×2 (11:45→17:29)
[2022-09-05 15:06] VITALS: TEMP 36.7; O2SAT 95
[2022-09-05] MEDS: POTASSIUM CHLORIDE 10 MEQ CAPSULE ER 20 MEQ PO (17:29)
[2022-09-05 23:00] VITALS: TEMP 36.4; O2SAT 96
[2022-09-06 07:00] VITALS: TEMP 36.6; O2SAT 96
[2022-09-06] MEDS: FUROSEMIDE 20 MG TABLET PO (08:42)
[2022-09-06] MEDS: LOPERAMIDE HCL 2 MG CAPSULE PO ×2 (08:42→17:06)
[2022-09-06] MEDS: MAGNESIUM OXIDE 400 MG TABLET 500 MG PO (08:42)
[2022-09-06] MEDS: METFORMIN ER 500 MG 1000 MG PO ×2 (08:42→17:07)
[2022-09-06] MEDS: predniSONE 5 MG TABLET PO (08:42)
[2022-09-06] MEDS: LACTOBACILLUS ACIDOPHILUS 1 TABLET 1 TAB PO ×2 (11:29→17:07)
[2022-09-06 15:00] VITALS: TEMP 36.6; O2SAT 94
[2022-09-06] MEDS: POTASSIUM CHLORIDE 10 MEQ CAPSULE ER PO (17:07)
[2022-09-06 23:00] VITALS: TEMP 36.4; O2SAT 95
[2022-09-06] MEDS: HYDROCODONE-ACETAMIN 5-325 MG 1 TAB PO (23:12)
[2022-09-07 07:00] VITALS: TEMP 36.2; O2SAT 98
[2022-09-07] MEDS: LOPERAMIDE HCL 2 MG CAPSULE PO ×2 (08:10→16:01)
[2022-09-07] MEDS: predniSONE 5 MG TABLET PO (08:10)
[2022-09-07] MEDS: MAGNESIUM OXIDE 400 MG TABLET 500 MG PO (08:10)
[2022-09-07] MEDS: METFORMIN ER 500 MG 1000 MG PO ×2 (08:10→18:08)
[2022-09-07] MEDS: LACTOBACILLUS ACIDOPHILUS 1 TABLET 1 TAB PO ×2 (11:29→18:08)
[2022-09-07] MEDS: POTASSIUM CHLORIDE 10 MEQ CAPSULE ER 20 MEQ PO (16:52)
[2022-09-07 16:56] VITALS: TEMP 36.4; O2SAT 96
[2022-09-07 23:00] VITALS: TEMP 36.6; O2SAT 94
[2022-09-08] MEDS: HYDROCODONE-ACETAMIN 5-325 MG 1 TAB PO (01:54)
[2022-09-08 07:00] VITALS: TEMP 36.3; O2SAT 95
[2022-09-08] MEDS: MAGNESIUM OXIDE 400 MG TABLET 500 MG PO (08:32)
[2022-09-08] MEDS: predniSONE 5 MG TABLET PO (08:32)
[2022-09-08] MEDS: METFORMIN ER 500 MG 1000 MG PO ×2 (08:32→17:08)
[2022-09-08] MEDS: LOPERAMIDE HCL 2 MG CAPSULE PO ×2 (08:32→16:01)
[2022-09-08] MEDS: LACTOBACILLUS ACIDOPHILUS 1 TABLET 1 TAB PO ×2 (11:38→17:08)
[2022-09-08 15:00] VITALS: TEMP 36.6; O2SAT 97
[2022-09-08] MEDS: POTASSIUM CHLORIDE 10 MEQ CAPSULE ER PO (16:01)
[2022-09-08 23:00] VITALS: TEMP 36.5; O2SAT 96
--- NOTE | 2022-09-08 23:43 | PC.NURSE ---
FOOD: Resident has multiple food items in refrigerator which, per facility policy, should be thrown out. Resident refuses to allow this nurse to discard any of the items at this time.
--- NOTE | 2022-09-09 02:38 | PC.NURSE ---
WEEKLY CHARTING - WEEK 2: Vital signs reviewed - BP values elevated at times. STEWARD/STEWARDESS LOUNGE aware. Temporary and comprehensive care plan reviewed - no change. Requires assist of 2 for bed mobility. 1/4 side rails bilaterally to aid with mobility. Is bed bound per resident choice. Uses assistive device for vertical movement in bed. Requires 2-3 assist with full mechanical lift should resident choose to get out of bed. Low risk for falls per last fall risk assessment. Fall interventions: bed in low position with brakes locked and call light in reach.
[2022-09-09 07:00] VITALS: TEMP 36.5; O2SAT 97
--- NOTE | 2022-09-09 07:35 | PC.NURSE ---
Weekly Charting Week 2 - Mobility: Comprehensive and temporary care plan reviewed. No changes made, nothing added to temporary care plan. Resident is non ambulatory. Is a josé lift with 2 assists if she wants to get out of bed. 2 assists for turning and positioning, prefers to stay on her back.Is bed bound. EZ positioner to move up in bed. No alarms. Bilateral 1/4 side rails up to aid with bed mobility. Vital signs, BP's elevated. DIGITAL EDITOR updated, addressed with resident but refused BP meds. Lately is refusing BP checks. Staff check as she allows. Fall: No falls the past months. Remains a low fall risk according to assessment done on 08/01/22. Fall Interventions: Call light within reach, bed in low position locked.
[2022-09-09] MEDS: FUROSEMIDE 20 MG TABLET PO (08:29)
[2022-09-09] MEDS: METFORMIN ER 500 MG 1000 MG PO ×2 (08:29→17:18)
[2022-09-09] MEDS: predniSONE 5 MG TABLET PO (08:29)
[2022-09-09] MEDS: LOPERAMIDE HCL 2 MG CAPSULE PO ×2 (08:29→16:29)
[2022-09-09] MEDS: MAGNESIUM OXIDE 400 MG TABLET 500 MG PO (08:29)
[2022-09-09] MEDS: LACTOBACILLUS ACIDOPHILUS 1 TABLET 1 TAB PO ×2 (12:05→17:18)
[2022-09-09 15:00] VITALS: TEMP 36.4; O2SAT 94
[2022-09-09] MEDS: POTASSIUM CHLORIDE 10 MEQ CAPSULE ER PO (16:30)
[2022-09-09] MEDS: HYDROCODONE-ACETAMIN 5-325 MG 1 TAB PO (22:54)
[2022-09-09 23:00] VITALS: TEMP 36.5; O2SAT 95
--- NOTE | 2022-09-10 05:50 | PC.NURSE ---
FOOD: Continues with outdated food items in refrigerator. Resident did allow freelance copywriter to discard 2 of the items this shift.
[2022-09-10 07:00] VITALS: TEMP 36.4; O2SAT 96
[2022-09-10] MEDS: LOPERAMIDE HCL 2 MG CAPSULE PO ×2 (07:50→15:21)
[2022-09-10] MEDS: predniSONE 5 MG TABLET PO (07:51)
[2022-09-10] MEDS: MAGNESIUM OXIDE 400 MG TABLET 500 MG PO (07:51)
[2022-09-10] MEDS: METFORMIN ER 500 MG 1000 MG PO ×2 (07:51→17:09)
[2022-09-10] MEDS: LACTOBACILLUS ACIDOPHILUS 1 TABLET 1 TAB PO ×2 (11:02→17:09)
[2022-09-10 15:00] VITALS: BP 147/80; PULSE 96; RESP 18; TEMP 36.6; TEMP 36.7; O2SAT 96
[2022-09-10] MEDS: POTASSIUM CHLORIDE 10 MEQ CAPSULE ER 20 MEQ PO (16:03)
[2022-09-10 23:00] VITALS: TEMP 36.3; O2SAT 92
[2022-09-10] MEDS: HYDROCODONE-ACETAMIN 5-325 MG 1 TAB PO (23:24)
[2022-09-11 07:00] VITALS: TEMP 36.2; O2SAT 98
--- NOTE | 2022-09-11 08:42 | PC.PHA1 ---
PARCEL POST TRUCK DRIVER PHARMACIST'S MEDICATION REVIEW: MEDICATION MONITORING:Patient continues on same medication regimen of no psychotropics. IRREGULARITY OR COMMENTS:No changes since last review, patient taking prn [place] for pain. July labs reviewed, no change in patient's renal function. SUGGESTED COURSE OF ACTION TAKEN:No recommendations for medication regimen.
[2022-09-11] MEDS: MAGNESIUM OXIDE 400 MG TABLET 500 MG PO (08:43)
[2022-09-11] MEDS: LOPERAMIDE HCL 2 MG CAPSULE PO ×2 (08:43→16:17)
[2022-09-11] MEDS: METFORMIN ER 500 MG 1000 MG PO ×2 (08:43→17:01)
[2022-09-11] MEDS: predniSONE 5 MG TABLET PO (08:43)
[2022-09-11] MEDS: FUROSEMIDE 20 MG TABLET PO (08:43)
[2022-09-11] MEDS: LACTOBACILLUS ACIDOPHILUS 1 TABLET 1 TAB PO ×2 (11:45→17:01)
[2022-09-11 15:00] VITALS: TEMP 36.5; O2SAT 96
[2022-09-11] MEDS: POTASSIUM CHLORIDE 10 MEQ CAPSULE ER PO (16:17)
[2022-09-11 23:00] VITALS: TEMP 36.4; O2SAT 95
[2022-09-12] MEDS: predniSONE 5 MG TABLET PO (08:39)
[2022-09-12] MEDS: METFORMIN ER 500 MG 1000 MG PO ×2 (08:39→17:06)
[2022-09-12] MEDS: LOPERAMIDE HCL 2 MG CAPSULE PO ×2 (08:39→15:52)
[2022-09-12] MEDS: MAGNESIUM OXIDE 400 MG TABLET 500 MG PO (08:39)
[2022-09-12 10:11] VITALS: TEMP 36.6; O2SAT 95
[2022-09-12] MEDS: LACTOBACILLUS ACIDOPHILUS 1 TABLET 1 TAB PO ×2 (11:58→17:06)
[2022-09-12 15:00] VITALS: TEMP 36.4; O2SAT 95
[2022-09-12] MEDS: POTASSIUM CHLORIDE 10 MEQ CAPSULE ER 20 MEQ PO (16:35)
[2022-09-12 23:00] VITALS: TEMP 36.3; O2SAT 95
[2022-09-13 07:00] VITALS: TEMP 36.5; O2SAT 95
[2022-09-13] MEDS: LOPERAMIDE HCL 2 MG CAPSULE PO ×2 (08:38→15:55)
[2022-09-13] MEDS: MAGNESIUM OXIDE 400 MG TABLET 500 MG PO (08:38)
[2022-09-13] MEDS: FUROSEMIDE 20 MG TABLET PO (08:38)
[2022-09-13] MEDS: METFORMIN ER 500 MG 1000 MG PO ×2 (08:39→17:17)
[2022-09-13] MEDS: predniSONE 5 MG TABLET PO (08:39)
[2022-09-13] MEDS: LACTOBACILLUS ACIDOPHILUS 1 TABLET 1 TAB PO ×2 (11:19→17:17)
[2022-09-13] MEDS: POTASSIUM CHLORIDE 10 MEQ CAPSULE ER PO (16:04)
[2022-09-13 16:53] VITALS: TEMP 36.6; O2SAT 95
[2022-09-13 23:00] VITALS: TEMP 36.6; O2SAT 95
[2022-09-13] MEDS: HYDROCODONE-ACETAMIN 5-325 MG 1 TAB PO (23:10)
[2022-09-14] MEDS: MAGNESIUM OXIDE 400 MG TABLET 500 MG PO (07:34)
[2022-09-14] MEDS: predniSONE 5 MG TABLET PO (07:34)
[2022-09-14] MEDS: LOPERAMIDE HCL 2 MG CAPSULE PO ×2 (07:34→15:43)
[2022-09-14] MEDS: METFORMIN ER 500 MG 1000 MG PO ×2 (07:34→16:59)
[2022-09-14] MEDS: LACTOBACILLUS ACIDOPHILUS 1 TABLET 1 TAB PO ×2 (11:45→16:59)
[2022-09-14 12:58] VITALS: TEMP 36.4; O2SAT 96
--- NOTE | 2022-09-14 13:03 | PC.NURSE ---
Skin care: Resident have developed stage 1 pressure at a few places on her coccyx .Intervention added to apply SensiCare cream and monitor. Noted in the N/P book for review
[2022-09-14 14:48] VITALS: TEMP 36.3; O2SAT 94
[2022-09-14] MEDS: HYDROCODONE-ACETAMIN 5-325 MG 1 TAB PO (15:43)
[2022-09-14] MEDS: POTASSIUM CHLORIDE 10 MEQ CAPSULE ER 20 MEQ PO (16:25)
--- NOTE | 2022-09-14 21:31 | PC.NURSE ---
Pain management: Resident c/o pain at 1535 and PRN Hydroco/APAP was given at 1545 with good results
[2022-09-14 23:44] VITALS: TEMP 36.7; O2SAT 95
[2022-09-15] MEDS: LOPERAMIDE HCL 2 MG CAPSULE PO ×2 (07:40→15:46)
[2022-09-15] MEDS: predniSONE 5 MG TABLET PO (07:40)
[2022-09-15] MEDS: MAGNESIUM OXIDE 400 MG TABLET 500 MG PO (07:40)
[2022-09-15] MEDS: METFORMIN ER 500 MG 1000 MG PO ×2 (07:40→17:04)
[2022-09-15 10:40] VITALS: TEMP 36.4; O2SAT 95
[2022-09-15] MEDS: LACTOBACILLUS ACIDOPHILUS 1 TABLET 1 TAB PO ×2 (11:33→17:04)
[2022-09-15 17:01] VITALS: TEMP 36.4; O2SAT 95
[2022-09-15] MEDS: POTASSIUM CHLORIDE 10 MEQ CAPSULE ER PO (17:04)
[2022-09-15 23:42] VITALS: TEMP 36.8; O2SAT 95
--- NOTE | 2022-09-16 03:19 | PC.NURSE ---
WEEKLY CHARTING WEEK 3 Vital signs reviewed. Elevated BP noted. RAIL DETECTOR CAR OPERATOR aware. continue to monitor weekly. Temporary care plan and Comprehensive care plan reviewed. No changes made. Skin: Scratch to Left forehead and chest. Has intermittent redness on abdominal fold, PRN nystatin cream applied. Stage 1 pressure ulcer on coccyx area, SensiCare applied every incontinent pad changed. Toileting: Incontinent of bladder, occasional incontinent of bowel. Able to use call light to use bed armenta at [facility]. Extensive assist of 2 staff to put on/off bedpan. Pooja cares, incontinent pad and clothing manage by staff.
[2022-09-16 07:00] VITALS: TEMP 36.6; O2SAT 95
[2022-09-16] MEDS: LOPERAMIDE HCL 2 MG CAPSULE PO ×2 (07:45→15:52)
[2022-09-16] MEDS: FUROSEMIDE 20 MG TABLET PO (07:45)
[2022-09-16] MEDS: METFORMIN ER 500 MG 1000 MG PO ×2 (07:46→17:25)
[2022-09-16] MEDS: predniSONE 5 MG TABLET PO (07:46)
[2022-09-16] MEDS: MAGNESIUM OXIDE 400 MG TABLET 500 MG PO (07:46)
--- NOTE | 2022-09-16 08:59 | PC.NURSE ---
Care planning done on residents non compliance with throwing old food out of refrigerator, related to denial of risk factors, as evidenced by refusing to have old food thrown out. See care plan for goals and interventions.
--- NOTE | 2022-09-16 09:01 | PC.NURSE ---
Daughter Cristy updated on refusal of food being thrown out via email.
[2022-09-16] MEDS: NYSTATIN POWDER 1 APPLIC TOPICAL (10:36)
--- NOTE | 2022-09-16 10:39 | PC.NURSE ---
Skin/wound note: Stage I pressure area previously noted to coccyx measures approximately 2 cm x 0.8 cm in size when measured today. Note previously placed in MARKETING REGIONAL CONSULTANT binder to provide update for provider. Staff applied Sensicare cream after cleansing and patting dry. Staff also noted two small open slits under left abdominal fold measuring approximately 0.5 cm x 0.2 cm each. Areas cleansed and patted dry before applying Duoderm paste. Resident frequently has ongoing open skin observed to this area. Nystatin powder applied under abdominal fold bilaterally due to pink skin observed with jeri cares. Absence Management Consultant updated Skin care intervention to treat open slits under L abd fold BID until healed. No s/sx of infection currently observed.
[2022-09-16] MEDS: LACTOBACILLUS ACIDOPHILUS 1 TABLET 1 TAB PO ×2 (11:14→17:25)
--- NOTE | 2022-09-16 11:14 | PC.NURSE ---
Resident originally had bilateral MARGARET stockings on this morning though requested they be removed before lunch.
[2022-09-16 15:00] VITALS: TEMP 36.5; O2SAT 97
[2022-09-16] MEDS: POTASSIUM CHLORIDE 10 MEQ CAPSULE ER PO (16:46)
--- NOTE | 2022-09-16 17:21 | PC.NURSE ---
Weekly Charting - Week 3: Care Plan, and vital signs reviewed. No changes made or nothing added to care plan at this time. Skin: Has skin integrity issues including slit to left abdominal fold - Duoderm paste and Interdry applied; redness to groins - nystatin applied, and among others. SensiCare application to buttocks during every brief change. Toileting: Resident is incontinent of bladder. bowel. 2 assist with toileting, jeri-care, and bed armenta use. Requires to be toilet after meals, and per request. Wears XXL green, Quilted Adult, Brief which is managed by staff.
[2022-09-16 23:00] VITALS: TEMP 36.5; O2SAT 95
[2022-09-16 23:25] VITALS: TEMP 36.5
[2022-09-16] MEDS: HYDROCODONE-ACETAMIN 5-325 MG 1 TAB PO (23:25)
[2022-09-17 01:10] VITALS: TEMP 36.4
[2022-09-17 07:00] VITALS: TEMP 36.5; O2SAT 95
[2022-09-17] MEDS: METFORMIN ER 500 MG 1000 MG PO ×2 (08:45→19:27)
[2022-09-17] MEDS: MAGNESIUM OXIDE 400 MG TABLET 500 MG PO (08:45)
[2022-09-17] MEDS: predniSONE 5 MG TABLET PO (08:45)
[2022-09-17] MEDS: LOPERAMIDE HCL 2 MG CAPSULE PO ×2 (08:45→16:31)
--- NOTE | 2022-09-17 10:40 | PC.NURSE ---
Resident has noted scab to left forehead. Approximately 0.5cm x 0.7cm. Resident stated she has been picking the area. CORPORATE BANKING OFFICER observed area. No s/s infection. Left open to air at this time and advised resident to ask for lotion if area is feeling itchy/bother some to her.
--- NOTE | 2022-09-17 11:33 | PC.NURSE ---
Seen by N/P Yudy: New order Pneumatic compression sleeves -Place to BLE ON in AM and OFF @ HS for BLE edema per patient and family request. Please weigh patient in AM on the 09/18 .
[2022-09-17] MEDS: LACTOBACILLUS ACIDOPHILUS 1 TABLET 1 TAB PO ×2 (11:49→19:27)
--- NOTE | 2022-09-17 12:34 | PC.NURSE ---
GLOBAL MARKETING MANAGER and field underwriter assessed areas of concern on buttock. There is one area on the buttock that shows superficial skin breakdown that GLOBAL MARKETING MANAGER states is due to friction and not pressure related. Treatment is to continue with protective barrier cream with incontinent episodes, cares and prn. Staff to update GLOBAL MARKETING MANAGER if becomes worse.
[2022-09-17] MEDS: POTASSIUM CHLORIDE 10 MEQ CAPSULE ER 20 MEQ PO (16:31)
[2022-09-17 16:48] VITALS: TEMP 36.4; O2SAT 93
[2022-09-17 21:23] VITALS: BP 163/81; PULSE 89; RESP 18; TEMP 36.4; O2SAT 93
[2022-09-17 23:00] VITALS: TEMP 36.7; O2SAT 95
[2022-09-18 07:00] VITALS: TEMP 36.7; O2SAT 94
[2022-09-18] MEDS: METFORMIN ER 500 MG 1000 MG PO ×2 (07:32→17:10)
[2022-09-18] MEDS: predniSONE 5 MG TABLET PO (07:32)
[2022-09-18] MEDS: LOPERAMIDE HCL 2 MG CAPSULE PO ×2 (07:32→15:38)
[2022-09-18] MEDS: FUROSEMIDE 20 MG TABLET PO (07:32)
[2022-09-18] MEDS: MAGNESIUM OXIDE 400 MG TABLET 500 MG PO (07:32)
[2022-09-18 08:00] VITALS: BMI 40.3
--- NOTE | 2022-09-18 09:46 | PC.NURSE ---
Resident's personal supply of compression stockings being used for bilateral lower extremities until pumps arrive as BERYL is working on ordering these for resident.
[2022-09-18] MEDS: LACTOBACILLUS ACIDOPHILUS 1 TABLET 1 TAB PO ×2 (11:00→17:10)
--- NOTE | 2022-09-18 15:00 | PC.NURSE ---
SCD pump arrived with two leg sleeves from central supply. Resident refused to have them placed today. Did say she will have them placed tomorrow morning.
[2022-09-18] MEDS: POTASSIUM CHLORIDE 10 MEQ CAPSULE ER PO (16:16)
[2022-09-18] MEDS: HYDROCODONE-ACETAMIN 5-325 MG 1 TAB PO (22:41)
[2022-09-19] MEDS: METFORMIN ER 500 MG 1000 MG PO ×2 (07:52→17:07)
[2022-09-19] MEDS: MAGNESIUM OXIDE 400 MG TABLET 500 MG PO (07:52)
[2022-09-19] MEDS: LOPERAMIDE HCL 2 MG CAPSULE PO ×2 (07:52→16:58)
[2022-09-19] MEDS: predniSONE 5 MG TABLET PO (07:53)
[2022-09-19] MEDS: LACTOBACILLUS ACIDOPHILUS 1 TABLET 1 TAB PO ×2 (12:10→17:07)
[2022-09-19] MEDS: POTASSIUM CHLORIDE 10 MEQ CAPSULE ER 20 MEQ PO (16:58)
[2022-09-20] MEDS: MAGNESIUM OXIDE 400 MG TABLET 500 MG PO (08:33)
[2022-09-20] MEDS: predniSONE 5 MG TABLET PO (08:33)
[2022-09-20] MEDS: LOPERAMIDE HCL 2 MG CAPSULE PO ×2 (08:33→16:43)
[2022-09-20] MEDS: METFORMIN ER 500 MG 1000 MG PO ×2 (08:33→17:24)
[2022-09-20] MEDS: FUROSEMIDE 20 MG TABLET PO (08:33)
[2022-09-20] MEDS: LACTOBACILLUS ACIDOPHILUS 1 TABLET 1 TAB PO ×2 (11:47→17:24)
[2022-09-20] MEDS: POTASSIUM CHLORIDE 10 MEQ CAPSULE ER PO (16:43)
[2022-09-20] MEDS: HYDROCODONE-ACETAMIN 5-325 MG 1 TAB PO (22:42)
--- NOTE | 2022-09-21 05:46 | PC.NURSE ---
FOOD: Continues with outdated food in refrigerator. Refuses to allow advertising copywriter to discard. Risks reviewed with resident.
[2022-09-21] MEDS: MAGNESIUM OXIDE 400 MG TABLET 500 MG PO (08:15)
[2022-09-21] MEDS: predniSONE 5 MG TABLET PO (08:15)
[2022-09-21] MEDS: METFORMIN ER 500 MG 1000 MG PO ×2 (08:15→17:09)
[2022-09-21] MEDS: LOPERAMIDE HCL 2 MG CAPSULE PO ×2 (08:15→15:53)
[2022-09-21] MEDS: LACTOBACILLUS ACIDOPHILUS 1 TABLET 1 TAB PO ×2 (12:06→17:09)
[2022-09-21] MEDS: POTASSIUM CHLORIDE 10 MEQ CAPSULE ER 20 MEQ PO (17:09)
[2022-09-22] MEDS: HYDROCODONE-ACETAMIN 5-325 MG 1 TAB PO (00:47)
[2022-09-22] MEDS: LOPERAMIDE HCL 2 MG CAPSULE PO ×2 (08:34→16:39)
[2022-09-22] MEDS: MAGNESIUM OXIDE 400 MG TABLET 500 MG PO (08:35)
[2022-09-22] MEDS: METFORMIN ER 500 MG 1000 MG PO ×2 (08:35→17:25)
[2022-09-22] MEDS: predniSONE 5 MG TABLET PO (08:35)
[2022-09-22] MEDS: LACTOBACILLUS ACIDOPHILUS 1 TABLET 1 TAB PO ×2 (11:38→17:25)
[2022-09-22] MEDS: POTASSIUM CHLORIDE 10 MEQ CAPSULE ER PO (16:40)
--- NOTE | 2022-09-23 01:50 | PC.NURSE ---
WEEKLY CHARTING - WEEK 4: Vital signs reviewed - elevated BP values noted. MEAT PRESS OPERATOR aware - continue to monitor. Will often refuse BP. Temporary and comprehensive care plan reviewed. Pneumatic compression devices added to temporary care plan. No documented behaviors in the last month. Often refuses cares. No psychotropic medications. Able to communicate needs. Moderate hearing impairment. Has amplifier. Wears glasses for reading. Cognitively intact. May self administer medications after nursing set-up. Health condition stable at this time.
--- NOTE | 2022-09-23 05:27 | PC.NURSE ---
FOOD: Resident continues with outdated leftovers in refrigerator. Refuses to allow staff to discard. Lacquer Maker reinforced risks.
[2022-09-23] MEDS: FUROSEMIDE 20 MG TABLET PO (07:40)
[2022-09-23] MEDS: MAGNESIUM OXIDE 400 MG TABLET 500 MG PO (07:41)
[2022-09-23] MEDS: METFORMIN ER 500 MG 1000 MG PO ×2 (07:41→17:05)
[2022-09-23] MEDS: predniSONE 5 MG TABLET PO (07:41)
[2022-09-23] MEDS: LOPERAMIDE HCL 2 MG CAPSULE PO ×2 (07:41→16:06)
[2022-09-23] MEDS: NYSTATIN POWDER 1 APPLIC TOPICAL ×2 (08:15→17:00)
--- NOTE | 2022-09-23 09:36 | PC.NURSE ---
Skin note: Redness observed under bilateral abdominal folds this morning. Telecommunications Field Technician applied Nystatin Powder after area had been cleansed and patted dry. This treatment has been set up to be performed BID until healed. No open areas observed under abdominal folds with morning cares.
--- NOTE | 2022-09-23 10:29 | PC.NURSE ---
Weekly Charting - Week 4: Comprehensive and temporary care plan reviewed. No changes and and nothing added to temporary care plan. No changes noted in communication, hearing, vision, or orientation. She does communicate her needs and use the call light. Cognition intact. Has hearing difficulty, uses an? amplifier to aid with communication. Hearing impairment is already addressed. Chronic health condition stable. Nurse set up medications. Has elevated BP's noted by SOLE LEVELER MACHINE. Resident refused to take BP medications. Often refuse BP checks. Continue Weekly monitoring. Mood/Behavior: Resident has episodes of refusing cares/bath in the morning. Bath day is changed to evening and resident agreed. Is on no psychotropic medication.
[2022-09-23] MEDS: LACTOBACILLUS ACIDOPHILUS 1 TABLET 1 TAB PO ×2 (11:02→17:05)
[2022-09-23] MEDS: POTASSIUM CHLORIDE 10 MEQ CAPSULE ER PO (16:06)
--- NOTE | 2022-09-24 05:46 | PC.NURSE ---
FOOD: Continues with outdated leftover food in refrigerator. Refuses to allow staff to discard. Risks reviewed again.
[2022-09-24] MEDS: METFORMIN ER 500 MG 1000 MG PO ×2 (07:36→17:25)
[2022-09-24] MEDS: LOPERAMIDE HCL 2 MG CAPSULE PO ×2 (07:36→16:40)
[2022-09-24] MEDS: MAGNESIUM OXIDE 400 MG TABLET 500 MG PO (07:36)
[2022-09-24] MEDS: predniSONE 5 MG TABLET PO (07:37)
--- NOTE | 2022-09-24 08:28 | PC.NURSE ---
Last tab of Zinc used this morning. Resident's family supplies this medication. Nurse working on 09/22/22 informed daughter that resident needs further supply of this medication brought in. Daughter was informed when she was here visiting resident.
--- NOTE | 2022-09-24 10:49 | PC.NURSE ---
Order: Loperamide 2mg QID PRN discontinued for non usage since ordered on 06/24.
[2022-09-24] MEDS: LACTOBACILLUS ACIDOPHILUS 1 TABLET 1 TAB PO ×2 (11:15→17:25)
--- NOTE | 2022-09-24 12:40 | PC.NURSE ---
Behavior note: Resident is refusing for this repairer typewriter to look at her bottom and put protective cream on despite education and encouragement. Rollway Worker educated resident regarding importance of repositioning as she has had skin breakdown noted though resident continues to refuse saying, I only had skin breakdown because I was on the bed armenta. Resident is also refusing for repairer typewriter to apply Nystatin powder under bilateral abdominal folds as redness was noted yesterday. terrestrial ecologist updated.
[2022-09-24] MEDS: NYSTATIN POWDER 1 APPLIC TOPICAL (13:42)
--- NOTE | 2022-09-24 13:43 | PC.NURSE ---
Resident did allow mortgage underwriter to administer Nystatin powder under bilateral abdominal folds at this time in order to treat current redness to folds. She also allowed mortgage underwriter to apply Sensicare cream to bottom at this time after requesting to use bedpan. Resident stated, I only refused earlier because I was watching my show. Staff attempt to be accommodating to resident's schedule though she will often refuse cares when approached by staff.
[2022-09-24 15:00] VITALS: BP 156/83; PULSE 79; RESP 18; TEMP 36.5; O2SAT 96; BMI 40.5
[2022-09-24] MEDS: HYDROCODONE-ACETAMIN 5-325 MG 1 TAB PO (15:28)
[2022-09-24] MEDS: POTASSIUM CHLORIDE 10 MEQ CAPSULE ER 20 MEQ PO (16:48)
[2022-09-25] MEDS: HYDROCODONE-ACETAMIN 5-325 MG 1 TAB PO (01:18)
[2022-09-25] MEDS: LOPERAMIDE HCL 2 MG CAPSULE PO ×2 (08:03→15:02)
[2022-09-25] MEDS: MAGNESIUM OXIDE 400 MG TABLET 500 MG PO (08:03)
[2022-09-25] MEDS: predniSONE 5 MG TABLET PO (08:03)
[2022-09-25] MEDS: METFORMIN ER 500 MG 1000 MG PO ×2 (08:03→17:05)
[2022-09-25] MEDS: FUROSEMIDE 20 MG TABLET PO (08:03)
[2022-09-25] MEDS: LACTOBACILLUS ACIDOPHILUS 1 TABLET 1 TAB PO ×2 (11:54→17:05)
[2022-09-25] MEDS: POTASSIUM CHLORIDE 10 MEQ CAPSULE ER PO (16:33)
[2022-09-26] MEDS: predniSONE 5 MG TABLET PO (07:54)
[2022-09-26] MEDS: LOPERAMIDE HCL 2 MG CAPSULE PO ×2 (07:54→16:14)
[2022-09-26] MEDS: MAGNESIUM OXIDE 400 MG TABLET 500 MG PO (07:54)
[2022-09-26] MEDS: METFORMIN ER 500 MG 1000 MG PO ×2 (07:54→19:01)
[2022-09-26] MEDS: LACTOBACILLUS ACIDOPHILUS 1 TABLET 1 TAB PO ×2 (12:04→19:01)
[2022-09-26] MEDS: POTASSIUM CHLORIDE 10 MEQ CAPSULE ER 20 MEQ PO (16:14)
[2022-09-27] MEDS: METFORMIN ER 500 MG 1000 MG PO ×2 (07:22→18:22)
[2022-09-27] MEDS: FUROSEMIDE 20 MG TABLET PO (07:22)
[2022-09-27] MEDS: MAGNESIUM OXIDE 400 MG TABLET 500 MG PO (07:22)
[2022-09-27] MEDS: LOPERAMIDE HCL 2 MG CAPSULE PO ×2 (07:22→18:22)
[2022-09-27] MEDS: predniSONE 5 MG TABLET PO (07:22)
[2022-09-27] MEDS: LACTOBACILLUS ACIDOPHILUS 1 TABLET 1 TAB PO ×2 (11:22→18:22)
--- NOTE | 2022-09-27 12:54 | PC.NURSE ---
Zinc supplement: Resident informed that it will be available when her daughter bring it this coming Friday.
[2022-09-27] MEDS: POTASSIUM CHLORIDE 10 MEQ CAPSULE ER PO (18:22)
--- NOTE | 2022-09-27 21:20 | PC.NURSE ---
Resident had MARGARET stockings on under SCD's. Resident requested removal of SCD's at evening meal with intent to put them back on in AM. Refused removal of MARGARET's at HS.
[2022-09-28] MEDS: METFORMIN ER 500 MG 1000 MG PO ×2 (07:33→17:27)
[2022-09-28] MEDS: predniSONE 5 MG TABLET PO (07:33)
[2022-09-28] MEDS: MAGNESIUM OXIDE 400 MG TABLET 500 MG PO (07:33)
[2022-09-28] MEDS: LOPERAMIDE HCL 2 MG CAPSULE PO ×2 (07:33→17:27)
--- NOTE | 2022-09-28 11:06 | PC.NURSE ---
Addendum entered by Janna Mckeon RN 09/28/22 14:24: Mail send to Lizzie regarding resident decision and awaiting reply. Original Note: Vaso Gaurd Thigh Sequential Garment: Resident refused to put ON the Sequential garment if she has to removed her own compression socks. Staff allowed to have her own compression socks under the sequent garment.
[2022-09-28] MEDS: LACTOBACILLUS ACIDOPHILUS 1 TABLET 1 TAB PO ×2 (11:32→17:27)
--- NOTE | 2022-09-28 15:56 | PC.NURSE ---
Route Sales Trainee f/u with resident regarding simultaneous use of compression stockings and SCDs. Explained that, per SPEECH THERAPIST on 09/27, she should be using either or, not both simultaneously. Resident expressed frustration. This was my choice to get these, not any doctor or nurse, I know what I need and I'm tired of being bothered. Education given regarding over use of compression aids and also resident rights. Feelings validated. Resident calmed and explained she prefers the stockings as they compress her feet and without them my feet swell terribly. Declined to attempt SCDs alone. Stated If you are going to make me choose I am choosing the stockings. Further explained her rights to her own healthcare decisions and more education provided. Resident verbalized intent to only use stockings for duration of the weekend and to f/u with SPEECH THERAPIST on Friday regarding options.
[2022-09-28] MEDS: POTASSIUM CHLORIDE 10 MEQ CAPSULE ER 20 MEQ PO (17:27)
[2022-09-28] MEDS: HYDROCODONE-ACETAMIN 5-325 MG 1 TAB PO (21:55)
[2022-09-29] MEDS: LOPERAMIDE HCL 2 MG CAPSULE PO ×2 (07:43→16:56)
[2022-09-29] MEDS: METFORMIN ER 500 MG 1000 MG PO ×2 (07:44→17:03)
[2022-09-29] MEDS: MAGNESIUM OXIDE 400 MG TABLET 500 MG PO (07:44)
[2022-09-29] MEDS: predniSONE 5 MG TABLET PO (07:44)
--- NOTE | 2022-09-29 10:18 | PC.NURSE ---
Refused Pneumatic wrap ( SCDs) : Resident refused to wear pneumatic wrap without her compression socks. She informed designer/writer that she will only wear it on top of her compression socks. Noted in the N/P book.
[2022-09-29] MEDS: LACTOBACILLUS ACIDOPHILUS 1 TABLET 1 TAB PO ×2 (11:28→17:03)
--- NOTE | 2022-09-29 13:28 | PC.NURSE ---
No zinc Supply: Family members came to visit resident however her daughter couldn't come and we still do not have zinc supply. Resident informed that she does not mind and will take it when her daughter bring the supply.
[2022-09-29] MEDS: POTASSIUM CHLORIDE 10 MEQ CAPSULE ER PO (17:03)
--- NOTE | 2022-09-30 03:33 | PC.NURSE ---
WEEKLY CHARTING WEEK 1 Vital signs reviewed, noted elevated BP CONTRACT SERVICEMAN aware, Continue to check x1 week. Comprehensive care plan and comprehensive care plan reviewed with no changes made. Pain: Receives PRN [place] 5-325 mg and Acetaminophen 1000 mg Q6H. Noted used of PRN foe shoulder pain and legs pain. ADLs. Requires 1- 2 assist of bathing, dressing, 1 asst of grooming, Dentures clean by staff. Res ate mostly outside food that she ordered. On regular diet and regular liquids. No swallowing issue. Ate independently after set up.
[2022-09-30] MEDS: LOPERAMIDE HCL 2 MG CAPSULE PO ×2 (07:24→16:21)
[2022-09-30] MEDS: METFORMIN ER 500 MG 1000 MG PO ×2 (07:24→17:43)
[2022-09-30] MEDS: predniSONE 5 MG TABLET PO (07:24)
[2022-09-30] MEDS: MAGNESIUM OXIDE 400 MG TABLET 500 MG PO (07:24)
[2022-09-30] MEDS: FUROSEMIDE 20 MG TABLET PO (07:24)
[2022-09-30] MEDS: NYSTATIN POWDER 1 APPLIC TOPICAL (10:13)
--- NOTE | 2022-09-30 10:23 | PC.NURSE ---
WEEKLY CHARTING - WEEK 1 : Pain & ADL`s Vital signs reviewed, noted elevated systolic BP. BALANCER aware, Continue to check x1 week. Comprehensive care plan and comprehensive care plan reviewed with no changes made. Resident receives PRN [place] 5-325 mg and Acetaminophen 1000 mg Q6H for pain management .She was given 14 PRN doses of Narco for last month which she request for chronic shoulder and leg pain.ADLs. Requires 2 assist in changing diapers,transfer and positioning. Resident usually have bed bath and spend most of time in her room. Resident on regular diet and eats mostly outside food and snack which her family bring for her. No swallowing issue, appetite good and eat independently after set up.
--- NOTE | 2022-09-30 11:00 | PC.NURSE ---
Spoke to resident about her family bringing her Zinc in for supply. Resident has not received her Zinc for multiple days because of her family not bringing in supply. Residents states that her son will be brining it this coming weekend and that she does not want it ordered from [facility] at this time. Advised that she is not receiving medication per doctors orders and education of importance of following MD order is recommended. Resident stated it was my idea to start it and I will wait for it to come this weekend. No further discussion at this time.
[2022-09-30] MEDS: LACTOBACILLUS ACIDOPHILUS 1 TABLET 1 TAB PO ×2 (11:10→17:43)
--- NOTE | 2022-09-30 13:00 | PC.NURSE ---
Per Larissa Jimenes PUBLIC HEALTH MICROBIOLOGIST: Resident is not to wear teds and compression pumps together at the same time. If resident chooses she can alternate between wearing the teds or the compression pumps. Resident is in agreement at this time. Interventions updated.
[2022-09-30] MEDS: POTASSIUM CHLORIDE 10 MEQ CAPSULE ER PO (16:29)
[2022-10-01] MEDS: MAGNESIUM OXIDE 400 MG TABLET 500 MG PO (08:16)
[2022-10-01] MEDS: LOPERAMIDE HCL 2 MG CAPSULE PO ×2 (08:16→16:42)
[2022-10-01] MEDS: METFORMIN ER 500 MG 1000 MG PO ×2 (08:16→17:06)
[2022-10-01] MEDS: predniSONE 5 MG TABLET PO (08:16)
[2022-10-01] MEDS: LACTOBACILLUS ACIDOPHILUS 1 TABLET 1 TAB PO ×2 (11:36→17:06)
[2022-10-01 15:00] VITALS: BP 172/92; PULSE 72; RESP 18; TEMP 36.2; O2SAT 96
[2022-10-01] MEDS: POTASSIUM CHLORIDE 10 MEQ CAPSULE ER 20 MEQ PO (16:42)
--- NOTE | 2022-10-02 05:39 | PC.NURSE ---
FOOD: Resident has multiple leftover food items in refrigerator which should be discarded per policy. Resident declines.
[2022-10-02] MEDS: MAGNESIUM OXIDE 400 MG TABLET 500 MG PO (07:37)
[2022-10-02] MEDS: FUROSEMIDE 20 MG TABLET PO (07:37)
[2022-10-02] MEDS: LOPERAMIDE HCL 2 MG CAPSULE PO ×2 (07:37→16:14)
[2022-10-02] MEDS: predniSONE 5 MG TABLET PO (07:38)
[2022-10-02] MEDS: METFORMIN ER 500 MG 1000 MG PO ×2 (07:38→17:18)
--- NOTE | 2022-10-02 07:47 | PC.NURSE ---
Resident's currently supply of Zinc brought in by family noted to be 30 mg tablets. Current order in place reads 50 mg Zinc daily. facility administrator updated. Nursing has requested ART PSYCHOTHERAPIST change order to match current supply of 30 mg Zinc. 30 mg administered today due to no supply of 50 mg tablets.
--- NOTE | 2022-10-02 08:23 | PC.SPIRITC ---
Late entry from 10/01/2022: Maki talked about how nice it was to see all three of her kids this weekend and hear that they are doing well. I provided visit for support and connection.
--- NOTE | 2022-10-02 09:11 | PC.NURSE ---
Resident refused Covid-19 bivalent vaccine. I met with resident and offered her [facility] resources; Stay up to Date with Covid-19 Vaccines, Benefits of Getting a Covid-19 vaccine; How mRNA Covid-19 Vaccines work, Covid-19 vaccines for Long-term Care Residents and How to get your Covid-19 vaccine. Resident stated understanding of material and a copy was left for further reading. She states refusal at this time and will let us know if she changes her mind.
[2022-10-02] MEDS: LACTOBACILLUS ACIDOPHILUS 1 TABLET 1 TAB PO ×2 (11:06→17:18)
[2022-10-02] MEDS: POTASSIUM CHLORIDE 10 MEQ CAPSULE ER PO (16:34)
[2022-10-02] MEDS: HYDROCODONE-ACETAMIN 5-325 MG 1 TAB PO (22:36)
[2022-10-03] MEDS: METFORMIN ER 500 MG 1000 MG PO ×2 (07:28→19:08)
[2022-10-03] MEDS: LOPERAMIDE HCL 2 MG CAPSULE PO ×2 (07:28→16:39)
[2022-10-03] MEDS: MAGNESIUM OXIDE 400 MG TABLET 500 MG PO (07:28)
[2022-10-03] MEDS: predniSONE 5 MG TABLET PO (07:29)
--- NOTE | 2022-10-03 09:38 | PC.NURSE ---
Refused SCD: Refused refused to wear SCD and request to wear her own compression socks today.
--- NOTE | 2022-10-03 10:59 | PC.NURSE ---
Order: Vit D3 25mcg PO 3XW by PUNCH OPERATOREpius per resident request.
[2022-10-03] MEDS: LACTOBACILLUS ACIDOPHILUS 1 TABLET 1 TAB PO ×2 (11:24→19:08)
--- NOTE | 2022-10-03 14:12 | PC.SOCIAL ---
Phone call to resident's daughter, Cristy Basilio, to verify that she received the care conference notice for November 05, 2022 at 1:15 pm. Cristy confirms that she has the notice and will attend.
--- NOTE | 2022-10-03 14:15 | PC.NURSE ---
Skin tear. Resident has new slit measuring 8cm long on her left abdomen folds. To clean, put duoderm and cover with inter dry till heal.
[2022-10-03] MEDS: POTASSIUM CHLORIDE 10 MEQ CAPSULE ER 20 MEQ PO (16:39)
[2022-10-03] MEDS: HYDROCODONE-ACETAMIN 5-325 MG 1 TAB PO (21:59)
[2022-10-04] MEDS: LOPERAMIDE HCL 2 MG CAPSULE PO ×2 (07:52→16:35)
[2022-10-04] MEDS: FUROSEMIDE 20 MG TABLET PO (07:52)
[2022-10-04] MEDS: predniSONE 5 MG TABLET PO (07:52)
[2022-10-04] MEDS: MAGNESIUM OXIDE 400 MG TABLET 500 MG PO (07:52)
[2022-10-04] MEDS: METFORMIN ER 500 MG 1000 MG PO ×2 (07:52→17:24)
[2022-10-04] MEDS: LACTOBACILLUS ACIDOPHILUS 1 TABLET 1 TAB PO ×2 (12:07→17:24)
[2022-10-04] MEDS: POTASSIUM CHLORIDE 10 MEQ CAPSULE ER PO (16:35)
[2022-10-05] MEDS: LOPERAMIDE HCL 2 MG CAPSULE PO ×2 (07:12→16:51)
[2022-10-05] MEDS: MAGNESIUM OXIDE 400 MG TABLET 500 MG PO (07:12)
[2022-10-05] MEDS: METFORMIN ER 500 MG 1000 MG PO ×2 (07:12→17:02)
[2022-10-05] MEDS: predniSONE 5 MG TABLET PO (07:13)
[2022-10-05] MEDS: LACTOBACILLUS ACIDOPHILUS 1 TABLET 1 TAB PO ×2 (11:50→17:02)
[2022-10-05] MEDS: POTASSIUM CHLORIDE 10 MEQ CAPSULE ER 20 MEQ PO (16:51)
[2022-10-05] MEDS: HYDROCODONE-ACETAMIN 5-325 MG 1 TAB PO ×2 (16:54→23:28)
[2022-10-06] MEDS: LOPERAMIDE HCL 2 MG CAPSULE PO ×2 (07:03→15:43)
[2022-10-06] MEDS: MAGNESIUM OXIDE 400 MG TABLET 500 MG PO (07:03)
[2022-10-06] MEDS: METFORMIN ER 500 MG 1000 MG PO ×2 (07:03→17:16)
[2022-10-06] MEDS: predniSONE 5 MG TABLET PO (07:03)
[2022-10-06] MEDS: LACTOBACILLUS ACIDOPHILUS 1 TABLET 1 TAB PO ×2 (11:59→17:16)
[2022-10-06] MEDS: POTASSIUM CHLORIDE 10 MEQ CAPSULE ER PO (17:16)
--- NOTE | 2022-10-07 02:44 | PC.NURSE ---
WEEKLY CHARTING - WEEK 2: Vital signs reviewed - BP values consistently elevated. EDUCATION DEPARTMENT CHAIR aware. Temporary and comprehensive care plan reviewed - no change. Requires assist of 2 for bed mobility. Bilateral 1/4 side rails up at all times to aid with mobility. Bed bound per resident choice. Uses assistive device for vertical movement in bed. Should resident choose to get out of bed, requires 2-3 assist with full mechanical lift for transfers. Low risk for falls per latest fall risk assessment. Fall interventions: bed in low position with brakes locked and call light in reach.
[2022-10-07] MEDS: MAGNESIUM OXIDE 400 MG TABLET 500 MG PO (07:34)
[2022-10-07] MEDS: LOPERAMIDE HCL 2 MG CAPSULE PO ×2 (07:34→15:53)
[2022-10-07] MEDS: FUROSEMIDE 20 MG TABLET PO (07:34)
[2022-10-07] MEDS: predniSONE 5 MG TABLET PO (07:34)
[2022-10-07] MEDS: METFORMIN ER 500 MG 1000 MG PO ×2 (07:34→17:12)
--- NOTE | 2022-10-07 09:14 | PC.NURSE ---
Weekly Charting, Week 2 - Mobility: Comprehensive and temporary care plan reviewed. No changes made, nothing added to temporary care plan. Resident is non ambulatory. Is a mechanical lift with 2 assists for all transfers. 2 assists for turning and positioning, prefers to stay on her back. Is bed bound. EZ positioner to move up in bed. No alarms. Bilateral 1/4 side rails up to aid with bed mobility. Vital signs reviewed, BP's consistently elevated. Noted by FRONT DESK MONITOR, resident refused BP medications. Staff check as she allows. Fall: No falls the past months. Remains a low fall risk according to assessment done on 08/01/22. Fall Interventions: Call light within reach, bed in low position locked.
[2022-10-07] MEDS: LACTOBACILLUS ACIDOPHILUS 1 TABLET 1 TAB PO ×2 (11:00→17:12)
[2022-10-07] MEDS: POTASSIUM CHLORIDE 10 MEQ CAPSULE ER PO (16:31)
[2022-10-07 21:52] VITALS: TEMP 36.6
[2022-10-07] MEDS: HYDROCODONE-ACETAMIN 5-325 MG 1 TAB PO (21:52)
[2022-10-08] MEDS: METFORMIN ER 500 MG 1000 MG PO ×2 (07:14→17:01)
[2022-10-08] MEDS: MAGNESIUM OXIDE 400 MG TABLET 500 MG PO (07:14)
[2022-10-08] MEDS: LOPERAMIDE HCL 2 MG CAPSULE PO ×2 (07:14→15:33)
[2022-10-08] MEDS: predniSONE 5 MG TABLET PO (07:15)
[2022-10-08] MEDS: LACTOBACILLUS ACIDOPHILUS 1 TABLET 1 TAB PO ×2 (11:00→17:01)
[2022-10-08 15:00] VITALS: PULSE 85; RESP 16; TEMP 36.4; O2SAT 98
[2022-10-08] MEDS: POTASSIUM CHLORIDE 10 MEQ CAPSULE ER 20 MEQ PO (16:28)
[2022-10-09] MEDS: MAGNESIUM OXIDE 400 MG TABLET 500 MG PO (08:17)
[2022-10-09] MEDS: FUROSEMIDE 20 MG TABLET PO (08:17)
[2022-10-09] MEDS: METFORMIN ER 500 MG 1000 MG PO ×2 (08:17→17:15)
[2022-10-09] MEDS: LOPERAMIDE HCL 2 MG CAPSULE PO ×2 (08:17→16:31)
[2022-10-09] MEDS: predniSONE 5 MG TABLET PO (08:17)
--- NOTE | 2022-10-09 11:16 | PC.NURSE ---
Bruise: Noted a bruise on the (R) foot . Resident denies pain and does not know as how it happened. Staff will monitor.
[2022-10-09] MEDS: LACTOBACILLUS ACIDOPHILUS 1 TABLET 1 TAB PO ×2 (11:31→17:15)
[2022-10-09] MEDS: POTASSIUM CHLORIDE 10 MEQ CAPSULE ER PO (16:31)
[2022-10-10] MEDS: HYDROCODONE-ACETAMIN 5-325 MG 1 TAB PO (00:25)
[2022-10-10] MEDS: LOPERAMIDE HCL 2 MG CAPSULE PO ×2 (08:42→16:34)
[2022-10-10] MEDS: MAGNESIUM OXIDE 400 MG TABLET 500 MG PO (08:42)
[2022-10-10] MEDS: METFORMIN ER 500 MG 1000 MG PO ×2 (08:42→17:07)
[2022-10-10] MEDS: predniSONE 5 MG TABLET PO (08:42)
[2022-10-10] MEDS: LACTOBACILLUS ACIDOPHILUS 1 TABLET 1 TAB PO ×2 (11:59→17:07)
[2022-10-10] MEDS: POTASSIUM CHLORIDE 10 MEQ CAPSULE ER 20 MEQ PO (16:34)
[2022-10-11] MEDS: HYDROCODONE-ACETAMIN 5-325 MG 1 TAB PO (00:27)
[2022-10-11] MEDS: METFORMIN ER 500 MG 1000 MG PO ×2 (07:37→17:01)
[2022-10-11] MEDS: MAGNESIUM OXIDE 400 MG TABLET 500 MG PO (07:37)
[2022-10-11] MEDS: predniSONE 5 MG TABLET PO (07:37)
[2022-10-11] MEDS: LOPERAMIDE HCL 2 MG CAPSULE PO ×2 (07:37→15:02)
[2022-10-11] MEDS: FUROSEMIDE 20 MG TABLET PO (07:37)
[2022-10-11] MEDS: LACTOBACILLUS ACIDOPHILUS 1 TABLET 1 TAB PO ×2 (11:30→17:01)
[2022-10-11] MEDS: POTASSIUM CHLORIDE 10 MEQ CAPSULE ER PO (16:10)
[2022-10-12] MEDS: HYDROCODONE-ACETAMIN 5-325 MG 1 TAB PO ×2 (03:07→22:42)
[2022-10-12] MEDS: predniSONE 5 MG TABLET PO (07:16)
[2022-10-12] MEDS: LOPERAMIDE HCL 2 MG CAPSULE PO ×2 (07:17→15:08)
[2022-10-12] MEDS: MAGNESIUM OXIDE 400 MG TABLET 500 MG PO (07:17)
[2022-10-12] MEDS: METFORMIN ER 500 MG 1000 MG PO ×2 (07:17→17:01)
--- NOTE | 2022-10-12 10:56 | PC.NURSE ---
Skin Concern: The redness on left lower leg noted to be spreading more .It warm to touch but no pain. Skin is very thin and fragile. Wrap and TEDS was not applied.
[2022-10-12] MEDS: LACTOBACILLUS ACIDOPHILUS 1 TABLET 1 TAB PO ×2 (11:41→17:01)
[2022-10-12] MEDS: POTASSIUM CHLORIDE 10 MEQ CAPSULE ER 20 MEQ PO (16:06)
[2022-10-13] MEDS: MAGNESIUM OXIDE 400 MG TABLET 500 MG PO (07:37)
[2022-10-13] MEDS: METFORMIN ER 500 MG 1000 MG PO ×2 (07:37→17:18)
[2022-10-13] MEDS: LOPERAMIDE HCL 2 MG CAPSULE PO ×2 (07:37→15:11)
[2022-10-13] MEDS: predniSONE 5 MG TABLET PO (07:37)
[2022-10-13] MEDS: LACTOBACILLUS ACIDOPHILUS 1 TABLET 1 TAB PO ×2 (11:26→17:18)
[2022-10-13] MEDS: POTASSIUM CHLORIDE 10 MEQ CAPSULE ER PO (16:22)
--- NOTE | 2022-10-14 02:39 | PC.NURSE ---
WEEKLY CHARTING WEEK 3 Vital signs reviewed. Consistently elevated BP, FOREIGN STUDENT ADVISER aware. Comprehensive and temporary care plan reviewed with no changes made. Has intermittent redness to, abdominal fold, under breast, Nystatin powder applied. Reddened Lower extremities, Slit to left abdominal fold, duo derm and InterDry applied. Bruise on R foot, scab to forehead continues to monitor until healed. Skin check every bath days and during cares. Res is incontinent of bladder. Occasionally incontinent of bowel. Staff 1-2 assist with changing incontinent pads, clothing management and jeri cares.. Resident able to use call light to used bed armenta as needed. Wears XXL briefs.
[2022-10-14] MEDS: LOPERAMIDE HCL 2 MG CAPSULE PO ×2 (07:16→16:09)
[2022-10-14] MEDS: FUROSEMIDE 20 MG TABLET PO (07:16)
[2022-10-14] MEDS: METFORMIN ER 500 MG 1000 MG PO ×2 (07:16→17:44)
[2022-10-14] MEDS: MAGNESIUM OXIDE 400 MG TABLET 500 MG PO (07:16)
[2022-10-14] MEDS: predniSONE 5 MG TABLET PO (07:17)
--- NOTE | 2022-10-14 10:02 | PC.NURSE ---
IMMUNOCHEMIST update: supervisor beet end updated Genevive Triage regarding increased redness noted to anterior/lateral aspect of LLE. Resident continues to deny pain to this area though skin remains reddened and warm to touch. DON also evaluated skin to this area. Resident noted to be afebrile with temp of 97.5. O2 sat 95% on RA, R 18, P 82. Resident refused to have B/P assessed. MARGARET stocking applied to RLE though waiting for clarification from Triage if staff should apply MARGARET stocking to LLE. Awaiting further direction from IMMUNOCHEMIST at this time.
--- NOTE | 2022-10-14 10:13 | PC.NURSE ---
Behavior note: Resident refusing for staff to change her brief after breakfast when approached and encouraged stating, They did that this morning. Hairpiece Stylist also reapproached her to encourage resident to allow staff to apply Nystatin Powder under bilateral abdominal folds though resident is also refusing this task stating, I don't need that anymore. Staff continue to encourage resident to allow staff to change brief and reposition in bed.
[2022-10-14] MEDS: LACTOBACILLUS ACIDOPHILUS 1 TABLET 1 TAB PO ×2 (11:36→17:44)
[2022-10-14] MEDS: POTASSIUM CHLORIDE 10 MEQ CAPSULE ER PO (17:44)
[2022-10-15] MEDS: HYDROCODONE-ACETAMIN 5-325 MG 1 TAB PO (01:01)
[2022-10-15] MEDS: MAGNESIUM OXIDE 400 MG TABLET 500 MG PO (07:44)
[2022-10-15] MEDS: METFORMIN ER 500 MG 1000 MG PO ×2 (07:44→17:41)
[2022-10-15] MEDS: predniSONE 5 MG TABLET PO (07:44)
[2022-10-15] MEDS: LOPERAMIDE HCL 2 MG CAPSULE PO ×2 (07:44→16:26)
--- NOTE | 2022-10-15 11:34 | PC.NURSE ---
Recert Visit: Resident seen by CIRCULAR SAW OPERATORYudy. Orders reviewed and renewed of 75 days with changes. LE's redness viewed.Orders: D/C Furosemide BID PRN, Nystatin cream BID PRN, D/C compression pumps.
[2022-10-15] MEDS: LACTOBACILLUS ACIDOPHILUS 1 TABLET 1 TAB PO ×2 (12:43→17:41)
[2022-10-15 15:00] VITALS: BP 171/81; PULSE 81; RESP 18; TEMP 36.6; O2SAT 95; BMI 39.6
[2022-10-15] MEDS: POTASSIUM CHLORIDE 10 MEQ CAPSULE ER 20 MEQ PO (16:26)
[2022-10-16] MEDS: HYDROCODONE-ACETAMIN 5-325 MG 1 TAB PO (01:01)
[2022-10-16 02:49] VITALS: TEMP 36.4
[2022-10-16] MEDS: METFORMIN ER 500 MG 1000 MG PO ×2 (08:22→17:28)
[2022-10-16] MEDS: MAGNESIUM OXIDE 400 MG TABLET 500 MG PO (08:22)
[2022-10-16] MEDS: predniSONE 5 MG TABLET PO (08:22)
[2022-10-16] MEDS: LOPERAMIDE HCL 2 MG CAPSULE PO ×2 (08:22→15:33)
[2022-10-16] MEDS: FUROSEMIDE 20 MG TABLET PO (08:22)
[2022-10-16] MEDS: LACTOBACILLUS ACIDOPHILUS 1 TABLET 1 TAB PO ×2 (11:32→17:28)
[2022-10-16] MEDS: POTASSIUM CHLORIDE 10 MEQ CAPSULE ER PO (16:36)
--- NOTE | 2022-10-17 05:08 | PC.NURSE ---
Food in the fridge: Resident continues to have outdated food in the fridge. Resident refused to discard food. Senior Lead Project Manager reviewed risk. She verbalized understanding.
[2022-10-17] MEDS: METFORMIN ER 500 MG 1000 MG PO ×2 (07:46→17:12)
[2022-10-17] MEDS: LOPERAMIDE HCL 2 MG CAPSULE PO ×2 (07:46→15:19)
[2022-10-17] MEDS: predniSONE 5 MG TABLET PO (07:46)
[2022-10-17] MEDS: MAGNESIUM OXIDE 400 MG TABLET 500 MG PO (07:46)
--- NOTE | 2022-10-17 11:05 | PC.NURSE ---
Skin: Redness on folds, legs, (R) arm seen by PULLER THROUGH. Order: Diflucan 150 mg once. Resident thinks she has yeast infection.
[2022-10-17] MEDS: LACTOBACILLUS ACIDOPHILUS 1 TABLET 1 TAB PO ×2 (11:39→17:12)
[2022-10-17] MEDS: POTASSIUM CHLORIDE 10 MEQ CAPSULE ER 20 MEQ PO (16:44)
[2022-10-17] MEDS: FLUCONAZOLE 100 MG TABLET 150 MG PO (19:09)
[2022-10-17] MEDS: HYDROCODONE-ACETAMIN 5-325 MG 1 TAB PO (23:10)
[2022-10-18] MEDS: MAGNESIUM OXIDE 400 MG TABLET 500 MG PO (07:53)
[2022-10-18] MEDS: METFORMIN ER 500 MG 1000 MG PO ×2 (07:53→17:39)
[2022-10-18] MEDS: predniSONE 5 MG TABLET PO (07:53)
[2022-10-18] MEDS: FUROSEMIDE 20 MG TABLET PO (07:53)
[2022-10-18] MEDS: LOPERAMIDE HCL 2 MG CAPSULE PO ×2 (07:53→16:21)
[2022-10-18] MEDS: LACTOBACILLUS ACIDOPHILUS 1 TABLET 1 TAB PO ×2 (12:33→17:39)
[2022-10-18] MEDS: POTASSIUM CHLORIDE 10 MEQ CAPSULE ER PO (17:39)
[2022-10-19] MEDS: HYDROCODONE-ACETAMIN 5-325 MG 1 TAB PO ×2 (05:46→23:16)
[2022-10-19] MEDS: METFORMIN ER 500 MG 1000 MG PO ×2 (08:45→18:54)
[2022-10-19] MEDS: MAGNESIUM OXIDE 400 MG TABLET 500 MG PO (08:45)
[2022-10-19] MEDS: predniSONE 5 MG TABLET PO (08:45)
[2022-10-19] MEDS: LOPERAMIDE HCL 2 MG CAPSULE PO ×2 (08:45→16:03)
[2022-10-19] MEDS: LACTOBACILLUS ACIDOPHILUS 1 TABLET 1 TAB PO ×2 (12:02→18:54)
[2022-10-19] MEDS: POTASSIUM CHLORIDE 10 MEQ CAPSULE ER 20 MEQ PO (18:53)
[2022-10-20] MEDS: predniSONE 5 MG TABLET PO (08:34)
[2022-10-20] MEDS: MAGNESIUM OXIDE 400 MG TABLET 500 MG PO (08:34)
[2022-10-20] MEDS: LOPERAMIDE HCL 2 MG CAPSULE PO ×2 (08:34→16:27)
[2022-10-20] MEDS: METFORMIN ER 500 MG 1000 MG PO ×2 (08:34→17:12)
[2022-10-20] MEDS: LACTOBACILLUS ACIDOPHILUS 1 TABLET 1 TAB PO ×2 (12:11→17:12)
[2022-10-20] MEDS: POTASSIUM CHLORIDE 10 MEQ CAPSULE ER PO (16:27)
[2022-10-21] MEDS: HYDROCODONE-ACETAMIN 5-325 MG 1 TAB PO (00:49)
--- NOTE | 2022-10-21 03:59 | PC.NURSE ---
WEEKLY CHARTING - WEEK 4: Communication, Hearing/vision,cognition/behaviors,Clinical monitoring Vital signs reviewed - lately has elevated blood pressure values noted. CATERPILLAR MECHANIC aware ; continue to monitor. Temporary and comprehensive care plan reviewed, pneumatic compression discontinued. Resident has moderate hearing impairment, no use of hearing aid, she has an amplifier. She wears glasses for reading. Her level of cognition is intact, but does not self administrated medications anymore ; she tends to forget or drops some without telling staff. Resident is not in any psychotropic medications. She does not come out her room , don`t interact with anyone, family comes around often. Health condition stable at this time.
[2022-10-21] MEDS: MAGNESIUM OXIDE 400 MG TABLET 500 MG PO (08:56)
[2022-10-21] MEDS: LOPERAMIDE HCL 2 MG CAPSULE PO ×2 (08:56→17:20)
[2022-10-21] MEDS: FUROSEMIDE 20 MG TABLET PO (08:56)
[2022-10-21] MEDS: METFORMIN ER 500 MG 1000 MG PO ×2 (08:56→18:29)
[2022-10-21] MEDS: predniSONE 5 MG TABLET PO (08:56)
--- NOTE | 2022-10-21 10:20 | PC.NURSE ---
Skin: Noted a red, dry scab on left forehead. Per resident it is from her scratching.
--- NOTE | 2022-10-21 10:25 | PC.NURSE ---
Weekly Charting - Week 4: Comprehensive and temporary care plan reviewed. No changes and and nothing added to temporary care plan. No changes noted in communication, hearing, vision, or orientation. She does communicate her needs and use the call light. Cognition intact. Has hearing difficulty, uses an? amplifier to aid with communication. Hearing impairment is already addressed. Chronic health condition stable. Has elevated BP's noted by NUTRITION SERVICES ASSOCIATE. Continue Weekly monitoring. Mood/Behavior: Resident has episodes of refusing cares and this is not new. Is on no psychotropic medication.
[2022-10-21] MEDS: POTASSIUM CHLORIDE 10 MEQ CAPSULE ER PO (17:20)
[2022-10-21] MEDS: LACTOBACILLUS ACIDOPHILUS 1 TABLET 1 TAB PO ×2 (18:28→18:29)
--- NOTE | 2022-10-22 08:11 | PC.PHA1 ---
CURVE SAW OPERATOR PHARMACIST'S MEDICATION REVIEW: MEDICATION MONITORING:No psychotropic meds to monitor. Patient needed one time dose of Diflucan mid- September for yeast infection. Metformin 1000 mg po BID continues. IRREGULARITY OR COMMENTS: Patient continues to refuse cares and not allowing staff to clean refrigerator. Zinc supplement supplied by family and patient does and doesn't want to take per nursing notes. SUGGESTED COURSE OF ACTION TAKEN: Last crcl was 08/22, when will next carol function test be ordered? Would patient be open to trying antidepressant for her ongoing behaviors mentioned above?
[2022-10-22] MEDS: MAGNESIUM OXIDE 400 MG TABLET 500 MG PO (09:18)
[2022-10-22] MEDS: LOPERAMIDE HCL 2 MG CAPSULE PO ×2 (09:18→15:12)
[2022-10-22] MEDS: METFORMIN ER 500 MG 1000 MG PO ×2 (09:26→17:14)
[2022-10-22] MEDS: predniSONE 5 MG TABLET PO (09:27)
--- NOTE | 2022-10-22 10:49 | PC.NURSE ---
Behavior note: Cow Rider asked resident this morning if she was ready to take first couple pills after she had gotten her breakfast tray to which res replied she was. Cow Rider then brought pills in and resident stated, Just put them on my tray. I'll take them when I want to. Cow Rider reminded resident that she does not have order to self-administer medications and that staff therefore have to administer medications. Resident then refused to take first two pills. polishing wheel repairer and SHARON updated. SHARON and functional tester typewriters both approached resident to again explain why staff are unable to leave medications at bedside for her to take when she wants to. Resident did then take first two pills when provided by nurse. Cow Rider later returned to administer the remaining pills and resident stated, They're taking my rights away. Now I can't even take pills the way I want to. Cow Rider again explained statewide policy that nurses have to administer medications and sign off for them when there is no order for self-administration of medication in place. polishing wheel repairer updated.
[2022-10-22] MEDS: LACTOBACILLUS ACIDOPHILUS 1 TABLET 1 TAB PO ×2 (12:21→17:14)
--- NOTE | 2022-10-22 12:21 | PC.NURSE ---
Behavior note: Resident refusing to have Nystatin Powder applied to reddened jeri area and under bilateral abdominal folds despite staff encouragement.
[2022-10-22 15:00] VITALS: PULSE 83; RESP 16; TEMP 36.8; O2SAT 95; BMI 39.3
[2022-10-22] MEDS: POTASSIUM CHLORIDE 10 MEQ CAPSULE ER 20 MEQ PO (16:00)
[2022-10-23] MEDS: METFORMIN ER 500 MG 1000 MG PO ×2 (08:53→17:12)
[2022-10-23] MEDS: FUROSEMIDE 20 MG TABLET PO (08:53)
[2022-10-23] MEDS: LOPERAMIDE HCL 2 MG CAPSULE PO ×2 (08:53→16:45)
[2022-10-23] MEDS: MAGNESIUM OXIDE 400 MG TABLET 500 MG PO (08:53)
[2022-10-23] MEDS: predniSONE 5 MG TABLET PO (08:54)
--- NOTE | 2022-10-23 11:34 | PC.NURSE ---
Podiatry: Resident seen by in house user interface designer service.
[2022-10-23] MEDS: LACTOBACILLUS ACIDOPHILUS 1 TABLET 1 TAB PO ×2 (11:58→17:12)
[2022-10-23] MEDS: POTASSIUM CHLORIDE 10 MEQ CAPSULE ER PO (16:45)
[2022-10-24] MEDS: HYDROCODONE-ACETAMIN 5-325 MG 1 TAB PO (00:08)
[2022-10-24] MEDS: MAGNESIUM OXIDE 400 MG TABLET 500 MG PO (08:56)
[2022-10-24] MEDS: LOPERAMIDE HCL 2 MG CAPSULE PO ×2 (08:56→16:10)
[2022-10-24] MEDS: METFORMIN ER 500 MG 1000 MG PO ×2 (08:56→17:09)
[2022-10-24] MEDS: predniSONE 5 MG TABLET PO (08:56)
[2022-10-24] MEDS: LACTOBACILLUS ACIDOPHILUS 1 TABLET 1 TAB PO ×2 (12:43→17:09)
[2022-10-24] MEDS: POTASSIUM CHLORIDE 10 MEQ CAPSULE ER 20 MEQ PO (16:10)
[2022-10-25] MEDS: METFORMIN ER 500 MG 1000 MG PO ×2 (07:44→17:35)
[2022-10-25] MEDS: LOPERAMIDE HCL 2 MG CAPSULE PO ×2 (07:44→17:35)
[2022-10-25] MEDS: MAGNESIUM OXIDE 400 MG TABLET 500 MG PO (07:44)
[2022-10-25] MEDS: FUROSEMIDE 20 MG TABLET PO (07:44)
[2022-10-25] MEDS: predniSONE 5 MG TABLET PO (07:45)
[2022-10-25] MEDS: LACTOBACILLUS ACIDOPHILUS 1 TABLET 1 TAB PO ×2 (12:14→17:35)
[2022-10-25] MEDS: POTASSIUM CHLORIDE 10 MEQ CAPSULE ER PO (17:35)
[2022-10-26] MEDS: predniSONE 5 MG TABLET PO (07:30)
[2022-10-26] MEDS: LOPERAMIDE HCL 2 MG CAPSULE PO ×2 (07:31→16:53)
[2022-10-26] MEDS: MAGNESIUM OXIDE 400 MG TABLET 500 MG PO (07:31)
[2022-10-26] MEDS: METFORMIN ER 500 MG 1000 MG PO ×2 (07:31→17:29)
[2022-10-26] MEDS: LACTOBACILLUS ACIDOPHILUS 1 TABLET 1 TAB PO ×2 (12:19→17:29)
[2022-10-26] MEDS: POTASSIUM CHLORIDE 10 MEQ CAPSULE ER 20 MEQ PO (16:53)
[2022-10-27] MEDS: HYDROCODONE-ACETAMIN 5-325 MG 1 TAB PO (00:51)
[2022-10-27] MEDS: LOPERAMIDE HCL 2 MG CAPSULE PO ×2 (07:53→17:06)
[2022-10-27] MEDS: MAGNESIUM OXIDE 400 MG TABLET 500 MG PO (07:53)
[2022-10-27] MEDS: METFORMIN ER 500 MG 1000 MG PO ×2 (07:53→17:06)
[2022-10-27] MEDS: predniSONE 5 MG TABLET PO (07:55)
[2022-10-27] MEDS: LACTOBACILLUS ACIDOPHILUS 1 TABLET 1 TAB PO ×2 (11:22→17:06)
[2022-10-27] MEDS: POTASSIUM CHLORIDE 10 MEQ CAPSULE ER PO (17:06)
[2022-10-28] MEDS: MAGNESIUM OXIDE 400 MG TABLET 500 MG PO (09:05)
[2022-10-28] MEDS: LOPERAMIDE HCL 2 MG CAPSULE PO ×2 (09:05→15:36)
[2022-10-28] MEDS: FUROSEMIDE 20 MG TABLET PO (09:05)
[2022-10-28] MEDS: predniSONE 5 MG TABLET PO (09:06)
[2022-10-28] MEDS: METFORMIN ER 500 MG 1000 MG PO ×2 (09:06→17:18)
--- NOTE | 2022-10-28 11:14 | PC.NURSE ---
Behavior note: Resident noted to be irritable this morning due to staff having to watch her take AM medications. She is also refusing to have Nystatin Powder applied under folds and is refusing bilateral MARGARET stockings when approached and encouraged.
[2022-10-28] MEDS: LACTOBACILLUS ACIDOPHILUS 1 TABLET 1 TAB PO ×2 (12:22→17:18)
[2022-10-28] MEDS: POTASSIUM CHLORIDE 10 MEQ CAPSULE ER PO (17:18)
--- NOTE | 2022-10-28 21:23 | PC.NURSE ---
Skin concern: With encouragements and several re- approaches, resident repeatedly refused various scheduled dressing treatments and skin care. Will continue to monitor.
[2022-10-29] MEDS: HYDROCODONE-ACETAMIN 5-325 MG 1 TAB PO (00:15)
[2022-10-29] MEDS: LOPERAMIDE HCL 2 MG CAPSULE PO ×2 (08:55→16:20)
[2022-10-29] MEDS: METFORMIN ER 500 MG 1000 MG PO ×2 (08:56→17:09)
[2022-10-29] MEDS: MAGNESIUM OXIDE 400 MG TABLET 500 MG PO (08:56)
[2022-10-29] MEDS: predniSONE 5 MG TABLET PO (08:56)
[2022-10-29] MEDS: LACTOBACILLUS ACIDOPHILUS 1 TABLET 1 TAB PO ×2 (12:19→17:10)
--- NOTE | 2022-10-29 12:20 | PC.NURSE ---
Behavior note: Resident refused MARGARET stockings and Nystatin Powder under abdominal folds when approached this morning, stating that she is having her bath this evening as reason for rejecting.
--- NOTE | 2022-10-29 12:57 | PC.NURSE ---
AUDIOLOGY APPT: emailed daughter Cristy regarding audiology appointment--did she reschedule/want to reschedule? Requested that she emails back regarding her decision as she had wanted to wait until it was nicer outside per last conversation at care conference.
[2022-10-29 14:24] VITALS: BMI 40.2
[2022-10-29 15:00] VITALS: BP 168/76; PULSE 81; RESP 18; TEMP 36.6; O2SAT 97; BMI 40.2
[2022-10-29] MEDS: POTASSIUM CHLORIDE 10 MEQ CAPSULE ER 20 MEQ PO (16:20)
[2022-10-30] MEDS: HYDROCODONE-ACETAMIN 5-325 MG 1 TAB PO ×2 (00:08→16:24)
[2022-10-30] MEDS: LOPERAMIDE HCL 2 MG CAPSULE PO ×2 (08:43→16:21)
[2022-10-30] MEDS: predniSONE 5 MG TABLET PO (08:43)
[2022-10-30] MEDS: METFORMIN ER 500 MG 1000 MG PO ×2 (08:43→17:16)
[2022-10-30] MEDS: FUROSEMIDE 20 MG TABLET PO (08:43)
[2022-10-30] MEDS: MAGNESIUM OXIDE 400 MG TABLET 500 MG PO (08:43)
[2022-10-30] MEDS: LACTOBACILLUS ACIDOPHILUS 1 TABLET 1 TAB PO ×2 (12:24→17:16)
[2022-10-30] MEDS: POTASSIUM CHLORIDE 10 MEQ CAPSULE ER PO (16:21)
[2022-10-30 16:24] VITALS: TEMP 36.6
[2022-10-30 17:16] VITALS: TEMP 36.6
[2022-10-31] MEDS: METFORMIN ER 500 MG 1000 MG PO ×2 (08:17→17:15)
[2022-10-31] MEDS: MAGNESIUM OXIDE 400 MG TABLET 500 MG PO (08:17)
[2022-10-31] MEDS: predniSONE 5 MG TABLET PO (08:17)
[2022-10-31] MEDS: LOPERAMIDE HCL 2 MG CAPSULE PO ×2 (08:17→15:05)
[2022-10-31] MEDS: LACTOBACILLUS ACIDOPHILUS 1 TABLET 1 TAB PO ×2 (11:01→17:15)
[2022-10-31] MEDS: POTASSIUM CHLORIDE 10 MEQ CAPSULE ER 20 MEQ PO (17:15)
[2022-10-31] MEDS: HYDROCODONE-ACETAMIN 5-325 MG 1 TAB PO (23:01)
[2022-11-01] MEDS: MAGNESIUM OXIDE 400 MG TABLET 500 MG PO (08:09)
[2022-11-01] MEDS: LOPERAMIDE HCL 2 MG CAPSULE PO ×2 (08:09→16:17)
[2022-11-01] MEDS: predniSONE 5 MG TABLET PO (08:09)
[2022-11-01] MEDS: METFORMIN ER 500 MG 1000 MG PO ×2 (08:09→17:36)
[2022-11-01] MEDS: FUROSEMIDE 20 MG TABLET PO (08:09)
[2022-11-01] MEDS: LACTOBACILLUS ACIDOPHILUS 1 TABLET 1 TAB PO ×2 (11:33→17:36)
[2022-11-01] MEDS: POTASSIUM CHLORIDE 10 MEQ CAPSULE ER PO (16:17)
[2022-11-02] MEDS: HYDROCODONE-ACETAMIN 5-325 MG 1 TAB PO (00:26)
[2022-11-02] MEDS: METFORMIN ER 500 MG 1000 MG PO ×2 (08:50→18:52)
[2022-11-02] MEDS: MAGNESIUM OXIDE 400 MG TABLET 500 MG PO (08:50)
[2022-11-02] MEDS: LOPERAMIDE HCL 2 MG CAPSULE PO ×2 (08:50→16:28)
[2022-11-02] MEDS: predniSONE 5 MG TABLET PO (08:50)
[2022-11-02] MEDS: LACTOBACILLUS ACIDOPHILUS 1 TABLET 1 TAB PO ×2 (12:17→18:52)
[2022-11-02] MEDS: POTASSIUM CHLORIDE 10 MEQ CAPSULE ER 20 MEQ PO (18:51)
[2022-11-03] MEDS: LOPERAMIDE HCL 2 MG CAPSULE PO ×2 (08:41→16:03)
[2022-11-03] MEDS: MAGNESIUM OXIDE 400 MG TABLET 500 MG PO (08:41)
[2022-11-03] MEDS: METFORMIN ER 500 MG 1000 MG PO ×2 (08:41→17:10)
[2022-11-03] MEDS: predniSONE 5 MG TABLET PO (08:41)
[2022-11-03] MEDS: LACTOBACILLUS ACIDOPHILUS 1 TABLET 1 TAB PO ×2 (12:18→17:10)
[2022-11-03] MEDS: POTASSIUM CHLORIDE 10 MEQ CAPSULE ER PO (16:03)
[2022-11-04] MEDS: HYDROCODONE-ACETAMIN 5-325 MG 1 TAB PO (01:40)
--- NOTE | 2022-11-04 03:47 | PC.NURSE ---
WEEKLY CHARTING WEEK 1 PAIN AND ADL`S Vital signs reviewed, resident had elevated systolic Blood Pressure,? TIRE BLADDER MAKER aware, Continue to check x1 week. Comprehensive care plan and comprehensive care plan reviewed with no changes made. Resident receives PRN [place] 5-325 mg and Acetaminophen 1000 mg Q6H for pain management .She request pain med every night around midnight for leg pain and shoulder pain. Requires extensive assist of 2 in changing diapers,transfer and positioning. Resident usually have bed bath and spend most of time in her room. Resident on regular diet, thin liquid and eats mostly outside food and snack which her family bring for her. No swallowing issue, appetite good and eat independently after set up.
--- NOTE | 2022-11-04 03:58 | PC.NURSE ---
Pain med Resident had Star 325-5mg for leg pain and shoulders at 0140.
[2022-11-04] MEDS: FUROSEMIDE 20 MG TABLET PO (08:37)
[2022-11-04] MEDS: predniSONE 5 MG TABLET PO (08:38)
[2022-11-04] MEDS: METFORMIN ER 500 MG 1000 MG PO ×2 (08:38→17:20)
[2022-11-04] MEDS: MAGNESIUM OXIDE 400 MG TABLET 500 MG PO (08:38)
[2022-11-04] MEDS: LOPERAMIDE HCL 2 MG CAPSULE PO ×2 (08:38→15:42)
--- NOTE | 2022-11-04 09:57 | PC.NURSE ---
Weekly Charting, Week 1 - ADL's: Comprehensive & temporary care plan reviewed. No changes made. Nothing added to temporary care plan. Resident needs extensive assist of 2 with dressing, grooming and bathing. Does bed bath only for safety. Staff does oral cares. Has complete upper/lower dentures. Independent with feeding after set up. Stays in bed most of the time. Is on regular diet, thin liquids. Has many snacks in room. No problems with chewing/swallowing reported. Vital signs reviewed, BP's consistently stable on high. DENTAL SCHEDULING COORDINATOR aware. Continue weekly monitoring and refer to provider as needed with hypertensive symptoms. Pain: Has chronic leg and shoulder pain managed with an order for [place] 5/325mg Q6H PRN and has used occasionally with relief. Is able to verbalize need for pain.
[2022-11-04] MEDS: LACTOBACILLUS ACIDOPHILUS 1 TABLET 1 TAB PO ×2 (12:06→17:20)
[2022-11-04] MEDS: POTASSIUM CHLORIDE 10 MEQ CAPSULE ER PO (16:17)
[2022-11-05] MEDS: predniSONE 5 MG TABLET PO (07:26)
[2022-11-05] MEDS: MAGNESIUM OXIDE 400 MG TABLET 500 MG PO (07:26)
[2022-11-05] MEDS: LOPERAMIDE HCL 2 MG CAPSULE PO ×2 (07:26→15:25)
[2022-11-05] MEDS: METFORMIN ER 500 MG 1000 MG PO ×2 (07:26→17:18)
[2022-11-05] MEDS: LACTOBACILLUS ACIDOPHILUS 1 TABLET 1 TAB PO ×2 (11:08→17:18)
--- NOTE | 2022-11-05 13:00 | PC.NURSE ---
CARE CONFERENCE: Resident, dietary, nursing, activities and SS in attendance. Daughters Eloina and Cristy NOT present. Nursing: Discussed hygiene per last care conference. Resident notes that switching her bath day has been better and that she is more compliant. Discussed skin concerns--periodic redness in her abdominal folds and superficial wounds where resident has been excessively picking her skin on her neck and head. Nursing reinforced that bathing will help prevent redness issue. Nursing asked resident about hearing services--resident states that she will NOT go out for an appointment for hearing aides and that her daughters have ordered OTC hearing amplifiers. They will deliver them when they arrive. Resident is using hearing amplifier and she is hearing well during the conference today. She would like to have her ears cleaned--this nurse will pass on to floor nurses. Discussed vision and dental concerns-resident states she will not be going for these services as she refuses to leave the care center. Incontinent of bowel and bladder. Calls for bedpan. Care plan reviewed and updated.?Is extensive to total assist for all cares. Resident is bed bound at this time. Refuses to get up to her recliner. Residents weight is stable, but often refuses weekly weights. Continue minced and moist diet. Resident is trying to work with staff with her new baked potato cooker basket that she got. Family brings snacks that are not within dietary recommendations. Resident wishes to continue this. Reviewed POLST. DNR/DNI. No changes made. Uses no restraints. Does use 2 quarter side rails on her bed to assist with positioning per resident request. Medications set up by nurse. New medical reception specialist process started due to resident lack of ability to self administer meds. Resident states she is not happy about this. Staff report it is going well. Provided education/reinforcement. She does not eat breakfast in the morning and requests to sleep in. Vulnerability- at risk of being harmed due to weakness and assistance needed with ADLs. Resident is a josé lift. middle or intermediate school principal care. SW: Mood is stable, no concerns. Activities: likes [place], wants to continue participating in this.
--- NOTE | 2022-11-05 13:50 | PC.SOCIAL ---
Resident's care conference held today in resident's room at 1:15 pm. No family was present. Resident states that one daughter is working and the other daughter is busy and not able to attend. Updates were provided by Christi Eckert in Nursing, Catarina Rodriguez in Nutrition, Maricel Hernandez in Life Enrichment, and this worker for social work. Resident's care plan was reviewed. Resident has concerns about the medication administration as she does not want to take meds all at once and thinks nurses do not trust to leave them with her. Nursing explains the rules around medication management. Nursing will follow up on concerns. Resident's mood is stable and there are no concerns from social work department. Social Work will follow up as necessary.
--- NOTE | 2022-11-05 14:13 | PC.NURSE ---
FAMILY UPDATE: Daughter Eloina was updated regarding care conference via phone as daughters were unable to attend in person. Eloina acknowledges that resident will not be going to cvt rn as she has refused and that they have ordered OTC hearing aids. Discussed that resident is unable to self-administer medications and that nursing has changed the process and we are not leaving meds at the bedside any longer. She acknowledges this and notes that resident has not mentioned or made any complaints to her regarding this. Discussed that we will continue this. Residents daughter asked about having wound center doors unlocked on the weekend, informed her that this is not up the [facility] and is a hospital issue. Informed her to the call the LTC desk and see if a staff member is available to let them in.
--- NOTE | 2022-11-05 14:56 | PC.NURSE ---
Skin care: Resident refused the application of nystatin powder on abdominal folds and informed that she is better off without it.
[2022-11-05 15:00] VITALS: PULSE 83; RESP 18; TEMP 36.6; O2SAT 96
[2022-11-05] MEDS: POTASSIUM CHLORIDE 10 MEQ CAPSULE ER 20 MEQ PO (16:54)
[2022-11-05] MEDS: HYDROCODONE-ACETAMIN 5-325 MG 1 TAB PO (23:10)
[2022-11-06] MEDS: MAGNESIUM OXIDE 400 MG TABLET 500 MG PO (08:50)
[2022-11-06] MEDS: METFORMIN ER 500 MG 1000 MG PO ×2 (08:50→17:35)
[2022-11-06] MEDS: predniSONE 5 MG TABLET PO (08:50)
[2022-11-06] MEDS: FUROSEMIDE 20 MG TABLET PO (08:50)
[2022-11-06] MEDS: LOPERAMIDE HCL 2 MG CAPSULE PO ×2 (08:50→15:47)
[2022-11-06] MEDS: LACTOBACILLUS ACIDOPHILUS 1 TABLET 1 TAB PO ×2 (12:16→17:37)
[2022-11-06] MEDS: POTASSIUM CHLORIDE 10 MEQ CAPSULE ER PO (16:56)
[2022-11-07] MEDS: METFORMIN ER 500 MG 1000 MG PO ×2 (09:00→17:15)
[2022-11-07] MEDS: predniSONE 5 MG TABLET PO (09:03)
[2022-11-07] MEDS: MAGNESIUM OXIDE 400 MG TABLET 500 MG PO (09:05)
[2022-11-07] MEDS: LOPERAMIDE HCL 2 MG CAPSULE PO ×2 (09:06→16:38)
[2022-11-07] MEDS: LACTOBACILLUS ACIDOPHILUS 1 TABLET 1 TAB PO ×2 (12:00→17:15)
--- NOTE | 2022-11-07 16:00 | PC.NURSE ---
MDS CLARIFICATION: ADLs ? discrepancies suspected in RACHELLE ADL charting. Staff were interviewed. Eating ? resident did not require any assistance besides set up during the lookback. Coded as independent set up assist. Personal Hygiene ? resident did not require two staff assist, one staff only. Coded extensive assist of 1 staff.
[2022-11-07] MEDS: POTASSIUM CHLORIDE 10 MEQ CAPSULE ER 20 MEQ PO (16:38)
[2022-11-07] MEDS: HYDROCODONE-ACETAMIN 5-325 MG 1 TAB PO (23:15)
[2022-11-08] MEDS: MAGNESIUM OXIDE 400 MG TABLET 500 MG PO (08:13)
[2022-11-08] MEDS: FUROSEMIDE 20 MG TABLET PO (08:13)
[2022-11-08] MEDS: LOPERAMIDE HCL 2 MG CAPSULE PO ×2 (08:13→15:19)
[2022-11-08] MEDS: METFORMIN ER 500 MG 1000 MG PO ×2 (08:14→18:03)
[2022-11-08] MEDS: predniSONE 5 MG TABLET PO (08:14)
[2022-11-08] MEDS: LACTOBACILLUS ACIDOPHILUS 1 TABLET 1 TAB PO ×2 (11:28→18:03)
[2022-11-08] MEDS: POTASSIUM CHLORIDE 10 MEQ CAPSULE ER PO (16:26)
[2022-11-09] MEDS: HYDROCODONE-ACETAMIN 5-325 MG 1 TAB PO (00:48)
[2022-11-09] MEDS: METFORMIN ER 500 MG 1000 MG PO ×2 (08:03→17:10)
[2022-11-09] MEDS: MAGNESIUM OXIDE 400 MG TABLET 500 MG PO (08:03)
[2022-11-09] MEDS: predniSONE 5 MG TABLET PO (08:03)
[2022-11-09] MEDS: LOPERAMIDE HCL 2 MG CAPSULE PO ×2 (08:03→15:09)
[2022-11-09] MEDS: LACTOBACILLUS ACIDOPHILUS 1 TABLET 1 TAB PO ×2 (11:12→17:10)
--- NOTE | 2022-11-09 13:45 | PC.NURSE ---
Hearing Aid: Resident was tried with her new hearing aid and she said she still couldn't hear very well.
[2022-11-09] MEDS: POTASSIUM CHLORIDE 10 MEQ CAPSULE ER 20 MEQ PO (16:28)
[2022-11-10] MEDS: predniSONE 5 MG TABLET PO (08:15)
[2022-11-10] MEDS: MAGNESIUM OXIDE 400 MG TABLET 500 MG PO (08:15)
[2022-11-10] MEDS: METFORMIN ER 500 MG 1000 MG PO ×2 (08:15→17:12)
[2022-11-10] MEDS: LOPERAMIDE HCL 2 MG CAPSULE PO ×2 (08:15→15:33)
[2022-11-10] MEDS: LACTOBACILLUS ACIDOPHILUS 1 TABLET 1 TAB PO ×2 (11:51→17:12)
[2022-11-10] MEDS: POTASSIUM CHLORIDE 10 MEQ CAPSULE ER PO (17:12)
[2022-11-10 20:42] VITALS: TEMP 36.3
[2022-11-10] MEDS: HYDROCODONE-ACETAMIN 5-325 MG 1 TAB PO (20:42)
--- NOTE | 2022-11-11 01:15 | PC.NURSE ---
Weekly Charting Week 2 MOBILITY: Vital signs reviewed. BP consistently elevated, INFORMATICIST aware. Continue weekly BP monitoring refer provider as needed. Requires assist of 2 for bed mobility. Bilateral 1/4 side rails up at all times to aid with mobility. Bed bound per resident choice. Uses assistive device for vertical movement in bed. Requires 2-3 assist with full mechanical lift for transfers. Fall Risk assessment indicate resident is on Low risk for falls. Fall interventions: bed in low position with brakes locked and call light in reach.
--- NOTE | 2022-11-11 07:05 | PC.NURSE ---
Weekly Charting: Week 2 Reviewed resident's most recent vital signs. Resident's blood pressure is consistently elevated. Provider is aware, staff will continue to monitor blood pressure weekly. Reviewed temporary and comprehensive care plans, no new changes were made/ noted. Resident is bedbound per their own choice. Resident requires assist of 2 for bed mobility. EZ positioner used on bed to assist with moving resident up in bed. 1/4 side rails bilaterally up at all times to promote resident's bed mobility. Resident is assist of 2-3 for total mechanical lift for transfers. Resident is at low risk for falls. Interventions to prevent falls include keeping the bed locked and in low position and call light within reach.
[2022-11-11] MEDS: LOPERAMIDE HCL 2 MG CAPSULE PO ×2 (08:56→16:16)
[2022-11-11] MEDS: MAGNESIUM OXIDE 400 MG TABLET 500 MG PO (08:56)
[2022-11-11] MEDS: FUROSEMIDE 20 MG TABLET PO (08:56)
[2022-11-11] MEDS: METFORMIN ER 500 MG 1000 MG PO ×2 (08:57→17:05)
[2022-11-11] MEDS: predniSONE 5 MG TABLET PO (08:57)
[2022-11-11] MEDS: LACTOBACILLUS ACIDOPHILUS 1 TABLET 1 TAB PO ×2 (11:15→17:05)
--- NOTE | 2022-11-11 15:15 | PC.NURSE ---
Ear Care: Ears lavage procedure completed at this time. Will continue to monitor.
[2022-11-11] MEDS: POTASSIUM CHLORIDE 10 MEQ CAPSULE ER PO (16:17)
[2022-11-12] MEDS: HYDROCODONE-ACETAMIN 5-325 MG 1 TAB PO ×2 (01:11→23:45)
[2022-11-12] MEDS: predniSONE 5 MG TABLET PO (08:47)
[2022-11-12] MEDS: MAGNESIUM OXIDE 400 MG TABLET 500 MG PO (08:47)
[2022-11-12] MEDS: LOPERAMIDE HCL 2 MG CAPSULE PO ×2 (08:47→16:10)
[2022-11-12] MEDS: METFORMIN ER 500 MG 1000 MG PO ×2 (08:47→17:31)
[2022-11-12] MEDS: LACTOBACILLUS ACIDOPHILUS 1 TABLET 1 TAB PO ×2 (12:15→17:31)
--- NOTE | 2022-11-12 13:28 | PC.NURSE ---
Skin note: Resident refused Nystatin Powder under abdominal folds when encouraged this shift stating, I'm going to be having my bath soon. Staff noted one new small open area to anterior aspect of LLE measuring approximately 0.3 cm x 0.3 cm x 0.1 cm in size. Area cleansed with wound cleanser before patting dry and leaving open to air. No drainage observed. Nursing to observe for s/s of infection until healed. This has also been added to skin care intervention.
[2022-11-12 15:00] VITALS: BP 157/76; PULSE 78; RESP 18; TEMP 36.6; O2SAT 94; BMI 38.2
[2022-11-12] MEDS: POTASSIUM CHLORIDE 10 MEQ CAPSULE ER 20 MEQ PO (16:10)
[2022-11-12 21:31] VITALS: BMI 38.2
--- NOTE | 2022-11-12 21:33 | PC.NURSE ---
Bath Status: Resident refused scheduled bath after four attempts and encouragements.
[2022-11-13] MEDS: FUROSEMIDE 20 MG TABLET PO (08:52)
[2022-11-13] MEDS: LOPERAMIDE HCL 2 MG CAPSULE PO ×2 (08:52→16:39)
[2022-11-13] MEDS: MAGNESIUM OXIDE 400 MG TABLET 500 MG PO (08:52)
[2022-11-13] MEDS: METFORMIN ER 500 MG 1000 MG PO ×2 (09:02→17:27)
[2022-11-13] MEDS: predniSONE 5 MG TABLET PO (09:03)
[2022-11-13] MEDS: LACTOBACILLUS ACIDOPHILUS 1 TABLET 1 TAB PO ×2 (13:05→17:27)
--- NOTE | 2022-11-13 13:07 | PC.NURSE ---
Behavior note: Resident would not allow Nystatin Powder to be applied under bilateral abdominal folds and also refusing TEDs this shift despite encouragement and reapproaching.
[2022-11-13] MEDS: POTASSIUM CHLORIDE 10 MEQ CAPSULE ER PO (16:39)
[2022-11-14] MEDS: MAGNESIUM OXIDE 400 MG TABLET 500 MG PO (08:51)
[2022-11-14] MEDS: METFORMIN ER 500 MG 1000 MG PO ×2 (08:51→17:06)
[2022-11-14] MEDS: predniSONE 5 MG TABLET PO (08:51)
[2022-11-14] MEDS: LOPERAMIDE HCL 2 MG CAPSULE PO ×2 (08:51→15:55)
[2022-11-14] MEDS: LACTOBACILLUS ACIDOPHILUS 1 TABLET 1 TAB PO ×2 (11:49→17:06)
--- NOTE | 2022-11-14 12:31 | PC.NURSE ---
Order: Change Lasix 20mg to 20mg BID per resident request by Yudy DELGADO.
--- NOTE | 2022-11-14 13:38 | PC.NURSE ---
Weight: Resident refused to have her weight taken due to change in Lasix dose.
[2022-11-14] MEDS: POTASSIUM CHLORIDE 10 MEQ CAPSULE ER 20 MEQ PO (16:53)
[2022-11-14] MEDS: FUROSEMIDE 20 MG TABLET PO (19:34)
[2022-11-15] MEDS: HYDROCODONE-ACETAMIN 5-325 MG 1 TAB PO (01:18)
[2022-11-15] MEDS: LOPERAMIDE HCL 2 MG CAPSULE PO ×2 (09:09→15:59)
[2022-11-15] MEDS: FUROSEMIDE 20 MG TABLET PO ×2 (09:09→15:59)
[2022-11-15] MEDS: METFORMIN ER 500 MG 1000 MG PO ×2 (09:09→17:21)
[2022-11-15] MEDS: MAGNESIUM OXIDE 400 MG TABLET 500 MG PO (09:09)
[2022-11-15] MEDS: predniSONE 5 MG TABLET PO (09:10)
[2022-11-15] MEDS: LACTOBACILLUS ACIDOPHILUS 1 TABLET 1 TAB PO ×2 (11:26→17:21)
[2022-11-15] MEDS: POTASSIUM CHLORIDE 10 MEQ CAPSULE ER PO (16:37)
[2022-11-16] MEDS: FUROSEMIDE 20 MG TABLET PO ×2 (08:34→15:40)
[2022-11-16] MEDS: MAGNESIUM OXIDE 400 MG TABLET 500 MG PO (08:34)
[2022-11-16] MEDS: METFORMIN ER 500 MG 1000 MG PO ×2 (08:34→17:22)
[2022-11-16] MEDS: LOPERAMIDE HCL 2 MG CAPSULE PO ×2 (08:34→15:40)
[2022-11-16] MEDS: predniSONE 5 MG TABLET PO (08:34)
[2022-11-16] MEDS: LACTOBACILLUS ACIDOPHILUS 1 TABLET 1 TAB PO ×2 (11:31→17:22)
[2022-11-16] MEDS: POTASSIUM CHLORIDE 10 MEQ CAPSULE ER 20 MEQ PO (17:22)
[2022-11-17] MEDS: FUROSEMIDE 20 MG TABLET PO ×2 (08:57→16:21)
[2022-11-17] MEDS: MAGNESIUM OXIDE 400 MG TABLET 500 MG PO (08:58)
[2022-11-17] MEDS: LOPERAMIDE HCL 2 MG CAPSULE PO ×2 (08:58→16:21)
[2022-11-17] MEDS: predniSONE 5 MG TABLET PO (09:13)
[2022-11-17] MEDS: METFORMIN ER 500 MG 1000 MG PO ×2 (09:13→17:16)
[2022-11-17] MEDS: LACTOBACILLUS ACIDOPHILUS 1 TABLET 1 TAB PO ×2 (12:33→17:16)
--- NOTE | 2022-11-17 13:44 | PC.NURSE ---
Behavior note: Resident continues to refuse daily weight and refused Nystatin Powder to be applied due to arrival of family to visit this afternoon.
[2022-11-17] MEDS: POTASSIUM CHLORIDE 10 MEQ CAPSULE ER PO (17:16)
[2022-11-18] MEDS: FUROSEMIDE 20 MG TABLET PO ×2 (08:49→16:29)
[2022-11-18] MEDS: MAGNESIUM OXIDE 400 MG TABLET 500 MG PO (08:50)
[2022-11-18] MEDS: LOPERAMIDE HCL 2 MG CAPSULE PO ×2 (08:50→16:29)
[2022-11-18] MEDS: METFORMIN ER 500 MG 1000 MG PO ×2 (08:57→17:31)
[2022-11-18] MEDS: predniSONE 5 MG TABLET PO (08:58)
--- NOTE | 2022-11-18 10:43 | PC.NURSE ---
Weekly Charting, Week 3 - Toileting: Comprehensive care plan reviewed. No changes made. Nothing added to temporary care plan. Resident is incontinent of bowel & bladder with occasional continence. Staff to check and change in bed every 2 hours and PRN. Needs 2 assists with changing? pad and placing large bedpan. Will also call when ready to use bedpan & when pads needs to changed..Pads, jeri cares managed by staff. Vital signs reviewed, with consistent elevated BP's noted by CAPACITY PLANNING ENGINEER. Resident does not want to take BP medications. No complain of hypertensive symptoms.Continue weekly VS monitoring. Skin. Has a small open area on (L) anterior leg, open to air. Cleansed daily and monitored for s/s of infection. Some redness on folds, refused nystatin powder and at times washing/drying skin. Skin is checked during cares and on bath day.
[2022-11-18] MEDS: LACTOBACILLUS ACIDOPHILUS 1 TABLET 1 TAB PO ×2 (11:24→17:31)
[2022-11-18] MEDS: POTASSIUM CHLORIDE 10 MEQ CAPSULE ER PO (16:29)
[2022-11-19] MEDS: FUROSEMIDE 20 MG TABLET PO ×2 (08:40→15:01)
[2022-11-19] MEDS: METFORMIN ER 500 MG 1000 MG PO ×2 (08:40→17:14)
[2022-11-19] MEDS: LOPERAMIDE HCL 2 MG CAPSULE PO ×2 (08:40→15:01)
[2022-11-19] MEDS: MAGNESIUM OXIDE 400 MG TABLET 500 MG PO (08:40)
[2022-11-19] MEDS: predniSONE 5 MG TABLET PO (08:40)
[2022-11-19] MEDS: LACTOBACILLUS ACIDOPHILUS 1 TABLET 1 TAB PO ×2 (11:06→17:14)
--- NOTE | 2022-11-19 12:07 | PC.SPIRITC ---
I provided visit for support, connection, and check in. Maki declined communion for now.
[2022-11-19 15:00] VITALS: BP 160/77; PULSE 90; RESP 16; TEMP 36.4; O2SAT 94
[2022-11-19] MEDS: POTASSIUM CHLORIDE 10 MEQ CAPSULE ER 20 MEQ PO (16:32)
[2022-11-19] MEDS: HYDROCODONE-ACETAMIN 5-325 MG 1 TAB PO (23:08)
[2022-11-20] MEDS: FUROSEMIDE 20 MG TABLET PO ×2 (08:31→15:05)
[2022-11-20] MEDS: MAGNESIUM OXIDE 400 MG TABLET 500 MG PO (08:31)
[2022-11-20] MEDS: LOPERAMIDE HCL 2 MG CAPSULE PO ×2 (08:31→15:05)
[2022-11-20] MEDS: METFORMIN ER 500 MG 1000 MG PO ×2 (08:32→18:36)
[2022-11-20] MEDS: predniSONE 5 MG TABLET PO (08:32)
[2022-11-20] MEDS: LACTOBACILLUS ACIDOPHILUS 1 TABLET 1 TAB PO ×2 (11:30→18:36)
[2022-11-20] MEDS: POTASSIUM CHLORIDE 10 MEQ CAPSULE ER PO (16:53)
[2022-11-21] MEDS: HYDROCODONE-ACETAMIN 5-325 MG 1 TAB PO ×2 (02:12→23:48)
[2022-11-21] MEDS: FUROSEMIDE 20 MG TABLET PO ×2 (09:08→16:33)
[2022-11-21] MEDS: LOPERAMIDE HCL 2 MG CAPSULE PO ×2 (09:08→16:33)
[2022-11-21] MEDS: predniSONE 5 MG TABLET PO (09:09)
[2022-11-21] MEDS: MAGNESIUM OXIDE 400 MG TABLET 500 MG PO (09:09)
[2022-11-21] MEDS: METFORMIN ER 500 MG 1000 MG PO ×2 (09:09→17:28)
[2022-11-21] MEDS: LACTOBACILLUS ACIDOPHILUS 1 TABLET 1 TAB PO ×2 (11:40→17:28)
[2022-11-21] MEDS: POTASSIUM CHLORIDE 10 MEQ CAPSULE ER 20 MEQ PO (17:28)
[2022-11-22] MEDS: predniSONE 5 MG TABLET PO (07:41)
[2022-11-22] MEDS: MAGNESIUM OXIDE 400 MG TABLET 500 MG PO (07:41)
[2022-11-22] MEDS: LOPERAMIDE HCL 2 MG CAPSULE PO ×2 (07:41→15:10)
[2022-11-22] MEDS: FUROSEMIDE 20 MG TABLET PO ×2 (07:41→15:10)
[2022-11-22] MEDS: METFORMIN ER 500 MG 1000 MG PO ×2 (07:41→17:46)
[2022-11-22] MEDS: LACTOBACILLUS ACIDOPHILUS 1 TABLET 1 TAB PO ×2 (11:16→17:46)
[2022-11-22] MEDS: POTASSIUM CHLORIDE 10 MEQ CAPSULE ER PO (17:46)
[2022-11-23] MEDS: LOPERAMIDE HCL 2 MG CAPSULE PO ×2 (08:21→15:17)
[2022-11-23] MEDS: predniSONE 5 MG TABLET PO (08:21)
[2022-11-23] MEDS: METFORMIN ER 500 MG 1000 MG PO ×2 (08:21→17:04)
[2022-11-23] MEDS: MAGNESIUM OXIDE 400 MG TABLET 500 MG PO (08:21)
[2022-11-23] MEDS: FUROSEMIDE 20 MG TABLET PO ×2 (08:21→15:17)
[2022-11-23] MEDS: LACTOBACILLUS ACIDOPHILUS 1 TABLET 1 TAB PO ×2 (11:20→17:05)
[2022-11-23] MEDS: POTASSIUM CHLORIDE 10 MEQ CAPSULE ER 20 MEQ PO (16:11)
[2022-11-24] MEDS: FUROSEMIDE 20 MG TABLET PO ×2 (08:19→15:03)
[2022-11-24] MEDS: METFORMIN ER 500 MG 1000 MG PO ×2 (08:19→17:05)
[2022-11-24] MEDS: LOPERAMIDE HCL 2 MG CAPSULE PO ×2 (08:19→15:03)
[2022-11-24] MEDS: predniSONE 5 MG TABLET PO (08:19)
[2022-11-24] MEDS: MAGNESIUM OXIDE 400 MG TABLET 500 MG PO (08:19)
[2022-11-24] MEDS: LACTOBACILLUS ACIDOPHILUS 1 TABLET 1 TAB PO ×2 (11:36→17:05)
[2022-11-24] MEDS: POTASSIUM CHLORIDE 10 MEQ CAPSULE ER PO (16:01)
--- NOTE | 2022-11-25 01:02 | PC.NURSE ---
Weekly Charting Week 4: Vital signs reviewed. BP consistently high. HAND TENNIS BALL COVERER aware. Resident refused on BP medication. Continue to check Vitals weekly, Update provider for any hypertensive symptoms. Comprehensive and temporary care plan reviewed with no changes made. Behavior recorded of refusing AM cares. No psychotropic medications. Able to communicate needs. Moderate hearing impairment. Family brought hearing bought online, however Res use in a while and refused to use d/t not working well. Staff suggested to get a prescribe hearing aid. Family agreed with the plan to schedule to Flaker Tender. Wears glasses for reading. Cognitively intact. Licensed Nurse administered all medications. Health condition stable at this time.
--- NOTE | 2022-11-25 08:03 | PC.NURSE ---
Weekly Charting- Week 4: Vital signs have been reviewed- resident's blood pressure trends higher with value of 160/77 noted on 11/19. WATERSHED COORDINATOR aware, resident refuses blood pressure medication and provider advises to update provider if resident starts to experience hypertensive symptoms. Temporary and comprehensive care plans have also been reviewed with no changes made. Vision noted to be intact. Resident does have hearing impairment and has tried wearing bilateral hearing aids though reports these are ineffective. Family agreeable for resident to see land commissioner. Resident does not currently use any psychotropic medications. No medication changes or adverse effects have been noted over the last week. Resident is alert & oriented to correct person, place, time and situation. All medications are administered by licensed nurse. Resident does refuse cares at times including having MARGARET stockings removed at HS per order. Chronic health conditions remain stable.
[2022-11-25] MEDS: FUROSEMIDE 20 MG TABLET PO ×2 (08:30→16:32)
[2022-11-25] MEDS: LOPERAMIDE HCL 2 MG CAPSULE PO ×2 (08:30→16:32)
[2022-11-25] MEDS: MAGNESIUM OXIDE 400 MG TABLET 500 MG PO (08:30)
[2022-11-25] MEDS: METFORMIN ER 500 MG 1000 MG PO ×2 (08:30→17:57)
[2022-11-25] MEDS: predniSONE 5 MG TABLET PO (08:30)
[2022-11-25] MEDS: LACTOBACILLUS ACIDOPHILUS 1 TABLET 1 TAB PO ×2 (12:01→17:57)
[2022-11-25] MEDS: POTASSIUM CHLORIDE 10 MEQ CAPSULE ER PO (17:57)
[2022-11-26] MEDS: predniSONE 5 MG TABLET PO (08:32)
[2022-11-26] MEDS: MAGNESIUM OXIDE 400 MG TABLET 500 MG PO (08:32)
[2022-11-26] MEDS: METFORMIN ER 500 MG 1000 MG PO ×2 (08:32→17:16)
[2022-11-26] MEDS: FUROSEMIDE 20 MG TABLET PO ×2 (08:32→16:07)
[2022-11-26] MEDS: LOPERAMIDE HCL 2 MG CAPSULE PO ×2 (08:32→16:07)
[2022-11-26] MEDS: LACTOBACILLUS ACIDOPHILUS 1 TABLET 1 TAB PO ×2 (11:22→17:16)
--- NOTE | 2022-11-26 13:08 | PC.NURSE ---
Status: TOP SCREW, Yudy updated resident c/o of pain on voiding. Wants blood test instead of UA. No blood work. Needs to meet criteria for UA/UC. No fever.
[2022-11-26] MEDS: POTASSIUM CHLORIDE 10 MEQ CAPSULE ER 20 MEQ PO (16:07)
[2022-11-27] MEDS: HYDROCODONE-ACETAMIN 5-325 MG 1 TAB PO ×2 (00:40→11:00)
--- NOTE | 2022-11-27 06:24 | PC.NURSE ---
Pain management Resident got [place] 5-325mg at 0040 for pain on her lower extremities.
[2022-11-27] MEDS: FUROSEMIDE 20 MG TABLET PO ×2 (07:59→15:44)
[2022-11-27] MEDS: METFORMIN ER 500 MG 1000 MG PO ×2 (07:59→18:57)
[2022-11-27] MEDS: predniSONE 5 MG TABLET PO (07:59)
[2022-11-27] MEDS: LOPERAMIDE HCL 2 MG CAPSULE PO ×2 (07:59→15:44)
[2022-11-27] MEDS: MAGNESIUM OXIDE 400 MG TABLET 500 MG PO (07:59)
[2022-11-27 10:37] VITALS: BMI 38.0
[2022-11-27] MEDS: LACTOBACILLUS ACIDOPHILUS 1 TABLET 1 TAB PO ×2 (11:23→18:57)
--- NOTE | 2022-11-27 14:04 | PC.PHA1 ---
BINDER LAYER PHARMACIST'S MEDICATION REVIEW: MEDICATION MONITORING:No psychotropic medications to monitor IRREGULARITY OR COMMENTS:Patient had recent adjustment in furosemide dosing. Noticed in nursing notes that patient often refuses scheduled medications and topical treatments. SUGGESTED COURSE OF ACTION TAKEN:No medication recommendations this review.
[2022-11-27] MEDS: POTASSIUM CHLORIDE 10 MEQ CAPSULE ER PO (16:47)
[2022-11-28] MEDS: predniSONE 5 MG TABLET PO (08:25)
[2022-11-28] MEDS: METFORMIN ER 500 MG 1000 MG PO ×2 (08:25→17:02)
[2022-11-28] MEDS: FUROSEMIDE 20 MG TABLET PO ×2 (08:25→15:17)
[2022-11-28] MEDS: LOPERAMIDE HCL 2 MG CAPSULE PO ×2 (08:25→15:17)
[2022-11-28] MEDS: MAGNESIUM OXIDE 400 MG TABLET 500 MG PO (08:25)
[2022-11-28] MEDS: LACTOBACILLUS ACIDOPHILUS 1 TABLET 1 TAB PO ×2 (11:29→17:02)
[2022-11-28] MEDS: POTASSIUM CHLORIDE 10 MEQ CAPSULE ER 20 MEQ PO (16:51)
--- NOTE | 2022-11-28 21:31 | PC.NURSE ---
Bilateral ears assessed d/t resident reporting pain. Ears appear clear bilaterally. Resident reports large plug came out earlier.
[2022-11-29] MEDS: FUROSEMIDE 20 MG TABLET PO ×2 (08:48→16:56)
[2022-11-29] MEDS: LOPERAMIDE HCL 2 MG CAPSULE PO ×2 (08:48→16:56)
[2022-11-29] MEDS: predniSONE 5 MG TABLET PO (08:49)
[2022-11-29] MEDS: METFORMIN ER 500 MG 1000 MG PO ×2 (08:49→17:11)
[2022-11-29] MEDS: MAGNESIUM OXIDE 400 MG TABLET 500 MG PO (08:49)
--- NOTE | 2022-11-29 11:06 | PC.NURSE ---
Skin: Noted several small open areas, with some redness on (R) chest and shoulder from scratching. Apply bacitracin oint pso and monitor.
[2022-11-29] MEDS: LACTOBACILLUS ACIDOPHILUS 1 TABLET 1 TAB PO ×2 (12:20→17:11)
[2022-11-29] MEDS: POTASSIUM CHLORIDE 10 MEQ CAPSULE ER PO (17:11)
[2022-11-30] MEDS: LOPERAMIDE HCL 2 MG CAPSULE PO ×2 (09:22→16:10)
[2022-11-30] MEDS: FUROSEMIDE 20 MG TABLET PO ×2 (09:22→16:10)
[2022-11-30] MEDS: METFORMIN ER 500 MG 1000 MG PO ×2 (09:22→17:28)
[2022-11-30] MEDS: MAGNESIUM OXIDE 400 MG TABLET 500 MG PO (09:22)
[2022-11-30] MEDS: predniSONE 5 MG TABLET PO (09:22)
[2022-11-30] MEDS: LACTOBACILLUS ACIDOPHILUS 1 TABLET 1 TAB PO ×2 (11:42→17:28)
[2022-11-30] MEDS: POTASSIUM CHLORIDE 10 MEQ CAPSULE ER 20 MEQ PO (16:10)
--- NOTE | 2022-12-01 05:29 | PC.NURSE ---
WEEKLY CHARTING WEEK 1 PAIN AND ADL`S Vital signs reviewed, resident had elevated systolic Blood Pressure, RESEARCH AIDE aware, Continue to check once a week. Comprehensive care plan and comprehensive care plan reviewed with no changes made. Resident receives PRN [place] 5-325 mg and Acetaminophen 1000 mg Q6H for pain management .She request pain med every night around midnight for leg pain and shoulder pain. Requires extensive assist of 2 for toileting,transfer and positioning. Resident usually have bed bath and spend most of time in her room. Resident is on regular diet, thin liquid and eats mostly outside food and snack which her family bring for her. No swallowing issue, appetite good and eat independently after set up.
[2022-12-01] MEDS: FUROSEMIDE 20 MG TABLET PO ×2 (08:50→15:40)
[2022-12-01] MEDS: LOPERAMIDE HCL 2 MG CAPSULE PO ×2 (08:50→15:40)
[2022-12-01] MEDS: MAGNESIUM OXIDE 400 MG TABLET 500 MG PO (08:50)
[2022-12-01] MEDS: METFORMIN ER 500 MG 1000 MG PO ×2 (08:50→17:12)
[2022-12-01] MEDS: predniSONE 5 MG TABLET PO (08:50)
[2022-12-01] MEDS: LACTOBACILLUS ACIDOPHILUS 1 TABLET 1 TAB PO ×2 (11:42→17:12)
[2022-12-01] MEDS: POTASSIUM CHLORIDE 10 MEQ CAPSULE ER PO (16:33)
[2022-12-02] MEDS: FUROSEMIDE 20 MG TABLET PO ×2 (08:43→16:40)
[2022-12-02] MEDS: METFORMIN ER 500 MG 1000 MG PO ×2 (08:43→19:01)
[2022-12-02] MEDS: LOPERAMIDE HCL 2 MG CAPSULE PO ×2 (08:43→16:40)
[2022-12-02] MEDS: predniSONE 5 MG TABLET PO (08:43)
[2022-12-02] MEDS: MAGNESIUM OXIDE 400 MG TABLET 500 MG PO (08:44)
--- NOTE | 2022-12-02 09:34 | PC.NURSE ---
Nurses note: Patient refused to let leader writer remove MARGARET socks to clean left lower leg with wound cleanser. Patient refused to let leader writer look at open area at all. Drop Press Hand will try again later, educated patient on importance of cleansing wound and monitoring for signs and symptoms of infection each day.
--- NOTE | 2022-12-02 11:28 | PC.NURSE ---
Weekly Charting, Week 1 - ADL's: Comprehensive & temporary care plan reviewed. No changes made. Nothing added to temporary care plan. Resident needs extensive assist of 2 with dressing, grooming and bathing. Does bed bath only for safety. Staff does oral cares. Has complete upper/lower dentures. Independent with feeding after set up. Stays in bed most of the time. Is on regular diet, thin liquids. Has many snacks in room. No problems with chewing/swallowing reported. Vital signs reviewed, BP's consistently stable on high. TUBER MACHINE OPERATOR HELPER aware. Continue weekly monitoring and refer to provider as needed with hypertensive symptoms. Pain: Has chronic leg and shoulder pain managed with [place] 5/325mg Q6H PRN and has used mostly during bartender with relief. Is able to verbalize need for pain.
[2022-12-02] MEDS: LACTOBACILLUS ACIDOPHILUS 1 TABLET 1 TAB PO ×2 (12:02→19:01)
[2022-12-02] MEDS: POTASSIUM CHLORIDE 10 MEQ CAPSULE ER PO (16:40)
[2022-12-03] MEDS: LOPERAMIDE HCL 2 MG CAPSULE PO ×2 (08:34→15:27)
[2022-12-03] MEDS: FUROSEMIDE 20 MG TABLET PO ×2 (08:34→15:27)
[2022-12-03] MEDS: predniSONE 5 MG TABLET PO (08:35)
[2022-12-03] MEDS: METFORMIN ER 500 MG 1000 MG PO ×2 (08:35→17:20)
[2022-12-03] MEDS: MAGNESIUM OXIDE 400 MG TABLET 500 MG PO (08:35)
[2022-12-03] MEDS: LACTOBACILLUS ACIDOPHILUS 1 TABLET 1 TAB PO ×2 (12:15→17:20)
[2022-12-03 15:00] VITALS: PULSE 86; RESP 16; TEMP 37; O2SAT 95
[2022-12-03] MEDS: POTASSIUM CHLORIDE 10 MEQ CAPSULE ER 20 MEQ PO (16:10)
--- NOTE | 2022-12-03 17:00 | PC.NURSE ---
Weight: Resident refused weight assessment. Nurse assigned notified.
[2022-12-03] MEDS: HYDROCODONE-ACETAMIN 5-325 MG 1 TAB PO (22:32)
[2022-12-04] MEDS: MAGNESIUM OXIDE 400 MG TABLET 500 MG PO (08:34)
[2022-12-04] MEDS: FUROSEMIDE 20 MG TABLET PO ×2 (08:34→15:41)
[2022-12-04] MEDS: METFORMIN ER 500 MG 1000 MG PO ×2 (08:34→17:03)
[2022-12-04] MEDS: LOPERAMIDE HCL 2 MG CAPSULE PO ×2 (08:34→15:41)
[2022-12-04] MEDS: predniSONE 5 MG TABLET PO (08:35)
[2022-12-04] MEDS: LACTOBACILLUS ACIDOPHILUS 1 TABLET 1 TAB PO ×2 (11:45→17:03)
[2022-12-04] MEDS: POTASSIUM CHLORIDE 10 MEQ CAPSULE ER PO (17:02)
[2022-12-04 20:27] VITALS: TEMP 36.5
[2022-12-04] MEDS: HYDROCODONE-ACETAMIN 5-325 MG 1 TAB PO (20:27)
[2022-12-04 21:31] VITALS: TEMP 36.5
--- NOTE | 2022-12-04 21:52 | PC.NURSE ---
Pain: Resident reported 8/10 pain to bilateral feet. PRN HYDROCO/APAP given at 2026. Intervention was effective.
[2022-12-05] MEDS: predniSONE 5 MG TABLET PO (08:26)
[2022-12-05] MEDS: FUROSEMIDE 20 MG TABLET PO ×2 (08:26→16:55)
[2022-12-05] MEDS: MAGNESIUM OXIDE 400 MG TABLET 500 MG PO (08:26)
[2022-12-05] MEDS: METFORMIN ER 500 MG 1000 MG PO ×2 (08:26→17:06)
[2022-12-05] MEDS: LOPERAMIDE HCL 2 MG CAPSULE PO ×2 (08:26→16:55)
--- NOTE | 2022-12-05 10:23 | PC.NURSE ---
Vitamin Supply: Resident's vitamin supplement is running low. Inform her to notify her family when they come to visit her.
[2022-12-05] MEDS: LACTOBACILLUS ACIDOPHILUS 1 TABLET 1 TAB PO ×2 (11:03→17:06)
--- NOTE | 2022-12-05 11:59 | PC.NURSE ---
Open area: Resident has a new open area on her left abdomen folds measuring 5cm long x 0.1 .To apply duoderm and put interdry in-between folds till heal
[2022-12-05] MEDS: POTASSIUM CHLORIDE 10 MEQ CAPSULE ER 20 MEQ PO (16:55)
[2022-12-06] MEDS: HYDROCODONE-ACETAMIN 5-325 MG 1 TAB PO ×2 (00:26→22:59)
[2022-12-06] MEDS: predniSONE 5 MG TABLET PO (08:58)
[2022-12-06] MEDS: FUROSEMIDE 20 MG TABLET PO ×2 (08:58→15:05)
[2022-12-06] MEDS: LOPERAMIDE HCL 2 MG CAPSULE PO ×2 (08:58→15:06)
[2022-12-06] MEDS: MAGNESIUM OXIDE 400 MG TABLET 500 MG PO (08:58)
[2022-12-06] MEDS: METFORMIN ER 500 MG 1000 MG PO ×2 (08:58→17:08)
[2022-12-06] MEDS: LACTOBACILLUS ACIDOPHILUS 1 TABLET 1 TAB PO ×2 (11:05→17:08)
[2022-12-06] MEDS: POTASSIUM CHLORIDE 10 MEQ CAPSULE ER PO (16:13)
--- NOTE | 2022-12-06 21:07 | PC.NURSE ---
Resident reports new hearing aides work A little better, but not as good as I hoped.
[2022-12-07] MEDS: predniSONE 5 MG TABLET PO (08:10)
[2022-12-07] MEDS: METFORMIN ER 500 MG 1000 MG PO ×2 (08:10→18:09)
[2022-12-07] MEDS: FUROSEMIDE 20 MG TABLET PO ×2 (08:10→15:17)
[2022-12-07] MEDS: MAGNESIUM OXIDE 400 MG TABLET 500 MG PO (08:10)
[2022-12-07] MEDS: LOPERAMIDE HCL 2 MG CAPSULE PO ×2 (08:10→15:17)
[2022-12-07] MEDS: LACTOBACILLUS ACIDOPHILUS 1 TABLET 1 TAB PO ×2 (11:50→18:09)
[2022-12-07] MEDS: POTASSIUM CHLORIDE 10 MEQ CAPSULE ER 20 MEQ PO (16:03)
[2022-12-08] MEDS: MAGNESIUM OXIDE 400 MG TABLET 500 MG PO (08:21)
[2022-12-08] MEDS: LOPERAMIDE HCL 2 MG CAPSULE PO ×2 (08:21→15:26)
[2022-12-08] MEDS: METFORMIN ER 500 MG 1000 MG PO ×2 (08:21→17:01)
[2022-12-08] MEDS: FUROSEMIDE 20 MG TABLET PO ×2 (08:21→15:25)
[2022-12-08] MEDS: predniSONE 5 MG TABLET PO (08:22)
[2022-12-08] MEDS: LACTOBACILLUS ACIDOPHILUS 1 TABLET 1 TAB PO ×2 (11:54→17:02)
[2022-12-08] MEDS: POTASSIUM CHLORIDE 10 MEQ CAPSULE ER PO (16:19)
[2022-12-08 19:56] VITALS: TEMP 36.9
[2022-12-08] MEDS: HYDROCODONE-ACETAMIN 5-325 MG 1 TAB PO (19:56)
[2022-12-08 21:00] VITALS: TEMP 37
--- NOTE | 2022-12-09 00:43 | PC.NURSE ---
Weekly Charting Week 2: Vital signs reviewed, BP consistent high. ASSISTANT RESEARCH SCIENTIST aware, continue weekly monitoring. Notify provider of any symptom of hypertension. Comprehensive and temporary care plan reviewed with no changes made. Requires assist of 2 for bed mobility. Use EZ material movers for vertical movement in bed. Bilateral 1/4 side rails up at all times to aid with mobility. Bed bound per resident choice. Requires 2 assist with full mechanical lift for all transfers. Fall Risk assessment indicate Resident is on Low risk for falls. Fall interventions: bed in low position with brakes locked and call light in reach.
--- NOTE | 2022-12-09 07:27 | PC.NURSE ---
Weekly Charting- Week 2: Vital signs reviewed other than B/P over the last week as resident refuses to have this completed at times despite staff encouragement. Resident also refused weight on last bath day per documentation. Temporary and comprehensive care plans have been reviewed with no changes made. Resident requires assist of 2 with all bed mobility and uses EZ truck dock material mover for vertical movement. She does not ambulate and requires total assist of 2 using EZ lift for all transfers. Resident is bed bound per her request. She therefore does not use wheelchair. Bilateral 1/4 side rails up at all times to assist with positioning. No alarms in place. Resident remains low risk for fall per latest fall risk assessment completed. Interventions to prevent falls currently in place include: call light within reach, staff anticipating needs and bed in lowest position with brakes locked. No ROM or ambulation programs in place.
[2022-12-09] MEDS: MAGNESIUM OXIDE 400 MG TABLET 500 MG PO (08:39)
[2022-12-09] MEDS: LOPERAMIDE HCL 2 MG CAPSULE PO ×2 (08:39→15:46)
[2022-12-09] MEDS: FUROSEMIDE 20 MG TABLET PO ×2 (08:39→15:46)
[2022-12-09] MEDS: predniSONE 5 MG TABLET PO (08:39)
[2022-12-09] MEDS: METFORMIN ER 500 MG 1000 MG PO ×2 (08:39→17:12)
--- NOTE | 2022-12-09 10:27 | PC.NURSE ---
Skin: 11/12/22: Small open area noted to anterior L leg. 12/09/22 no open area to left leg noted. Intervention completed.
[2022-12-09] MEDS: LACTOBACILLUS ACIDOPHILUS 1 TABLET 1 TAB PO ×2 (11:46→17:12)
[2022-12-09] MEDS: POTASSIUM CHLORIDE 10 MEQ CAPSULE ER PO (16:34)
[2022-12-10] MEDS: LOPERAMIDE HCL 2 MG CAPSULE PO ×2 (08:24→16:45)
[2022-12-10] MEDS: MAGNESIUM OXIDE 400 MG TABLET 500 MG PO (08:24)
[2022-12-10] MEDS: METFORMIN ER 500 MG 1000 MG PO ×2 (08:24→18:42)
[2022-12-10] MEDS: FUROSEMIDE 20 MG TABLET PO ×2 (08:24→16:45)
[2022-12-10] MEDS: predniSONE 5 MG TABLET PO (08:25)
[2022-12-10] MEDS: LACTOBACILLUS ACIDOPHILUS 1 TABLET 1 TAB PO ×2 (12:15→18:42)
[2022-12-10 15:00] VITALS: BP 151/79; PULSE 79; RESP 16; TEMP 36.5; O2SAT 95
[2022-12-10] MEDS: POTASSIUM CHLORIDE 10 MEQ CAPSULE ER 20 MEQ PO (16:45)
[2022-12-10 20:29] VITALS: TEMP 36.5
[2022-12-10] MEDS: HYDROCODONE-ACETAMIN 5-325 MG 1 TAB PO (20:29)
--- NOTE | 2022-12-10 21:33 | PC.NURSE ---
Bath Status: After several encouragements and reproaches, resident refused scheduled bath and weight assessment for 12/10/22.
[2022-12-10 22:32] VITALS: TEMP 36.5
[2022-12-11] MEDS: FUROSEMIDE 20 MG TABLET PO ×2 (08:30→16:38)
[2022-12-11] MEDS: predniSONE 5 MG TABLET PO (08:31)
[2022-12-11] MEDS: LOPERAMIDE HCL 2 MG CAPSULE PO ×2 (08:31→16:38)
[2022-12-11] MEDS: MAGNESIUM OXIDE 400 MG TABLET 500 MG PO (08:31)
[2022-12-11] MEDS: METFORMIN ER 500 MG 1000 MG PO ×2 (08:31→18:42)
[2022-12-11] MEDS: POTASSIUM CHLORIDE 10 MEQ CAPSULE ER PO (16:38)
[2022-12-12] MEDS: LACTOBACILLUS ACIDOPHILUS 1 TABLET 1 TAB PO ×4 (08:43→17:10)
[2022-12-12] MEDS: predniSONE 5 MG TABLET PO (08:45)
[2022-12-12] MEDS: FUROSEMIDE 20 MG TABLET PO ×2 (08:45→15:11)
[2022-12-12] MEDS: LOPERAMIDE HCL 2 MG CAPSULE PO ×2 (08:45→15:11)
[2022-12-12] MEDS: MAGNESIUM OXIDE 400 MG TABLET 500 MG PO (08:45)
[2022-12-12] MEDS: METFORMIN ER 500 MG 1000 MG PO ×2 (08:45→17:10)
[2022-12-12] MEDS: POTASSIUM CHLORIDE 10 MEQ CAPSULE ER 20 MEQ PO (16:31)
[2022-12-13] MEDS: MAGNESIUM OXIDE 400 MG TABLET 500 MG PO (08:12)
[2022-12-13] MEDS: FUROSEMIDE 20 MG TABLET PO ×2 (08:12→16:10)
[2022-12-13] MEDS: LOPERAMIDE HCL 2 MG CAPSULE PO ×2 (08:12→16:10)
[2022-12-13] MEDS: predniSONE 5 MG TABLET PO (08:13)
[2022-12-13] MEDS: METFORMIN ER 500 MG 1000 MG PO ×2 (08:13→17:44)
--- NOTE | 2022-12-13 11:35 | PC.NURSE ---
Skin update: Resident has redness in far left abdominal fold. Resident would not allow nurse to clean the area with a wash cloth. Nystatin cream was applied and intra dry is in place. Nursing will continue to monitor for changes to skin. Nurse educated resident on importance of cleaning the area good with soap and water every day to prevent yeast and skin breakdown.
[2022-12-13] MEDS: LACTOBACILLUS ACIDOPHILUS 1 TABLET 1 TAB PO ×2 (12:09→17:44)
[2022-12-13] MEDS: NYSTATIN POWDER 1 APPLIC TOPICAL (13:00)
[2022-12-13] MEDS: POTASSIUM CHLORIDE 10 MEQ CAPSULE ER PO (16:11)
[2022-12-14] MEDS: HYDROCODONE-ACETAMIN 5-325 MG 1 TAB PO (02:49)
[2022-12-14] MEDS: METFORMIN ER 500 MG 1000 MG PO ×2 (08:21→17:32)
[2022-12-14] MEDS: LOPERAMIDE HCL 2 MG CAPSULE PO ×2 (08:21→15:46)
[2022-12-14] MEDS: MAGNESIUM OXIDE 400 MG TABLET 500 MG PO (08:21)
[2022-12-14] MEDS: FUROSEMIDE 20 MG TABLET PO ×2 (08:21→15:46)
[2022-12-14] MEDS: predniSONE 5 MG TABLET PO (08:22)
[2022-12-14] MEDS: LACTOBACILLUS ACIDOPHILUS 1 TABLET 1 TAB PO ×2 (11:14→17:32)
--- NOTE | 2022-12-14 13:46 | PC.NURSE ---
Status: Resident is pale in color and felling like she is going to throw up. Resident does not throw up and states that she is just dry heaving.
--- NOTE | 2022-12-14 13:49 | PC.NURSE ---
Skin: Resident stats that she feels pain in her vaginal area. When assessing the area staff finds a tear in between the right labia majora and minora. SensiCare applied.
[2022-12-14] MEDS: POTASSIUM CHLORIDE 10 MEQ CAPSULE ER 20 MEQ PO (17:32)
--- NOTE | 2022-12-14 22:40 | PC.NURSE ---
Health Status: Resident C/o not feeling good. Reported feeling sick/nausea after taking her scheduled noon Probiotic capsule. Had one small emesis this shift, and requested a can of chicken broth for dinner. Guadalupe Anastacia was offered. Auscultated bowel sound was gurgle. Vital signs obtained: BP- 143/78, Temp- 98.4, O2- 97, Resp- 20, Pul- 78, and pain- 0. Resident. Reported feeling better at the end of this shift.
[2022-12-15] MEDS: METFORMIN ER 500 MG 1000 MG PO ×2 (08:06→17:24)
--- NOTE | 2022-12-15 10:24 | PC.NURSE ---
Medication: Resident is out of D-3. Closing Agent called daughter Eloina and left a message to update.
--- NOTE | 2022-12-15 10:27 | PC.NURSE ---
Status: Resident refused all AM medications except for Metformin due to vomiting yesterday. She stated that she would take her medications tomorrow if she feels better.
[2022-12-15] MEDS: LACTOBACILLUS ACIDOPHILUS 1 TABLET 1 TAB PO ×2 (13:19→17:24)
[2022-12-15] MEDS: MAG HYDROX/ALUMINUM HYD/SIMETH 30 ML ORAL.SUSP PO (13:38)
[2022-12-15] MEDS: LOPERAMIDE HCL 2 MG CAPSULE PO (16:44)
[2022-12-15] MEDS: FUROSEMIDE 20 MG TABLET PO (16:44)
[2022-12-15] MEDS: POTASSIUM CHLORIDE 10 MEQ CAPSULE ER PO (17:24)
--- NOTE | 2022-12-16 03:13 | PC.NURSE ---
WEEKLY CHARTING WEEK 3 : TOILETING AND SKIN Vital signs reviewed, with consistent elevated BP, JAIL KEEPER aware. Resident does not want to take BP medications. No complain of hypertensive symptoms.Continue weekly VS monitoring. Comprehensive care plan and temporary care plan reviewed no change made lately. Resident is incontinent of bowel and bladder with occasional incontinence of bowel. Resident calls for need of bedpan, when pads needs to be changed ; jeri cares managed by staff. Needs 2 assists with changing? pad and placing large bedpan. Skin. resident legs are very edematous , pneumatic compression d/c 10/15/22 , agreed for high stocking on , mostly will keep them on for days . Resident got considerable edema on foot and ankles now. Some redness on folds, refused nystatin powder and at times washing and drying skin. Skin is checked during cares and on bath day.( Bed bath)
--- NOTE | 2022-12-16 06:50 | PC.NURSE ---
Weekly Charting- Week 3: Toileting & Skin Vital signs reviewed. B/P of 151/79 over the last week. Resident has hx of higher blood pressures and CRUISE AGENT is aware. Resident has had no c/o hypertensive symptoms. Staff continue to monitor weekly vital signs. Current skin issues monitored BID include redness/open area under L abdominal fold. Staff to apply Duoderm and put interdry in-between till healed though resident often refuses treatments set up for skin care including the application of PRN Nystatin as she will often tell the nurses, I don't need it despite education. Resident wears compression stockings to bilateral lower extremities to help control edema though will often refuse to have these removed at HS per schedule. She also has small, red, open areas to (R) chest and shoulder from scratching which staff apply bacitracin ointment too when resident will allow. Noted on 12/14/22- Resident has skin tear in between labia majora and minora. Real Estate Administrator has added this skin tear noted on 12/14/22 to temporary care plan with goal to heal skin tear by applying Sensicare cream with brief changes. These skin issues currently being monitored BID though as previously noted it is not uncommon for resident to refuse interventions to help heal skin issues despite education and reapproaching from staff. Comprehensive care plan reviewed with no changes made. Resident uses bedpan for bowel movements with extensive assist of 2 staff to roll in bed as well as when completing brief changes. She wears brief and is generally incontinent of bladder. Staff provide jeri cares including cleansing of jeri area, drying and applying brief as well as Sensicare cream.
[2022-12-16] MEDS: METFORMIN ER 500 MG 1000 MG PO ×2 (08:33→17:14)
--- NOTE | 2022-12-16 10:38 | PC.NURSE ---
Resident refused all morning medications except for metformin. Nurse educated resident on importance of taking daily medications. Resident also refused skin care. Would not allow nurse to apply nystatin to groin.
[2022-12-16] MEDS: LACTOBACILLUS ACIDOPHILUS 1 TABLET 1 TAB PO ×2 (11:38→17:14)
--- NOTE | 2022-12-16 14:19 | PC.NURSE ---
Health status: Resident requesting order for PRN Zofran due to nausea per COMMUNITY DEVELOPMENT AIDE. Channel Sales Manager called [facility] at this time with resident's request. Vital signs: P 96, R 16, T 98.2, O2 sat 96% on RA. Resident refused to have B/P assessed. Channel Sales Manager spoke with nurse Pierre with [facility] to relay request. [facility] to send any orders to Care Teams service. COMMUNITY DEVELOPMENT AIDE has completed Covid test. Evening staff have been updated and updated that nurse should check Care Teams for any new orders.
[2022-12-16 15:13] LABS: PCR FLU A Negative PCR FLU A (Negative); PCR FLU B Negative PCR FLU B (Negative)
[2022-12-16 15:20] LABS: SARS PCR* Negative SARS-CoV-2 (Negative)
--- NOTE | 2022-12-16 15:44 | PC.NURSE ---
Received telephone call from resident's daughter, Gwen/[phone] who expressed concern about Maki having nausea and dry heaves throughout the weekend. Gwen detailed concern for Maki's mother (Gwen's grandmother) having gallbladder cancer and wondering if resident needs to be evaluated for this with her symptoms. This ad writer informed her that I would speak with INSTRUMENTATION INSTRUCTOR/Larissa tomorrow and discuss it, but was unsure if her symptoms warrant invasive testing. She also requested that all of resident's supplements that they bring in, now be filled by [facility]. She is aware that they will likely not be covered by insurance and have to pay out of pocket. Food And Nutrition Supervisor will call [facility] tomorrow to see if this change can be made with resident privately paying if needed. Met with Maki at bedside to discuss her symptoms. Maki states she has had a poor appetite since Friday (12/13) and has not really been able to eat anything. She notes that she has been dry heaving without throwing anything up frequently throughout the day. She has not taken any medications for nausea. She denies having frequent loose stool. She states she has some abdominal pain and feels a little cold. Per resident she has been voiding. She is able to drink some fluids. Food And Nutrition Supervisor took patient's vital signs (see flowsheet) - was unable to get blood pressure because cuff was painful to painful. Vital signs were within normal limit. COVID and Flu test was ordered and patient agreeable to collection. Results came back negative and enhanced respiratory precautions removed. Food And Nutrition Supervisor will discuss patient's symptoms and need for further testing with INSTRUMENTATION INSTRUCTOR/Larissa tomorrow. road advisor/Shanice requested PRN anti-nausea meds from on-call provider.
[2022-12-16] MEDS: POTASSIUM CHLORIDE 10 MEQ CAPSULE ER PO (16:23)
[2022-12-16] MEDS: FUROSEMIDE 20 MG TABLET PO (16:23)
[2022-12-16] MEDS: LOPERAMIDE HCL 2 MG CAPSULE PO (16:23)
--- NOTE | 2022-12-16 20:58 | PC.NURSE ---
Cares refusal: Resident refused affected skin areas including skin tear at jeri-area to be assess and apply intervention treatments.
--- NOTE | 2022-12-16 21:08 | PC.NURSE ---
Cares refusal: Resident refused skin assessments/monitoring, and intervention treatments.
[2022-12-17] MEDS: ONDANSETRON ODT 4 MG TAB PO (01:46)
--- NOTE | 2022-12-17 01:47 | PC.NURSE ---
Resident has had 1x emesis, moderate amount of clear green liquid. c/o of stomach upset, no loose stool at this time. VSS BP unable to read, Temp 98.0, HR 100, RR 16, O2 sat 97% on RA. PRN Zofran 4mg given.
--- NOTE | 2022-12-17 06:27 | PC.NURSE ---
Nausea: Call made to [facility] regarding resident having emesis, ordered by oncall provider Larissa Jimenes to give 4mg Ondansetron PO Q8H PRN. It was given at 0130am.
--- NOTE | 2022-12-17 09:08 | PC.NURSE ---
Follow up on Nausea: Woke resident to see how she was feeling. Her facial expressions said she didn't feel well. She had received Zofran during the night for nausea which was somewhat effective but she is still nauseated. Her bowel sounds were not active. A ping here and there. She was going to try some hot cereal but she says she she becomes nauseated when trying to eat. Will have SURVEY TECHNICIAN review.
[2022-12-17] MEDS: FUROSEMIDE 20 MG TABLET PO ×2 (09:28→18:44)
[2022-12-17] MEDS: METFORMIN ER 500 MG 1000 MG PO ×2 (09:29→18:45)
[2022-12-17] MEDS: LACTOBACILLUS ACIDOPHILUS 1 TABLET 1 TAB PO ×2 (13:06→18:45)
[2022-12-17 15:00] VITALS: PULSE 89; RESP 18; TEMP 36.4; O2SAT 95
--- NOTE | 2022-12-17 16:08 | PC.NURSE ---
Daughter, Cristy called to inquire if the FERRY HAND had seen her mom today. She was informed she had not gotten to see her. Nurses reported she was less nauseated but will leave a message to be seen on and Cristy wants a call to share her concerns of GI issues that Maki has and Maki's mom has had. I told Cristy we need the families help to go through her fridge weekly and toss outdated food and they will do that on Sundays when they are here.
--- NOTE | 2022-12-17 16:16 | PC.NURSE ---
HONING MACHINE OPERATOR SEMIAUTOMATIC was updated on status earlier when present in the care center by nurse and recommended to encourage fluids, continue to monitor. Update if no bm or if emesis continues.
[2022-12-17] MEDS: LOPERAMIDE HCL 2 MG CAPSULE PO (18:44)
[2022-12-17] MEDS: POTASSIUM CHLORIDE 10 MEQ CAPSULE ER 20 MEQ PO (18:45)
--- NOTE | 2022-12-17 20:45 | PC.NURSE ---
Resident refused bed bath. VS: T. 97.6, rr 18, 95%, p.89. Refused BP. Resident denies pain. Resident reports she feels better. Resident didn't eat any of her dinner placed before her. Resident pocketed dinner. Resident did swallow medication, required full assistance to drink/hold cup. Unable drink/suck from straw. Resident very weak. Weak/faint active bowel sounds all 4 quadrants.
--- NOTE | 2022-12-18 06:19 | PC.NURSE ---
Health Status: Resident continue declining, Slept most of the night, mouth breathing, RR 19 regular pattern, 02 saturation still above 90% at room air. Resident check and changed, repositioned every 2 hour tolerated well, No verbal and non verbal of pain.
[2022-12-18 07:00] VITALS: BP 82/58; PULSE 62; RESP 16; TEMP 35.8; O2SAT 91
--- NOTE | 2022-12-18 07:15 | PC.NURSE ---
Health status note: Well Treatment Offsider assessed resident this morning and noted the following vital signs: B/P difficult to hear upon auscultation and noted to be 82/58, P 62, R 16, T 96.5, O2 sat 91% on RA. Well Treatment Offsider was unable to obtain B/P reading on automatic cuff though did attempt. Resident's pupils are noted to be equal and responsive bilaterally though pupils are noted to be dilated bilaterally. Resident is non-responsive and unable to perform hand grasps upon assessment. She has no verbal or nonverbal indications of pain or respiratory distress noted at this time. Well Treatment Offsider placed call to daughter Eloina to provide update. Eloina has been informed of her mom's health status at this time including resident being non-responsive with assessment. Eloina states she will update her sister Cristy. Floor nurse updated. Well Treatment Offsider will also place call to [facility] Triage to provide update and request order for PRN Morphine as resident continues to decline.
--- NOTE | 2022-12-18 07:50 | PC.NURSE ---
note: Resident noted to be at 0730. Floor RN had went in to check on resident at that time and requested this poem writer the tank charger assess resident as floor nurse believed resident had . was verified by two RNs per policy including assessing apical pulse for 1 full minute. Last vital signs were obtained at 0700 though no respirations or pulse were noted at 0730. Printing Plate Setter then placed call to daughter Eloina to provide update that resident had passed and she stated that she was going to update her sister Cristy. Printing Plate Setter did verify that family would like to come to visit resident to which they stated they would. NARs have assisted resident with cares before family arrived. Floor staff, BERYL and SHARON notified of resident's . BERYL is updating foil cutter at this time per policy. Daughter Cristy and grandson are here visiting resident at this time. Printing Plate Setter placing call to [facility] to update provider of and obtain order to release body.
--- NOTE | 2022-12-18 08:12 | PC.NURSE ---
Provider update: Medical Or Surgical Instrument Maker placed call to [employer] Triage at [phone] providing update of and request to release body.
--- NOTE | 2022-12-18 08:31 | PC.NURSE ---
New order: Provider CLOTH CARRIER Larissa Jimenes called at 0825 and was updated regarding resident's and gave TO: Ok to release body. transmission supervisor also aware of resident's passing. Family is here visiting at this time. Nursing staff will await further direction from family as to when they would like use to call mortuary.
--- NOTE | 2022-12-18 08:36 | PC.NURSE ---
Police Booking Officer (BERYL) was made aware of resident by scrap chargerShanice FLOWERS around 0730 this morning. This typewriters functional tester assessed resident along with scrap charger and bedside RN (Yanelis). RN/Shanice auscultated for apical pu8lse for one minute and observed for respirations. No pulse or respirations noted. canal equipment maintenance supervisor and SHARON/Juliette updated on resident . adult high school instructor notified family. Prior to , this typewriters functional tester had spoken with family (Gwen) on 12/16 (see documentation from 12/16). Police Booking Officer discussed patient's ongoing nausea with CLEAN OUT DRILLER HELPER/Larissa on 12/17 and no lab testing, invasive imaging/testing or escalation of care was warranted by CLEAN OUT DRILLER HELPER at that time. PRN Zofran had been ordered and administered by bedside RN (see MAR). CLEAN OUT DRILLER HELPER ordered staff to continue to push fluids and observe patient status. Patient confirmed to be DNR/DNI with limited interventions. This typewriters functional tester [facility][phone] to report unexpected . Spoke with Ariane at Road Design Engineer's office and discussed patient's diagnosis for LTC and confirmed she had no falls or injuries prior to . She reports that it is ok to release the body and is not a reportable .
--- NOTE | 2022-12-18 08:37 | PC.NURSE ---
Informational note: C Software Developer leaving voicemail with [facility] at this time alerting home staff that LTC has had a and will call back when family is ready.
--- NOTE | 2022-12-18 08:43 | PC.NURSE ---
Ryan from [facility] called back at this time and has been informed of resident's passing. Tight Barrel Inspector informed Ryan that staff will call back when family is ready for mortuary to come to get resident.
--- NOTE | 2022-12-18 09:00 | PC.NURSE ---
Health status note: merchandising assistant reported that resident appears to have slight L facial drooping though resident did not have her dentures in and she was positioned with face facing left side. Hand grasps were noted to be equal bilaterally but flaccid before as resident was unable to perform hand grasps upon request of nurse and pupils were noted to be equal and responsive bilaterally though were both dilated bilaterally. Staff report resident was incontinent of bowel when she brief was changed this morning at approximately 0630.
--- NOTE | 2022-12-18 09:12 | PC.NURSE ---
Decline: Assessed resident upon starting the shift. She was unresponsive but still breathing. The RACHELLE's went in and cleaned and repositioned her without any response from her. Cocoa Roaster did assessments as well and had difficulty reading a blood pressure. Her eyes were dilated and equal. Went in to check o n her at 0730 and she had ceased breathing. Had 2 RN's check for pulse which was absent. Family had been updated earlier and were informed of her passing.
--- NOTE | 2022-12-18 09:54 | PC.SPIRITC ---
I talked with family at bedside who were tearful, told stories about Maki, and expressed some concerns. I provided grief support, facilitated conversation about memories, and gave them information to Cristy and Eloina for our Patient Advocate, of whom the family is interested in meeting with. I passed this information along to Supriya (Patient Advocate.)
--- NOTE | 2022-12-18 10:00 | PC.NURSE ---
Recapitulation: Resident was admitted to [facility] for half-way care d/t generalized disability and acute cystitis. Medical history includes morbid obesity, DM2, neuropathy, edema, spongiotic dermatitis, OA, and CKD stage 3. Resident resistive to cares. Refused to leave room but spoke frequently with family/friends on the phone and enjoyed visitors weekly. In 2020 resident was seen in ED following a fall resulting in a R humeral head fx. Orthopedic care provided until fx healed. Resident was also seen in ED 05/23/22 for a laceration to rt calf. On 12/14/22 resident had c/o of nausea, poor appetite and began refusing medications. Condition declined 12/17/22 and resident at 0730 on 12/18/22.
--- NOTE | 2022-12-18 10:10 | PC.NURSE ---
Sewer Contractor called [place] [facility]repreneurship Program Director [facility] to provide update regarding resident's passing.
--- NOTE | 2022-12-18 10:20 | PC.SOCIAL ---
Informational note: Received update from Patient Advocate that family was provided with a grievance form and business card and is welcome to reach out to the patient advocate at any time.
--- NOTE | 2022-12-18 10:26 | PC.SPIRITC ---
Family requested bedside prayer, which I facilitated. Per Simi, they changed their mind about meeting with the Patient Advocate today and sitting down to get a detailed update on the events of the last few days from medical staff. Per Simi, they will call later. Family was given detailed information with a phone number and email address to contact when they are ready.
--- NOTE | 2022-12-18 10:50 | PC.NURSE ---
Cotton Tipper called [facility] at this time to request home staff pick resident up as family states they are ready for home staff to get resident. [place] with [facility] reports that they will be here shortly approximately within the next half an hour to get resident.
--- NOTE | 2022-12-18 12:00 | PC.NURSE ---
note: Resident at 0730 today (12/18/22). Daughter Eloina was then alerted of resident's passing as family was not present during passing though daughter Eloina was updated at 0720 today regarding resident declining and that she was noted to be non-responsive upon assessment. Vital signs completed at 0700: B/P 82/58, P 62, R 16, T 96.5, O2 sat 91% on RA. Resident had no verbal or nonverbal indications or respiratory distress noted prior to her passing. Pickle Maker called [facility] Triage at [phone] to alert provider of resident's passing and obtain order to release body and verbally spoke with REGIONAL LIAISON Larissa Jimenes via phone at [phone] to give update to REGIONAL LIAISON as well as obtain order to release body. Order provided by SANDY. BERYL contacted audit tech after resident's passing. Skin condition prior to resident's passing: Small scabs to R chest and shoulder with Bacitracin being applied and areas being monitored BID for tx. She also had one small skin tear previously noted in between labia majora and labia minora with Sensicare cream being applied BID. Resident's family did not want to send jewelry or dentures with resident after passing as daughters state resident will be cremated. Daughters choosing to throw dentures away. Daughters are taking resident's two opened bottles of Vitamin D & Zinc supplements per request and daughter Eloina is also taking 2 bottles of Peppermint Schnaaps home with them as Schnaaps and supplements were previously provided by family. [facility] was contacted at 1050 by phone to request removal of body and transport to home. Body removed by home at 1130 with family present. Mortician signed progress note to also confirm this information.
--- NOTE | 2022-12-18 12:30 | PC.NURSE ---
Informational note: Core Winding Operator has informed [facility] [employer] that resident has and will therefore need air mattress and pump picked up when possible.
== END | disposition expired | DRG 720 ==
PROVIDERS: Family Medicine; Admitting Provider Family Medicine; Family Provider Nurse Practitioner Gerontology; Visit Provider Family Medicine
DX: A41.59 Other Gram-negative sepsis (principal); B96.1 Klebsiella pneumoniae [K. pneumoniae] as the cause of diseases classified elsewhere; N30.20 Other chronic cystitis without hematuria; N30.00 Acute cystitis without hematuria; E11.40 Type 2 diabetes mellitus with diabetic neuropathy, unspecified; E66.9 Obesity, unspecified; R53.1 Weakness; E66.01 Morbid (severe) obesity due to excess calories; R19.7 Diarrhea, unspecified; M79.89 Other specified soft tissue disorders; E87.6 Hypokalemia; R21 Rash and other nonspecific skin eruption; S81.811A Laceration without foreign body, right lower leg, initial encounter; L30.8 Other specified dermatitis; M15.9 Polyosteoarthritis, unspecified
CPT/HCPCS: 36415; 73020; 80048; 82040; 83036; 83735; 85025; 87631; 87635; A9270